=== PATIENT | male | born 1945 | race Caucasian/White ===

== ENCOUNTER → 2016-12-29 | Outpatient (CLI) | payer MEDICARE, OTHER ==
--- NOTE | 2016-12-29 10:01 | USB ---
Reason for exam: clinical finding. Physical Findings: Nurse Summary: all soft, movable bilateral breast tissue (nurse ts). US Breast BILAT Right breast ultrasound includes all four quadrants, the retroareolar region and axilla. Finding demonstrate no cystic or solid lesion seen. Left breast ultrasound includes all four quadrants, the retroareolar region and axilla. Finding demonstrate no cystic or solid lesion seen. These results were verbally communicated with the patient and result sheet given to the patient on 12/29/16. ASSESSMENT: Negative, BI-RAD 1 RECOMMENDATION: Clinical management of both breasts. Manage patient on a clinical basis.
== END | disposition home or self-care (01) ==
LOC: RADUSWWP 08:49
PROVIDERS: ATTEND Family Medicine
DX: N62 Hypertrophy of breast (principal)

== ENCOUNTER → 2019-12-05 | Outpatient (CLI) | payer MEDICARE, OTHER ==
--- NOTE | 2019-12-12 10:17 | P.ARTDOP ---
Arterial Doppler LOWER EXTREMITY ARTERIAL DOPPLER: DATE OF SERVICE: 12/05/2019 Reason for study: Right leg ulcer. Doppler waveforms: Multiphasic bilaterally throughout. Pulse volume recording: Normal waveforms. Pressure gradients: None. Ankle-brachial indices: Greater than 1 bilaterally. Toe brachial indices: 0.79 on the right, 0.67 on the left Impression: Normal study.
== END | disposition home or self-care (01) ==
LOC: RADUSWWP 13:23
PROVIDERS: ATTEND Thoracic Surgery (Cardiothoracic Vascular Surgery)
DX: I87.331 Chronic venous hypertension (idiopathic) with ulcer and inflammation of right lower extremity (principal); L97.912 Non-pressure chronic ulcer of unspecified part of right lower leg with fat layer exposed; L03.115 Cellulitis of right lower limb
CPT/HCPCS: 93922

== ENCOUNTER 2021-04-26 17:44 | Emergency (ER) | payer MEDICARE, OTHER ==
[2021-04-26] MEDS ORDERED: TOPICAL SKIN ADHESIVE 1 EACH AMP TOPICAL ONE (18:19)
--- NOTE | 2021-04-26 18:23 | ED ---
Wound/Laceration HPI - General Chief Complaint: Wound/Laceration Stated Complaint: Lt Leg Lac Source: patient, EMS, RN notes reviewed Mode of arrival: EMS Limitations: no limitations - History of Present Illness Initial Comments: 75-year-old obese white male is and states the emergency room alert and oriented 4, with complaints of bleeding from his left leg after hit with a hose clamp hour prior to arrival. Patient states that he cannot get the bleeding controlled taken to the hospital. Patient states his tetanus shot is up-to-date. He denies any other injuries. He states takes an aspirin a day. Patient is a nonsmoker and does not drink alcohol on a daily basis. No illicit drug use. -: hour(s) (1) Extremity Location: Left: Lower Leg (Ruptured varicose vein) Place: outdoors Patient Tetanus UTD: Yes Context: accidental, other (from clamp on hose) Associated Symptoms: none Treatments Prior to Arrival: bandage - Related Data Allergies Allergy/AdvReac Type Severity Reaction Status Date / Time No Known Allergies Allergy Verified 04/26/21 18:00 Review of Systems ROS Statement: Those systems with pertinent positive or pertinent negative responses have been documented in the HPI. ROS Other: All systems not noted in ROS Statement are negative. Past Medical History Past Medical History: Hypertension Past Surgical History: Orthopedic Surgery, Tonsillectomy Smoking Status: Former smoker Past Alcohol Use History: None Reported Past Drug Use History: None Reported General Exam General appearance: alert, in no apparent distress Head exam: Present: atraumatic, normocephalic, normal inspection Eye exam: Present: normal appearance, PERRL, EOMI. Absent: scleral icterus, conjunctival injection, periorbital swelling Pupils: Present: normal accommodation ENT exam: Present: normal exam, normal oropharynx, mucous membranes moist Neck exam: Present: normal inspection, full ROM. Absent: tenderness, meningismus, lymphadenopathy, thyromegaly Respiratory exam: Present: normal lung sounds bilaterally. Absent: respiratory distress, wheezes, rales, rhonchi, stridor, chest wall tenderness, accessory muscle use Cardiovascular Exam: Present: regular rate, normal rhythm, normal heart sounds. Absent: systolic murmur, diastolic murmur, rubs, gallop, clicks GI/Abdominal exam: Present: soft, distended, normal bowel sounds. Absent: tenderness, guarding, rebound, rigid Extremities exam: Present: full ROM, normal capillary refill. Absent: tenderness, pedal edema, joint swelling, calf tenderness Back exam: Present: normal inspection, full ROM. Absent: tenderness, CVA tenderness (R), CVA tenderness (L), muscle spasm, paraspinal tenderness, ve rtebral tenderness Neurological exam: Present: alert, oriented X3, CN II-XII intact Psychiatric exam: Present: normal affect, normal mood Skin exam: Present: warm, dry, intact, normal color. Absent: rash, cyanosis, diaphoretic, erythema, petechiae, pallor, mottled Expanded Type of lesion: Present: other (Left anterior tibia varicose vein rupture, bleeding controlled with pressure) Course Vital Signs 04/26/21 18:41 Temperature 98 F Pulse Rate 70 Respiratory 18 Rate Blood Pressure 101/62 O2 Sat by Pulse 95 Oximetry Medical Decision Making - Medical Decision Making Patient has evidence of chronic venous insufficiency with encouraged to varicose veins. Patient states the metal clamp on the hose hit his leg and caused bleeding and when these vessels. Bleeding was controlled with pressure dressing/hong wrap. Dr. Butts at bedside to assess. Disposition Clinical Impression: Ruptured varicose vein Disposition: HOME SELF-CARE Condition: Good Instructions (If sedation given, give patient instructions): Laceration (ED) Additional Instructions: Return if any increased bleeding or inability to stop with pressure. Follow-up with the primary care doctor in 1 week. Is patient prescribed a controlled substance at d/c from ED?: No Referrals: Tyron Smith III, MD [Primary Care Provider] - 1-2 days Time of Disposition: 20:04
[2021-04-26 18:43] VITALS: BP 101/62; PULSE 70; RESP 18; TEMP 98
[2021-04-26] MEDS ORDERED: LIDOCAINE 1%-EPI 1:100,000 20 ML VIAL SQ STA (19:14)
== END 2021-04-26 21:27 | disposition home or self-care (01) ==
LOC: EC 17:44
DX: I83.892 Varicose veins of left lower extremity with other complications (principal); I10 Essential (primary) hypertension; Z87.891 Personal history of nicotine dependence
CPT/HCPCS: 99284

== ENCOUNTER 2023-11-23 07:56 | Inpatient (IN) | payer MEDICARE, OTHER ==
--- NOTE | 2023-11-23 08:32 | ED ---
General Adult HPI - General Chief complaint: Abdominal Pain Stated complaint: Adominal Pain Time Seen by Provider: 11/23/23 08:16 Source: patient, RN notes reviewed Mode of arrival: ambulatory Limitations: no limitations - History of Present Illness Initial comments: Patient is a pleasant 78-year-old male present to the emergency department with concerns with abdominal discomfort. Onset of symptoms was just a couple days ago. Discomfort is upper abdomen. No nausea or vomiting. No constipation or diarrhea. Patient does feel full. No history of similar symptoms previously. - Related Data Allergies Allergy/AdvReac Type Severity Reaction Status Date / Time No Known Allergies Allergy Verified 11/23/23 08:07 Review of Systems ROS Statement: Those systems with pertinent positive or pertinent negative responses have been documented in the HPI. ROS Other: All systems not noted in ROS Statement are negative. Constitutional: Denies: fever Eyes: Denies: eye pain ENT: Denies: ear pain Respiratory: Denies: cough, dyspnea Cardiovascular: Denies: chest pain Endocrine: Denies: fatigue Gastrointestinal: Reports: as per HPI, abdominal pain. Denies: nausea, vomiting, diarrhea, constipation Musculoskeletal: Denies: back pain Skin: Denies: rash Past Medical History Past Medical History: Hypertension History of Any Multi-Drug Resistant Organisms: None Reported Past Surgical History: Orthopedic Surgery, Tonsillectomy Smoking Status: Former smoker Past Alcohol Use History: None Reported Past Drug Use History: None Reported General Exam Limitations: no limitations General appearance: alert, in no apparent distress Head exam: Present: normocephalic Eye exam: Present: normal appearance Neck exam: Present: normal inspection Respiratory exam: Present: normal lung sounds bilaterally Cardiovascular Exam: Present: regular rate, irregular rhythm Expanded Peripheral pulses: 2+: Posterior Tibialis (R), Posterior Tibialis (L) GI/Abdominal exam: Present: soft, tenderness (Mild epigastric tenderness to palpation), normal bowel sounds. Absent: guarding, pulsatile mass Extremities exam: Present: normal inspection Neurological exam: Present: alert Psychiatric exam: Present: normal affect, normal mood Skin exam: Present: normal color Course Vital Signs 11/23/23 11/23/23 11/23/23 08:05 09:25 10:00 Temperature 97.4 F L Pulse Rate 53 L 53 L 65 Respiratory 16 20 19 Rate Blood Pressure 149/75 115/65 119/79 O2 Sat by Pulse 97 97 96 Oximetry 11/23/23 10:52 Temperature 97.6 F Pulse Rate 70 Respiratory 17 Rate Blood Pressure 129/80 O2 Sat by Pulse 95 Oximetry EKG Findings - EKG Results: EKG: interpreted by GERTRUDED (Right axis. Right bundle branch block. Nonspecific T waves) EKG shows: atrial fibrillation Medical Decision Making - Medical Decision Making Was pt. sent in by a medical professional or institution (, DANY, FISCAL ACCOUNTANT, urgent care, hospital, or [facility]...) When possible be specific @ -No Did you speak to anyone other than the patient for history (EMS, parent, family, police, friend...)? What history was obtained from this source @ - is present and helps provide history confirmation. Did you review nursing and triage notes (agree or disagree)? Why? @ -I reviewed and agree with nursing and triage notes Were old charts reviewed (outside hosp., previous admission, EMS record, old EKG, old radiological studies, urgent care reports/EKG's, [facility] records)? Report findings @ -No old charts were reviewed Differential Diagnosis (chest pain, altered mental status, abdominal pain women, abdominal pain men, vaginal bleeding, weakness, fever, dyspnea, syncope, headache, dizziness, GI bleed, back pain, seizure, CVA, palpatations, mental health, musculoskeletal)? @ -Differential Abdominal Pain Men: Appendicitis, cholecystitis, diverticulosis, ischemic bowel, pancreatitis, hepatitis, UTI, gastroenteritis, AAA, incarcerated hernia, bowel obstruction, constipation, inflammatory bowel, hepatitis, peptic ulcer disease, splenic infarction, perforated viscus, testicular torsion, this is not meant to be an all-inclusive list EKG interpreted by me (3pts min.). @ -As above X-rays interpreted by me (1pt min.). @ -None done CT interpreted by me (1pt min.). @ -CT scan abdomen pelvis does show some inflammatory changes possible distal gastritis or duodenitis. Soft tissue thickening sigmoid colon. U/S interpreted by me (1pt. min.). @ -None done What testing was considered but not performed or refused? (CT, X-rays, U/S, l abs)? Why? @ -None What meds were considered but not given or refused? Why? @ -None Did you discuss the management of the patient with other professionals (professionals i.e. , PA, FISCAL ACCOUNTANT, lab, RT, psych nurse, health social work professor, food and beverage outlets manager, teacher, consumer safety officer, dependency case manager)? Give summary @ -Case was discussed with Dr. Jones, who will admit covering Dr. Valentine Was smoking cessation discussed for >3mins.? @ -No Was critical care preformed (if so, how long)? @ -No Were there social determinants of health that impacted care today? How? (Homelessness, low income, unemployed, alcoholism, drug addiction, transportation, low edu. Level, literacy, decrease access to med. care, senior care, rehab)? @ -No Was there de-escalation of care discussed even if they declined (Discuss DNR or withdrawal of care, Hospice)? DNR status @ -No What co-morbidities impacted this encounter? (DM, HTN, Smoking, COPD, CAD, Cancer, CVA, ARF, Chemo, Hep., AIDS, mental health diagnosis, sleep apnea, morbid obesity)? @ -None Was patient admitted / discharged? Hospital course, mention meds given and route, prescriptions, significant lab abnormalities, going to OR and other pertinent info. @ -Patient reevaluated. Patient and family updated. Patient will be admitted with gastroenterology consult. Admission orders written. Undiagnosed new problem with uncertain prognosis? @ -No Drug Therapy requiring intensive monitoring for toxicity (Heparin, Nitro, Insulin, Cardizem)? @ -No Were any procedures done? @ -No Diagnosis/symptom? @ -Pancreatitis Acute, or Chronic, or Acute on Chronic? @ -Acute Uncomplicated (without systemic symptoms) or Complicated (systemic symptoms)? @ -Complicated with duodenitis Side effects of treatment? @ -No Exacerbation, Progression, or Severe Exacerbation? @ -No Poses a threat to life or bodily function? How? (Chest pain, [place], [place], pneumonia, PE, COPD, DKA, ARF, appy, cholecystitis, CVA, Diverticulitis, Homicidal, Suicidal, threat to staff... and all critical care pts) @ -No - Lab Data Result diagrams: 11/23/23 08:39 11/23/23 08:39 Lab Results 11/23/23 11/23/23 11/23/23 Range/Units 08:39 08:39 08:39 WBC 8.5 (3.8-10.6) k/uL RBC 5.02 (4.30-5.90) m/uL Hgb 13.3 (13.0-17.5) gm/dL Hct 40.9 (39.0-53.0) % MCV 81.5 (80.0-100.0) fL MCH 26.5 (25.0-35.0) pg MCHC 32.6 (31.0-37.0) g/dL RDW 15.0 (11.5-15.5) % Plt Count 258 (150-450) k/uL MPV 8.0 Neutrophils % 84 % Lymphocytes % 9 % Monocytes % 5 % Eosinophils % 0 % Basophils % 0 % Neutrophils # 7.2 (1.3-7.7) k/uL Lymphocytes # 0.7 L (1.0-4.8) k/uL Monocytes # 0.5 (0-1.0) k/uL Eosinophils # 0.0 (0-0.7) k/uL Basophils # 0.0 (0-0.2) k/uL PT 11.2 (10.0-12.5) sec INR 1.0 (<1.2) APTT 24.4 (22.0-30.0) sec Sodium 139 (137-145) mmol/L Potassium 3.8 (3.5-5.1) mmol/L Chloride 104 (98-107) mmol/L Carbon Dioxide 23 (22-30) mmol/L Anion Gap 12 mmol/L BUN 12 (9-20) mg/dL Creatinine 0.67 (0.66-1.25) mg/dL Est GFR (CKD-EPI)AfAm >90 (>60 ml/min/1.73 sqM) Est GFR (CKD-EPI)NonAf >90 (>60 ml/min/1.73 sqM) Glucose 145 H (74-99) mg/dL Calcium 9.2 (8.4-10.2) mg/dL Total Bilirubin 1.6 H (0.2-1.3) mg/dL AST 171 H (17-59) U/L ALT 98 H (4-49) U/L Alkaline Phosphatase 150 H (38-126) U/L Total Protein 6.7 (6.3-8.2) g/dL Albumin 3.7 (3.5-5.0) g/dL Amylase 1512 H* (30-110) U/L Lipase 22549 H (23-300) U/L Disposition Clinical Impression: Pancreatitis Disposition: ADMITTED IP TO THIS HOSP Is patient prescribed a controlled substance at d/c from ED?: No Referrals: None,Stated [REFERRING] - 1-2 days Time of Disposition: 11:34
[2023-11-23] MEDS: SODIUM CHLORIDE 0.9% 1,000 ML IV STA (08:48)
[2023-11-23] MEDS: FAMOTIDINE 20 MG/2 ML VIAL IV STA (08:50)
[2023-11-23] MEDS: MORPHINE SULFATE 4 MG/ML SYRINGE IVP STA (08:53)
[2023-11-23 08:54] LABS: Basophils % (A) 0 %; Eosinophils % (A) 0 %; HCT 40.9 % (39.0-53.0); HGB 13.3 gm/dL (13.0-17.5); Lymphocytes # (A) 0.7 k/uL (1.0-4.8); Lymphocytes % (A) 9 %; MCH 26.5 pg (25.0-35.0); MCHC 32.6 g/dL (31.0-37.0); MCV 81.5 fL (80.0-100.0); Monocytes # (A) 0.5 k/uL (0-1.0); Monocytes % (A) 5 %; Neutrophils # (A) 7.2 k/uL (1.3-7.7); Neutrophils % (A) 84 %; Platelet Count 258 k/uL (150-450); RBC 5.02 m/uL (4.30-5.90); WBC 8.5 k/uL (3.8-10.6)
[2023-11-23 09:03] LABS: Partial Thromboplastin Time 24.4 sec (22.0-30.0); Prothrombin Time 11.2 sec (10.0-12.5)
[2023-11-23 09:21] LABS: ALT 98 U/L (4-49); AST 171 U/L (17-59); African American GFR (CKD) >90 (>60 ml/min/1.73 sqM); Albumin 3.7 g/dL (3.5-5.0); Alkaline Phosphatase 150 U/L (38-126); Anion Gap 12 mmol/L; Blood Urea Nitrogen 12 mg/dL (9-20); Calcium 9.2 mg/dL (8.4-10.2); Carbon Dioxide 23 mmol/L (22-30); Chloride 104 mmol/L (98-107); Glucose 145 mg/dL (74-99); Non-African American GFR(CKD) >90 (>60 ml/min/1.73 sqM); Potassium 3.8 mmol/L (3.5-5.1); Sodium 139 mmol/L (137-145); Total Bilirubin 1.6 mg/dL (0.2-1.3); Total Protein 6.7 g/dL (6.3-8.2)
[2023-11-23] MEDS: ONDANSETRON 4 MG/2 ML VIAL IVP STA (09:22)
[2023-11-23 09:41] LABS: Amylase 1512 U/L (30-110)
[2023-11-23 09:56] LABS: Lipase 12465 U/L (23-300)
--- NOTE | 2023-11-23 10:50 | CT ---
EXAMINATION TYPE: CT abdomen pelvis w con DATE OF EXAM: 11/23/2023 COMPARISON: None available. HISTORY: Upper abdominal pain. Automated exposure control for dose reduction was used. TECHNIQUE: Helical acquisition of images was performed from the lung bases through the pelvis. CONTRAST: Performed without Oral Contrast and with IV Contrast, patient injected with 100 mL of Isovue 300. LOWER CHEST : The visualized lung bases are clear. There are no pleural or pericardial effusions. ABDOMEN: Liver and Biliary system: Normal. Adrenal glands: Normal. Kidneys and ureters: 2.1 cm cyst in the inferior pole the right kidney. 1.7 cm cyst in the inferior p ole of the right kidney. 2.0 x 0.7 cm nonobstructing stone in the inferior pole of the left kidney. A dditional nonobstructing stone in the inferior pole the left kidney measuring approximately 8.2 mm in diameter. Spleen: Normal. Pancreas: Normal. Gallbladder: Normal. Lymph nodes, Peritoneum and mesentery: There is no mesenteric or retroperitoneal lymphadenopathy. Gastrointestinal tract: There are no dilated loops of bowel or free intraperitoneal air. There is some thickening of the eye work region of the stomach that extends into the duodenum with some surro unding stranding and fluid is suggestive of a distal gastritis and duodenitis. The appendix is normal . There is moderate descending colonic and sigmoid colonic diverticulosis with a significant area of thickening of the colonic wall in the sigmoid colon which would raise the possibility of malignancy a nd direct visualization is recommended. There is no surrounding inflammatory changes in this location at this time. Aorta/IVC: There is moderate vascular calcification throughout the abdominal aorta without evidence of aneurysmal dilation or dissection. IVC normal. Abdominal wall: Normal. PELVIS: Fluid: There is no free fluid in the pelvis. Lymph Nodes: There is no pelvic or inguinal lymphadenopathy.. Urinary bladder: Normal. BONES: Moderate degenerative joint space narrowing is seen within the right hip joint space with sub chondral sclerosis and cystic changes as well as marginal spurring. Mild degenerative changes otherwi se seen within the left hip joint space. There is some scattered degenerative changes otherwise seen throughout the spine. There are no acute osseous abnormalities. ADDITIONAL SIGNIFICANT FINDINGS: None. IMPRESSION: 1. Findings suggestive of a distal gastritis and duodenitis. This is likely inflammatory or infectiou s. Malignancy is felt to be less likely in this location, however not excluded. 2. Diverticulosis without evidence of diverticulitis, however there does appear to be significant sof t tissue thickening involving a region of the sigmoid colon along a short segment with malignancy a c onsideration and direct visualization would be recommended. 3. Nonobstructing left renal stones.
[2023-11-23] MEDS ORDERED: NALOXONE 0.4 MG/ML 1 ML VIAL IV PRN (11:34)
[2023-11-23] MEDS: HYDROmorphone 1 MG/ML 1 ML SYRINGE IVP PRN (12:29)
[2023-11-23] MEDS: SODIUM CHLORIDE 0.9% 1,000 ML IV SCH (12:34)
[2023-11-23] MEDS: HYDROmorphone 0.5 MG/0.5 ML SYRINGE IVP PRN (14:13)
[2023-11-23] MEDS ORDERED: bisacodyL 5 MG TABLET.DR PO PRN (15:15)
[2023-11-23] MEDS ORDERED: ACETAMINOPHEN TAB 325 MG TAB PO PRN (15:15)
--- NOTE | 2023-11-23 15:30 | P.HPIM ---
History of Present Illness H&P Date: 11/23/23 Patient is a 78-year-old male with hypertension, sinusitis, Chronic Lower extremity edema, and A fib anticoagulated with eliquis with complaints of abdominal discomfort. In the emergency department he underwent extensive evaluation. On arrival vitals were within normal limits. Laboratory analysis included CBC, coags, CMP, amylase, and lipase which were remarkable for bilirubin 1.6, AST 171, ALT 98, amylase 1512, and lipase 12,465. Patient underwent CT abdomen and pelvis which demonstrated distal gastritis or duodenitis, diverticulosis with thickening of the sigmoid colon, and left renal stones. In the ER he was diagnosed with acute pancreatitis. He was started on normal saline at 130 cc/h and Dilaudid. Arrangements were made for admission. GI was consulted. Patient seen and examined at bedside. He reports that for the last 2 days he has had worsening abdominal pain that is periumbilical without radiation. It waxes and wanes. His feels that it is related to eating, he is unsure. He denies any nausea, vomiting, diarrhea, fevers. He has had increased fatigue and d ecreased appetite the last few days. He has done card colon cancer screening, but has never had a colonoscopy. He follows with Dr. Rudolph no hx of CHF, but does have chronic LE edema. He has a fib but this has been well controlled. Per urine is chronically dark in nature. Vital signs reviewed General: nontoxic, no distress, appears at stated age Derm: Thick skin with darkening, + vericos veins, warm, dry Eyes: EOMI, no lid lag, anicteric sclera, pupils equal round reactive to light ENT: Nose and ears atraumatic Cardiovascular: S1S2 reg, no murmur, n2+ edema Lungs: clear to auscultation bilateral, no rhonchi, no rales, no wheeze, no accessory muscle use Abdominal: soft, +tender to palpation RUQ and periumbilical , no guarding Ext: no gross muscle atrophy, no contractures Neuro: CN II-XII grossly intact, No focal neuro deficits Psych: Alert, oriented, appropriate affect Assessment/Plan: Acute pancreatitis Duodenitis, diverticulosos Transaminitis - LR 1L bolus and then run at 130 cc/hr - dialudid 0.5-1 mg IVP q 3 hours prn pain depending on pain score - Zofran 4mg IVP q 6 hours prn nausea - Gallbladder US - Await GI recs - Will need colonoscopy likely as an outpatient. HTN A. fib - resume metoprolol 50 mg po daily, cardizem 120 mg PO daily, eliquis 5 mg twice dialy - hold oral lasix and aldactone - monitor fluid status Imaging: As per HPI Data Review: As per HPI The patient is admitted with an anticipated greater than 2 midnight stay for evaluation of Acute pancreatitis . Surrogate decision-maker: CODE STATUS:full DVT prophylaxis: Lovenox Anticipated discharge date: Pending Clinical Course Anticipated discharge place: Pending Clinical Course This dictation was prepared using [employer] voice recognition software. Though every attempt is made to correct errors during dictation some may still exist. Past Medical History Past Medical History: Atrial Fibrillation, Hypertension Additional Past Medical History / Comment(s): sinusitis, Chornic LE edema History of Any Multi-Drug Resistant Organisms: None Reported Past Surgical History: Orthopedic Surgery, Tonsillectomy Smoking Status: Former smoker Past Alcohol Use History: None Reported Past Drug Use History: None Reported Medications and Allergies Home Medications Medication Instructions Recorded Confirmed Type Apixaban [Eliquis] 5 mg PO BID 11/23/23 11/23/23 History Diltiazem Cd [Cardizem CD] 120 mg PO DAILY 11/23/23 11/23/23 History Ergocalciferol [Vitamin D2 (1250 1,250 mcg PO MARTINO 11/23/23 11/23/23 History Mcg = 88090 Iu)] Fluticasone Nasal [place] [Flonase 1 spr EA NOSTRIL BID 11/23/23 11/23/23 History Nasal [place]] Furosemide [Lasix] 20 mg PO DAILY 11/23/23 11/23/23 History Metoprolol Succinate (ER) [Toprol 50 mg PO DAILY 11/23/23 11/23/23 History Xl] Spironolactone [Aldactone] 25 mg PO DAILY 11/23/23 11/23/23 History Allergies Allergy/AdvReac Type Severity Reaction Status Date / Time No Known Allergies Allergy Verified 11/23/23 12:57 Physical Exam Osteopathic Statement: *. No significant issues noted on an osteopathic structural exam other than those noted in the History and Physical/Consult. Vitals: Vital Signs Temp Pulse Resp BP Pulse Ox 11/23/23 14:10 59 L 17 101/67 97 11/23/23 12:30 98.8 F 56 L 17 112/74 96 11/23/23 10:52 97.6 F 70 17 129/80 95 11/23/23 10:00 65 19 119/79 96 11/23/23 09:25 53 L 20 115/65 97 11/23/23 08:05 97.4 F L 53 L 16 149/75 97 Intake and Output 11/23/23 11/23/23 11/23/23 06:59 14:59 22:59 Other: Weight 146.964 kg Results CBC & Chem 7: 11/23/23 08:39 11/23/23 08:39 Labs: Abnormal Lab Results - Last 24 Hours (Table) 11/23/23 11/23/23 Range/Units 08:39 08:39 Lymphocytes # 0.7 L (1.0-4.8) k/uL Glucose 145 H (74-99) mg/dL Total Bilirubin 1.6 H (0.2-1.3) mg/dL AST 171 H (17-59) U/L ALT 98 H (4-49) U/L Alkaline Phosphatase 150 H (38-126) U/L Amylase 1512 H* (30-110) U/L Lipase 67963 H (23-300) U/L
[2023-11-23] MEDS: LACTATED RINGERS 1,000 ML IV SCH ×2 (15:35→15:38)
--- NOTE | 2023-11-23 15:39 | P.CONS ---
History of Present Illness - Reason for Consult Consult date: 11/23/23 Pancreatitis, duodenitis Requesting physician: Jasen Phillips - Chief Complaint Abdominal pain - History of Present Illness This is a pleasant 78-year-old male who presented to the emergency department with complaints of right upper quadrant abdominal pain that started 2 to 3 days ago and progressively got worse. Pain was associated with nausea and vomiting. Past medical history includes morbid obesity, atrial fibrillation and hypertension. He was found to have elevated LFTs as well as amylase and lipase. Gastroenterology was consulted for pancreatitis. He denies any history of pancreatitis in the past, no recent alcohol use. States he had drink in the past but that was over 20 years ago. States pain has improved since he has been here. He had a CT of the abdomen pelvis which reported findings suggestive of a distal gastritis and duodenitis. Likely inflammatory or infectious. Malignancy is felt to be less likely in this location however not excluded. Diverticulosis without evidence of diverticulitis. However there does appear to be significant soft tissue thickening involving the region of the sigmoid colon along the short segment with malignancy a consideration and direct visualization would be recommended. Nonobstructing left renal stones. Labs WBC 8.5 hemoglobin 13 platelet count 258,000 INR 1.0 sodium 139 potassium 3.8 BUN 12 creatinine 0.6 total bilirubin 1.6 AST 171 ALT 98 alkaline phosphatase 150 amylase 1512 lipase 12 465 Review of Systems REVIEW OF SYSTEMS: CARDIOPULMONARY: No chest pain or shortness of breath. Gastrointestinal: Right upper quadrant pain associated with nausea and vomiting. No hematemesis, coffee-ground emesis. No rectal bleeding, or melena. GENITOURINARY: No dysuria or hematuria. MUSCULOSKELETAL: Reports normal range of motion., Joint pain. SKIN: No rashes. No jaundice. ENDOCRINE: No chills, fevers. No excessive weight gain or loss. No polydipsia or polyuria. PSYCHIATRIC: Unremarkable. NEUROLOGY: No change in mental status. Denies dizziness, headache. ENT: Vision unremarkable. CONSTITUTIONAL: No recent weight loss. No fever, chills, night sweats. Past Medical History Past Medical History: Hypertension History of Any Multi-Drug Resistant Organisms: None Reported Past Surgical History: Orthopedic Surgery, Tonsillectomy Smoking Status: Former smoker Past Alcohol Use History: None Reported Past Drug Use History: None Reported Medications and Allergies Home Medications Medication Instructions Recorded Confirmed Type Apixaban [Eliquis] 5 mg PO BID 11/23/23 11/23/23 History Diltiazem Cd [Cardizem CD] 120 mg PO DAILY 11/23/23 11/23/23 History Ergocalciferol [Vitamin D2 (1250 1,250 mcg PO MARTINO 11/23/23 11/23/23 History Mcg = 90053 Iu)] Fluticasone Nasal [place] [Flonase 1 spr EA NOSTRIL BID 11/23/23 11/23/23 History Nasal [place]] Furosemide [Lasix] 20 mg PO DAILY 11/23/23 11/23/23 History Metoprolol Succinate (ER) [Toprol 50 mg PO DAILY 11/23/23 11/23/23 History Xl] Spironolactone [Aldactone] 25 mg PO DAILY 11/23/23 11/23/23 History Allergies Allergy/AdvReac Type Severity Reaction Status Date / Time No Known Allergies Allergy Verified 11/23/23 12:57 Physical Exam Vitals: Vital Signs Temp Pulse Resp BP Pulse Ox 11/23/23 12:30 98.8 F 56 L 17 112/74 96 11/23/23 10:52 97.6 F 70 17 129/80 95 11/23/23 10:00 65 19 119/79 96 11/23/23 09:25 53 L 20 115/65 97 11/23/23 08:05 97.4 F L 53 L 16 149/75 97 Intake and Output 11/22/23 11/23/23 11/23/23 22:59 06:59 14:59 Other: Weight 146.964 kg General appearance: The patient is alert, oriented, appears in no acute distress. HET: Head is normocephalic and atraumatic. Conjunctiva pink. Sclera anicteric. Neck: Supple without lymphadenopathy. Trachea midline. Heart: Regular. Lungs: Equal expansion, normal respiratory effort. Abdomen: Morbidly obese. Soft, right upper quadrant and epigastric tenderness, nondistended. No guarding or rigidity. Skin: No rashes. No jaundice. Extremities: Normal skin color and turgor. No pedal edema. Neurological: No focal deficits. Alert and oriented x3. Results CBC & Chem 7: 11/23/23 08:39 11/23/23 08:39 Labs: Abnormal Lab Results - Last 24 Hours (Table) 11/23/23 11/23/23 Range/Units 08:39 08:39 Lymphocytes # 0.7 L (1.0-4.8) k/uL Glucose 145 H (74-99) mg/dL Total Bilirubin 1.6 H (0.2-1.3) mg/dL AST 171 H (17-59) U/L ALT 98 H (4-49) U/L Alkaline Phosphatase 150 H (38-126) U/L Amylase 1512 H* (30-110) U/L Lipase 00775 H (23-300) U/L Comments: CT of the abdomen pelvis which reported findings suggestive of a distal gastritis and duodenitis. Likely inflammatory or infectious. Malignancy is felt to be less likely in this location however not excluded. Diverticulosis without evidence of diverticulitis. However there does appear to be significant soft tissue thickening involving the region of the sigmoid colon along the short segment with malignancy a consideration and direct visualization would be recommended. Nonobstructing left renal stones. Assessment and Plan (1) Pancreatitis Narrative/Plan: 78-year-old male admitted with acute pancreatitis was also noted elevated LFTs. Denies any history of pancreatitis or underlying liver disease. No new medications and no alcohol use. Denies any previous history of problems with his gallbladder or gallstones. Had significant elevation in his amylase and lipase as well as elevation in his LFTs. Need to consider possible gallstone pancreatitis with cholestatic pattern. [place] gallbladder ultrasound. Trend lipase and LFTs. Current Visit: Yes Status: Acute Code(s): K85.90 - ACUTE PANCREATITIS WITHOUT NECROSIS OR INFECTION, UNSP SNOMED Code(s): 55164233 (2) Elevated LFTs Current Visit: Yes Status: Acute Code(s): R79.89 - OTHER SPECIFIED ABNORMAL FINDINGS OF BLOOD CHEMISTRY SNOMED Code(s): 495506314 Plan: 1. Continue symptomatic and supportive care 2. Continue pain medication per primary medical team 3. Antiemetics as needed 4. Protonix 40 mg twice daily 5. N.p.o. with ice chips 6. Gallbladder ultrasound ordered 7. Repeat CBC, CMP, lipase daily 8. Further recommendations forthcoming based on clinical course Thank you for this consultation, we will continue to follow. Dr. Hilda Hudson I agree with the dictator's note, documented as a scribe by Paula Beckett.
--- NOTE | 2023-11-23 17:31 | US ---
EXAMINATION TYPE: US gallbladder DATE OF EXAM: 11/23/2023 COMPARISON: CT 11/23/23 CLINICAL INDICATION: Male, 78 years old with history of pancreatitis, elevated LFTS; Elevated LFTs TECHNIQUE: Multiple sonographic images of the right upper quadrant are obtained. FINDINGS: EXAM MEASUREMENTS: Liver Length: 17.7 cm Gallbladder Wall: 0.23 cm CBD: Obscured Right Kidney: 14.4 x 7.4 x 6.8 cm HEAD CHAR FILTER TANK TENDER NOTES: Exam is very limited due to gas and patient body habitus. Several images were t aken intercostally. Pancreas: Obscured Liver: Measures upper limits. Gallbladder: Enlarged measuring 11.0 cm in length. Very limited. Hyperechoic material with shadowing seen within the gallbladder: 3.4 x 3.3 x 1.4 cm. Evidence for sonographic Villarreal's sign: No CBD: Obscured Right Kidney: Enlarged. Hypoechoic area seen medially at the lower pole: 3.0 x 2.9 x 2.5 cm. IMPRESSION: 1. Biliary sludge/cholelithiasis. 2. Hepatocellular disease correlate for cirrhosis. 3. Right renal cyst.
[2023-11-23] MEDS: PANTOPRAZOLE 40 MG/10 ML VIAL IV SCH (20:10)
[2023-11-23] MEDS: APIXABAN 5 MG TAB PO SCH (20:10)
[2023-11-23] MEDS: FLUTICASONE 50MCG/SPRAY NASAL 16GM EA NOSTRIL SCH (21:48)
[2023-11-24] MEDS: METOPROLOL SUCCINATE (ER) 100 MG TAB.ER.24H PO SCH (08:17)
[2023-11-24] MEDS: DILTIAZEM CD 120 MG CAP.ER.24H PO SCH (08:17)
[2023-11-24] MEDS ORDERED: PANTOPRAZOLE 40 MG/10 ML VIAL IV SCH (09:00)
[2023-11-24 10:17] LABS: Basophils # (A) 0.02 X 10*3/uL (0.00-0.10); Basophils % (A) 0.1 %; Eosinophils # (A) 0.01 X 10*3/uL (0.04-0.35); Eosinophils % (A) 0.1 %; HCT 39.9 % (39.6-50.0); HGB 12.5 g/dL (13.0-17.0); Lymphocytes # (A) 0.73 X 10*3/uL (0.90-5.00); Lymphocytes % (A) 4.5 %; MCH 26.5 pg (27.0-32.0); MCHC 31.3 g/dL (32.0-37.0); MCV 84.5 FL (80.0-97.0); Mean Platelet Volume 11.4 FL (9.5-12.2); Monocytes # (A) 1.24 X 10*3/uL (0.20-1.00); Monocytes % (A) 7.7 %; NRBC Per 100 WBC 0 X 10*3/uL (0.00-0.01); Neutrophils # (A) 14.09 X 10*3/uL (1.80-7.70); Neutrophils % (A) 87.3 %; Platelet Count 270 X 10*3/uL (140-440); RBC 4.72 X 10*6/uL (4.40-5.60); RDW 15.9 % (11.5-14.5); WBC 16.14 X 10*3/uL (4.50-10.00)
[2023-11-24 10:38] LABS: ALT 63 U/L (10-49); AST 50 U/L (14-35); Albumin 3.6 g/dL (3.8-4.9); Albumin/Globulin Ratio 1.38 Ratio (1.60-3.17); Alkaline Phosphatase 122 U/L (41-126); BUN/Creat Ratio 13.75 Ratio (12.00-20.00); Carbon Dioxide 28.3 mmol/L (21.6-31.8); Chloride 100 mmol/L (96-109); Globulin 2.6 g/dL (1.6-3.3); Glucose 86 mg/dL (70-110); Magnesium 1.8 mg/dL (1.5-2.4); Potassium 3.9 mmol/L (3.5-5.5); Sodium 138 mmol/L (135-145); Total Bilirubin 0.9 mg/dL (0.3-1.2); Total Protein 6.2 g/dL (6.2-8.2)
[2023-11-24 10:51] LABS: Lipase 854 U/L (14-60)
[2023-11-24 10:58] LABS: Amylase 722 U/L (23-121)
--- NOTE | 2023-11-24 12:43 | P.PN ---
Subjective Progress Note Date: 11/24/23 78-year-old male with hypertension, sinusitis, chronic lower extremity edema, and A fib anticoagulated with eliquis presents with complaints of abdominal discomfort. In the emergency department he underwent extensive evaluation. On arrival vitals were within normal limits. Laboratory analysis included CBC, coags, CMP, amylase, and lipase which were remarkable for bilirubin 1.6, AST 171, ALT 98, amylase 1512, and lipase 12,465. Patient underwent CT abdomen and pelvis which demonstrated distal gastritis or duodenitis, diverticulosis with thickening of the sigmoid colon, and left renal stones. In the ER he was diagnosed with acute pancreatitis. He was started on normal saline at 130 cc/h and Dilaudid. Arrangements were made for admission. GI was consulted. 11/24 Patient was seen and examined. He reports improvement in his abdominal pain. Pain is right and left upper quadrant. Gall bladder US shows biliary sludge with cholelithiasis. CBC WBC 16.14, Hg 12.5. CMP AST 50, ALT 63, alb 3.6. Amylase 722. Lipase 854. Discussed with ALICIA Mitchell, plans for MRCP to evaluate need to ERCP and surgery consult. General: non toxic, no distress, appears at stated age Derm: warm, dry Head: atraumatic, normocephalic, symmetric Eyes: EOMI, no lid lag, anicteric sclera Mouth: no lip lesion, mucus membranes moist Cardiovascular: S1S2 reg, no murmur Lungs: Clear to auscultation bilateral, no rhonchi, no rales , no accessory muscle use Abdominal: Soft, tender to palpation RU and LUQ without rebound, no guarding Ext: no gross muscle atrophy, no edema, no contractures Neuro: no focal neuro deficits Psych: Alert, oriented, appropriate affect Based on my assessment of this patient, this patient meets a high complexity level of care. Patient has an acute diagnosis of gallstone pancreatitis that poses a threat to life or bodily function. Gallstone pancreatitis: Discussed with ALICIA Mitchell, plans for MRCP to evaluate for ERCP and surgery consult. Decreased LR to 75 cc/hr from 130 cc/hr. Dialudid 0.5- 1 mg IVP Q3H PRN pain. Zofran 4mg IVP Q6H PRN for N/V. Transaminitis: Obstructive likely due to choledocolithiasis. Leukocytosis: Unknown etiology. No signs of cholecystitis on CT AP or GB US. Monitor for now. Normocytic anemia: Stable. Advised C-scope in the outpatient setting. HTN: Antihypertensive medications as below. A. fib: Resume metoprolol 50 mg po daily, cardizem 120 mg PO daily, eliquis 5 mg twice dialy. CODE STATUS: FULL CODE DVT Prophylaxis: Eliquis GI Prophylaxis: Protonix IV Designated medical POA if patient is not able to make medical decisions for themselves: I have reviewed the following senior energy consultant notes: I have reviewed the results of the following tests: CBC, CMP, GB US, Amylase, Lipase I have ordered the following tests: CBC and CMP I have discussed the care of this patient with the following independent historian: I have independently interpreted the following test below: I have discussed the management of this patient with the following physician: ALICIA Mitchell as above. Objective - Vital Signs Vital signs: Vital Signs Temp 98 F 11/24/23 06:58 Pulse 66 11/24/23 06:58 Resp 17 11/24/23 06:58 BP 124/74 11/24/23 06:58 Pulse Ox 91 L 11/24/23 06:58 FiO2 Intake & Output 11/23/23 11/24/23 11/24/23 18:59 06:59 18:59 Intake Total 1500 Balance 1500 Weight 146.964 kg Intake: Intake, IV Titration 1500 Amount Lactated Ringers 1,000 ml 1500 @ 125 mls/hr IV .Q8H [facility] Rx#:[id number] Other: # Voids 4 - Labs CBC & Chem 7: 11/24/23 07:39 11/24/23 07:39 Labs: Abnormal Lab Results - Last 24 Hours (Table) 11/24/23 11/24/23 Range/Units 07:39 07:39 WBC 16.14 H (4.50-10.00) X 10*3/uL Hgb 12.5 L (13.0-17.0) g/dL MCH 26.5 L (27.0-32.0) pg MCHC 31.3 L (32.0-37.0) g/dL RDW 15.9 H (11.5-14.5) % Immature Gran # 0.05 H (0.00-0.04) X 10*3/uL Neutrophils # 14.09 H (1.80-7.70) X 10*3/uL Lymphocytes # 0.73 L (0.90-5.00) X 10*3/uL Monocytes # 1.24 H (0.20-1.00) X 10*3/uL Eosinophils # 0.01 L (0.04-0.35) X 10*3/uL AST 50 H (14-35) U/L ALT 63 H (10-49) U/L Albumin 3.6 L (3.8-4.9) g/dL Albumin/Globulin Ratio 1.38 L (1.60-3.17) Ratio Amylase 722 A* (23-121) U/L Lipase 854 H (14-60) U/L
--- NOTE | 2023-11-24 13:04 | P.GSCN ---
History of Present Illness Consult date: 11/24/23 History of present illness: CHIEF COMPLAINT: Abdominal pain HISTORY OF PRESENT ILLNESS: This is a 78-year-old male who presented with pain across the upper abdomen x 2 days. Patient reports never having symptoms like this before. He denies any fever chills or sweats. Denies any nausea or vomiting. Patient did have pain after eating a hamburger. Patient with evid ence of gallstone pancreatitis with elevated lipase and liver enzymes. CT scan abdomen pelvis had shown evidence of gastritis, duodenitis diverticulosis without diverticulitis. And some soft tissue thickening involving the sigmoid colon. Patient reports never having a colonoscopy. Patient does report feeling bloated. Gallbladder ultrasound did show evidence of sludge and gallstones. Patient is scheduled for MRCP and followed by GI service. Surgical service consulted for gallstone pancreatitis. Patient with history of A-fib on Eliquis. Last dose was yesterday night. Denies any prior abdominal surgeries. PAST MEDICAL HISTORY: Hypertension, A-fib PAST SURGICAL HISTORY: See below MEDICATIONS: See below ALLERGIES: See below SOCIAL HISTORY: No illicit drug use. Denies alcohol use REVIEW OF SYSTEMS: CONSTITUTIONAL: Denies fever or chills. HEENT: Denies blurred vision, vision changes, or eye pain. Denies hemoptysis CARDIOVASCULAR: Denies chest pain or pressure. RESPIRATORY: No shortness of breath. GASTROINTESTINAL: See HPI for pertinent findings HEMATOLOGIC: Denies bleeding disorders. GENITOURINARY: Denies any blood in urine or increased urinary frequency. SKIN: Denies pruitis. Denies rash. PHYSICAL EXAM: VITAL SIGNS: Reviewed GENERAL: Well-developed in no acute distress. HEENT: No sclera icterus. Extraocular movements grossly intact. Moist buccal mucosa. Head is atraumatic, normocephalic. No nasal drainage. ABDOMEN: Soft. Obese. Mildly distended. Tenderness palpation epigastric and right upper quadrant area. Mild discomfort in the left lower quadrant with palpation NEUROLOGIC: Alert and oriented. Cranial nerves II through XII grossly intact. LABORATORY DATA: WBC is up from 8.5-16.14 Hgb 12.5 platelets 270 Sodium is 138 potassium 3.9 creatinine 0.8 Total bilirubin 1.6 down to 0.9 AST 171 down to 50 ALT 98 down to 63 alk phos 150 down to 122 Lipase 12,465 down to 854 amylase 1512 down to 722 IMAGING: CT scan abdomen pelvis reports findings suggestive of a distal gastritis and duodenitis. Likely inflammatory or infectious. Malignancy is felt less likely. Diverticulosis without evidence of diverticulitis. There does appear signi ficant soft tissues thickening involving the region of the sigmoid colon along a short segment with malignancy as a consideration and direct visualization would be recommended. Nonobstructing left renal stones. Gallbladder ultrasound biliary sludge/cholelithiasis. Hepatocellular disease correlate for cirrhosis. Right renal cyst. ASSESSMENT: 1. Acute gallstone pancreatitis 2. Acute cholecystitis. Ultrasound showing sludge and cholelithiasis 3. Gastritis and duodenitis reported on CT 4. Soft tissue thickening involving the sigmoid colon and diverticulosis reported on abdominal CT 5. Leukocytosis PLAN: -Continue GI workup. Patient scheduled for an MRCP today. -Keep patient n.p.o. except for ice chips -Antibiotics added -Continue IV Protonix -Continue IV fluids -Continue supportive care -Repeat labs in a.m. -Further recommendations forthcoming per surgeon Physician Bingo Clerk note has been reviewed by physician. Signing provider agrees with the documented findings, assessment, and plan of care. I have personally seen and examined the patient, reviewed the [employer] /PAs history, exam and MDM and agree with the assessment and plan as written. Based on total visit time, I have performed more than 50% of the visit. As above: Patient with upper abdominal pain on presentation. Imaging and lab work consistent with gallstone pancreatitis. Continue bowel rest. Recheck labs tomorrow. Additional finding of thickening of the mid sigmoid colon noted. This needs to be followed up with colonoscopy as outpatient. Tentatively plan cholecystectomy later during this hospital stay or possibly as outpatient. Past Medical History Past Medical History: Hypertension Additional Past Medical History / Comment(s): sinusitis, [place] LE edema History of Any Multi-Drug Resistant Organisms: None Reported Past Surgical History: Orthopedic Surgery, Tonsillectomy Smoking Status: Former smoker Past Alcohol Use History: None Reported Past Drug Use History: None Reported Medications and Allergies Home Medications Medication Instructions Recorded Confirmed Type Apixaban [Eliquis] 5 mg PO BID 11/23/23 11/23/23 History Diltiazem Cd [Cardizem CD] 120 mg PO DAILY 11/23/23 11/23/23 History Ergocalciferol [Vitamin D2 (1250 1,250 mcg PO MARTINO 11/23/23 11/23/23 History Mcg = 29717 Iu)] Fluticasone Nasal [place] [Flonase 1 spr EA NOSTRIL BID 11/23/23 11/23/23 History Nasal [place]] Furosemide [Lasix] 20 mg PO DAILY 11/23/23 11/23/23 History Metoprolol Succinate (ER) [Toprol 50 mg PO DAILY 11/23/23 11/23/23 History Xl] Spironolactone [Aldactone] 25 mg PO DAILY 11/23/23 11/23/23 History Allergies Allergy/AdvReac Type Severity Reaction Status Date / Time No Known Allergies Allergy Verified 11/23/23 12:57 Surgical - Exam Vital Signs Temp Pulse Resp BP Pulse Ox 97.4 F L 53 L 16 149/75 97 11/23/23 08:05 11/23/23 08:05 11/23/23 08:05 11/23/23 08:05 11/23/23 08:05 Results - Labs 11/24/23 07:39 11/24/23 07:39 Abnormal Lab Results - Last 24 Hours (Table) 11/24/23 11/24/23 Range/Units 07:39 07:39 WBC 16.14 H (4.50-10.00) X 10*3/uL Hgb 12.5 L (13.0-17.0) g/dL MCH 26.5 L (27.0-32.0) pg MCHC 31.3 L (32.0-37.0) g/dL RDW 15.9 H (11.5-14.5) % Immature Gran # 0.05 H (0.00-0.04) X 10*3/uL Neutrophils # 14.09 H (1.80-7.70) X 10*3/uL Lymphocytes # 0.73 L (0.90-5.00) X 10*3/uL Monocytes # 1.24 H (0.20-1.00) X 10*3/uL Eosinophils # 0.01 L (0.04-0.35) X 10*3/uL AST 50 H (14-35) U/L ALT 63 H (10-49) U/L Albumin 3.6 L (3.8-4.9) g/dL Albumin/Globulin Ratio 1.38 L (1.60-3.17) Ratio Amylase 722 A* (23-121) U/L Lipase 854 H (14-60) U/L Diabetes panel 11/24/23 Range/Units 07:39 Sodium 138 (135-145) mmol/L Potassium 3.9 (3.5-5.5) mmol/L Chloride 100 (96-109) mmol/L Carbon Dioxide 28.3 (21.6-31.8) mmol/L BUN 11.0 (9.0-27.0) mg/dL Creatinine 0.8 (0.6-1.5) mg/dL Glucose 86 (70-110) mg/dL Calcium 9.0 (8.7-10.3) mg/dL AST 50 H (14-35) U/L ALT 63 H (10-49) U/L Alkaline Phosphatase 122 (41-126) U/L Total Protein 6.2 (6.2-8.2) g/dL Albumin 3.6 L (3.8-4.9) g/dL Calcium panel 11/24/23 Range/Units 07:39 Calcium 9.0 (8.7-10.3) mg/dL Albumin 3.6 L (3.8-4.9) g/dL Pituitary panel 11/24/23 Range/Units 07:39 Sodium 138 (135-145) mmol/L Potassium 3.9 (3.5-5.5) mmol/L Chloride 100 (96-109) mmol/L Carbon Dioxide 28.3 (21.6-31.8) mmol/L BUN 11.0 (9.0-27.0) mg/dL Creatinine 0.8 (0.6-1.5) mg/dL Glucose 86 (70-110) mg/dL Calcium 9.0 (8.7-10.3) mg/dL Adrenal panel 11/24/23 Range/Units 07:39 Sodium 138 (135-145) mmol/L Potassium 3.9 (3.5-5.5) mmol/L Chloride 100 (96-109) mmol/L Carbon Dioxide 28.3 (21.6-31.8) mmol/L BUN 11.0 (9.0-27.0) mg/dL Creatinine 0.8 (0.6-1.5) mg/dL Glucose 86 (70-110) mg/dL Calcium 9.0 (8.7-10.3) mg/dL Total Bilirubin 0.9 (0.3-1.2) mg/dL AST 50 H (14-35) U/L ALT 63 H (10-49) U/L Alkaline Phosphatase 122 (41-126) U/L Total Protein 6.2 (6.2-8.2) g/dL Albumin 3.6 L (3.8-4.9) g/dL
--- NOTE | 2023-11-24 16:18 | P.PN ---
Subjective Progress Note Date: 11/24/23 Principal diagnosis: Pancreatitis This is a pleasant 78-year-old male who presented to the emergency department with complaints of right upper quadrant abdominal pain that started 2 to 3 days ago and progressively got worse. Pain was associated with nausea and vomiting. Past medical history includes morbid obesity, atrial fibrillation and hypertension. He was found to have elevated LFTs as well as amylase and lipase. Gastroenterology was consulted for pancreatitis. He denies any history of pancreatitis in the past, no recent alcohol use. States he had drink in the [place] but that was over 20 years ago. States pain has improved since he has been here. He had a CT of the abdomen pelvis which reported findings suggestive of a distal gastritis and duodenitis. Likely inflammatory or infectious. Malignancy is felt to be less likely in this location however not excluded. Diverticulosis without evidence of diverticulitis. However there does appear to be significant soft tissue thickening involving the region of the sigmoid colon along the short segment with malignancy a consideration and direct visualization would be recommended. Nonobstructing left renal stones. Labs WBC 8.5 hemoglobin 13 platelet count 258,000 INR 1.0 sodium 139 potassium 3.8 BUN 12 creatinine 0.6 total bilirubin 1.6 AST 171 ALT 98 alkaline phosphatase 150 amylase 1512 lipase 12 465 11/24/2023 Patient seen and examined today sitting up in the bedside recliner. He states he is feeling much better. Abdominal pain has significantly improved. No nausea or vomiting. Labs are currently pending. Patient had ultrasound of the gallbladder yesterday which did report cholelithiasis and biliary sludge, hepatocellular disease correlate for cirrhosis and a right renal cyst. CBD was obscured. Objective - Vital Signs Vital signs: Vital Signs Temp 98 F 11/24/23 06:58 Pulse 66 11/24/23 06:58 Resp 17 11/24/23 06:58 BP 124/74 11/24/23 06:58 Pulse Ox 91 L 11/24/23 06:58 FiO2 Intake & Output 11/23/23 11/24/23 11/24/23 18:59 06:59 18:59 Intake Total 1500 Balance 1500 Weight 146.964 kg Intake: Intake, IV Titration 1500 Amount Lactated Ringers 1,000 ml 1500 @ 125 mls/hr IV .Q8H [facility] Rx#:[id number] Other: # Voids 4 - Exam General appearance: The patient is alert, oriented, appears in no acute distress. Morbidly obese. HET: Head is normocephalic and atraumatic. Conjunctiva pink. Sclera anicteric. Neck: Supple without lymphadenopathy. Abdomen: Soft, mild right upper quadrant tenderness, nondistended. No guarding or rigidity. Extremities: Normal skin color and turgor. No pedal edema Skin: No rashes, no jaundice Neurological: No focal deficits. Alert and oriented. - Labs CBC & Chem 7: 11/24/23 07:39 11/24/23 07:39 Assessment and Plan (1) Pancreatitis Narrative/Plan: 78-year-old male admitted with acute pancreatitis was also noted elevated LFTs. Denies any history of pancreatitis or underlying liver disease. No new medications and no alcohol use. Denies any previous history of problems with his gallbladder or gallstones. Had significant elevation in his amylase and lipase as well as elevation in his LFTs. Need to consider possible gallstone pancreatitis with cholestatic pattern. Tane gallbladder ultrasound. Trend lipase and LFTs. Gallbladder ultrasound shows cholelithiasis and biliary sludge. Repeat LFTs are trending down total bilirubin 0.9 AST 50 ALT 63 alkaline phosphatase 122. Repeat amylase 722 lipase a 54. Would recommend consult for general surgery for gallstone pancreatitis. Patient not presenting with biliary stasis, unlikely choledochal lithiasis. Will cancel MRCP. Current Visit: Yes Status: Acute Code(s): K85.90 - ACUTE PANCREATITIS WITHOUT NECROSIS OR INFECTION, UNSP SNOMED Code(s): 92415354 (2) Elevated LFTs Current Visit: Yes Status: Acute Code(s): R79.89 - OTHER SPECIFIED ABNORMAL FINDINGS OF BLOOD CHEMISTRY SNOMED Code(s): 734949256 (3) Morbidly obese Current Visit: Yes Status: Acute Code(s): E66.01 - MORBID (SEVERE) OBESITY DUE TO EXCESS CALORIES SNOMED Code(s): 628293186 Plan: 1. Continue symptomatic and supportive care 2. Patient may have clear liquid diet 3. Repeat CMP, lipase tomorrow 4. Gallbladder ultrasound ordered and reviewed 5. Consult to general surgery for gallstone pancreatitis 6. No further workup recommended by gastroenterology. No plans on endoscopic evaluation. Thank you for this consultation, we will continue to follow. Dr. Hilda Hudson I agree with the dictator's note, documented as a scribe by Paula Beckett.
[2023-11-24] MEDS: PIPERACILLIN-TAZOBACTAM 3.375 GM in SODIUM CHLORIDE 0.9% 100 ML IVPB SCH (16:23)
[2023-11-24] MEDS: ONDANSETRON 4 MG/2 ML VIAL IVP PRN (20:14)
[2023-11-25 11:08] LABS: Basophils # (A) 0.02 X 10*3/uL (0.00-0.10); Basophils % (A) 0.1 %; Eosinophils # (A) 0.02 X 10*3/uL (0.04-0.35); Eosinophils % (A) 0.1 %; HCT 39.1 % (39.6-50.0); HGB 12.3 g/dL (13.0-17.0); Lymphocytes % (A) 4.9 %; MCH 26.4 pg (27.0-32.0); MCHC 31.5 g/dL (32.0-37.0); MCV 83.9 FL (80.0-97.0); Mean Platelet Volume 11.3 FL (9.5-12.2); Monocytes # (A) 1.37 X 10*3/uL (0.20-1.00); Monocytes % (A) 7.4 %; NRBC Per 100 WBC 0 X 10*3/uL (0.00-0.01); Neutrophils # (A) 16.11 X 10*3/uL (1.80-7.70); Neutrophils % (A) 86.9 %; Platelet Count 263 X 10*3/uL (140-440); RBC 4.66 X 10*6/uL (4.40-5.60); WBC 18.53 X 10*3/uL (4.50-10.00)
[2023-11-25 11:24] LABS: ALT 41 U/L (10-49); AST 25 U/L (14-35); Albumin 3.5 g/dL (3.8-4.9); Albumin/Globulin Ratio 1.35 Ratio (1.60-3.17); Alkaline Phosphatase 106 U/L (41-126); BUN/Creat Ratio 15.89 Ratio (12.00-20.00); Blood Urea Nitrogen 14.3 mg/dL (9.0-27.0); Chloride 99 mmol/L (96-109); Globulin 2.6 g/dL (1.6-3.3); Glucose 84 mg/dL (70-110); Lipase 119 U/L (14-60); Potassium 3.7 mmol/L (3.5-5.5); Sodium 138 mmol/L (135-145); Total Bilirubin 1.2 mg/dL (0.3-1.2); Total Protein 6.1 g/dL (6.2-8.2)
--- NOTE | 2023-11-25 12:25 | P.PN ---
Subjective Progress Note Date: 11/25/23 78-year-old male with hypertension, sinusitis, chronic lower extremity edema, and A fib anticoagulated with eliquis presents with complaints of abdominal discomfort. In the emergency department he underwent extensive evaluation. On arrival vitals were within normal limits. Laboratory analysis included CBC, coags, CMP, amylase, and lipase which were remarkable for bilirubin 1.6, AST 171, ALT 98, amylase 1512, and lipase 12,465. Patient underwent CT abdomen and pelvis which demonstrated distal gastritis or duodenitis, diverticulosis with thickening of the sigmoid colon, and left renal stones. In the ER he was diagnosed with acute pancreatitis. He was started on normal saline at 130 cc/h and Dilaudid. Arrangements were made for admission. GI was consulted. 11/24 Patient was seen and examined. He reports improvement in his abdominal pain. Pain is right and left upper quadrant. Gall bladder US shows biliary sludge with cholelithiasis. CBC WBC 16.14, Hg 12.5. CMP AST 50, ALT 63, alb 3.6. Amylase 722. Lipase 854. Discussed with ALICIA Mitchell, plans for MRCP to evaluate need to ERCP and surgery consult. 11/25 Patient was seen and examined. Reports improvement in his abdominal pain. S tarted on Zosyn 3.375g IV TID yesterday for concerns of infected gall bladder. Surgery has been consulted and plans for OR on Tuesday. CBC WBC 18.53, Hg 12.3, Hct 39.1. CMP albumin 3.5. Lipase 119. General: non toxic, no distress, appears at stated age Derm: warm, dry Head: atraumatic, normocephalic, symmetric Eyes: EOMI, no lid lag, anicteric sclera Mouth: no lip lesion, mucus membranes moist Cardiovascular: S1S2 reg, no murmur Lungs: Clear to auscultation bilateral, no rhonchi, no rales , no accessory muscle use Abdominal: Soft, tender to palpation RU and LUQ without rebound, no guarding Ext: no gross muscle atrophy, no edema, no contractures Neuro: no focal neuro deficits Psych: Alert, oriented, appropriate affect Based on my assessment of this patient, this patient meets a high complexity level of care. Patient has an acute diagnosis of gallstone pancreatitis that poses a threat to life or bodily function. Gallstone pancreatitis: NS at 75 cc/hr. Dialudid 0.5-1 mg IVP Q3H PRN pain. Zofran 4mg IVP Q6H PRN for N/V. Plans for OR on Tuesday. Transaminitis: Obstructive likely due to choledocolithiasis. Cholecystitis: Does not meet sepsis criteria. Zosyn 3.375g IV TID. Plans for OR Tuesday. Normocytic anemia: Stable. Advised C-scope in the outpatient setting. HTN: Antihypertensive medications as below. A. fib: Resume metoprolol 50 mg po daily, cardizem 120 mg PO daily, eliquis 5 mg twice dialy. CODE STATUS: FULL CODE DVT Prophylaxis: Eliquis GI Prophylaxis: Protonix IV Designated medical POA if patient is not able to make medical decisions for themselves: I have reviewed the following systems security consultant notes: Surgery note. I have reviewed the results of the following tests: CBC, CMP I have ordered the following tests: CBC and CMP I have discussed the care of this patient with the following independent historian: I have independently interpreted the following test below: I have discussed the management of this patient with the following physician: Objective - Vital Signs Vital signs: Vital Signs Temp 98.2 F 11/25/23 07:40 Pulse 82 11/25/23 07:40 Resp 16 11/25/23 07:40 BP 120/82 11/25/23 07:40 Pulse Ox 93 L 11/25/23 07:40 FiO2 Intake & Output 11/24/23 11/25/23 11/25/23 18:59 06:59 18:59 Intake Total 1225 Balance 1225 Intake: Intake, IV Titration 1225 Amount Lactated Ringers 1,000 ml 1200 @ 75 mls/hr IV .[id number] REAL Rx#:[id number] Piperacillin-Tazobactam 3 25 .375 gm In Sodium Chloride 0.9% 100 ml @ 25 mls/hr IVPB Q8HR REAL Rx# :[id number] Other: Voiding Method Toilet # Voids 2 1 - Labs CBC & Chem 7: 11/25/23 07:20 11/25/23 07:20 Labs: Abnormal Lab Results - Last 24 Hours (Table) 11/25/23 11/25/23 Range/Units 07:20 07:20 WBC 18.53 H (4.50-10.00) X 10*3/uL Hgb 12.3 L (13.0-17.0) g/dL Hct 39.1 L (39.6-50.0) % MCH 26.4 L (27.0-32.0) pg MCHC 31.5 L (32.0-37.0) g/dL RDW 16.0 H (11.5-14.5) % Immature Gran # 0.11 H (0.00-0.04) X 10*3/uL Neutrophils # 16.11 H (1.80-7.70) X 10*3/uL Monocytes # 1.37 H (0.20-1.00) X 10*3/uL Eosinophils # 0.02 L (0.04-0.35) X 10*3/uL Total Protein 6.1 L (6.2-8.2) g/dL Albumin 3.5 L (3.8-4.9) g/dL Albumin/Globulin Ratio 1.35 L (1.60-3.17) Ratio Lipase 119 H (14-60) U/L
--- NOTE | 2023-11-25 12:41 | P.PN ---
Subjective Progress Note Date: 11/25/23 CHIEF COMPLAINT: abdominal pain HISTORY OF PRESENT ILLNESS: Patient admitted with gallstone pancreatitis. Patient reports that he is feeling better than yesterday but still not feeling completely well. He still has epigastric abdominal pain. Denies any nausea or vomiting. He is tolerating clear liquids. Afebrile. WBC is 16 up to 18 LFTs have normalized lipase is down to 119 PHYSICAL EXAM: VITAL SIGNS: Reviewed. GENERAL: Well-developed in no acute distress. ABDOMEN: Soft. Nondistended. Mild epigastric tenderness NEUROLOGIC: Alert and oriented. Cranial nerves II through XII grossly intact. ASSESSMENT: 1. Acute gallstone pancreatitis 2. Acute cholecystitis. Ultrasound showing sludge and cholelithiasis 3. Gastritis and duodenitis reported on CT 4. Soft tissue thickening involving the sigmoid colon and diverticulosis reported on abdominal CT 5. Leukocytosis PLAN: -Patient scheduled for laparoscopic cholecystectomy on 11/28/[address] Pool -Advance diet to full liquids -Recommend colonoscopy outpatient for evaluation of thickened sigmoid colon noted on CT -Repeat labs in a.m. -Continue antibiotics -Continue PPI Physician Wire Coater note has been reviewed by physician. Signing provider agrees with the documented findings, assessment, and plan of care. Objective - Vital Signs Vital signs: Vital Signs Temp 98.2 F 11/25/23 07:40 Pulse 82 11/25/23 07:40 Resp 16 11/25/23 07:40 BP 120/82 11/25/23 07:40 Pulse Ox 93 L 11/25/23 07:40 FiO2 Intake & Output 11/24/23 11/25/23 11/25/23 18:59 06:59 18:59 Intake Total 1225 Balance 1225 Intake: Intake, IV Titration 1225 Amount Lactated Ringers 1,000 ml 1200 @ 75 mls/hr IV .[id number] [facility] Rx#:[id number] Piperacillin-Tazobactam 3 25 .375 gm In Sodium Chloride 0.9% 100 ml @ 25 mls/hr IVPB Q8HR REAL Rx# :[id number] Other: # Voids 2 1 - Labs CBC & Chem 7: 11/25/23 07:20 11/25/23 07:20 Labs: Abnormal Lab Results - Last 24 Hours (Table) 11/24/23 Range/Units 07:39 AST 50 H (14-35) U/L ALT 63 H (10-49) U/L Albumin 3.6 L (3.8-4.9) g/dL Albumin/Globulin Ratio 1.38 L (1.60-3.17) Ratio Amylase 722 A* (23-121) U/L Lipase 854 H (14-60) U/L
--- NOTE | 2023-11-25 12:48 | P.PN ---
Subjective Progress Note Date: 11/25/23 Principal diagnosis: Pancreatitis This is a pleasant 78-year-old male who presented to the emergency department with complaints of right upper quadrant abdominal pain that started 2 to 3 days ago and progressively got worse. Pain was associated with nausea and vomiting. Past medical history includes morbid obesity, atrial fibrillation and hypertension. He was found to have elevated LFTs as well as amylase and lipase. Gastroenterology was consulted for pancreatitis. He denies any history of pancreatitis in the past, no recent alcohol use. States he had drink in the [facility] but that was over 20 years ago. States pain has improved since he has been here. He had a CT of the abdomen pelvis which reported findings suggestive of a distal gastritis and duodenitis. Likely inflammatory or infectious. Malignancy is felt to be less likely in this location however not excluded. Diverticulosis without evidence of diverticulitis. However there does appear to be significant soft tissue thickening involving the region of the sigmoid colon along the short segment with malignancy a consideration and direct visualization would be recommended. Nonobstructing left renal stones. Labs WBC 8.5 hemoglobin 13 platelet count 258,000 INR 1.0 sodium 139 potassium 3.8 BUN 12 creatinine 0.6 total bilirubin 1.6 AST 171 ALT 98 alkaline phosphatase 150 amylase 1512 lipase 12 465 11/24/2023 Patient seen and examined today sitting up in the bedside recliner. He states he is feeling much better. Abdominal pain has significantly improved. No nausea or vomiting. Labs are currently pending. Patient had ultrasound of the gallbladder yesterday which did report cholelithiasis and biliary sludge, hepatocellular disease correlate for cirrhosis and a right renal cyst. CBD was obscured. 11/25/2023 Patient seen and examined today as a follow-up. He is sitting up in the chair. States overall he is doing okay. Still has some abdominal discomfort but a bit better. He denies any nausea, vomiting or diarrhea. He is on IV Zosyn. WBC 18.5 hemoglobin 12 platelet count 263,000 total bilirubin 1.2 AST 25 ALT 41 alkaline phosphatase 106 lipase 119. General surgery's tentative plan is for cholecystectomy on Tuesday Objective - Vital Signs Vital signs: Vital Signs Temp 98.2 F 11/25/23 07:40 Pulse 82 11/25/23 07:40 Resp 16 11/25/23 07:40 BP 120/82 11/25/23 07:40 Pulse Ox 93 L 02/16/24 07:40 FiO2 Intake & Output 11/24/23 11/25/23 11/25/23 18:59 06:59 18:59 Intake Total 1225 Balance 1225 Intake: Intake, IV Titration 1225 Amount Lactated Ringers 1,000 ml 1200 @ 75 mls/hr IV .[id number] [facility] Rx#:[id number] Piperacillin-Tazobactam 3 25 .375 gm In Sodium Chloride 0.9% 100 ml @ 25 mls/hr IVPB Q8HR [facility] Rx# :[id number] Other: Voiding Method Toilet # Voids 2 1 - Exam General appearance: The patient is alert, oriented, appears in no acute distress. Morbidly obese. HET: Head is normocephalic and atraumatic. Conjunctiva pink. Sclera anicteric. Neck: Supple without lymphadenopathy. Abdomen: Soft, mild right upper quadrant tenderness, nondistended. No guarding or rigidity. Extremities: Normal skin color and turgor. No pedal edema Skin: No rashes, no jaundice Neurological: No focal deficits. Alert and oriented. - Labs CBC & Chem 7: 11/25/23 07:20 11/25/23 07:20 Labs: Abnormal Lab Results - Last 24 Hours (Table) 11/25/23 11/25/23 Range/Units 07:20 07:20 WBC 18.53 H (4.50-10.00) X 10*3/uL Hgb 12.3 L (13.0-17.0) g/dL Hct 39.1 L (39.6-50.0) % MCH 26.4 L (27.0-32.0) pg MCHC 31.5 L (32.0-37.0) g/dL RDW 16.0 H (11.5-14.5) % Immature Gran # 0.11 H (0.00-0.04) X 10*3/uL Neutrophils # 16.11 H (1.80-7.70) X 10*3/uL Monocytes # 1.37 H (0.20-1.00) X 10*3/uL Eosinophils # 0.02 L (0.04-0.35) X 10*3/uL Total Protein 6.1 L (6.2-8.2) g/dL Albumin 3.5 L (3.8-4.9) g/dL Albumin/Globulin Ratio 1.35 L (1.60-3.17) Ratio Lipase 119 H (14-60) U/L Assessment and Plan (1) Pancreatitis Narrative/Plan: 78-year-old male admitted with acute pancreatitis was also noted elevated LFTs. Denies any history of pancreatitis or underlying liver disease. No new medications and no alcohol use. Denies any previous history of problems with his gallbladder or gallstones. Had significant elevation in his amylase and lip ase as well as elevation in his LFTs. Need to consider possible gallstone pancreatitis with cholestatic pattern. Tane gallbladder ultrasound. Trend lipase and LFTs. Gallbladder ultrasound shows cholelithiasis and biliary sludge. Repeat LFTs are trending down total bilirubin 0.9 AST 50 ALT 63 alkaline phosphatase 122. Repeat amylase 722 lipase a 54. Would recommend consult for general surgery for gallstone pancreatitis. Patient not presenting with biliary stasis, unlikely choledochal lithiasis. Will cancel MRCP. Current Visit: Yes Status: Acute Code(s): K85.90 - ACUTE PANCREATITIS WITHOUT NECROSIS OR INFECTION, UNSP SNOMED Code(s): 62471061 (2) Elevated LFTs Current Visit: Yes Status: Acute Code(s): R79.89 - OTHER SPECIFIED ABNORMAL FINDINGS OF BLOOD CHEMISTRY SNOMED Code(s): 153850894 (3) Morbidly obese Current Visit: Yes Status: Acute Code(s): E66.01 - MORBID (SEVERE) OBESITY DUE TO EXCESS CALORIES SNOMED Code(s): 721059209 (4) Cholelithiasis Current Visit: Yes Status: Acute Code(s): K80.20 - CALCULUS OF GALLBLADDER W/O CHOLECYSTITIS W/O OBSTRUCTION SNOMED Code(s): 492120263 Plan: 1. Continue symptomatic and supportive care 2. Diet per general surgery recommendations 3. Tentative plan is cholecystectomy with general surgery on Tuesday 4. No further workup indicated from gastroenterology Thank you for this consultation, we will sign off at this time. Dr. Hilda Hudson I agree with the dictator's note, documented as a scribe by Paula ROMERO.
[2023-11-25] MEDS: SODIUM CHLORIDE 0.9% 1,000 ML IV SCH (13:26)
[2023-11-25] MEDS: MELATONIN 3 MG TABLET PO PRN (21:14)
[2023-11-26 10:32] LABS: Basophils # (A) 0.03 X 10*3/uL (0.00-0.10); Basophils % (A) 0.2 %; Eosinophils # (A) 0.07 X 10*3/uL (0.04-0.35); Eosinophils % (A) 0.4 %; HCT 35.2 % (39.6-50.0); HGB 11.2 g/dL (13.0-17.0); Lymphocytes # (A) 0.82 X 10*3/uL (0.90-5.00); Lymphocytes % (A) 4.9 %; MCH 26.6 pg (27.0-32.0); MCHC 31.8 g/dL (32.0-37.0); MCV 83.6 FL (80.0-97.0); Mean Platelet Volume 11.7 FL (9.5-12.2); Monocytes # (A) 1.36 X 10*3/uL (0.20-1.00); Monocytes % (A) 8.2 %; NRBC Per 100 WBC 0 X 10*3/uL (0.00-0.01); Neutrophils # (A) 14.21 X 10*3/uL (1.80-7.70); Neutrophils % (A) 85.8 %; Platelet Count 213 X 10*3/uL (140-440); RBC 4.21 X 10*6/uL (4.40-5.60); RDW 15.8 % (11.5-14.5); WBC 16.58 X 10*3/uL (4.50-10.00)
[2023-11-26 10:47] LABS: ALT 27 U/L (10-49); AST 18 U/L (14-35); Albumin 3.1 g/dL (3.8-4.9); Albumin/Globulin Ratio 1.29 Ratio (1.60-3.17); Alkaline Phosphatase 87 U/L (41-126); BUN/Creat Ratio 14.62 Ratio (12.00-20.00); Blood Urea Nitrogen 11.7 mg/dL (9.0-27.0); Calcium 8.6 mg/dL (8.7-10.3); Carbon Dioxide 25.1 mmol/L (21.6-31.8); Chloride 97 mmol/L (96-109); Globulin 2.4 g/dL (1.6-3.3); Glucose 88 mg/dL (70-110); Potassium 3.6 mmol/L (3.5-5.5); Sodium 137 mmol/L (135-145); Total Bilirubin 0.8 mg/dL (0.3-1.2); Total Protein 5.5 g/dL (6.2-8.2)
--- NOTE | 2023-11-26 10:52 | P.PN ---
Subjective Progress Note Date: 11/26/23 78-year-old male with hypertension, sinusitis, chronic lower extremity edema, and A fib anticoagulated with eliquis presents with complaints of abdominal discomfort. In the emergency department he underwent extensive evaluation. On arrival vitals were within normal limits. Laboratory analysis included CBC, coags, CMP, amylase, and lipase which were remarkable for bilirubin 1.6, AST 171, ALT 98, amylase 1512, and lipase 12,465. Patient underwent CT abdomen and pelvis which demonstrated distal gastritis or duodenitis, diverticulosis with thickening of the sigmoid colon, and left renal stones. In the ER he was diagnosed with acute pancreatitis. He was started on normal saline at 130 cc/h and Dilaudid. Arrangements were made for admission. GI was consulted. 11/24 Patient was seen and examined. He reports improvement in his abdominal pain. Pain is right and left upper quadrant. Gall bladder US shows biliary sludge with cholelithiasis. CBC WBC 16.14, Hg 12.5. CMP AST 50, ALT 63, alb 3.6. Amylase 722. Lipase 854. Discussed with ALICIA Mitchell, plans for MRCP to evaluate need to ERCP and surgery consult. 11/25 Patient was seen and examined. Reports improvement in his abdominal pain. S tarted on Zosyn 3.375g IV TID yesterday for concerns of infected gall bladder. Surgery has been consulted and plans for OR on Tuesday. CBC WBC 18.53, Hg 12.3, Hct 39.1. CMP albumin 3.5. Lipase 119. 11/26 Patient was seen and examined. Maintained on Zosyn (D3) for cholecystitis. Plans for cholecystectomy on Tuesday. CBC WBC 16.58 Hg 11.2 Hct 35.2. CMP AG 14.9, Ca 8.6, T. protein 5.5, alb 3.1. General: non toxic, no distress, appears at stated age Derm: warm, dry Head: atraumatic, normocephalic, symmetric Eyes: EOMI, no lid lag, anicteric sclera Mouth: no lip lesion, mucus membranes moist Cardiovascular: S1S2 reg, no murmur Lungs: Clear to auscultation bilateral, no rhonchi, no rales , no accessory muscle use Abdominal: Soft, tender to palpation RU and LUQ without rebound, no guarding Ext: no gross muscle atrophy, no edema, no contractures Neuro: no focal neuro deficits Psych: Alert, oriented, appropriate affect Based on my assessment of this patient, this patient meets a high complexity level of care. Patient has an acute diagnosis of gallstone pancreatitis that poses a threat to life or bodily function. Gallstone pancreatitis: NS at 75 cc/hr. Dialudid 0.5-1 mg IVP Q3H PRN pain. Zofran 4mg IVP Q6H PRN for N/V. Plans for OR on Tuesday. Cholecystitis: Does not meet sepsis criteria. Zosyn 3.375g IV TID. Plans for OR Tuesday. Transaminitis: Obstructive likely due to choledocolithiasis. Normocytic anemia: Stable. Advised C-scope in the outpatient setting. HTN: Antihypertensive medications as below. A. fib: Metoprolol 50 mg PO QD, Cardizem 120 mg PO QD, Eliquis 5 mg PO BID. CODE STATUS: FULL CODE DVT Prophylaxis: Eliquis GI Prophylaxis: Protonix IV Designated medical POA if patient is not able to make medical decisions for themselves: I have reviewed the following risk control consultant notes: Surgery note. I have reviewed the results of the following tests: CBC, CMP. I have ordered the following tests: CBC, BMP. I have discussed the care of this patient with the following independent historian: RN at bedside. I have independently interpreted the following test below: I have discussed the management of this patient with the following physician: Objective - Vital Signs Vital signs: Vital Signs Temp 98.1 F 11/26/23 07:19 Pulse 64 11/26/23 07:19 Resp 17 11/26/23 07:19 BP 155/79 11/26/23 07:19 Pulse Ox 92 L 11/26/23 07:19 FiO2 Intake & Output 11/25/23 11/26/23 11/26/23 18:59 06:59 18:59 Intake Total 50 750 Balance 50 750 Intake: Oral 50 750 Other: Voiding Method Toilet # Voids 3 4 # Bowel Movements 1 2 - Labs CBC & Chem 7: 11/26/23 06:28 11/26/23 06:26 Labs: Abnormal Lab Results - Last 24 Hours (Table) 11/25/23 11/25/23 Range/Units 07:20 07:20 WBC 18.53 H (4.50-10.00) X 10*3/uL Hgb 12.3 L (13.0-17.0) g/dL Hct 39.1 L (39.6-50.0) % MCH 26.4 L (27.0-32.0) pg MCHC 31.5 L (32.0-37.0) g/dL RDW 16.0 H (11.5-14.5) % Immature Gran # 0.11 H (0.00-0.04) X 10*3/uL Neutrophils # 16.11 H (1.80-7.70) X 10*3/uL Monocytes # 1.37 H (0.20-1.00) X 10*3/uL Eosinophils # 0.02 L (0.04-0.35) X 10*3/uL Total Protein 6.1 L (6.2-8.2) g/dL Albumin 3.5 L (3.8-4.9) g/dL Albumin/Globulin Ratio 1.35 L (1.60-3.17) Ratio Lipase 119 H (14-60) U/L
[2023-11-26 11:03] LABS: Lipase 43 U/L (14-60)
--- NOTE | 2023-11-26 14:00 | P.PN ---
Progress Note - Text Progress Note Date: 11/26/23 comfortable on IV antibiotics while awaiting gallbladder surgery on Tuesday. Afebrile Nontender on exam but he has a deep awareness of where the pain is located. Continue IV antibiotics until surgery on Tuesday, Enoxaprin
[2023-11-26] MEDS: ENOXAPARIN 40 MG/0.4 ML SYRINGE SQ SCH (14:40)
[2023-11-27] MEDS: METOPROLOL SUCCINATE (ER) 50 MG TAB.ER.24H PO SCH (08:11)
--- NOTE | 2023-11-27 09:25 | P.PN ---
Subjective Progress Note Date: 11/27/23 Patient main stable. He has minimal complaints abdominal pain. He is otherwise well. On exam vital signs appear stable. Abdomen soft. Patient is scheduled for laparoscopic cholecystectomy in the a.m. Objective - Vital Signs Vital signs: Vital Signs Temp 97.7 F 11/27/23 07:34 Pulse 73 11/27/23 07:34 Resp 16 11/27/23 07:34 BP 149/91 11/27/23 07:34 Pulse Ox 97 11/27/23 07:34 FiO2 Intake & Output 11/26/23 11/27/23 11/27/23 18:59 06:59 18:59 Intake Total 650 Balance 650 Intake: Oral 650 Other: Voiding Method Toilet # Voids 3 4 - Labs CBC & Chem 7: 11/26/23 06:28 11/26/23 06:26 Labs: Abnormal Lab Results - Last 24 Hours (Table) 11/26/23 11/26/23 Range/Units 06:26 06:28 WBC 16.58 H (4.50-10.00) X 10*3/uL RBC 4.21 L (4.40-5.60) X 10*6/uL Hgb 11.2 L (13.0-17.0) g/dL Hct 35.2 L (39.6-50.0) % MCH 26.6 L (27.0-32.0) pg MCHC 31.8 L (32.0-37.0) g/dL RDW 15.8 H (11.5-14.5) % Immature Gran # 0.09 H (0.00-0.04) X 10*3/uL Neutrophils # 14.21 H (1.80-7.70) X 10*3/uL Lymphocytes # 0.82 L (0.90-5.00) X 10*3/uL Monocytes # 1.36 H (0.20-1.00) X 10*3/uL Anion Gap 14.90 H (4.00-12.00) mmol/L Calcium 8.6 L (8.7-10.3) mg/dL Total Protein 5.5 L (6.2-8.2) g/dL Albumin 3.1 L (3.8-4.9) g/dL Albumin/Globulin Ratio 1.29 L (1.60-3.17) Ratio
--- NOTE | 2023-11-27 12:22 | P.PN ---
Subjective Progress Note Date: 11/27/23 78-year-old male with hypertension, sinusitis, chronic lower extremity edema, and A fib anticoagulated with eliquis presents with complaints of abdominal discomfort. In the emergency department he underwent extensive evaluation. On arrival vitals were within normal limits. Laboratory analysis included CBC, coags, CMP, amylase, and lipase which were remarkable for bilirubin 1.6, AST 171, ALT 98, amylase 1512, and lipase 12,465. Patient underwent CT abdomen and pelvis which demonstrated distal gastritis or duodenitis, diverticulosis with thickening of the sigmoid colon, and left renal stones. In the ER he was diagnosed with acute pancreatitis. He was started on normal saline at 130 cc/h and Dilaudid. Arrangements were made for admission. GI was consulted. 11/24 Patient was seen and examined. He reports improvement in his abdominal pain. Pain is right and left upper quadrant. Gall bladder US shows biliary sludge with cholelithiasis. CBC WBC 16.14, Hg 12.5. CMP AST 50, ALT 63, alb 3.6. Amylase 722. Lipase 854. Discussed with ALICIA Mitchell, plans for MRCP to evaluate need to ERCP and surgery consult. 11/25 Patient was seen and examined. Reports improvement in his abdominal pain. S tarted on Zosyn 3.375g IV TID yesterday for concerns of infected gall bladder. Surgery has been consulted and plans for OR on Tuesday. CBC WBC 18.53, Hg 12.3, Hct 39.1. CMP albumin 3.5. Lipase 119. 11/26 Patient was seen and examined. Maintained on Zosyn (D3) for cholecystitis. Plans for cholecystectomy on Tuesday. CBC WBC 16.58 Hg 11.2 Hct 35.2. CMP AG 14.9, Ca 8.6, T. protein 5.5, alb 3.1. 11/27 Patient was seen and examined. Sleeping comfortably. Maintained on Zosyn (D4) for cholecystitis. Surgery note reviewed, plans for cholecystectomy on Tuesday. General: non toxic, no distress, appears at stated age Derm: warm, dry Head: atraumatic, normocephalic, symmetric Eyes: EOMI, no lid lag, anicteric sclera Mouth: no lip lesion, mucus membranes moist Cardiovascular: S1S2 reg, no murmur Lungs: Clear to auscultation bilateral, no rhonchi, no rales , no accessory muscle use Abdominal: Soft, tender to palpation RU and LUQ without rebound, no guarding Ext: no gross muscle atrophy, no edema, no contractures Neuro: no focal neuro deficits Psych: Alert, oriented, appropriate affect Based on my assessment of this patient, this patient meets a high complexity level of care. Patient has an acute diagnosis of gallstone pancreatitis that poses a threat to life or bodily function. Gallstone pancreatitis: NS at 75 cc/hr. Dialudid 0.5-1 mg IVP Q3H PRN pain. Zofran 4mg IVP Q6H PRN for N/V. Plans for OR on Tuesday. Cholecystitis: Does not meet sepsis criteria. Zosyn 3.375g IV TID (D4). Plans f or OR Tuesday. Transaminitis: Obstructive likely due to choledocolithiasis. Normocytic anemia: Stable. Advised C-scope in the outpatient setting. HTN: Antihypertensive medications as below. A. fib: Metoprolol 50 mg PO QD, Cardizem 120 mg PO QD, Eliquis 5 mg PO BID. CODE STATUS: FULL CODE DVT Prophylaxis: Eliquis GI Prophylaxis: Protonix IV Designated medical POA if patient is not able to make medical decisions for themselves: I have reviewed the following benefits consultant notes: Surgery note. I have reviewed the results of the following tests: I have ordered the following tests: CBC, CMP. I have discussed the care of this patient with the following independent historian: I have independently interpreted the following test below: I have discussed the management of this patient with the following physician: Objective - Vital Signs Vital signs: Vital Signs Temp 97.7 F 11/27/23 07:34 Pulse 73 11/27/23 07:34 Resp 16 11/27/23 07:34 BP 149/91 11/27/23 07:34 Pulse Ox 97 11/27/23 07:34 FiO2 Intake & Output 11/26/23 11/27/23 11/27/23 18:59 06:59 18:59 Intake Total 650 Balance 650 Intake: Oral 650 Other: Voiding Method Toilet # Voids 3 4 - Labs CBC & Chem 7: 11/26/23 06:28 11/26/23 06:26 Labs: Abnormal Lab Results - Last 24 Hours (Table) 11/26/23 11/26/23 Range/Units 06:26 06:28 WBC 16.58 H (4.50-10.00) X 10*3/uL RBC 4.21 L (4.40-5.60) X 10*6/uL Hgb 11.2 L (13.0-17.0) g/dL Hct 35.2 L (39.6-50.0) % MCH 26.6 L (27.0-32.0) pg MCHC 31.8 L (32.0-37.0) g/dL RDW 15.8 H (11.5-14.5) % Immature Gran # 0.09 H (0.00-0.04) X 10*3/uL Neutrophils # 14.21 H (1.80-7.70) X 10*3/uL Lymphocytes # 0.82 L (0.90-5.00) X 10*3/uL Monocytes # 1.36 H (0.20-1.00) X 10*3/uL Anion Gap 14.90 H (4.00-12.00) mmol/L Calcium 8.6 L (8.7-10.3) mg/dL Total Protein 5.5 L (6.2-8.2) g/dL Albumin 3.1 L (3.8-4.9) g/dL Albumin/Globulin Ratio 1.29 L (1.60-3.17) Ratio
[2023-11-28 06:11] LABS: Basophils % (A) 0 %; Eosinophils # (A) 0.2 k/uL (0-0.7); Eosinophils % (A) 1 %; HGB 11.5 gm/dL (13.0-17.5); Lymphocytes # (A) 0.9 k/uL (1.0-4.8); Lymphocytes % (A) 7 %; MCHC 32.9 g/dL (31.0-37.0); Mean Platelet Volume 8.8; Monocytes # (A) 1.2 k/uL (0-1.0); Monocytes % (A) 9 %; Neutrophils # (A) 10.9 k/uL (1.3-7.7); Neutrophils % (A) 81 %; Platelet Count 232 k/uL (150-450); RBC 4.27 m/uL (4.30-5.90); RDW 15.2 % (11.5-15.5); WBC 13.4 k/uL (3.8-10.6)
[2023-11-28 07:34] LABS: ALT 30 U/L (4-49); AST 31 U/L (17-59); African American GFR (CKD) >90 (>60 ml/min/1.73 sqM); Albumin 2.8 g/dL (3.5-5.0); Alkaline Phosphatase 91 U/L (38-126); Anion Gap 7 mmol/L; Blood Urea Nitrogen 5 mg/dL (9-20); Calcium 8.5 mg/dL (8.4-10.2); Carbon Dioxide 26 mmol/L (22-30); Chloride 102 mmol/L (98-107); Globulin 2.8 g/dL; Glucose 92 mg/dL (74-99); Non-African American GFR(CKD) >90 (>60 ml/min/1.73 sqM); Potassium 3.3 mmol/L (3.5-5.1); Sodium 135 mmol/L (137-145); Total Bilirubin 0.9 mg/dL (0.2-1.3); Total Protein 5.6 g/dL (6.3-8.2)
[2023-11-28] MEDS: POTASSIUM CHLORIDE ER 20 MEQ TAB.ER PO STA (08:56)
[2023-11-28] MEDS: IV FLUID CONTINUATION 1,000 ML IV ONE (11:57)
--- NOTE | 2023-11-28 12:13 | P.PN ---
Subjective Progress Note Date: 11/28/23 78-year-old male with hypertension, sinusitis, chronic lower extremity edema, and A fib anticoagulated with eliquis presents with complaints of abdominal discomfort. In the emergency department he underwent extensive evaluation. On arrival vitals were within normal limits. Laboratory analysis included CBC, coags, CMP, amylase, and lipase which were remarkable for bilirubin 1.6, AST 171, ALT 98, amylase 1512, and lipase 12,465. Patient underwent CT abdomen and pelvis which demonstrated distal gastritis or duodenitis, diverticulosis with thickening of the sigmoid colon, and left renal stones. In the ER he was diagnosed with acute pancreatitis. He was started on normal saline at 130 cc/h and Dilaudid. Arrangements were made for admission. GI was consulted. 11/24 Patient was seen and examined. He reports improvement in his abdominal pain. Pain is right and left upper quadrant. Gall bladder US shows biliary sludge with cholelithiasis. CBC WBC 16.14, Hg 12.5. CMP AST 50, ALT 63, alb 3.6. Amylase 722. Lipase 854. Discussed with ALICIA Mitchell, plans for MRCP to evaluate need to ERCP and surgery consult. 11/25 Patient was seen and examined. Reports improvement in his abdominal pain. S tarted on Zosyn 3.375g IV TID yesterday for concerns of infected gall bladder. Surgery has been consulted and plans for OR on Tuesday. CBC WBC 18.53, Hg 12.3, Hct 39.1. CMP albumin 3.5. Lipase 119. 11/26 Patient was seen and examined. Maintained on Zosyn (D3) for cholecystitis. Plans for cholecystectomy on Tuesday. CBC WBC 16.58 Hg 11.2 Hct 35.2. CMP AG 14.9, Ca 8.6, T. protein 5.5, alb 3.1. 11/27 Patient was seen and examined. Sleeping comfortably. Maintained on Zosyn (D4) for cholecystitis. Surgery note reviewed, plans for cholecystectomy on Tuesday. 11/28 Patient was seen and examined. No complaints today. at bedside. Plans for cholecystectomy today. Maintained on Zosyn (D5). CBC WBC 13.4, Hg 11.5, Hct 35. CMP Na 135, K 3.4, BUN 5, Cr 0.58, total protein 5.6, alb 2.8. General: non toxic, no distress, appears at stated age Derm: warm, dry Head: atraumatic, normocephalic, symmetric Eyes: EOMI, no lid lag, anicteric sclera Mouth: no lip lesion, mucus membranes moist Cardiovascular: S1S2 reg, no murmur Lungs: Clear to auscultation bilateral, no rhonchi, no rales , no accessory m uscle use Abdominal: Soft, tender to palpation RU and LUQ without rebound, no guarding Ext: no gross muscle atrophy, no edema, no contractures Neuro: no focal neuro deficits Psych: Alert, oriented, appropriate affect Based on my assessment of this patient, this patient meets a high complexity lev el of care. Patient has an acute diagnosis of gallstone pancreatitis that poses a threat to life or bodily function. Gallstone pancreatitis: NS at 75 cc/hr. Dialudid 0.5-1 mg IVP Q3H PRN pain. Zofran 4mg IVP Q6H PRN for N/V. Plans for cholecystectomy today. Cholecystitis: Does not meet sepsis criteria. Zosyn 3.375g IV TID (D5). Plans for OR Tuesday. Transaminitis: Obstructive likely due to choledocolithiasis. Normocytic anemia: Stable. Advised C-scope in the outpatient setting. HTN: Antihypertensive medications as below. A. fib: Metoprolol 50 mg PO QD, Cardizem 120 mg PO QD, Eliquis 5 mg PO BID. CODE STATUS: FULL CODE DVT Prophylaxis: Eliquis GI Prophylaxis: Protonix IV Designated medical POA if patient is not able to make medical decisions for themselves: I have reviewed the following accounting consultant notes: Surgery note. I have reviewed the results of the following tests: CBC, CMP I have ordered the following tests: CBC, BMP. I have discussed the care of this patient with the following independent historian: Discussed with at bedside. I have independently interpreted the following test below: I have discussed the management of this patient with the following physician: Objective - Vital Signs Vital signs: Vital Signs Temp 98.5 F 11/28/23 12:04 Pulse 84 11/28/23 12:04 Resp 16 11/28/23 12:04 BP 114/85 11/28/23 12:04 Pulse Ox 98 11/28/23 12:04 FiO2 Intake & Output 11/27/23 11/28/2324 18:59 06:59 18:59 Intake Total 850 Balance 850 Intake: Oral 850 Other: Voiding Method Toilet # Voids 2 5 # Bowel Movements 2 - Labs CBC & Chem 7: 11/28/23 05:11 11/28/23 05:11 Labs: Abnormal Lab Results - Last 24 Hours (Table) 11/28/23 11/28/23 Range/Units 05:11 05:11 WBC 13.4 H (3.8-10.6) k/uL RBC 4.27 L (4.30-5.90) m/uL Hgb 11.5 L (13.0-17.5) gm/dL Hct 35.0 L (39.0-53.0) % Neutrophils # 10.9 H (1.3-7.7) k/uL Lymphocytes # 0.9 L (1.0-4.8) k/uL Monocytes # 1.2 H (0-1.0) k/uL Sodium 135 L (137-145) mmol/L Potassium 3.3 L (3.5-5.1) mmol/L BUN 5 L (9-20) mg/dL Creatinine 0.58 L (0.66-1.25) mg/dL Total Protein 5.6 L (6.3-8.2) g/dL Albumin 2.8 L (3.5-5.0) g/dL
[2023-11-28] MEDS: ONDANSETRON 4 MG/2 ML VIAL IVP ONE ×2 (12:18→14:26)
[2023-11-28] MEDS: DEXAMETHASONE SOD PHOSPHATE 4 MG/ML 1 ML VIAL IVP ONE (12:18)
[2023-11-28] MEDS ORDERED: PHENYLEPHRINE-0.9% NACL SYG 1,000 MCG/10 ML SYRINGE ONE (12:58)
[2023-11-28] MEDS ORDERED: SUCCINYLCHOLINE CHLORIDE 200 MG/10 ML VIAL IV ONE (12:58)
[2023-11-28] MEDS ORDERED: ROCURONIUM 10 MG/ML (5 ML VIAL) IV ONE (12:58)
[2023-11-28] MEDS ORDERED: LIDOCAINE 1% INJ 10MG/ML (20 ML MDV) ONE (12:58)
[2023-11-28] MEDS ORDERED: GLYCOPYRROLATE 0.2 MG/ML 2 ML VIAL ONE (12:58)
[2023-11-28] MEDS ORDERED: NEOSTIGMINE 1 MG/ML 10 ML VIAL ONE (12:58)
[2023-11-28] MEDS ORDERED: fentaNYL (PF) 50 MCG/ML 2 ML AMP ONE (12:58)
[2023-11-28] MEDS ORDERED: PROPOFOL 10 MG/ML 20 ML VIAL IV ONE (12:58)
[2023-11-28] MEDS: BUPIVACAINE (PF) 0.5% 30 ML VIAL SQ ONE (13:29)
--- NOTE | 2023-11-28 13:33 | P.PN ---
Subjective Progress Note Date: 11/28/23 CHIEF COMPLAINT: abdominal pain HISTORY OF PRESENT ILLNESS: Patient admitted with gallstone pancreatitis. Patient denies any abdominal pain. Denies any nausea or vomiting. Denies any chest pain or shortness of breath. WBC is down from 16-13. Afebrile. LFTs and lipase have normalized. Potassium 3.3 and being replaced. PHYSICAL EXAM: VITAL SIGNS: Reviewed. GENERAL: Well-developed in no acute distress. ABDOMEN: Soft. Nondistended. Nontender NEUROLOGIC: Alert and oriented. Cranial nerves II through XII grossly intact. ASSESSMENT: 1. Acute gallstone pancreatitis 2. Acute cholecystitis. Ultrasound showing sludge and cholelithiasis 3. Gastritis and duodenitis reported on CT 4. Soft tissue thickening involving the sigmoid colon and diverticulosis reported on abdominal CT 5. Leukocytosis PLAN: -Patient scheduled for laparoscopic cholecystectomy today -Keep patient n.p.o. -Continue antibiotics -Continue PPI -Hold Adryan Physician Data Entry Manager note has been reviewed by physician. Signing provider agrees with the documented findings, assessment, and plan of care. Objective - Vital Signs Vital signs: Vital Signs Temp 98.5 F 11/28/23 12:04 Pulse 84 11/28/23 12:04 Resp 16 11/28/23 12:04 BP 114/85 11/28/23 12:04 Pulse Ox 98 11/28/23 12:04 FiO2 Intake & Output 11/27/23 11/28/23 11/28/23 18:59 06:59 18:59 Intake Total 850 200 Balance 850 200 Intake: IV 200 Oral 850 Other: Voiding Method Toilet # Voids 2 5 # Bowel Movements 2 - Labs CBC & Chem 7: 11/28/23 05:11 11/28/23 05:11 Labs: Abnormal Lab Results - Last 24 Hours (Table) 11/28/23 11/28/23 Range/Units 05:11 05:11 WBC 13.4 H (3.8-10.6) k/uL RBC 4.27 L (4.30-5.90) m/uL Hgb 11.5 L (13.0-17.5) gm/dL Hct 35.0 L (39.0-53.0) % Neutrophils # 10.9 H (1.3-7.7) k/uL Lymphocytes # 0.9 L (1.0-4.8) k/uL Monocytes # 1.2 H (0-1.0) k/uL Sodium 135 L (137-145) mmol/L Potassium 3.3 L (3.5-5.1) mmol/L BUN 5 L (9-20) mg/dL Creatinine 0.58 L (0.66-1.25) mg/dL Total Protein 5.6 L (6.3-8.2) g/dL Albumin 2.8 L (3.5-5.0) g/dL
[2023-11-28] MEDS: LACTATED RINGERS 1,000 ML IV ONE (13:39)
--- NOTE | 2023-11-28 14:24 | P.OP ---
Date of Procedure: 11/28/23 Preoperative Diagnosis: Cholecystitis Postoperative Diagnosis: Cholecystitis Procedure(s) Performed: Laparoscopic cholecystectomy Anesthesia: CLAUDIA Surgeon: Campbell Pool Estimated Blood Loss (ml): 10 Pathology: other (Gallbladder) Condition: stable Disposition: PACU Description of Procedure: The patient was placed on the operating table. The patient received a general endotracheal tube anesthesia. The patients abdomen was prepped and draped in the usual sterile fashion. Through an infraumbilical stab incision, the fascia of the anterior abdominal wall was grasped with a pair of Kochers and then the Veress needle was placed in the peritoneal cavity. Position of the Veress needle was confirmed with positive drop test. The abdomen was then insufflated. After adequate insufflation, the 10 mm trocar was placed in the peritoneal cavity. Following this the laparoscope was placed in the peritoneal cavity. The patient was placed in the head-up, right side up position and then a 5 mm trocar was placed in the right lateral and right subcostal position under direct visualization. A 8 mm trocar was placed in the epigastric position. The gallbladder was grasped in the fundus and infundibulum. Traction on the gallbladder was placed in the lateral and the cephalad positions. The triangle of Calot was visualized.. The cystic duct was bluntly dissected until the union of the cystic duct and common bile duct was seen. A critical view of safety was achieved. The cystic duct was then divided and sealed with the Harmonic scissors. A PDS Endoloop was then placed throughout the cystic duct stump. The cystic artery divided and sealed with the Harmonic scissors. The gallbladder was then removed from the liver bed using Harmonic scissors. The gallbladder was then extracted through the epigastric port site. Operative field was checked for any bleeding spots and Harmonic scissors was used to coagulate the liver bed. The abdomen was irrigated. The trocars were removed. The skin was closed using interrupted 3-0 Vicryl suture. Dermabond dressing were applied. The patient tolerated the procedure well.
[2023-11-28] MEDS: DEXAMETHASONE SOD PHOSPHATE 4 MG/ML 1 ML VIAL IV ONE (15:24)
[2023-11-28] MEDS: LACTATED RINGERS 1,000 ML IV SCH (15:25)
--- NOTE | 2023-11-29 11:41 | CDI ---
Documentation Clarification Form Date: 11/29/2023 11:21:30 AM From: Genevieve Rios RN, CCDS Phone: [phone] Admit Date: 11/23/2023 11:34:00 AM Patient Name: Venkatesh Phillips Visit Number: [id number] Discharge Date: ATTENTION: The Clinical Documentation Specialists (CDI) and [facility] Coding Staff appreciate your assistance in clarifying documentation. Please respond to the clarification below the line at the bottom and electronically sign. The CDI & [facility] Coding staff will review the response and follow-up if needed. Please note: Queries are made part of the Legal Health Record. If you have any questions, please contact the author of this message via ITS. Dr. Godfrey Yeager Atrial Fibrillation is documented in the past medical history H/P and subsequent progress notes. Additional clarification regarding the type of atrial fibrillation is requested. History/Risk Factors: Hypertension, Atrial Fibrillation, Former smoker Clinical Indicators: 78-year-old male present to the emergency department with concerns with abdominal discomfort. 11/23 EKG/telemetry: Atrial Fibrillation 61 BPM 11/23 VS: 149/75 53 16 97.4 97% RA Treatment: Metoprolol Succinate 50 MG PO QD 11/26-11/29 Cardizem 120 MG PO QD 11/24-11/29 Eliquis 5 MG PO BID 11/23-11/23 5 MG PO BID Please clarify the type of atrial fibrillation, if known: [ ] Chronic [ ] Permanent [ ] Paroxysmal [ ] Persistent [ ] Other, please specify [ x ] Unable to determine (Template Last Revised: February 2021) MTDD
[2023-11-29 12:53] LABS: Basophils # (A) 0.03 X 10*3/uL (0.00-0.10); Basophils % (A) 0.2 %; Eosinophils # (A) 0.04 X 10*3/uL (0.04-0.35); Eosinophils % (A) 0.3 %; HCT 34.5 % (39.6-50.0); HGB 11.1 g/dL (13.0-17.0); Lymphocytes # (A) 1.14 X 10*3/uL (0.90-5.00); Lymphocytes % (A) 8.5 %; MCH 26.4 pg (27.0-32.0); MCHC 32.2 g/dL (32.0-37.0); MCV 81.9 FL (80.0-97.0); Mean Platelet Volume 10.7 FL (9.5-12.2); Monocytes # (A) 1.24 X 10*3/uL (0.20-1.00); Monocytes % (A) 9.3 %; NRBC Per 100 WBC 0 X 10*3/uL (0.00-0.01); Neutrophils # (A) 10.78 X 10*3/uL (1.80-7.70); Neutrophils % (A) 80.8 %; Platelet Count 296 X 10*3/uL (140-440); RBC 4.21 X 10*6/uL (4.40-5.60); WBC 13.35 X 10*3/uL (4.50-10.00)
--- NOTE | 2023-11-29 12:53 | P.DS ---
Providers Date of admission: 11/23/23 11:34 Expected date of discharge: 11/29/23 Attending physician: Merari Jaramillo DO Consults: 11/23/23 11:34 Consult Physician Routine Consulting Provider: Janelle Hudson Consult Reason/Comments: Pancreatitis, duodenitis, please review CT scan and lab Do you want consulting provider notified?: Yes 11/28/23 14:48 Consult Physician Routine Consulting Provider: Campbell Pool Consult Reason/Comments: gallstone pancreatitis Do you want consulting provider notified?: Already Contacted Primary care physician: Marcell [facility] Course: 78-year-old male with hypertension, sinusitis, chronic lower extremity edema, and A fib anticoagulated with eliquis presents with complaints of abdominal discomfort. In the emergency department he underwent extensive evaluation. On arrival vitals were within normal limits. Laboratory analysis included CBC, coags, CMP, amylase, and lipase which were remarkable for bilirubin 1.6, AST 171, ALT 98, amylase 1512, and lipase 12,465. Patient underwent CT abdomen and pelvis which demonstrated distal gastritis or duodenitis, diverticulosis with thickening of the sigmoid colon, and left renal stones. In the ER he was diagnosed with acute pancreatitis. He was started on normal saline at 130 cc/h and Dilaudid. Arrangements were made for admission. GI was consulted. 11/24 Gall bladder US shows biliary sludge with cholelithiasis. CBC WBC 16.14, Hg 12.5. Started on Zosyn for concerns for cholecystitis given new leukocytosis. Discussed with ALICAI Mitchell, plans for MRCP to evaluate need to ERCP and surgery consult. 11/25 Surgery has been consulted and plans for OR on Tuesday. 11/26 Plans for cholecystectomy on Tuesday. 11/27 Plans for cholecystectomy on Tuesday. 11/28 Underwent Laparoscopic cholecystectomy with Dr. Pool. 11/29 Patient was seen and examined. POD 1 laparoscopic cholecystectomy. He reports well controlled pain. No more nausea or vomiting. Bowel movement yesterd ay. Tolerating diet well. Discussed with Shruthi CHAIR POST MACHINE OPERATOR, awaiting todays lab work, possible discharge home today. Plans to switch Zosyn to Augmentin today. Patient can continue Augmentin 9 more days to complete a total of 2 weeks antibiotics. Follow up with Dr. Pool in the outpatient setting. Plans for discharge home today depending on results of CBC and CMP. General: non toxic, no distress, appears at stated age Derm: warm, dry Head: atraumatic, normocephalic, symmetric Eyes: EOMI, no lid lag, anicteric sclera Mouth: no lip lesion, mucus membranes moist Cardiovascular: S1S2 reg, no murmur Lungs: Clear to auscultation bilateral, no rhonchi, no rales , no accessory muscle use Abdominal: Soft, tender to palpation RU and LUQ without rebound, no guarding, laparoscopic scars clean without erythema Ext: no gross muscle atrophy, 1+ pitting lower extremity edema, no contractures Neuro: no focal neuro deficits Psych: Alert, oriented, appropriate affect Discharge Diagnosis: Gallstone pancreatitis Cholecystitis Transaminitis Normocytic anemia HTN A. fib This complex discharge took 35 minutes to complete. Patient Condition at Discharge: Stable Plan - Discharge Summary Discharge Rx Participant: Yes New Discharge Prescriptions: No Action Diltiazem Cd [Cardizem CD] 120 mg PO DAILY Apixaban [Eliquis] 5 mg PO BID Spironolactone [Aldactone] 25 mg PO DAILY Furosemide [Lasix] 20 mg PO DAILY Ergocalciferol [Vitamin D2 (1250 Mcg = 98521 Iu)] 1,250 mcg PO MARTINO Metoprolol Succinate (ER) [Toprol Xl] 50 mg PO DAILY Fluticasone Nasal [place] [Flonase Nasal [place]] 1 spr EA NOSTRIL BID Discharge Medication List Apixaban [Eliquis] 5 mg PO BID 11/23/23 [History] Diltiazem Cd [Cardizem CD] 120 mg PO DAILY 11/23/23 [History] Ergocalciferol [Vitamin D2 (1250 Mcg = 66141 Iu)] 1,250 mcg PO MARTINO 11/23/23 [History] Fluticasone Nasal [place] [Flonase Nasal [place]] 1 spr EA NOSTRIL BID 11/23/23 [History] Furosemide [Lasix] 20 mg PO DAILY 11/23/23 [History] Metoprolol Succinate (ER) [Toprol Xl] 50 mg PO DAILY 11/23/23 [History] Spironolactone [Aldactone] 25 mg PO DAILY 11/23/23 [History] Follow up Appointment(s)/Referral(s): None,Stated [REFERRING] - 1-2 days
[2023-11-29 13:17] LABS: ALT 31 U/L (10-49); AST 30 U/L (14-35); Albumin 3.2 g/dL (3.8-4.9); Albumin/Globulin Ratio 1.23 Ratio (1.60-3.17); Alkaline Phosphatase 85 U/L (41-126); Blood Urea Nitrogen 6.3 mg/dL (9.0-27.0); Calcium 8.8 mg/dL (8.7-10.3); Carbon Dioxide 27.3 mmol/L (21.6-31.8); Chloride 98 mmol/L (96-109); Globulin 2.6 g/dL (1.6-3.3); Glucose 96 mg/dL (70-110); Potassium 4.1 mmol/L (3.5-5.5); Sodium 136 mmol/L (135-145); Total Bilirubin 0.5 mg/dL (0.3-1.2); Total Protein 5.8 g/dL (6.2-8.2)
[2023-11-29 14:16] VITALS: BP 123/74; PULSE 67; RESP 19; TEMP 97.8
--- NOTE | 2023-11-29 15:23 | P.PN ---
Subjective Progress Note Date: 11/29/23 CHIEF COMPLAINT: abdominal pain HISTORY OF PRESENT ILLNESS: Patient is status post laparoscopic cholecystectomy. Pain is controlled. Tolerating diet. WBC is 13.35. LFTs are normal PHYSICAL EXAM: VITAL SIGNS: Reviewed. GENERAL: Well-developed in no acute distress. ABDOMEN: Soft. Nondistended. NEUROLOGIC: Alert and oriented. Cranial nerves II through XII grossly intact. ASSESSMENT: 1. Acute gallstone pancreatitis 2. Acute cholecystitis. Ultrasound showing sludge and cholelithiasis 3. Gastritis and duodenitis reported on CT 4. Soft tissue thickening involving the sigmoid colon and diverticulosis reported on abdominal CT 5. Leukocytosis PLAN: -Patient can be discharged from surgical standpoint -Agree with discharging with antibiotics -Okay to resume Eliquis tomorrow -Recommend colonoscopy outpatient Physician Skidder Driver note has been reviewed by physician. Signing provider agrees with the documented findings, assessment, and plan of care. Objective - Vital Signs Vital signs: Vital Signs Temp 97.8 F 11/29/23 14:00 Pulse 67 11/29/23 14:00 Resp 19 11/29/23 14:00 BP 123/74 11/29/23 14:00 Pulse Ox 96 11/29/23 14:00 FiO2 Intake & Output 11/28/23 11/29/23 11/29/23 18:59 06:59 18:59 Intake Total 1000 Output Total 5 Balance 995 Weight 146.964 kg Intake: IV 1000 Output: Estimated Blood Loss 5 Other: Voiding Method Toilet # Voids 4 5 - Labs CBC & Chem 7: 11/29/23 07:25 11/29/23 07:25 Labs: Abnormal Lab Results - Last 24 Hours (Table) 11/29/23 11/29/23 Range/Units 07:25 07:25 WBC 13.35 H (4.50-10.00) X 10*3/uL RBC 4.21 L (4.40-5.60) X 10*6/uL Hgb 11.1 L (13.0-17.0) g/dL Hct 34.5 L (39.6-50.0) % MCH 26.4 L (27.0-32.0) pg RDW 16.0 H (11.5-14.5) % Immature Gran # 0.12 H (0.00-0.04) X 10*3/uL Neutrophils # 10.78 H (1.80-7.70) X 10*3/uL Monocytes # 1.24 H (0.20-1.00) X 10*3/uL BUN 6.3 L (9.0-27.0) mg/dL BUN/Creatinine Ratio 9.00 L (12.00-20.00) Ratio Total Protein 5.8 L (6.2-8.2) g/dL Albumin 3.2 L (3.8-4.9) g/dL Albumin/Globulin Ratio 1.23 L (1.60-3.17) Ratio
[2023-11-29] MEDS ORDERED: APIXABAN 5 MG TAB PO SCH (21:00)
[2023-11-29] MEDS ORDERED: AMOXIC-POT CLAV 875-125MG 1 EACH TAB PO SCH (21:00)
== END 2023-11-29 15:50 | disposition home or self-care (01) | DRG 418 ==
LOC: EC 07:56 → 5NMEDONC 11:34 → 4SSUR 15:17
PROVIDERS: ADMIT Internal Medicine; ATTEND Internal Medicine
PROC: 0FT44ZZ Resection of Gallbladder, Percutaneous Endoscopic Approach (ICD-10-PCS; principal; 2023-11-28 12:15)
DX: K85.10 Biliary acute pancreatitis without necrosis or infection (principal); K80.00 Calculus of gallbladder with acute cholecystitis without obstruction; Z68.42 Body mass index [BMI] 45.0-49.9, adult; E66.01 Morbid (severe) obesity due to excess calories; I10 Essential (primary) hypertension; K29.70 Gastritis, unspecified, without bleeding; K29.80 Duodenitis without bleeding; J32.9 Chronic sinusitis, unspecified; D64.9 Anemia, unspecified; R74.01 Elevation of levels of liver transaminase levels; I48.91 Unspecified atrial fibrillation; N28.1 Cyst of kidney, acquired; N20.0 Calculus of kidney; K82.8 Other specified diseases of gallbladder; Z79.01 Long term (current) use of anticoagulants; Z79.899 Other long term (current) drug therapy
CPT/HCPCS: 36415; 74177; 76705; 80053; 82150; 83690; 83735; 85025; 85610; 85730; 88304; 93005; 96361; 96374; 96375; 96376; 99285

== ENCOUNTER 2024-05-21 18:41 | Emergency (ER) | payer MEDICARE, OTHER ==
[2024-05-21] MEDS ORDERED: HYDROmorphone 0.5 MG/0.5 ML SYRINGE ONE (20:21)
[2024-05-21] MEDS ORDERED: SODIUM CHLORIDE 0.9% 500 ML BAG ONE (20:30)
== END 2024-05-21 22:20 | disposition home or self-care (01) ==
LOC: EC 18:41
DX: R10.9 Unspecified abdominal pain (principal)
CPT/HCPCS: 96372; 99284

== ENCOUNTER 2024-06-08 18:04 | Inpatient (IN) | payer MEDICARE, OTHER ==
--- NOTE | 2024-06-08 18:54 | ED ---
General Adult HPI - General Chief complaint: Shortness of Breath Stated complaint: BARB Time Seen by Provider: 06/08/24 18:13 Source: patient, EMS Mode of arrival: EMS Limitations: no limitations - History of Present Illness Initial comments: Patient is a 78 y/o male past medical history of atrial fibrillation on Eliquis, hypertension presenting today for shortness of breath. Patient states shortness of breath began 3 to 4 days ago. He called his doctor today who told him to come to the emergency department, prompting him to present to the ER. Patient's also notes that patient felt hot sweaty and clammy prior to arrival in the ER. Per EMS report patient "had a low-grade fever". No Tylenol or ibuprofen prior to arrival. Denies cough or hemoptysis. Denies chest pain. Is on Lasix and spironolactone. Had a recent stress test approximately [address] Meraz, which he was told was normal. Patient also notes persistent abdominal distention but no pain since cholecystectomy in October. He has had frequent dyspepsia over this time and small-volume liquid stools. He states that ever since then he has also had difficulty sleeping and is very concerned about his trouble sleeping over the last 8 to 9 months. Has not taken any medications to help him sleep at home. Does not prescribe medications for sleep. When asked to specify further he feels he is having trouble sleeping he states that he does not know, it is not secondary to pain or shortness of breath. - Related Data Home Medications Medication Instructions Recorded Confirmed Apixaban [Eliquis] 5 mg PO BID 11/23/23 06/08/24 Ergocalciferol [Vitamin D2 (1250 1,250 mcg PO MARTINO 11/23/23 06/08/24 Mcg = 99118 Iu)] Fluticasone Nasal [place] [Flonase 1 spr EA NOSTRIL BID 11/23/23 06/08/24 Nasal [place]] Furosemide [Lasix] 20 mg PO DAILY 11/23/23 06/08/24 Spironolactone [Aldactone] 25 mg PO DAILY 11/23/23 06/08/24 dilTIAZem HCL [Tiazac] 120 mg PO DAILY 06/08/24 06/08/24 Allergies Allergy/AdvReac Type Severity Reaction Status Date / Time No Known Allergies Allergy Verified 06/08/24 18:23 Review of Systems ROS Statement: Those systems with pertinent positive or pertinent negative responses have been documented in the HPI. Constitutional: Reports: fever, chills, weakness (Generalized) ENT: Denies: throat pain, congestion Respiratory: Reports: dyspnea. Denies: cough, hemoptysis Cardiovascular: Denies: chest pain, edema Gastrointestinal: Reports: diarrhea (Chronic). Denies: abdominal pain, nausea, vomiting, constipation, melena, hematochezia Genitourinary: Reports: frequency. Denies: urgency Neurological: Denies: headache, vertigo Past Medical History Past Medical History: Atrial Fibrillation, Hypertension Additional Past Medical History / Comment(s): sinusitis, Chorn[place] LE edema History of Any Multi-Drug Resistant Organisms: None Reported Past Surgical History: Orthopedic Surgery, Tonsillectomy Past Psychological History: No Psychological Hx Reported Smoking Status: Former smoker Past Alcohol Use History: None Reported Past Drug Use History: None Reported - Past Family History Father Family Medical History: No Reported History Mother Family Medical History: Asthma, COPD General Exam - General Exam Comments Initial Comments: PE: CONSTITUTIONAL: [no apparent distress, nontoxic though ill-appearing, conversational dyspnea noted SKIN: Warm, dry, no jaundice, hives or petechiae EYES: Pupils are equally round, extraocular movements intact without nystagmus, clear conjunctiva, non-icteric sclera HENT: Normocephalic, atraumatic, moist mucus membranes, oropharynx clear without exudates NECK: , Full range of motion, normal appearance, no thyromegaly or lymphaden opathy PULMONARY: Clear to auscultation without wheezes, rhonchi, or rales, normal excursion, no accessory muscle use and no stridor CARDIOVASCULAR: Regular rate, rhythm, normal S1 and S2. No appreciated murmurs, rubs or gallops. Strong radial pulses with intact distal perfusion. 1+ bilateral pretibial pitting edema GASTROINTESTINAL: Soft, non-tender, distended, no palpable masses, no rebound or guarding. No hepatosplenomegaly, no hernias noted MUSCULOSKELETAL: Extremities have no gross deformity, redness, or swelling. No calf swelling NEUROLOGIC:_a/o x 3, GCS 15, normal mentation and speech. Moves all extremities x 4 without motor or sensory deficit PSYCHIATRIC:_normal mood and affect, thought process is clear and linear Limitations: no limitations Course Vital Signs 06/08/24 06/08/24 06/08/24 18:06 18:32 18:40 Temperature 99.1 F 101 F H Pulse Rate 77 Respiratory 18 18 Rate Blood Pressure 115/69 O2 Sat by Pulse 99 Oximetry 06/08/24 06/09/24 06/09/24 22:56 01:50 06:00 Temperature 98.2 F Pulse Rate 86 89 76 Respiratory 20 18 17 Rate Blood Pressure 115/74 115/76 119/74 O2 Sat by Pulse 96 97 Oximetry 06/09/24 07:44 Temperature Pulse Rate 99 Respiratory 19 Rate Blood Pressure 119/74 O2 Sat by Pulse 96 Oximetry - Reevaluation(s) Reevaluation #1: Called by Dr. Durán, radiologist regarding patient CT abdomen findings. Suspects likely intra-abdominal mass with possible organizing fluid collection. Recommend surgery consult. Dr. Hicks paged, placed order for IV pipercillin- zosyn. 06/08/24 21:22 EKG Findings - EKG Comments: EKG Findings:: Atrial fibrillation with PVCs. Rate 84 bpm, QRS duration 156 seconds, QT/QTc 449/490 ms, normal axis,RBBB, No STEMI Medical Decision Making - Medical Decision Making Was pt. sent in by a medical professional or institution (, [facility], [employer]T [employer]ER, urgent care, hospital, or assisted...) When possible be specific @Patient sent in by his primary care provider Did you speak to anyone other than the patient for history (EMS, parent, family, police, friend...)? What history was obtained from this source @ - assisted in providing history Did you review nursing and triage notes (agree or disagree)? Why? @ -I reviewed nursing and triage notes patient states shortness of breath going on for last 3 to 4 days Were old charts reviewed (outside hosp., previous admission, EMS record, old EKG, old radiological studies, urgent care reports/EKG's, assisted records)? Report findings @ -Yes patient discharged this past November status post laparoscopic cholecystectomy Differential Diagnosis (chest pain, altered mental status, abdominal pain women, abdominal pain men, vaginal bleeding, weakness, fever, dyspnea, syncope, headache, dizziness, GI bleed, back pain, seizure, CVA, palpatations, mental health, musculoskeletal)? @ -Differential diagnosis remains broad however top considerations include ACS, arrhythmia, COPD, pulmonary embolism, pneumonia, pulmonary effusion, anemia, CHF exacerbation this is not meant to be an all-inclusive list. EKG interpreted by me (3pts min.). @ -Atrial fibrillation with PVCs, prolonged QT interval X-rays interpreted by me (1pt min.). @ -None done CT interpreted by me (1pt min.). @ -Reviewed CT PE study, I see no evidence of pulmonary embolism, pleural effusions or consolidations, reviewed CT abdomen pelvis there does appear to be a circular area of inflammatory changes near the colon U/S interpreted by me (1pt. min.). @ -None done What testing was considered but not performed or refused? (CT, X-rays, U/S, labs)? Why? @ -I did consider obtaining blood cultures however patient was febrile but otherwise did not meet SIRS criteria, antibiotics were held until possible infectious source of fever identified What meds were considered but not given or refused? Why? @ -Considered larger fluid bolus however pt is on diuretics and already has 1+ pretibial pitting edema, lactic was not elevated and patient not hypotensive so additional fluid boluses beyond first 500cc withheld. Did you discuss the management of the patient with other professionals (professionals i.e. , PA, BELT POLISHER, lab, RT, psych nurse, social science research assistant, immunology teacher, teacher, regulatory compliance officer, pillowcase cutter)? Give summary @ Discussed with Dr. Pool, general surgery, please see ED course and note below Was smoking cessation discussed for >3mins.? @ -No Was critical care preformed (if so, how long)? @ -No Were there social determinants of health that impacted care today? How? (Homelessness, low income, unemployed, alcoholism, drug addiction, transportation, low edu. Level, literacy, decrease access to med. care, senior care, rehab)? @ -No Was there de-escalation of care discussed even if they declined (Discuss DNR or withdrawal of care, Hospice)? DNR status @ -No What co-morbidities impacted this encounter? (DM, HTN, Smoking, COPD, CAD, Cancer, CVA, ARF, Chemo, Hep., AIDS, mental health diagnosis, sleep apnea, morbid obesity)? @ -Atrial fibrillation, hypertension Was patient admitted / discharged? Hospital course, mention meds given and route, prescriptions, significant lab abnormalities, going to OR and other pertinent info. @ -Hospital course Patient is a pleasant 78-year-old gentleman presenting today for shortness of breath x 4 days. Febrile on arrival, oral temp on my assessment 101 F. BP stable, RR <20, no tachycardia. Atrial fib with PVCs on monitoring coordinator. Lungs clear to auscultation bilaterally, abdomen is distended but soft. Patient states has been like this since his cystectomy in October. Denies abdominal pain or chest pain. No sore throat or congestion. Chest x-ray ordered to evaluate for signs of pneumonia, CT abdomen pelvis to evaluate for acute intra- abdominal infectious process so I will lower suspicion for this given soft and nontender abdomen on exam and no new GI symptoms. Tylenol for fever, IV mag for prolonged QTc and PVCs. Comprehensive labs, cephed testing. Patient febrile but otherwise does not meet SIRS criteria so blood cultures and abx not yet ordered. D dimer elevated so CXR switched to CT PE study. CT findings as discussed in hospital course. Ordered zosyn. Discussed with Dr. Pool, nat's patient on clear liquid diet, hold eliquis, pain and nausea control, admit to his service and requests medicine consult. Updated patient and to imaging findings and plan of care. All questions answered. Patient more comfortable sitting upright in recliner. Would like to trial medication to help with sleep. Will trial benadryl and melatonin. Ultimately CT read as "short segment of circumferential wall thickening of the sigmoid colon compatible with colitis/diverticulitis, underlying mass not excluded given morphology recommend further workup for malignancy, edematous mesentery possible secondary to overlying organizing fluid collection, few small bowel loops may closely approximate as area, abnormal appearance anterior blad christiano with full further evaluation which is likely secondary to infection inflammatory process from #1". Discussed case with Dr. Padron who will kindly consult on this patient during admission. Patient admitted to Dr. Pool. Undiagnosed new problem with uncertain prognosis? @ -Yes Drug Therapy requiring intensive monitoring for toxicity (Heparin, Nitro, Insulin, Cardizem)? @ -No Were any procedures done? @ -No Diagnosis/symptom? @ -Shortness of breath, intraabdominal mass Acute, or Chronic, or Acute on Chronic? @ -Acute Uncomplicated (without systemic symptoms) or Complicated (systemic symptoms)? @ Complicated Side effects of treatment? @ -No Exacerbation, Progression, or Severe Exacerbation? @ -No Poses a threat to life or bodily function? How? (Chest pain, [place], MA, pneumonia, PE, COPD, DKA, ARF, appy, cholecystitis, CVA, Diverticulitis, Homicidal, Suicidal, threat to staff... and all critical care pts) @ Yes, if mass and/or fluid collection, could progress to sepsis, septic shock and ultimately - Lab Data Result diagrams: 06/08/24 19:04 06/08/24 19:04 Lab Results 06/08/24 06/08/24 06/08/24 Range/Units 19:04 19:04 19:04 WBC 10.9 H (3.8-10.6) k/uL RBC 4.19 L (4.30-5.90) m/uL Hgb 9.8 L (13.0-17.5) gm/dL Hct 29.8 L (39.0-53.0) % MCV 71.2 L (80.0-100.0) fL MCH 23.4 L (25.0-35.0) pg MCHC 32.8 (31.0-37.0) g/dL RDW 16.5 H (11.5-15.5) % Plt Count 487 H (150-450) k/uL MPV 8.2 Neutrophils % 77 % Lymphocytes % 14 % Monocytes % 7 % Eosinophils % 1 % Basophils % 0 % Neutrophils # 8.3 H (1.3-7.7) k/uL Lymphocytes # 1.5 (1.0-4.8) k/uL Monocytes # 0.7 (0-1.0) k/uL Eosinophils # 0.1 (0-0.7) k/uL Basophils # 0.0 (0-0.2) k/uL Anisocytosis Slight Microcytosis Moderate PT 12.5 (10.0-12.5) sec INR 1.2 H (<1.2) APTT 28.5 (22.0-30.0) sec D-Dimer 0.75 H (<0.60) mg/L FEU Sodium 132 L (137-145) mmol/L Potassium 4.2 (3.5-5.1) mmol/L Chloride 100 (98-107) mmol/L Carbon Dioxide 23 (22-30) mmol/L Anion Gap 9 mmol/L BUN 12 (9-20) mg/dL Creatinine 0.75 (0.66-1.25) mg/dL Est GFR (CKD-EPI)AfAm >90 (>60 ml/min/1.73 sqM) Est GFR (CKD-EPI)NonAf 88 (>60 ml/min/1.73 sqM) Glucose 84 (74-99) mg/dL Plasma Lactic Acid Kyree (0.7-2.0) mmol/L Calcium 8.3 L (8.4-10.2) mg/dL Total Bilirubin 0.6 (0.2-1.3) mg/dL AST 60 H (17-59) U/L ALT 37 (4-49) U/L Alkaline Phosphatase 86 (38-126) U/L Troponin I (0.000-0.034) ng/mL C-Reactive Protein (<1.0) mg/dL NT-Pro-B Natriuret Pep 1820 pg/mL Total Protein 6.0 L (6.3-8.2) g/dL Albumin 2.9 L (3.5-5.0) g/dL Lipase (23-300) U/L Procalcitonin (0.02-0.50) ng/mL TSH (0.465-4.680) mIU/L Urine Color Urine Appearance (Clear) Urine pH (5.0-8.0) Ur Specific [place] (1.001-1.035) Urine Protein (Negative) Urine Glucose (UA) (Negative) Urine Ketones (Negative) Urine Blood (Negative) Urine Nitrite (Negative) Urine Bilirubin (Negative) Urine Urobilinogen (<2.0) mg/dL Ur Leukocyte Esterase (Negative) Urine RBC (0-5) /hpf Urine WBC (0-5) /hpf Urine WBC Clumps (None) /hpf Ur Squamous Epith Cells (0-4) /hpf Urine Bacteria (None) /hpf Urine Mucus (None) /hpf Influenza Type A (PCR) (Not Detectd) Influenza Type B (PCR) (Not Detectd) RSV (PCR) (Not Detectd) SARS-CoV-2 (PCR) (Not Detectd) 08/30/24 08/30/24 08/30/24 Range/Units 19:04 19:04 19:04 WBC (3.8-10.6) k/uL RBC (4.30-5.90) m/uL Hgb (13.0-17.5) gm/dL Hct (39.0-53.0) % MCV (80.0-100.0) fL MCH (25.0-35.0) pg MCHC (31.0-37.0) g/dL RDW (11.5-15.5) % Plt Count (150-450) k/uL MPV Neutrophils % % Lymphocytes % % Monocytes % % Eosinophils % % Basophils % % Neutrophils # (1.3-7.7) k/uL Lymphocytes # (1.0-4.8) k/uL Monocytes # (0-1.0) k/uL Eosinophils # (0-0.7) k/uL Basophils # (0-0.2) k/uL Anisocytosis Microcytosis PT (10.0-12.5) sec INR (<1.2) APTT (22.0-30.0) sec D-Dimer (<0.60) mg/L FEU Sodium (137-145) mmol/L Potassium (3.5-5.1) mmol/L Chloride (98-107) mmol/L Carbon Dioxide (22-30) mmol/L Anion Gap mmol/L BUN (9-20) mg/dL Creatinine (0.66-1.25) mg/dL Est GFR (CKD-EPI)AfAm (>60 ml/min/1.73 sqM) Est GFR (CKD-EPI)NonAf (>60 ml/min/1.73 sqM) Glucose (74-99) mg/dL Plasma Lactic Acid Kyree 1.9 (0.7-2.0) mmol/L Calcium (8.4-10.2) mg/dL Total Bilirubin (0.2-1.3) mg/dL AST (17-59) U/L ALT (4-49) U/L Alkaline Phosphatase (38-126) U/L Troponin I <0.012 (0.000-0.034) ng/mL C-Reactive Protein (<1.0) mg/dL NT-Pro-B Natriuret Pep pg/mL Total Protein (6.3-8.2) g/dL Albumin (3.5-5.0) g/dL Lipase (23-300) U/L Procalcitonin (0.02-0.50) ng/mL TSH (0.465-4.680) mIU/L Urine Color Urine Appearance (Clear) Urine pH (5.0-8.0) Ur Specific [place] (1.001-1.035) Urine Protein (Negative) Urine Glucose (UA) (Negative) Urine Ketones (Negative) Urine Blood (Negative) Urine Nitrite (Negative) Urine Bilirubin (Negative) Urine Urobilinogen (<2.0) mg/dL Ur Leukocyte Esterase (Negative) Urine RBC (0-5) /hpf Urine WBC (0-5) /hpf Urine WBC Clumps (None) /hpf Ur Squamous Epith Cells (0-4) /hpf Urine Bacteria (None) /hpf Urine Mucus (None) /hpf Influenza Type A (PCR) Not Detected (Not Detectd) Influenza Type B (PCR) Not Detected (Not Detectd) RSV (PCR) Not Detected (Not Detectd) SARS-CoV-2 (PCR) Not Detected (Not Detectd) 06/08/24 06/08/24 06/08/24 Range/Units 19:04 19:04 19:04 WBC (3.8-10.6) k/uL RBC (4.30-5.90) m/uL Hgb (13.0-17.5) gm/dL Hct (39.0-53.0) % MCV (80.0-100.0) fL MCH (25.0-35.0) pg MCHC (31.0-37.0) g/dL RDW (11.5-15.5) % Plt Count (150-450) k/uL MPV Neutrophils % % Lymphocytes % % Monocytes % % Eosinophils % % Basophils % % Neutrophils # (1.3-7.7) k/uL Lymphocytes # (1.0-4.8) k/uL Monocytes # (0-1.0) k/uL Eosinophils # (0-0.7) k/uL Basophils # (0-0.2) k/uL Anisocytosis Microcytosis PT (10.0-12.5) sec INR (<1.2) APTT (22.0-30.0) sec D-Dimer (<0.60) mg/L FEU Sodium (137-145) mmol/L Potassium (3.5-5.1) mmol/L Chloride (98-107) mmol/L Carbon Dioxide (22-30) mmol/L Anion Gap mmol/L BUN (9-20) mg/dL Creatinine (0.66-1.25) mg/dL Est GFR (CKD-EPI)AfAm (>60 ml/min/1.73 sqM) Est GFR (CKD-EPI)NonAf (>60 ml/min/1.73 sqM) Glucose (74-99) mg/dL Plasma Lactic Acid Kyree (0.7-2.0) mmol/L Calcium (8.4-10.2) mg/dL Total Bilirubin (0.2-1.3) mg/dL AST (17-59) U/L ALT (4-49) U/L Alkaline Phosphatase (38-126) U/L Troponin I (0.000-0.034) ng/mL C-Reactive Protein 13.2 H (<1.0) mg/dL NT-Pro-B Natriuret Pep pg/mL Total Protein (6.3-8.2) g/dL Albumin (3.5-5.0) g/dL Lipase 51 (23-300) U/L Procalcitonin 0.08 (0.02-0.50) ng/mL TSH 2.360 (0.465-4.680) mIU/L Urine Color Urine Appearance (Clear) Urine pH (5.0-8.0) Ur Specific [place] (1.001-1.035) Urine Protein (Negative) Urine Glucose (UA) (Negative) Urine Ketones (Negative) Urine Blood (Negative) Urine Nitrite (Negative) Urine Bilirubin (Negative) Urine Urobilinogen (<2.0) mg/dL Ur Leukocyte Esterase (Negative) Urine RBC (0-5) /hpf Urine WBC (0-5) /hpf Urine WBC Clumps (None) /hpf Ur Squamous Epith Cells (0-4) /hpf Urine Bacteria (None) /hpf Urine Mucus (None) /hpf Influenza Type A (PCR) (Not Detectd) Influenza Type B (PCR) (Not Detectd) RSV (PCR) (Not Detectd) SARS-CoV-2 (PCR) (Not Detectd) 06/08/24 Range/Units 21:20 WBC (3.8-10.6) k/uL RBC (4.30-5.90) m/uL Hgb (13.0-17.5) gm/dL Hct (39.0-53.0) % MCV (80.0-100.0) fL MCH (25.0-35.0) pg MCHC (31.0-37.0) g/dL RDW (11.5-15.5) % Plt Count (150-450) k/uL MPV Neutrophils % % Lymphocytes % % Monocytes % % Eosinophils % % Basophils % % Neutrophils # (1.3-7.7) k/uL Lymphocytes # (1.0-4.8) k/uL Monocytes # (0-1.0) k/uL Eosinophils # (0-0.7) k/uL Basophils # (0-0.2) k/uL Anisocytosis Microcytosis PT (10.0-12.5) sec INR (<1.2) APTT (22.0-30.0) sec D-Dimer (<0.60) mg/L FEU Sodium (137-145) mmol/L Potassium (3.5-5.1) mmol/L Chloride (98-107) mmol/L Carbon Dioxide (22-30) mmol/L Anion Gap mmol/L BUN (9-20) mg/dL Creatinine (0.66-1.25) mg/dL Est GFR (CKD-EPI)AfAm (>60 ml/min/1.73 sqM) Est GFR (CKD-EPI)NonAf (>60 ml/min/1.73 sqM) Glucose (74-99) mg/dL Plasma Lactic Acid Kyree (0.7-2.0) mmol/L Calcium (8.4-10.2) mg/dL Total Bilirubin (0.2-1.3) mg/dL AST (17-59) U/L ALT (4-49) U/L Alkaline Phosphatase (38-126) U/L Troponin I (0.000-0.034) ng/mL C-Reactive Protein (<1.0) mg/dL NT-Pro-B Natriuret Pep pg/mL Total Protein (6.3-8.2) g/dL Albumin (3.5-5.0) g/dL Lipase (23-300) U/L Procalcitonin (0.02-0.50) ng/mL TSH (0.465-4.680) mIU/L Urine Color Yellow Urine Appearance Cloudy (Clear) Urine pH 6.5 (5.0-8.0) Ur Specific [place] 1.017 (1.001-1.035) Urine Protein Trace H (Negative) Urine Glucose (UA) Negative (Negative) Urine Ketones Negative (Negative) Urine Blood Small H (Negative) Urine Nitrite Negative (Negative) Urine Bilirubin Negative (Negative) Urine Urobilinogen 8.0 (<2.0) mg/dL Ur Leukocyte Esterase Large H (Negative) Urine RBC 7 H (0-5) /hpf Urine WBC >182 H (0-5) /hpf Urine WBC Clumps Many H (None) /hpf Ur Squamous Epith Cells 4 (0-4) /hpf Urine Bacteria Many H (None) /hpf Urine Mucus Rare H (None) /hpf Influenza Type A (PCR) (Not Detectd) Influenza Type B (PCR) (Not Detectd) RSV (PCR) (Not Detectd) SARS-CoV-2 (PCR) (Not Detectd) Disposition Clinical Impression: Intraabdominal mass, Shortness of breath Disposition: ADMITTED IP TO THIS [facility] Time of Disposition: 21:52
[2024-06-08 19:39] LABS: Anisocytosis Slight; Basophils % (A) 0 %; Eosinophils # (A) 0.1 k/uL (0-0.7); Eosinophils % (A) 1 %; HCT 29.8 % (39.0-53.0); HGB 9.8 gm/dL (13.0-17.5); Lymphocytes # (A) 1.5 k/uL (1.0-4.8); Lymphocytes % (A) 14 %; MCH 23.4 pg (25.0-35.0); MCHC 32.8 g/dL (31.0-37.0); MCV 71.2 fL (80.0-100.0); Mean Platelet Volume 8.2; Microcytosis Moderate; Monocytes # (A) 0.7 k/uL (0-1.0); Monocytes % (A) 7 %; Neutrophils # (A) 8.3 k/uL (1.3-7.7); Neutrophils % (A) 77 %; Platelet Count 487 k/uL (150-450); RBC 4.19 m/uL (4.30-5.90); RDW 16.5 % (11.5-15.5); WBC 10.9 k/uL (3.8-10.6)
[2024-06-08 19:52] LABS: INR 1.2 (<1.2); Partial Thromboplastin Time 28.5 sec (22.0-30.0); Prothrombin Time 12.5 sec (10.0-12.5)
[2024-06-08 19:54] LABS: ALT 37 U/L (4-49); AST 60 U/L (17-59); African American GFR (CKD) >90 (>60 ml/min/1.73 sqM); Albumin 2.9 g/dL (3.5-5.0); Alkaline Phosphatase 86 U/L (38-126); Anion Gap 9 mmol/L; Blood Urea Nitrogen 12 mg/dL (9-20); Calcium 8.3 mg/dL (8.4-10.2); Carbon Dioxide 23 mmol/L (22-30); Chloride 100 mmol/L (98-107); Glucose 84 mg/dL (74-99); Non-African American GFR(CKD) 88 (>60 ml/min/1.73 sqM); Potassium 4.2 mmol/L (3.5-5.1); Sodium 132 mmol/L (137-145); Total Bilirubin 0.6 mg/dL (0.2-1.3)
[2024-06-08] MEDS: ACETAMINOPHEN TAB 500 MG TAB PO STA (19:56)
[2024-06-08] MEDS: MAGNESIUM SULFATE-D5W PMX 1 GM in DEXTROSE/WATER 1 100ML.BAG IVPB ONE (19:56)
[2024-06-08] MEDS: SODIUM CHLORIDE 0.9% 500 ML 500 ML IV STA (19:57)
[2024-06-08 20:01] LABS: NT-Pro-B-Type Natriuretic Pept 1820 pg/mL
--- NOTE | 2024-06-08 21:11 | CT ---
EXAMINATION TYPE: CT angio chest CT DLP: 691.4 mGycm, Automated exposure control for dose reduction was used. DATE OF EXAM: 06/08/2024 9:01 PM COMPARISON: None CLINICAL INDICATION: Male, 78 years old with history of elevated dimer, fever, BARB; Patient arrived v ia EMS from home with complaints of BARB that started yesterday, per EMS, afib with PVCs shown on the receiver setter in the ambulance. elevated d-dimer. iso 370 100 mL TECHNIQUE/CONTRAST: CTA scan of the thorax is performed with IV Contrast, patient injected with 50ML mL of Isovue 370, GA P images are created and reviewed these are created on a separate workstation.. FINDINGS: Pulmonary Artery: There is no evidence for a filling defect within the pulmonary vasculature to sugge st acute pulmonary embolism. The pulmonary artery is of normal size. Lungs/Pleura: No evidence of focal consolidation, pleural effusion or pneumothorax. Airway: Large airways are patent. Heart: The heart is mildly enlarged for size. Atherosclerosis of the arterial vasculature. Aortic deisy ve consultations are present. Vasculature: No evidence of aortic aneurysm. Mediastinum: No gross evidence of adenopathy. Musculoskeletal: No acute osseous abnormalities Soft Tissues/lymph nodes: Unremarkable. Lower neck: No significant findings. Upper Abdomen: No significant findings. IMPRESSION: 1. No evidence of pulmonary embolism. 2. Cardiomegaly with mild aortic valve calcifications. An mild coronary artery atherosclerosis.
--- NOTE | 2024-06-08 21:24 | CT ---
EXAMINATION TYPE: CT abdomen pelvis w con CT DLP: 1593 mGycm, Automated exposure control for dose reduction was used. DATE OF EXAM: 06/08/2024 9:01 PM COMPARISON: CT abdomen pelvis most recent from 11/23/2023 CLINICAL INDICATION: Male, 78 years old with history of abdominal distention, fever; Patient arrived via EMS from home with complaints of BARB that started yesterday, per EMS, afib with PVCs shown on the clinical research monitor in the ambulance. elevated d-dimer. iso 370 100 mL TECHNIQUE: Axial CT abdomen pelvis w con;Sagittal and coronal reformats were created on a separate w orkstation. Contrast used:50ML mL of Isovue 370 with IV Contrast, (none if empty) Oral contrast used: without Oral Contrast (none if empty) FINDINGS: LOWER CHEST: Unremarkable ABDOMEN LIVER: Unremarkable GALLBLADDER AND BILE DUCTS: Unremarkable. PANCREAS: Unremarkable. SPLEEN: Unremarkable. ADRENAL GLANDS: Unremarkable. KIDNEYS AND URETERS: No hydronephrosis. No right renal calculi. No obstructive uropathy. There isr no nobstructing left renal calculi. Measuring up to 18 x 10 mm on the left. PELVIS BLADDER: Bladder wall thickening anteriorly with masslike appearance measuring 39 x 35 mm. REPRODUCTIVE: Unremarkable. ABDOMEN & PELVIS STOMACH AND BOWEL: Circumferential wall thickening of the sigmoid colon r with short segment circumfe rence or wall thickening and inflammation measuring 92 mm in length. Multiple diverticula are present . Edema within the mesentery possibly early for organizing fluid collection series 501 image 46. PERITONEUM/RETROPERITONEUM: No evidence of pneumoperitoneum or free fluid. VASCULATURE: No evidence of aortic aneurysm. MUSCULOSKELETAL: No acute osseous abnormalities LYMPH NODES: No gross evidence for lymphadenopathy. SOFT TISSUE/ABDOMINAL WALL: Bilateral fat-containing inguinal hernias. IMPRESSION: 1. Short segment of circumferential wall thickening of the sigmoid colon compatible with colitis/div erticulitis. Underlying mass not excluded given morphology. Further workup recommended for malignancy recommended. 2. Edematous mesentery possibly thought to be secondary to early organizing fluid collection. Few sm all bowel loops may closely approximates this area 3. Abnormal appearance to the anterior bladder wall further evaluation which is likely secondary to i nfectious inflammatory process from #1. Findings communicated to Dr. Talia Emanuel MD on 06/08/2024 9:[address] Broderick Durán.
[2024-06-08 21:32] LABS: Appearance,Urine Cloudy (Clear); Bacteria,Urine Many /hpf; Bilirubin,Urine Negative (Negative); Blood,Urine Small (Negative); Color,Urine Yellow; Glucose,Urine (UA) Negative (Negative); Ketones,Urine Negative (Negative); Leukocyte Esterase,Urine Large (Negative); Mucus,Urine Rare /hpf; Nitrite,Urine Negative (Negative); PH, Urine 6.5 (5.0-8.0); Protein,Urine Trace (Negative); RBC,Urine 7 /hpf (0-5); Specific Gravity,Urine 1.017 (1.001-1.035); Squamous Epithelial Cell,Urine 4 /hpf (0-4); WBC,Urine >182 /hpf (0-5)
[2024-06-08] MEDS: PIPERACILLIN-TAZOBACTAM 3.375 GM in SODIUM CHLORIDE 0.9% 100 ML IVPB STA (21:36)
[2024-06-08] MEDS ORDERED: MAG HYDROX/AL HYDROX/SIMETH 30 ML CUP PO PRN (21:48)
[2024-06-08] MEDS ORDERED: MORPHINE SULFATE 4 MG/ML SYRINGE IV PRN (21:48)
[2024-06-08] MEDS ORDERED: ACETAMINOPHEN TAB 325 MG TAB PO PRN (21:48)
[2024-06-08] MEDS ORDERED: CALCIUM CARBONATE 500 MG CHEWABLE PO PRN (21:48)
[2024-06-08] MEDS ORDERED: NALOXONE 0.4 MG/ML 1 ML VIAL IV PRN (21:48)
[2024-06-08 22:50] LABS: C Reactive Protein 13.2 mg/dL (<1.0)
--- NOTE | 2024-06-08 23:23 | P.HPIM ---
History of Present Illness H&P Date: 06/08/24 History of Present Illness: Patient is a 78-year-old male with a PMH of atrial fibrillation (on Eliquis), hypertension presents to the ED with shortness of breath. The patient was found to have an abdominal mass on CT abd/pelvis and was subsequently admitted to the surgery service. Our service was consulted for medical management. Patient is accompanied by his . He states shortness of breath started a couple days ago while at rest. He says he has felt weak and has not been able to sleep for the past 6 months. Patient states he has mild diffuse abdominal pain and distention that comes and goes. He said he has lost around 60 pounds over the past 2 months. He admits to fever, chills general weakness, lightheadedness. Patient denies any nausea, vomiting, diarrhea, constipation, chest pain, palpitations, urinary symptoms. [] SOB questions EKG: Atrial fibrillation (rate controlled), right bundle branch block (present in EKG from 11/2023), with a rate of 84 bpm and QTc 490. CT abdomen/pelvis: Short segment of circumferential wall thickening of the sigm oid colon compatible with colitis/diverticulitis, underlying mass not excluded given morphology. Edematous mesentery possibly thought to be secondary to early organizing fluid collection. Abnormal appearance to the anterior bladder wall. Chest CTA: No evidence of pulmonary embolism, cardiomegaly with mild aortic valve calcifications and mild coronary artery atherosclerosis. CBC:. WBC 10.9 (neutrophil 8.3), Hgb 9.8, MCV 71.2, platelet 487. Coagulation: INR 1.2, D-dimer 0.75. serum sodium 132, potassium 4.2, CO2 23, BUN 12, creatinine 0.75, glucose 84, AST 60. Troponin: < 0.012. CRP: 13.2. proBNP: 1820. Lipase:51 UA: Large leukocyte esterase, urine WBC >182, trace urine protein, small urine blood, positive urine bacteria Vitals: T 101 F, ME 77, RR 18, BP 115/74, SaO2 96% on RA Review of systems: Pertinent positives and negatives as discussed in HPI, a complete review of systems was performed and all other systems are negative. Social history: Tobacco: Former smoker quit 40 years ago, smoked pack a day for 10 years prior to quitting Alcohol: Denies alcohol use, quit drinking over 25 years ago Recreational drugs: No illicit drug use Travel: No recent drug Occupation: Retired, lives at home with Physical examination: Vital signs reviewed General: non toxic, no distress, appears at stated age, obese Derm: no unusual rashes/lesions, warm Head: atraumatic, normocephalic, symmetric Eyes: EOMI, no lid lag, anicteric sclera, pupils equal round reactive to light ENT: Nose and ears atraumatic Neck: trachea midline, supple Mouth: no lip lesion, mucus membranes moist Cardiovascular: S1S2 reg, no murmur, positive dorsalis pedis pulse bilateral, bilateral lower extremity 2+ pitting edema Lungs: CTA bilateral, no rhonchi, no rales, no accessory muscle use, patient short of breath prefers to be sitting upright in chair Abdominal: Mildly distended, diffuse tenderness to palpation, no guarding Ext: muscle strength 5 out of 5 in all 4 extremities grossly, no gross muscle atrophy, no contractures, Neuro: CN II-XI grossly intact, no gross focal neuro deficits Psych: Alert, oriented, appropriate affect Assessment/Plan: Patient is a 70-year-old male with a past medical history of atrial fibrillation (on Eliquis) and hypertension has been admitted by surgery for abdominal mass. #. Shortness of breath Chest CTA showed no signs of pulmonary embolism Troponin negative Procalcitonin pending #. Leukocytosis w/ neutrophilic predominance - Suspect reactive in setting of malignancy - Monitor CBC for now #. Microcytic anemia Current hemoglobin 9.8, baseline hemoglobin 1112 Patient denies active bleeding Order iron studies Follow-up CBC #. Atrial fibrillation, rate controlled - Continue Cardizem 120 mg p.o. daily Monitor on telemetry Eliquis on hold by surgery #. Abnormal UA - Patient denying urinary complaints. - Abnormal appearance of anterior bladder as seen on CT abd - Consider Urology consult if primary culprit isn't the adjacent GI malignancy #. Hypertension - C/w home spironolactone 25 mg p.o. daily #. Bilateral leg edema Continue Lasix 20 mg p.o. daily and spironolactone 25 mg p.o. daily #. Mild hyponatremia Sodium: 132 Patient asymptomatic Hypervolemic with 2+ pitting edema in lower extremities Patient currently on Lasix 20 mg p.o. daily and spironolactone 25 mg p.o. daily Will continue to monitor BMP #. Thrombocytosis - Suspect reactive in setting of malignancy - Monitor for now #. Insomnia Melatonin 3 mg p.o. at bedtime as needed Benadryl 25 mg IVP once as needed ordered by ED #. Nonallergic rhinitis Continue Flonase nasal spray 1 spray each nostril twice daily #. Intraabdominal mass with 60 unintentional lbs weight loss Pain management: Acetaminophen 650 mg p.o. Q6 as needed, [place] 5325 q6h as n eeded Admit to surgery service, will be evaluated for possible surgical intervention. Defer management of pain control and DVT prophylaxis to primary surgery service F: N/A E: Replete electrolytes as needed N: Clear liquid diet A: Fall precautions CODE STATUS: Full Code . Past Medical History Past Medical History: Atrial Fibrillation, Hypertension Additional Past Medical History / Comment(s): sinusitis, Chornic LE edema History of Any Multi-Drug Resistant Organisms: None Reported Past Surgical History: Orthopedic Surgery, Tonsillectomy Past Psychological History: No Psychological Hx Reported Smoking Status: Former smoker Past Alcohol Use History: None Reported Past Drug Use History: None Reported - Past Family History Father Family Medical History: No Reported History Mother Family Medical History: Asthma, COPD Medications and Allergies Home Medications Medication Instructions Recorded Confirmed Type Apixaban [Eliquis] 5 mg PO BID 11/23/23 06/08/24 History Ergocalciferol [Vitamin D2 (1250 1,250 mcg PO MARTINO 11/23/23 06/08/24 History Mcg = 47505 Iu)] Fluticasone Nasal [place] [Flonase 1 spr EA NOSTRIL BID 11/23/23 06/08/24 History Nasal [place]] Furosemide [Lasix] 20 mg PO DAILY 11/23/23 06/08/24 History Spironolactone [Aldactone] 25 mg PO DAILY 11/23/23 06/08/24 History dilTIAZem HCL [Tiazac] 120 mg PO DAILY 06/08/24 06/08/24 History Allergies Allergy/AdvReac Type Severity Reaction Status Date / Time No Known Allergies Allergy Verified 06/08/24 18:23 Physical Exam Vitals: Vital Signs Temp Pulse Resp BP Pulse Ox 06/08/24 18:40 101 F H 08/30/24 18:32 18 06/08/24 18:06 99.1 F 77 18 115/69 99 Intake and Output 06/08/24 06/08/24 06/08/24 06:59 14:59 22:59 Other: Weight 110.223 kg Results CBC & Chem 7: 06/08/24 19:04 06/08/24 19:04 Labs: Abnormal Lab Results - Last 24 Hours (Table) 06/08/24 06/08/24 06/08/24 Range/Units 19:04 19:04 19:04 WBC 10.9 H (3.8-10.6) k/uL RBC 4.19 L (4.30-5.90) m/uL Hgb 9.8 L (13.0-17.5) gm/dL Hct 29.8 L (39.0-53.0) % MCV 71.2 L (80.0-100.0) fL MCH 23.4 L (25.0-35.0) pg RDW 16.5 H (11.5-15.5) % Plt Count 487 H (150-450) k/uL Neutrophils # 8.3 H (1.3-7.7) k/uL INR 1.2 H (<1.2) D-Dimer 0.75 H (<0.60) mg/L FEU Sodium 132 L (137-145) mmol/L Calcium 8.3 L (8.4-10.2) mg/dL AST 60 H (17-59) U/L Total Protein 6.0 L (6.3-8.2) g/dL Albumin 2.9 L (3.5-5.0) g/dL Urine Protein (Negative) Urine Blood (Negative) Ur Leukocyte Esterase (Negative) Urine RBC (0-5) /hpf Urine WBC (0-5) /hpf Urine WBC Clumps (None) /hpf Urine Bacteria (None) /hpf Urine Mucus (None) /hpf 06/08/24 Range/Units 21:20 WBC (3.8-10.6) k/uL RBC (4.30-5.90) m/uL Hgb (13.0-17.5) gm/dL Hct (39.0-53.0) % MCV (80.0-100.0) fL MCH (25.0-35.0) pg RDW (11.5-15.5) % Plt Count (150-450) k/uL Neutrophils # (1.3-7.7) k/uL INR (<1.2) D-Dimer (<0.60) mg/L FEU Sodium (137-145) mmol/L Calcium (8.4-10.2) mg/dL AST (17-59) U/L Total Protein (6.3-8.2) g/dL Albumin (3.5-5.0) g/dL Urine Protein Trace H (Negative) Urine Blood Small H (Negative) Ur Leukocyte Esterase Large H (Negative) Urine RBC 7 H (0-5) /hpf Urine WBC >182 H (0-5) /hpf Urine WBC Clumps Many H (None) /hpf Urine Bacteria Many H (None) /hpf Urine Mucus Rare H (None) /hpf
--- NOTE | 2024-06-09 00:49 | P.CONS ---
History of Present Illness - Reason for Consult Consult date: 06/08/24 - History of Present Illness Patient is a 78-year-old male with a PMH of atrial fibrillation (on Eliquis), hypertension that presents to the ED with shortness of breath. The patient was found to have an abdominal mass on CT abd/pelvis and was subsequently admitted to the surgery service. Our service was consulted for medical management. Patient is accompanied by his . He states shortness of breath gradually started 2 to 3 days ago while at rest. He says that it has been constant since the episode started. He is unaware of any triggers that may have caused this. He states that positional changes do not resolve his dyspnea. Denies dyspnea is made worse by exertion or laying down. Patient states he does not feel any pain when he is breathing. He denies any cough or sputum production. He says that he has felt weak and has not been able to sleep for the past 6 months. Patient states he has had mild diffuse abdominal pain and distention that comes and goes. He said he has lost around 60 pounds over the past 6 months and his states that he has not had much of an appetite recently. The patient does note that he was attempting to lose weight by doing portion control. He admits to having fever, chills, general weakness, lightheadedness. Patient denies any nausea, vomiting, diarrhea, constipation, chest pain, palpitations, urinary symptoms. EKG: Atrial fibrillation (rate controlled), right bundle branch block (present in EKG from 11/2023), with a rate of 84 bpm and QTc 490. CT abdomen/pelvis: Short segment of circumferential wall thickening of the sigmoid colon compatible with colitis/diverticulitis, underlying mass not excluded given morphology. Edematous mesentery possibly thought to be secondary to early organizing fluid collection. Abnormal appearance to the anterior bladder wall. Chest CTA: No evidence of pulmonary embolism, cardiomegaly with mild aortic valve calcifications and mild coronary artery atherosclerosis. WBC 10.9 (neutrophil 8.3), Hgb 9.8, MCV 71.2, platelet 487. Coagulation: INR 1.2, D-dimer 0.75. serum sodium 132, potassium 4.2, CO2 23, BUN 12, creatinine 0.75, glucose 84, AST 60. Troponin: < 0.012. CRP: 13.2. proBNP: 1820. Lipase:51 UA: Large leukocyte esterase, urine WBC >182, trace urine protein, small urine blood, positive urine bacteria Vitals: T 101 F, [place] 77, RR 18, BP 115/74, SaO2 96% on RA Review of systems: Pertinent positives and negatives as discussed in HPI, a complete review of systems was performed and all other systems are negative. Social history: Tobacco: Former smoker quit 40 years ago, smoked pack a day for 10 years prior to quitting Alcohol: Denies alcohol use, quit drinking over 25 years ago Recreational drugs: No illicit drug use Travel: No recent drug Occupation: Retired, lives at home with Physical examination: Vital signs reviewed General: non toxic, no distress, appears at stated age, obese Derm: no unusual rashes/lesions, warm Head: atraumatic, normocephalic, symmetric Eyes: EOMI, no lid lag, anicteric sclera, pupils equal round reactive to light ENT: Nose and ears atraumatic Neck: trachea midline, supple Mouth: no lip lesion, mucus membranes moist Cardiovascular: S1S2 reg, no murmur, positive dorsalis pedis pulse bilateral, bilateral lower extremity 2+ pitting edema Lungs: CTA bilateral, no rhonchi, no rales, no accessory muscle use, patient short of breath prefers to be sitting upright in chair Abdominal: Mildly distended, minimal tenderness to palpation, no guarding Ext: muscle strength 5 out of 5 in all 4 extremities grossly, no gross muscle atrophy, no contractures, Neuro: CN II-XI grossly intact, no gross focal neuro deficits Psych: Alert, oriented, appropriate affect Assessment/Plan: Patient is a 70-year-old male with a past medical history of atrial fibrillation (on Eliquis) and hypertension has been admitted by surgery for abdominal mass. #. Shortness of breath Chest CTA showed no signs of pulmonary embolism Troponin negative Procalcitonin pending #. Intraabdominal mass with 60 lbs weight loss Pain management: Acetaminophen 650 mg p.o. Q6 as needed, [place] 5325 q6h as needed Admit to surgery service, will be evaluated for possible surgical intervention #. Leukocytosis w/ neutrophilic predominance - Suspect reactive in setting of malignancy - Monitor CBC for now #. Microcytic anemia Current hemoglobin 9.8, baseline hemoglobin 1112 Patient denies active bleeding Order iron studies Follow-up CBC #. Atrial fibrillation, rate controlled - Continue Cardizem 120 mg p.o. daily Monitor on telemetry Eliquis on hold by surgery #. Abnormal UA - Patient denying urinary complaints. - Abnormal appearance of anterior bladder as seen on CT abd - Consider Urology consult if primary culprit isn't the adjacent GI malignancy #. Hypertension - C/w home spironolactone 25 mg p.o. daily #. Bilateral leg edema Continue Lasix 20 mg p.o. daily and spironolactone 25 mg p.o. daily #. Mild hyponatremia Sodium: 132 Patient asymptomatic Hypervolemic with 2+ pitting edema in lower extremities Patient currently on Lasix 20 mg p.o. daily and spironolactone 25 mg p.o. daily Will continue to monitor BMP #. Thrombocytosis - Suspect reactive in setting of malignancy - Monitor for now #. Insomnia Melatonin 3 mg p.o. at bedtime as needed Benadryl 25 mg IVP once as needed ordered by ED #. Nonallergic rhinitis Continue Flonase nasal spray 1 spray each nostril twice daily Defer management of pain control and DVT prophylaxis to primary surgery service F: N/A E: Replete electrolytes as needed N: Clear liquid diet A: Fall precautions CODE STATUS: Full Code Past Medical History Past Medical History: Atrial Fibrillation, Hypertension Additional Past Medical History / Comment(s): sinusitis, Chornic LE edema History of Any Multi-Drug Resistant Organisms: None Reported Past Surgical History: Orthopedic Surgery, Tonsillectomy Past Psychological History: No Psychological Hx Reported Smoking Status: Former smoker Past Alcohol Use History: None Reported Past Drug Use History: None Reported - Past Family History Father Family Medical History: No Reported History Mother Family Medical History: Asthma, COPD Medications and Allergies Home Medications Medication Instructions Recorded Confirmed Type RX: Apixaban [Eliquis] 5 mg PO BID 11/23/23 06/08/24 History RX: Ergocalciferol [Vitamin D2 1,250 mcg PO MARTINO 11/23/23 06/08/24 History (1250 Mcg = 15647 Iu)] RX: Fluticasone Nasal [place] 1 spr EA NOSTRIL BID 11/23/23 06/08/24 History [Flonase Nasal [place]] RX: Furosemide [Lasix] 20 mg PO DAILY 11/23/23 06/08/24 History RX: Spironolactone [Aldactone] 25 mg PO DAILY 11/23/23 06/08/24 History dilTIAZem HCL [Tiazac] 120 mg PO DAILY 06/08/24 06/08/24 History Allergies Allergy/AdvReac Type Severity Reaction Status Date / Time No Known Allergies Allergy Verified 06/08/24 18:23 Physical Exam Vitals: Vital Signs Temp Pulse Resp BP Pulse Ox 06/08/24 22:56 86 20 115/74 96 06/08/24 18:40 101 F H 06/08/24 18:32 18 06/08/24 18:06 99.1 F 77 18 115/69 99 Intake and Output 06/08/24 06/08/24 06/09/24 14:59 22:59 06:59 Other: Weight 110.223 kg Results CBC & Chem 7: 06/08/24 19:04 06/08/24 19:04 Labs: Abnormal Lab Results - Last 24 Hours (Table) 06/08/24 06/08/24 06/08/24 Range/Units 19:04 19:04 19:04 WBC 10.9 H (3.8-10.6) k/uL RBC 4.19 L (4.30-5.90) m/uL Hgb 9.8 L (13.0-17.5) gm/dL Hct 29.8 L (39.0-53.0) % MCV 71.2 L (80.0-100.0) fL MCH 23.4 L (25.0-35.0) pg RDW 16.5 H (11.5-15.5) % Plt Count 487 H (150-450) k/uL Neutrophils # 8.3 H (1.3-7.7) k/uL INR 1.2 H (<1.2) D-Dimer 0.75 H (<0.60) mg/L FEU Sodium 132 L (137-145) mmol/L Calcium 8.3 L (8.4-10.2) mg/dL AST 60 H (17-59) U/L C-Reactive Protein (<1.0) mg/dL Total Protein 6.0 L (6.3-8.2) g/dL Albumin 2.9 L (3.5-5.0) g/dL Urine Protein (Negative) Urine Blood (Negative) Ur Leukocyte Esterase (Negative) Urine RBC (0-5) /hpf Urine WBC (0-5) /hpf Urine WBC Clumps (None) /hpf Urine Bacteria (None) /hpf Urine Mucus (None) /hpf 06/08/24 06/08/24 Range/Units 19:04 21:20 WBC (3.8-10.6) k/uL RBC (4.30-5.90) m/uL Hgb (13.0-17.5) gm/dL Hct (39.0-53.0) % MCV (80.0-100.0) fL MCH (25.0-35.0) pg RDW (11.5-15.5) % Plt Count (150-450) k/uL Neutrophils # (1.3-7.7) k/uL INR (<1.2) D-Dimer (<0.60) mg/L FEU Sodium (137-145) mmol/L Calcium (8.4-10.2) mg/dL AST (17-59) U/L C-Reactive Protein 13.2 H (<1.0) mg/dL Total Protein (6.3-8.2) g/dL Albumin (3.5-5.0) g/dL Urine Protein Trace H (Negative) Urine Blood Small H (Negative) Ur Leukocyte Esterase Large H (Negative) Urine RBC 7 H (0-5) /hpf Urine WBC >182 H (0-5) /hpf Urine WBC Clumps Many H (None) /hpf Urine Bacteria Many H (None) /hpf Urine Mucus Rare H (None) /hpf
[2024-06-09] MEDS: diphenhydrAMINE 50 MG/ML 1 ML VIAL IVP PRN (01:52)
--- NOTE | 2024-06-09 08:59 | P.GSHP ---
History of Present Illness H&P Date: 06/09/24 Chief Complaint: Abdominal pain This a 78-year-old male who presents emergency room with complaints of abdominal pain. Patient worked up. On CAT scan he is found to have suggestion of sigmoid colon mass. Is unsure if this is related to diverticulitis or neoplasm. Patient currently feels well. He denies any nausea vomiting or abdominal pain. He has had flatus. He is actually scheduled for colonoscopy next week. Past Medical History Past Medical History: Atrial Fibrillation, Hypertension Additional Past Medical History / Comment(s): sinusitis, Chornic LE edema History of Any Multi-Drug Resistant Organisms: None Reported Past Surgical History: Orthopedic Surgery, Tonsillectomy Past Psychological History: No Psychological Hx Reported Smoking Status: Former smoker Past Alcohol Use History: None Reported Past Drug Use History: None Reported - Past Family History Father Family Medical History: No Reported History Mother Family Medical History: Asthma, COPD Medications and Allergies Home Medications Medication Instructions Recorded Confirmed Type Apixaban [Eliquis] 5 mg PO BID 11/23/23 06/08/24 History Ergocalciferol [Vitamin D2 (1250 1,250 mcg PO MARTINO 11/23/23 06/08/24 History Mcg = 68428 Iu)] Fluticasone Nasal [place] [Flonase 1 spr EA NOSTRIL BID 11/23/23 06/08/24 History Nasal [place]] Furosemide [Lasix] 20 mg PO DAILY 11/23/23 06/08/24 History Spironolactone [Aldactone] 25 mg PO DAILY 11/23/23 06/08/24 History dilTIAZem HCL [Tiazac] 120 mg PO DAILY 06/08/24 06/08/24 History Allergies Allergy/AdvReac Type Severity Reaction Status Date / Time No Known Allergies Allergy Verified 06/08/24 18:23 Surgical - Exam Vital Signs Temp Pulse Resp BP Pulse Ox 99.1 F 77 18 115/69 99 06/08/24 18:06 06/08/24 18:06 06/08/24 18:06 06/08/24 18:06 06/08/24 18:06 - General well developed, well nourished, no distress - Eyes PERRL - ENT normal pinna - Neck no masses - Respiratory normal expansion - Cardiovascular Rhythm: regular - Abdomen Abdomen: soft, non tender Results - Labs 06/08/24 19:04 06/08/24 19:04 Abnormal Lab Results - Last 24 Hours (Table) 06/08/24 06/08/24 06/08/24 Range/Units 19:04 19:04 19:04 WBC 10.9 H (3.8-10.6) k/uL RBC 4.19 L (4.30-5.90) m/uL Hgb 9.8 L (13.0-17.5) gm/dL Hct 29.8 L (39.0-53.0) % MCV 71.2 L (80.0-100.0) fL MCH 23.4 L (25.0-35.0) pg RDW 16.5 H (11.5-15.5) % Plt Count 487 H (150-450) k/uL Neutrophils # 8.3 H (1.3-7.7) k/uL INR 1.2 H (<1.2) D-Dimer 0.75 H (<0.60) mg/L FEU Sodium 132 L (137-145) mmol/L Calcium 8.3 L (8.4-10.2) mg/dL AST 60 H (17-59) U/L C-Reactive Protein (<1.0) mg/dL Total Protein 6.0 L (6.3-8.2) g/dL Albumin 2.9 L (3.5-5.0) g/dL Urine Protein (Negative) Urine Blood (Negative) Ur Leukocyte Esterase (Negative) Urine RBC (0-5) /hpf Urine WBC (0-5) /hpf Urine WBC Clumps (None) /hpf Urine Bacteria (None) /hpf Urine Mucus (None) /hpf 06/08/24 06/08/24 Range/Units 19:04 21:20 WBC (3.8-10.6) k/uL RBC (4.30-5.90) m/uL Hgb (13.0-17.5) gm/dL Hct (39.0-53.0) % MCV (80.0-100.0) fL MCH (25.0-35.0) pg RDW (11.5-15.5) % Plt Count (150-450) k/uL Neutrophils # (1.3-7.7) k/uL INR (<1.2) D-Dimer (<0.60) mg/L FEU Sodium (137-145) mmol/L Calcium (8.4-10.2) mg/dL AST (17-59) U/L C-Reactive Protein 13.2 H (<1.0) mg/dL Total Protein (6.3-8.2) g/dL Albumin (3.5-5.0) g/dL Urine Protein Trace H (Negative) Urine Blood Small H (Negative) Ur Leukocyte Esterase Large H (Negative) Urine RBC 7 H (0-5) /hpf Urine WBC >182 H (0-5) /hpf Urine WBC Clumps Many H (None) /hpf Urine Bacteria Many H (None) /hpf Urine Mucus Rare H (None) /hpf Diabetes panel 06/08/24 Range/Units 19:04 Sodium 132 L (137-145) mmol/L Potassium 4.2 (3.5-5.1) mmol/L Chloride 100 (98-107) mmol/L Carbon Dioxide 23 (22-30) mmol/L BUN 12 (9-20) mg/dL Creatinine 0.75 (0.66-1.25) mg/dL Glucose 84 (74-99) mg/dL Calcium 8.3 L (8.4-10.2) mg/dL AST 60 H (17-59) U/L ALT 37 (4-49) U/L Alkaline Phosphatase 86 (38-126) U/L Total Protein 6.0 L (6.3-8.2) g/dL Albumin 2.9 L (3.5-5.0) g/dL Thyroid panel 06/08/24 Range/Units 19:04 TSH 2.360 (0.465-4.680) mIU/L Calcium panel 06/08/24 Range/Units 19:04 Calcium 8.3 L (8.4-10.2) mg/dL Albumin 2.9 L (3.5-5.0) g/dL Pituitary panel 06/08/24 06/08/24 Range/Units 19:04 19:04 Sodium 132 L (137-145) mmol/L Potassium 4.2 (3.5-5.1) mmol/L Chloride 100 (98-107) mmol/L Carbon Dioxide 23 (22-30) mmol/L BUN 12 (9-20) mg/dL Creatinine 0.75 (0.66-1.25) mg/dL Glucose 84 (74-99) mg/dL Calcium 8.3 L (8.4-10.2) mg/dL TSH 2.360 (0.465-4.680) mIU/L Adrenal panel 06/08/24 Range/Units 19:04 Sodium 132 L (137-145) mmol/L Potassium 4.2 (3.5-5.1) mmol/L Chloride 100 (98-107) mmol/L Carbon Dioxide 23 (22-30) mmol/L BUN 12 (9-20) mg/dL Creatinine 0.75 (0.66-1.25) mg/dL Glucose 84 (74-99) mg/dL Calcium 8.3 L (8.4-10.2) mg/dL Total Bilirubin 0.6 (0.2-1.3) mg/dL AST 60 H (17-59) U/L ALT 37 (4-49) U/L Alkaline Phosphatase 86 (38-126) U/L Total Protein 6.0 L (6.3-8.2) g/dL Albumin 2.9 L (3.5-5.0) g/dL Assessment and Plan Plan: Possible sigmoid colon neoplasm. Patient will have repeat CAT scan with oral contrast today. We will also plan for colonoscopy.
[2024-06-09] MEDS: IOPAMIDOL CONTRAST (ORAL USE) VIAL PO PRN (09:27)
[2024-06-09] MEDS: SPIRONOLACTONE 25 MG TAB PO SCH (09:28)
[2024-06-09] MEDS: FAMOTIDINE 20 MG TAB PO SCH (09:28)
[2024-06-09] MEDS: DILTIAZEM CD 120 MG CAP.ER.24H PO SCH (09:28)
[2024-06-09] MEDS: FUROSEMIDE 20 MG TAB PO SCH (09:28)
[2024-06-09] MEDS: PIPERACILLIN-TAZOBACTAM 3.375 GM in SODIUM CHLORIDE 0.9% 100 ML IVPB SCH (09:28)
[2024-06-09] MEDS: FLUTICASONE NASAL 50MCG/SPRAY 16GM BTL EA NOSTRIL SCH (09:28)
--- NOTE | 2024-06-09 13:47 | CT ---
EXAMINATION TYPE: CT abdomen pelvis wo con DATE OF EXAM: 06/09/2024 COMPARISON: 06/08/2024 INDICATION: sigmoid colon mass DLP: 1370.4 mGycm, Automated exposure control for dose reduction was used. CONTRAST: 0 mL of Isovue 300. Study performed with Oral Contrast TECHNIQUE: Axial images were obtained from above the diaphragm to the pubic rami in the axial plane a t 5 mm thick sections. Reconstructed images are reviewed on the computer in the coronal plane. FINDINGS: Limited CT sections are obtained the lung bases. The lung bases are clear. CT ABDOMEN: Liver: Normal Spleen: Normal Pancreas: Normal Adrenal glands: The adrenal glands are normal. Gallbladder: Surgically absent Kidneys: No masses are evident. No hydronephrosis is present. No cysts are present. There is a non obstructing 1.2 cm calcification at the inferior pole left kidney. A 1.0 cm nonobstructing cortical c alcification is present inferior lateral left kidney. Punctate nonobstructing renal stone may be at t he mid to inferior pole right kidney. Aorta: Vascular calcification is within the aorta. Inferior vena cava: Normal. CT PELVIS: There is diffuse thickening within sigmoid colon within its proximal midportion. Example image series 3 image 61. This appeared more masslike on the prior day's study. Just above this area is irregular inflammatory type change measuring 8.5 x 5.1 cm. This is increased in size from comparison. This could be related to the suspected mass within the sigmoid:. Inflammator y changes associated with diverticulitis be considered. Consider adenopathy within the differential.N o underlying abscess is identified. Oral contrast extends to the distal small bowel. No dilated small bowel is evident. Colon contains fe reba debris. No oral contrast is evident sigmoid colon or adjacent to the mesenteric mass area Appendix: Normal as visualized. Urinary bladder: Normal. Genitourinary structures: Prostate appears normal Osseous structures: No suspicious lytic or sclerotic lesions. IMPRESSION: 1. Sigmoid mass versus acute diverticulitis proximal to mid sigmoid colon. 2. There is a irregular area of increased density in close approximation to this suspected mass. Derrick opathy, inflammatory change, adenopathy, phlegmon formation could be considered within the differenti al. This area appears to be increasing in size from the recent comparison. 3. Nonobstructing left renal stones punctate nonobstructing renal stone may be present on the right.
--- NOTE | 2024-06-09 14:25 | P.PN ---
Subjective Progress Note Date: 06/09/24 Subjective: Patient seen and examined at bedside. No acute events overnight. All Systems reviewed and pertinent positives and negatives noted in HPI, all other symptoms are negative Objective: Vital signs reviewed. Vitals: T 101 F, ME 77, RR 18, BP 115/74, SaO2 96% on RA General: non toxic, no distress, appears at stated age, normal weight Derm: no unusual rashes/lesions, warm Head: atraumatic, normocephalic, symmetric Eyes: EOMI, no lid lag, anicteric sclera, pupils equal round reactive to light ENT: Nose and ears atraumatic Neck: No cervical lymphadenopathy, trachea midline, supple Mouth: no lip lesion, mucus membranes moist Cardiovascular: S1S2 reg, no murmur, positive dorsalis pedis pulse bilateral, no edema Lungs: CTA bilateral, no rhonchi, no rales, no accessory muscle use Abdominal: Mildly distended, nontender to palpation, no guarding Ext: muscle strength 5 out of 5 in all 4 extremities grossly, no gross muscle atrophy, no contractures, Neuro: CN II-XI grossly intact, no gross focal neuro deficits Psych: Alert, oriented, appropriate affect Data reviewed today: WBC 10.9 (neutrophil 8.3), Hgb 9.8, MCV 71.2, platelet 487. Coagulation: INR 1.2, D-dimer 0.75. serum sodium 132, potassium 4.2, CO2 23, BUN 12, creatinine 0.75, glucose 84, AST 60. Troponin: < 0.012. CRP: 13.2. proBNP: 1820. Lipase:51 UA: Large leukocyte esterase, urine WBC >182, trace urine protein, small urine blood, positive urine bacteria EKG: Atrial fibrillation (rate controlled), right bundle branch block (present in EKG from 11/2023), with a rate of 84 bpm and QTc 490. CT abdomen/pelvis (06/08/2024): Short segment of circumferential wall thickening of the sigmoid colon compatible with colitis/diverticulitis, underlying mass not excluded given morphology. Edematous mesentery possibly thought to be secondary to early organizing fluid collection. Abnormal appearance to the anterior bladder wall. CT abdomen/pelvis with oral contrast (06/09/2024): Sigmoid mass versus acute diverticulitis of proximal to mid sigmoid colon. Irregular area of increased density in close proximation to the suspected mass. Chest CTA: No evidence of pulmonary embolism, cardiomegaly with mild aortic valve calcifications and mild coronary artery atherosclerosis. Assessment and Plan: Patient is a 70-year-old male with a past medical history of atrial fibrillation (on Eliquis) and hypertension has been admitted by surgery for suspicious abdominal mass on CT abdomen/pelvis. # Shortness of breath Chest CTA showed no signs of pulmonary embolism Troponin negative Procalcitonin 0.08 negative # Intraabdominal mass with 60 lbs weight loss Pain management: Acetaminophen 650 mg p.o. Q6 as needed, [place] 5325 q6h as needed Surgery on board: Repeat CT abdomen pelvis with oral contrast today # Leukocytosis w/ neutrophilic predominance, likely diverticulitis CT abdomen/pelvis with oral contrast (06/09/2024): Sigmoid mass versus acute diverticulitis of proximal to mid sigmoid colon. Started on Zosyn 3.375 g IVPB every 8 hours Monitor CBC for now # Microcytic anemia Current hemoglobin 9.8, baseline hemoglobin 1112 Patient denies active bleeding Order iron studies: Results pending Follow-up CBC # Atrial fibrillation, rate controlled Continue Cardizem 120 mg p.o. daily Monitor on telemetry Eliquis on hold by surgery # Abnormal UA Patient denying urinary complaints. Abnormal appearance of anterior bladder as seen on CT abd Consider Urology consult if primary culprit isn't the adjacent GI malignancy # Hypertension C/w home spironolactone 25 mg p.o. daily # Bilateral leg edema Continue Lasix 20 mg p.o. daily and spironolactone 25 mg p.o. daily # Mild hyponatremia Sodium: 132 Patient asymptomatic Hypervolemic with 2+ pitting edema in lower extremities Patient currently on Lasix 20 mg p.o. daily and spironolactone 25 mg p.o. daily Will continue to monitor BMP # Thrombocytosis Suspect reactive in setting of malignancy Monitor for now # Insomnia Melatonin 3 mg p.o. at bedtime as needed Benadryl 25 mg IVP once as needed ordered by ED # Nonallergic rhinitis Continue Flonase nasal spray 1 spray each nostril twice daily F: None E: Replete as needed N: Clear liquid diet A: Ambulatory without assistance DVT ppx: On hold per surgery Code Status: Full code Anticipated discharge place: Pending clinical course Anticipated discharge date: Pending clinical course Patient was seen and examined by me and the resident. I agree with the subjective and objective as above. We discussed the assessment and plan as documented below: Patient reports intentional [address] AP with contrast ordered by Surgery. Will need C-scope to rule out malignancy. He does meet sepsis criteria, I started Zosyn 3.75g IV TID and NS at 100 cc/hr. Blood cultures ordered. Echocardiogram ordered to evaluate dyspnea. Objective - Vital Signs Vital signs: Vital Signs Temp 97.6 F 06/09/24 12:50 Pulse 77 06/09/24 12:50 Resp 16 06/09/24 12:50 BP 116/74 06/09/24 12:50 Pulse Ox 98 06/09/24 12:50 FiO2 Intake & Output 06/08/24 06/09/24 06/09/24 18:59 06:59 18:59 Weight 110.223 kg 110.223 kg Other: # Voids 1 - Labs CBC & Chem 7: 06/08/24 19:04 06/08/24 19:04 Labs: Abnormal Lab Results - Last 24 Hours (Table) 06/08/24 06/08/24 06/08/24 Range/Units 19:04 19:04 19:04 WBC 10.9 H (3.8-10.6) k/uL RBC 4.19 L (4.30-5.90) m/uL Hgb 9.8 L (13.0-17.5) gm/dL Hct 29.8 L (39.0-53.0) % MCV 71.2 L (80.0-100.0) fL MCH 23.4 L (25.0-35.0) pg RDW 16.5 H (11.5-15.5) % Plt Count 487 H (150-450) k/uL Neutrophils # 8.3 H (1.3-7.7) k/uL INR 1.2 H (<1.2) D-Dimer 0.75 H (<0.60) mg/L FEU Sodium 132 L (137-145) mmol/L Calcium 8.3 L (8.4-10.2) mg/dL AST 60 H (17-59) U/L C-Reactive Protein (<1.0) mg/dL Total Protein 6.0 L (6.3-8.2) g/dL Albumin 2.9 L (3.5-5.0) g/dL Urine Protein (Negative) Urine Blood (Negative) Ur Leukocyte Esterase (Negative) Urine RBC (0-5) /hpf Urine WBC (0-5) /hpf Urine WBC Clumps (None) /hpf Urine Bacteria (None) /hpf Urine Mucus (None) /hpf 06/08/24 06/08/24 Range/Units 19:04 21:20 WBC (3.8-10.6) k/uL RBC (4.30-5.90) m/uL Hgb (13.0-17.5) gm/dL Hct (39.0-53.0) % MCV (80.0-100.0) fL MCH (25.0-35.0) pg RDW (11.5-15.5) % Plt Count (150-450) k/uL Neutrophils # (1.3-7.7) k/uL INR (<1.2) D-Dimer (<0.60) mg/L FEU Sodium (137-145) mmol/L Calcium (8.4-10.2) mg/dL AST (17-59) U/L C-Reactive Protein 13.2 H (<1.0) mg/dL Total Protein (6.3-8.2) g/dL Albumin (3.5-5.0) g/dL Urine Protein Trace H (Negative) Urine Blood Small H (Negative) Ur Leukocyte Esterase Large H (Negative) Urine RBC 7 H (0-5) /hpf Urine WBC >182 H (0-5) /hpf Urine WBC Clumps Many H (None) /hpf Urine Bacteria Many H (None) /hpf Urine Mucus Rare H (None) /hpf
[2024-06-10] MEDS: ERGOCALCIFEROL 1,250 MCG (50,000 IU) CAPSULE PO SCH (08:43)
--- NOTE | 2024-06-10 08:46 | P.PN ---
Subjective Progress Note Date: 06/10/24 Patient lulú stable. On exam vital signs appear stable. Abdomen soft. Possible sigmoid colon mass. Patient be scheduled for colonoscopy on Tuesday. Objective - Vital Signs Vital signs: Vital Signs Temp 97.8 F 06/10/24 01:51 Pulse 73 06/10/24 01:51 Resp 18 06/10/24 01:51 BP 96/54 06/10/24 01:51 Pulse Ox 95 06/10/24 01:51 FiO2 Intake & Output 06/09/24 06/10/24 06/10/24 18:59 06:59 18:59 Intake Total 1620 Balance 1620 Weight 110.223 kg Intake: Oral 1620 Other: # Voids 1 1 - Labs CBC & Chem 7: 06/08/24 19:04 06/08/24 19:04
--- NOTE | 2024-06-10 12:04 | P.PN ---
Subjective Progress Note Date: 06/10/24 78 year old M with PMH atrial fibrillation (on Eliquis), hypertension that presents to the ED with shortness of breath. The patient was found to have an abdominal mass on CT abd/pelvis and was subsequently admitted to the surgery service. Our service was consulted for medical management. Patient states he has had mild diffuse abdominal pain and distention that comes and goes. Reports weight loss of 60 lbs over the past 6 months but has been doing dietary modification. In the ED he underwent extensive evaluation. T 101 F, UT 77, RR 18, BP 115/74, SaO2 96% on RA. CBC, Coag panel, CMP significant for WBC 10/9, RBC 4.19, Hg 9.8, Hct 29.8, MCV 71.2, Plt 487, INR 1.2, Na 132, Ca 8.3, AST 60, CRP 13.2, alb 2.9. Lactic acid 1.9. Troponin < 0.012. BNP 1820. Pro-reba 0.08. COVID/RSV/Flu negative. TSH 2.36. UA Large LE, urine WBC >182. CT AP showed circumferential wall thickening of the sigmoid colon compatible with colitis/diverticulitis, underlying mass not excluded given morphology with edematous mesentery possibly thought to be secondary to early organizing fluid collection and abnormal appearance to the anterior bladder wall. D-Dimer 0.75, Chest CTA negative for PE. EKG showed atrial fibrillation, right bundle branch block (present in EKG from 11/2023), with a rate of 84 bpm and QTc 490. 9/ Patient was seen and examined. at bedside. Had some diarrhea yesterday but none today. Maintained on Zosyn 3.375g IV TID that was started on 06/09. Surgery plans on C-scope on Tuesday. General: non toxic, no distress, appears at stated age Derm: warm, dry Head: atraumatic, normocephalic, symmetric Eyes: EOMI, no lid lag, anicteric sclera Mouth: no lip lesion, mucus membranes moist Cardiovascular: Normal S1 S2. No murmurs, rubs or gallops. No edema Lungs: Clear to auscultation bilaterally, no accessory muscle use Ext: No muscle atrophy Neuro: no focal neuro deficits Psych: Alert, oriented, appropriate affect Based on my assessment of this patient, this patient meets a high complexity level of care. Dyspnea at rest: Previous smoker. CTA chest negative for PE. Troponin negative. COVID/RSV/Flu negative. BNP 1820. Procal negative. Echo ordered. Sepsis with concerns for diverticulitis: Started on Zosyn 3.375g IV TID (D2). BCx collected. NS at 100 cc/hr. Surgery plans for C-scope to rule out malignancy given recent weight loss and h/o smoking. Microcytic anemia: Obtain Fe studies, B12, Folate. Atrial fibrillation: Cardizem 120 mg PO QD. Eliquis on hold for C-scope on Tuesday. Abnormal UA: No urinary symptoms. Elevated D-Dimer: CTA chest negative for PE. Hypertension: Cardizem as above. Aldactone 25 mg PO QD. Bilateral LE edema: Lasix 20 mg PO QD. Aldactone as above. Hyponatremia: Likely due to diuretic use. Mild and asymptomatic. Monitor. Thrombocytosis: Possible due to iron def. anemia. Insomnia: Melatonin 3 mg PO QHS PRN. Nonallergic rhinitis: Flonase nasal spray. CODE STATUS: FULL CODE DVT Prophylaxis: Lovenox SQ GI Prophylaxis: Designated medical POA if patient is not able to make medical decisions for themselves: I have reviewed the following home energy consultant notes: Surgery. I have reviewed the results of the following tests: I have ordered the following tests: Iron studies, CBC I have discussed the care of this patient with the following independent his addy: , RN I have independently interpreted the following test below: I have discussed the management of this patient with the following physician: Objective - Vital Signs Vital signs: Vital Signs Temp 97.8 F 06/10/24 01:51 Pulse 73 06/10/24 01:51 Resp 18 06/10/24 01:51 BP 96/54 06/10/24 01:51 Pulse Ox 95 06/10/24 01:51 FiO2 Intake & Output 06/09/24 06/10/24 06/10/24 18:59 06:59 18:59 Intake Total 1620 Balance 1620 Weight 110.223 kg Intake: Oral 1620 Other: # Voids 1 1 - Labs CBC & Chem 7: 06/08/24 19:04 06/08/24 19:04
[2024-06-10 13:49] LABS: Anisocytosis Slight; HCT 32.4 % (39.0-53.0); HGB 10.2 gm/dL (13.0-17.5); Hypochromasia Moderate; MCH 23.2 pg (25.0-35.0); MCHC 31.5 g/dL (31.0-37.0); MCV 73.6 fL (80.0-100.0); Mean Platelet Volume 7.2; Microcytosis Moderate; Platelet Count 479 k/uL (150-450); RDW 16.7 % (11.5-15.5); WBC 10.8 k/uL (3.8-10.6)
[2024-06-10] MEDS: MELATONIN 3 MG TABLET PO PRN (20:45)
[2024-06-10 23:45] LABS: % Iron Saturation 6.9 (15.00-50.00)
--- NOTE | 2024-06-11 08:43 | P.PN ---
Subjective Progress Note Date: 06/11/24 Patient main stable. We will prep for colonoscopy in the a.m. On exam vital signs appear stable. Abdomen is soft Objective - Vital Signs Vital signs: Vital Signs Temp 97.5 F L 06/11/24 06:56 Pulse 74 06/11/24 06:56 Resp 17 06/11/24 06:56 BP 96/65 06/11/24 06:56 Pulse Ox 96 06/11/24 06:56 FiO2 Intake & Output 06/10/24 06/11/24 06/11/24 18:59 06:59 18:59 Intake Total 540 Balance 540 Intake: Oral 540 Other: # Voids 1 - Labs CBC & Chem 7: 06/10/24 13:24 06/08/24 19:04 Labs: Abnormal Lab Results - Last 24 Hours (Table) 06/10/24 06/10/24 Range/Units 13:24 13:24 WBC 10.8 H (3.8-10.6) k/uL Hgb 10.2 L (13.0-17.5) gm/dL Hct 32.4 L (39.0-53.0) % MCV 73.6 L (80.0-100.0) fL MCH 23.2 L (25.0-35.0) pg RDW 16.7 H (11.5-15.5) % Plt Count 479 H (150-450) k/uL Iron 14 L (65-175) UG/DL TIBC 203 L (228-460) UG/DL % Saturation 6.90 L (15.00-50.00) Transferrin 145.0 L (204.0-354.0) mg/dL Ferritin 390.0 H (22.0-322.0) ng/mL Microbiology - Last 24 Hours (Table) 06/09/24 15:53 Blood Culture - Preliminary Blood
[2024-06-11] MEDS: ENOXAPARIN 40 MG/0.4 ML SYRINGE SQ SCH (08:46)
[2024-06-11] MEDS: PEG 3350 (236 GM/BTL) + LYTES 4,000 ML BOTTLE PO ONE (09:45)
--- NOTE | 2024-06-11 16:45 | P.PN ---
Subjective Progress Note Date: 06/11/24 Subjective: Patient seen and examined at bedside. No acute events overnight. All Systems reviewed and pertinent positives and negatives noted in HPI, all other symptoms are negative Objective: Vital signs reviewed. Vitals: T 97.5 F, heart rate 55, respiratory 17, blood pressure 123/68, O2 saturation 99% on room air General: non toxic, no distress, appears at stated age, normal weight Derm: no unusual rashes/lesions, warm Head: atraumatic, normocephalic, symmetric Eyes: EOMI, no lid lag, anicteric sclera, pupils equal round reactive to light ENT: Nose and ears atraumatic Neck: No cervical lymphadenopathy, trachea midline, supple Mouth: no lip lesion, mucus membranes moist Cardiovascular: S1S2 irregular, no murmur, positive dorsalis pedis pulse bilateral, +1 bilateral pitting edema Lungs: CTA bilateral, no rhonchi, no rales, no accessory muscle use Abdominal: Mildly distended, nontender to palpation, no guarding Ext: muscle strength 5 out of 5 in all 4 extremities grossly, no gross muscle atrophy, no contractures, Neuro: CN II-XI grossly intact, no gross focal neuro deficits Psych: Alert, oriented, appropriate affect Data reviewed today: No new labs, no new imaging Assessment and Plan: Patient is a 70-year-old male with a past medical history of atrial fibrillation (on Eliquis) and hypertension has been admitted by surgery for suspicious abdominal mass on CT abdomen/pelvis. Admitted to general surgery. Pending colonoscopy tomorrow. # Intraabdominal mass with 60 lbs weight loss Pain management: Acetaminophen 650 mg p.o. Q6 as needed, [place] 5325 q6h as needed Surgery on board: Colonoscopy tomorrow 06/12/2024 # Leukocytosis w/ neutrophilic predominance, likely acute complicated di verticulitis CT abdomen/pelvis with oral contrast (06/09/2024): Sigmoid mass versus acute d iverticulitis of proximal to mid sigmoid colon. On Zosyn 3.375 g IVPB every 8 hours Monitor CBC for now Blood cultures x 2 # Shortness of breath Chest CTA showed no signs of pulmonary embolism Troponin negative Procalcitonin 0.08 negative # Iron deficiency anemia Current hemoglobin 10.2, baseline hemoglobin 13.3 Patient denies active bleeding Order iron studies: Iron 14, TIBC 203, percent saturation 6.9, transferrin 145, ferritin 390 Follow-up CBC # Atrial fibrillation, rate controlled Continue Cardizem 120 mg p.o. daily Monitor on telemetry Eliquis on hold by surgery # Abnormal UA Patient denying urinary complaints. Abnormal appearance of anterior bladder as seen on CT abd Consider Urology consult if primary culprit isn't the adjacent GI malignancy # Hypertension C/w home spironolactone 25 mg p.o. daily # Bilateral leg edema Continue Lasix 20 mg p.o. daily and spironolactone 25 mg p.o. daily # Mild hyponatremia likely hypervolemic Sodium: 132 on 06/08/2024 Patient asymptomatic Hypervolemic with 1+ pitting edema in lower extremities Patient currently on Lasix 20 mg p.o. daily and spironolactone 25 mg p.o. daily Will continue to monitor BMP # Thrombocytosis Suspect reactive in setting of malignancy Monitor for now # Insomnia Melatonin 3 mg p.o. at bedtime as needed Benadryl 25 mg IVP once as needed ordered by ED # Nonallergic rhinitis Continue Flonase nasal spray 1 spray each nostril twice daily F: None E: Replete as needed N: Clear liquid diet; n.p.o. after midnight A: Ambulatory without assistance DVT ppx: On hold per surgery Code Status: Full code Anticipated discharge place: Pending clinical course Anticipated discharge date: Pending clinical course Thank you for allowing us to participate in the care of this pleasant patient. Do not hesitate to contact us with questions. Someone can be reached from the [facility] hospitalist group all hours of the day at [phone] or via perfect serve. I have seen and evaluated the patient today. Discussed with the resident and agree with the residents finding and plan as documented in the resident's note. Changes highlighted in blue font. Objective - Vital Signs Vital signs: Vital Signs Temp 97.5 F L 06/11/24 12:50 Pulse 55 L 06/11/24 12:50 Resp 17 06/11/24 12:50 BP 123/68 06/11/24 12:50 Pulse Ox 99 06/11/24 12:50 FiO2 Intake & Output 06/10/24 06/11/24 06/11/24 18:59 06:59 18:59 Intake Total 540 Balance 540 Intake: Oral 540 Other: # Voids 1 - Labs CBC & Chem 7: 06/10/24 13:24 06/08/24 19:04 Labs: Abnormal Lab Results - Last 24 Hours (Table) 06/10/24 Range/Units 13:24 Iron 14 L (65-175) UG/DL TIBC 203 L (228-460) UG/DL % Saturation 6.90 L (15.00-50.00) Transferrin 145.0 L (204.0-354.0) mg/dL Ferritin 390.0 H (22.0-322.0) ng/mL Microbiology - Last 24 Hours (Table) 06/09/24 15:53 Blood Culture - Preliminary Blood
[2024-06-12] MEDS ORDERED: LIDOCAINE 1% INJ 10MG/ML (20 ML MDV) ONE (10:14)
[2024-06-12] MEDS ORDERED: PROPOFOL 10 MG/ML 20 ML VIAL IV ONE (10:14)
[2024-06-12] MEDS: IV FLUID CONTINUATION 1,000 ML IV ONE (10:34)
--- NOTE | 2024-06-12 10:35 | P.OP ---
Date of Procedure: 06/12/24 Preoperative Diagnosis: Colon mass Postoperative Diagnosis: Near obstructing colon mass at 35 cm andriy Procedure(s) Performed: colonoscopy Anesthesia: MAC Surgeon: Campbell Pool Pathology: other (Colon mass at 35 cm) Condition: stable Disposition: PACU Description of Procedure: The patient is placed on the endoscopy table in lateral position. He received IV sedation. Digital rectal exam performed. This revealed no abnormalities. The flexible colonoscope was then placed patient anus and passed with the colon. At the 35 cm andriy there was a near obstructing colon mass. This was biopsied. The area was also tattooed just distally. The scope could not be Passed beyond the mass. This point scope was withdrawn. The visualized distal sigmoid colon and rectum appeared normal. Scope withdrawn for the patient.
--- NOTE | 2024-06-12 10:44 | P.PN ---
Progress Note - Text Progress Note Date: 06/12/24 Patient's colonoscopy reveals a near obstructing sigmoid colon mass. Patient will be taken to surgery tomorrow for sigmoid resection.
--- NOTE | 2024-06-12 14:51 | P.PN ---
Subjective Progress Note Date: 06/12/24 Subjective: Patient seen and examined at bedside. No acute events overnight. Having some rectal bleeding following colonoscopy. All Systems reviewed and pertinent positives and negatives noted in HPI, all other symptoms are negative Objective: Vital signs reviewed. Vitals: Temperature 98.1 F, pulse rate 87, respiratory 16, blood pressure 104/70, oxygen saturation 91% on room air General: non toxic, no distress, appears at stated age, normal weight Derm: no unusual rashes/lesions, warm Head: atraumatic, normocephalic, symmetric Eyes: EOMI, no lid lag, anicteric sclera, pupils equal round reactive to light ENT: Nose and ears atraumatic Neck: No cervical lymphadenopathy, trachea midline, supple Mouth: no lip lesion, mucus membranes moist Cardiovascular: S1S2 irregular, no murmur, positive dorsalis pedis pulse bilateral, +1 bilateral pitting edema Lungs: CTA bilateral, no rhonchi, no rales, no accessory muscle use Abdominal: Mildly distended, nontender to palpation, no guarding Ext: muscle strength 5 out of 5 in all 4 extremities grossly, no gross muscle atrophy, no contractures, Neuro: CN II-XI grossly intact, no gross focal neuro deficits Psych: Alert, oriented, appropriate affect Data reviewed today: No new labs No new imaging Assessment and Plan: Patient is a 70-year-old male with a past medical history of atrial fibrillation (on Eliquis) and hypertension has been admitted by surgery for suspicious abdominal mass on CT abdomen/pelvis. Admitted to general surgery. Colonoscopy on 06/12/2024 revealing a near obstructing sigmoid colon mass. Patient will be general surgery tomorrow for sigmoid resection. # Intraabdominal mass with 60 lbs weight loss, likely malignancy Pain management: Acetaminophen 650 mg p.o. Q6 as needed, [place] 5325 q6h as needed Surgery on board: Colonoscopy on 06/12/2024 revealing a near obstructing sigmoid colon mass. Patient will be general surgery tomorrow for sigmoid resection. Order CEA -Oncology consulted Bright red blood per rectum -Likely secondary to colonoscopy and biopsy -Continue to monitor for further bleeding and hemodynamic instability # Leukocytosis w/ neutrophilic predominance, likely acute complicated diverticul itis CT abdomen/pelvis with oral contrast (06/09/2024): Sigmoid mass versus acute diverticulitis of proximal to mid sigmoid colon. On Zosyn 3.375 g IVPB every 8 hours Order CBC Blood cultures x 2 Blood culture preliminary report 06/09/2024 shows no growth # Shortness of breath Chest CTA showed no signs of pulmonary embolism Troponin negative Procalcitonin 0.08 negative # Iron deficiency anemia Current hemoglobin 10.2, baseline hemoglobin 13.3 Patient denies active bleeding Order iron studies: Iron 14, TIBC 203, percent saturation 6.9, transferrin 145, ferritin 390 Follow-up CBC # Atrial fibrillation, rate controlled Continue Cardizem 120 mg p.o. daily Monitor on telemetry Eliquis on hold by surgery # Abnormal UA Patient denying urinary complaints. Abnormal appearance of anterior bladder as seen on CT abd Consider Urology consult if primary culprit isn't the adjacent GI malignancy # Hypertension C/w home spironolactone 25 mg p.o. daily # Bilateral leg edema Continue Lasix 20 mg p.o. daily and spironolactone 25 mg p.o. daily # Mild hyponatremia likely hypervolemic Sodium: 132 on 06/08/2024 Patient asymptomatic Hypervolemic with 1+ pitting edema in lower extremities Patient currently on Lasix 20 mg p.o. daily and spironolactone 25 mg p.o. daily Order BMP # Thrombocytosis Suspect reactive in setting of malignancy Monitor for now # Insomnia Melatonin 3 mg p.o. at bedtime as needed Benadryl 25 mg IVP once as needed ordered by ED # Nonallergic rhinitis Continue Flonase nasal spray 1 spray each nostril twice daily F: None E: Replete as needed N: Clear liquid diet; n.p.o. after midnight A: Ambulatory without assistance DVT ppx: On hold per surgery Code Status: Full code Anticipated discharge place: Pending clinical course Anticipated discharge date: Pending clinical course I have seen and evaluated the patient today. Discussed with the resident and agree with the residents finding and plan as documented in the resident's note. Changes highlighted in blue font. Objective - Vital Signs Vital signs: Vital Signs Temp 98 F 06/12/24 12:20 Pulse 87 06/12/24 12:20 Resp 16 06/12/24 12:20 BP 104/70 06/12/24 12:20 Pulse Ox 91 L 06/12/24 12:20 FiO2 Intake & Output 06/11/24 06/12/24 06/12/24 18:59 06:59 18:59 Intake Total 720 240 200 Balance 720 240 200 Intake: IV 200 Oral 720 240 Other: # Voids 4 1 # Bowel Movements 5 - Labs CBC & Chem 7: 06/10/24 13:24 06/08/24 19:04 Labs: Microbiology - Last 24 Hours (Table) 06/09/24 15:53 Blood Culture - Preliminary Blood
[2024-06-12 15:26] LABS: Anisocytosis Slight; Basophils % (A) 0 %; Eosinophils # (A) 0.1 k/uL (0-0.7); Eosinophils % (A) 1 %; HGB 10.2 gm/dL (13.0-17.5); Hypochromasia Marked; Lymphocytes # (A) 0.7 k/uL (1.0-4.8); Lymphocytes % (A) 8 %; MCH 23.3 pg (25.0-35.0); MCHC 31.8 g/dL (31.0-37.0); MCV 73.4 fL (80.0-100.0); Mean Platelet Volume 6.9; Microcytosis Moderate; Monocytes # (A) 0.3 k/uL (0-1.0); Monocytes % (A) 4 %; Neutrophils # (A) 7.7 k/uL (1.3-7.7); Neutrophils % (A) 87 %; Platelet Count 467 k/uL (150-450); RBC 4.35 m/uL (4.30-5.90); RDW 16.6 % (11.5-15.5); WBC 8.8 k/uL (3.8-10.6)
[2024-06-12 16:01] LABS: African American GFR (CKD) >90 (>60 ml/min/1.73 sqM); Anion Gap 4 mmol/L; Blood Urea Nitrogen 5 mg/dL (9-20); Calcium 8.6 mg/dL (8.4-10.2); Carbon Dioxide 30 mmol/L (22-30); Chloride 99 mmol/L (98-107); Glucose 101 mg/dL (74-99); Non-African American GFR(CKD) 89 (>60 ml/min/1.73 sqM); Potassium 3.8 mmol/L (3.5-5.1); Sodium 133 mmol/L (137-145)
[2024-06-13 09:08] LABS: INR 1.1 (<1.2); Partial Thromboplastin Time 27.1 sec (22.0-30.0); Prothrombin Time 12.1 sec (10.0-12.5)
--- NOTE | 2024-06-13 12:04 | P.PN ---
Subjective Progress Note Date: 06/13/24 CHIEF COMPLAINT: sigmoid colon mass HISTORY OF PRESENT ILLNESS: patient status post colonoscopy report and near obstructing colon mass. patient is scheduled for surgery today. No new complaints.to have a low-grade temp 100.1 last night.WBC 8.8 Hgb 10.2 platelets 467 04/09/1933 potassium 3.8 PHYSICAL EXAM: VITAL SIGNS: Reviewed. GENERAL: Well-developed in no acute distress. ABDOMEN: Soft. Nondistended. NEUROLOGIC: Alert and oriented. Cranial nerves II through XII grossly intact. ASSESSMENT: 1. sigmoid colon mass PLAN: -patient scheduled for sigmoid colectomy today with Dr. hooker Physician Front Office Representative note has been reviewed by physician. Signing provider agrees with the documented findings, assessment, and plan of care. Objective - Vital Signs Vital signs: Vital Signs Temp 98.2 F 06/13/24 07:17 Pulse 81 06/13/24 07:17 Resp 16 06/13/24 07:17 BP 103/66 06/13/24 07:17 Pulse Ox 98 06/13/24 07:17 FiO2 Intake & Output 06/12/24 06/13/24 06/13/24 18:59 06:59 18:59 Intake Total 325 400 Balance 325 400 Intake: IV 200 Intake, IV Titration 125 Amount Piperacillin-Tazobactam 3 125 .375 gm In Sodium Chloride 0.9% 100 ml @ 25 mls/hr IVPB Q8HR [facility] Rx# :[id number] Oral 400 Other: Voiding Method Toilet # Voids 1 - Labs CBC & Chem 7: 06/12/24 15:06 06/12/24 15:06 Labs: Abnormal Lab Results - Last 24 Hours (Table) 06/12/24 06/12/24 Range/Units 15:06 15:06 Hgb 10.2 L (13.0-17.5) gm/dL Hct 32.0 L (39.0-53.0) % MCV 73.4 L (80.0-100.0) fL MCH 23.3 L (25.0-35.0) pg RDW 16.6 H (11.5-15.5) % Plt Count 467 H (150-450) k/uL Lymphocytes # 0.7 L (1.0-4.8) k/uL Sodium 133 L (137-145) mmol/L BUN 5 L (9-20) mg/dL Glucose 101 H (74-99) mg/dL Microbiology - Last 24 Hours (Table) 06/09/24 15:53 Blood Culture - Preliminary Blood
[2024-06-13 12:41] VITALS: BMI 33.9
[2024-06-13] MEDS: IV FLUID CONTINUATION 1,000 ML IV ONE ×2 (13:12→13:43)
[2024-06-13] MEDS: MIDAZOLAM 2 MG/2 ML VIAL IVP ONE ×2 (13:28→13:34)
[2024-06-13] MEDS: fentaNYL (PF) 50 MCG/1 ML VIAL IVP ONE (13:38)
[2024-06-13] MEDS: DEXAMETHASONE SOD PHOSPHATE 4 MG/ML 1 ML VIAL IVP STA (13:40)
[2024-06-13] MEDS: ONDANSETRON 4 MG/2 ML VIAL IVP STA (13:40)
[2024-06-13] MEDS: LACTATED RINGERS 1,000 ML IV SCH (13:43)
--- NOTE | 2024-06-13 14:01 | P.ANPRN ---
Procedure Note - Anesthesia - Epidural/Spinal Epidural Continuous Time Out Performed: Yes Date of Procedure: 06/13/24 Procedure Start Time: 13:28 Procedure Stop Time: 13:38 Location of Patient: PreOp Indication: Acute Post-Operative Pain, Analgesia, Requested by Surgeon Sedation Type: Sedate with meaningful contact maintained Preparation: Sterile Prep Position: Sitting Catheter Depth at Skin (cm): 13 Catheter: Indwelling Needle Guage: 18 Narrative: Test dose with 4 mL of 1.5% lidocaine with epinephrine. Negative signs and symptoms. Catheter entry-level L1-L2. Negative CSF , Negative blood, negative paresthesia. Patient tolerated the procedure well. No complications. Blood Aspirated: No Pain Paresthesia on Injection Noted: No Events: Uneventful and Well Tolerated
[2024-06-13] MEDS ORDERED: NALOXONE 0.4 MG/ML 1 ML VIAL IV PRN (14:02)
[2024-06-13] MEDS ORDERED: SUCCINYLCHOLINE CHLORIDE 200 MG/10 ML VIAL IV ONE (14:04)
[2024-06-13] MEDS ORDERED: PROPOFOL 10 MG/ML 20 ML VIAL IV ONE (14:04)
[2024-06-13] MEDS ORDERED: HYDROmorphone (PF) 1 MG/ML ONE (14:04)
[2024-06-13] MEDS ORDERED: LIDOCAINE 1% INJ 10MG/ML (20 ML MDV) ONE (14:04)
[2024-06-13] MEDS ORDERED: NEOSTIGMINE 1 MG/ML 10 ML VIAL ONE (14:04)
[2024-06-13] MEDS ORDERED: ALBUMIN HUMAN 5% (12.5gm) 250 ML BOTTLE IVPB ONE (14:04)
[2024-06-13] MEDS ORDERED: GLYCOPYRROLATE 0.2 MG/ML 2 ML VIAL ONE (14:04)
[2024-06-13] MEDS ORDERED: fentaNYL (PF) 50 MCG/ML 2 ML AMP ONE (14:04)
[2024-06-13] MEDS ORDERED: ROCURONIUM 10 MG/ML (5 ML VIAL) IV ONE (14:04)
[2024-06-13] MEDS ORDERED: ONDANSETRON 4 MG/2 ML VIAL IVP PRN (15:20)
--- NOTE | 2024-06-13 15:20 | P.OP ---
Date of Procedure: 06/13/24 Preoperative Diagnosis: Colon mass Postoperative Diagnosis: Obstructing colon mass with extension to retroperitoneum Procedure(s) Performed: Diverting colostomy Retroperitoneal biopsy Anesthesia: CLAUDIA Surgeon: Campbell Pool Estimated Blood Loss (ml): 25 Pathology: other (Retroperitoneal biopsy) Condition: stable Disposition: PACU Description of Procedure: The patient was placed on the operative table in the supine position. He received general anesthesia. His abdomen was prepped and draped you sterile fashion. The mass could be palpated through the abdominal wall. A midline skin incision was made. And then the abdominal wall was divided using electrocautery. The [employer] tractor placed the wound. The patient had an large mass of the sigmoid colon. The mass was adherent to the retroperitoneum. Due to the size and inflammation around the mass the mass could not be excised. A biopsy of the retroperitoneum was performed. This is performed using sharp dissection. The specimen was sent to pathology. The liver was palpated. Appeared to be smooth. Without nodules. At this point decided perform a diverting colostomy. The colon was transected approximate 10 cm proximal to the mass. The white line of [place] was divided. And then the colon was lengthened. A suitable spot in the anterior abdominal wall was brought out for the colostomy. There is no bleeding seen. The fascia was closed looped #1 PDS each. The colostomy matured with 3-0 Vicryl. Skin was closed zev. The patient tolerated procedure well. T
[2024-06-13] MEDS: LACTATED RINGERS 1,000 ML IV ONE (15:30)
--- NOTE | 2024-06-13 15:34 | P.PN ---
Subjective Progress Note Date: 06/13/24 Subjective: Patient seen and examined at bedside. No acute events overnight. All Systems reviewed and pertinent positives and negatives noted in HPI, all other symptoms are negative Objective: Vital signs reviewed. General: non toxic, no distress, appears at stated age, normal weight Derm: no unusual rashes/lesions, warm Head: atraumatic, normocephalic, symmetric Eyes: EOMI, no lid lag, anicteric sclera, pupils equal round reactive to light ENT: Nose and ears atraumatic Neck: No cervical lymphadenopathy, trachea midline, supple Mouth: no lip lesion, mucus membranes moist Cardiovascular: S1S2 irregular, no murmur, positive dorsalis pedis pulse bilateral, +1 bilateral pitting edema Lungs: CTA bilateral, no rhonchi, no rales, no accessory muscle use Abdominal: Mildly distended, nontender to palpation, no guarding Ext: muscle strength 5 out of 5 in all 4 extremities grossly, no gross muscle atrophy, no contractures, Neuro: CN II-XI grossly intact, no gross focal neuro deficits Psych: Alert, oriented, appropriate affect Data reviewed today: Hemoglobin 9.9, platelet 459, CEA negative No new imaging Assessment and Plan: Patient is a 70-year-old male with a past medical history of atrial fibrillation (on Eliquis) and hypertension has been admitted by surgery for suspicious abdominal mass on CT abdomen/pelvis. Admitted to general surgery. Colonoscopy on 06/12/2024 revealing a near obstructing sigmoid colon mass. sigmoid resection planned on 06/13/2024. #Intraabdominal mass with 60 lbs weight loss, likely malignancy Pain management: Acetaminophen 650 mg p.o. Q6 as needed, [place] 5325 q6h as needed Surgery on board: Colonoscopy on 06/12/2024 revealing a near obstructing sigmoid colon mass. Sigmoid resection on 06/13/2024. Oncology consulted #Bright red blood per rectum -Likely secondary to colonoscopy and biopsy -Continue to monitor for further bleeding and hemodynamic instability # acute complicated diverticulitis Leukocytosis, resolved CT abdomen/pelvis with oral contrast (06/09/2024): Sigmoid mass versus acute diverticulitis of proximal to mid sigmoid colon. On Zosyn 3.375 g IVPB every 8 hours Blood cultures x 2 Blood culture preliminary report 06/09/2024 shows no growth # Shortness of breath Chest CTA showed no signs of pulmonary embolism Troponin negative Procalcitonin 0.08 negative # Iron deficiency anemia Current hemoglobin 10.2, baseline hemoglobin 13.3 Patient denies active bleeding Order iron studies: Iron 14, TIBC 203, percent saturation 6.9, transferrin 145, ferritin 390 Follow-up CBC # Atrial fibrillation, rate controlled Continue Cardizem 120 mg p.o. daily Monitor on telemetry Eliquis on hold by surgery # Abnormal UA Patient denying urinary complaints. Abnormal appearance of anterior bladder as seen on CT abd Consider Urology consult if primary culprit isn't the adjacent GI malignancy # Hypertension C/w home spironolactone 25 mg p.o. daily # Bilateral leg edema, resolved Discontinue Lasix 20 mg p.o. daily given patient will be n.p.o. # Mild hyponatremia, resolving # Thrombocytosis Suspect reactive in setting of malignancy Monitor for now # Insomnia Melatonin 3 mg p.o. at bedtime as needed # Nonallergic rhinitis Continue Flonase nasal spray 1 spray each nostril twice daily F: None E: Replete as needed N: N.p.o. A: Ambulatory without assistance DVT ppx: On hold per surgery Code Status: Full code Anticipated discharge place: Pending clinical course Anticipated discharge date: Pending clinical course I have seen and evaluated the patient today. Discussed with the resident and agree with the residents finding and plan as documented in the resident's note. Changes highlighted in blue font. Objective - Vital Signs Vital signs: Vital Signs Temp 99.7 F H 06/13/24 04:15 Pulse 66 06/13/24 01:17 Resp 20 06/13/24 01:17 BP 121/80 06/13/24 01:17 Pulse Ox 95 06/13/24 01:17 FiO2 Intake & Output 06/12/24 06/13/24 06/13/24 18:59 06:59 18:59 Intake Total 325 400 Balance 325 400 Intake: IV 200 Intake, IV Titration 125 Amount Piperacillin-Tazobactam 3 125 .375 gm In Sodium Chloride 0.9% 100 ml @ 25 mls/hr IVPB Q8HR [facility] Rx# :[id number] Oral 400 Other: Voiding Method Toilet # Voids 1 - Labs CBC & Chem 7: 06/13/24 08:18 06/12/24 15:06 Labs: Abnormal Lab Results - Last 24 Hours (Table) 06/12/24 06/12/24 Range/Units 15:06 15:06 Hgb 10.2 L (13.0-17.5) gm/dL Hct 32.0 L (39.0-53.0) % MCV 73.4 L (80.0-100.0) fL MCH 23.3 L (25.0-35.0) pg RDW 16.6 H (11.5-15.5) % Plt Count 467 H (150-450) k/uL Lymphocytes # 0.7 L (1.0-4.8) k/uL Sodium 133 L (137-145) mmol/L BUN 5 L (9-20) mg/dL Glucose 101 H (74-99) mg/dL Microbiology - Last 24 Hours (Table) 06/09/24 15:53 Blood Culture - Preliminary Blood
--- NOTE | 2024-06-13 15:36 | CDI ---
Documentation Clarification Form Date: 06/13/2024 03:11:51 PM From: Genevieve Rios RN, CCDS Phone: [phone] Admit Date: 06/08/2024 09:51:00 PM Patient Name: Venkatesh Phillips Visit Number: [id number] Discharge Date: ATTENTION: The Clinical Documentation Specialists (CDI) and [facility] Coding Staff appreciate your assistance in clarifying documentation. Please respond to the clarification below the line at the bottom and electronically sign. The CDI & [facility] Coding staff will review the response and follow-up if needed. Please note: Queries are made part of the Legal Health Record. If you have any questions, please contact the author of this message via ITS. Doctor/Provider: Lazaro Melendez Atrial Fibrillation is documented in the past medical history and subsequent progress notes. Additional clarification regarding the type of atrial fibrillation is requested. History/Risk Factors: Atrial Fibrillation, Hypertension, Former smoker Clinical Indicators: 78 y/o male past medical history of atrial fibrillation on Eliquis. He presents with shortness of breath and persistent abdominal distention. 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
[2024-06-13 15:44] LABS: Anisocytosis Slight; Basophils % (A) 0 %; Eosinophils % (A) 1 %; HCT 31.8 % (39.0-53.0); HGB 9.9 gm/dL (13.0-17.5); Hypochromasia Marked; Lymphocytes # (A) 0.6 k/uL (1.0-4.8); Lymphocytes % (A) 12 %; MCH 23.2 pg (25.0-35.0); MCHC 31.1 g/dL (31.0-37.0); MCV 74.6 fL (80.0-100.0); Mean Platelet Volume 7.5; Microcytosis Slight; Monocytes # (A) 0.4 k/uL (0-1.0); Monocytes % (A) 7 %; Neutrophils # (A) 3.9 k/uL (1.3-7.7); Neutrophils % (A) 79 %; Platelet Count 459 k/uL (150-450); RBC 4.26 m/uL (4.30-5.90); RDW 16.8 % (11.5-15.5); WBC 4.9 k/uL (3.8-10.6)
[2024-06-13 16:10] LABS: African American GFR (CKD) >90 (>60 ml/min/1.73 sqM); Anion Gap 7 mmol/L; Blood Urea Nitrogen 4 mg/dL (9-20); Calcium 8.4 mg/dL (8.4-10.2); Carbon Dioxide 26 mmol/L (22-30); Chloride 99 mmol/L (98-107); Glucose 83 mg/dL (74-99); Non-African American GFR(CKD) 88 (>60 ml/min/1.73 sqM); Potassium 3.8 mmol/L (3.5-5.1); Sodium 132 mmol/L (137-145)
[2024-06-13] MEDS: HEPARIN SODIUM,PORCINE 5,000 UNIT/ML 1 ML VIAL SQ SCH (18:00)
--- NOTE | 2024-06-13 18:15 | P.CONS ---
History of Present Illness - Reason for Consult Consult date: 06/13/24 colon mass Requesting physician: Lazaro Melendez - Chief Complaint SOB, fatigue - History of Present Illness Patient is a 78-year-old male who presented to emergency room with shortness of breath and fatigue. Consult was placed for colonic mass of the sigmoid colon. On admission CTA chest was negative for pulmonary embolism. CT abdomen pelvis showed short segment of circumferential wall thickening of the sigmoid colon compatible with colitis/diverticulitis. Underlying mass not excluded. Edematous mesentery. Few small bowel loops may closely approximate the area. Abnormal appearance to the anterior bladder wall. Repeat CT abdomen pelvis showed sigmoid mass versus acute diverticulitis proximal to mid sigmoid colon. Irregular area of increased density in close approximation to suspected mass. The area appears to be increasing in size from the recent comparison. Blood cultures negative thus far. Underwent colonoscopy on 06/12/24, showing near obstructing mass in the sigmoid colon, biopsy obtained, results pending. Tmax 101.0. Temperature noted of 100.1 yesterday. Patient continues on Zosyn. Labs reviewed, today WBC 8.8, hemoglobin 10.2, platelets 467,000. MCV 73.4, MCH 23.3. Nutritional studies showed iron saturation of 6.9%, ferritin 390, vitamin B12 365, folate 9.5. Creatinine 0.73, GFR > 90. CEA < 2.0. At today's visit patient is report significant improvement in symptoms and states he is feeling much better since admission. Denies abd pain, n/v. Patient does report approximate 63 pound weight loss since September but states he was dieting and trying to lose weight s/p cholecystecomy in 10/2023. Patient is scheduled for sigmoid colon resection today. Review of Systems 10 point ROS is negative except as stated in the HPI Past Medical History Past Medical History: Atrial Fibrillation, Hypertension Additional Past Medical History / Comment(s): sinusitis, [place] LE edema History of Any Multi-Drug Resistant Organisms: None Reported Past Surgical History: Orthopedic Surgery, Tonsillectomy Past Psychological History: No Psychological Hx Reported Smoking Status: Former smoker Past Alcohol Use History: None Reported Past Drug Use History: None Reported - Past Family History Father Family Medical History: No Reported History Mother Family Medical History: Asthma, COPD Medications and Allergies Home Medications Medication Instructions Recorded Confirmed Type Apixaban [Eliquis] 5 mg PO BID 11/23/23 06/08/24 History Ergocalciferol [Vitamin D2 (1250 1,250 mcg PO MARTINO 11/23/23 06/08/24 History Mcg = 48543 Iu)] Fluticasone Nasal [place] [Flonase 1 spr EA NOSTRIL BID 11/23/23 06/08/24 History Nasal [place]] Furosemide [Lasix] 20 mg PO DAILY 11/23/23 06/08/24 History Spironolactone [Aldactone] 25 mg PO DAILY 11/23/23 06/08/24 History dilTIAZem HCL [Tiazac] 120 mg PO DAILY 06/08/24 06/08/24 History Allergies Allergy/AdvReac Type Severity Reaction Status Date / Time No Known Allergies Allergy Verified 06/08/24 18:23 Physical Exam Vitals: Vital Signs Temp Pulse Resp BP Pulse Ox 06/13/24 13:53 80 14 91/61 96 06/13/24 13:15 98.8 F 70 14 101/64 99 06/13/24 12:18 97.9 F 89 16 97/65 98 06/13/24 07:17 98.2 F 81 16 103/66 98 06/13/24 04:15 99.7 F H 06/13/24 01:17 100.1 F H 66 20 121/80 95 06/12/24 20:00 18 06/12/24 19:19 97.7 F 66 18 106/70 93 L Intake and Output 06/13/24 06/13/24 06/13/24 06:59 14:59 22:59 Intake Total 300 Balance 300 Intake: IV 300 Other: Voiding Method Toilet # Voids 1 Weight 110.223 kg - Constitutional General appearance: average body habitus, no acute distress - EENT Eyes: anicteric sclerae, EOMI ENT: hearing grossly normal - Neck Neck: no lymphadenopathy - Respiratory Respiratory: bilateral: CTA - Cardiovascular Rhythm: regular Heart sounds: normal: S1, S2 - Gastrointestinal General gastrointestinal: soft, no tenderness - Integumentary Integumentary: no cyanotic, no jaundiced - Musculoskeletal Musculoskeletal: strength equal bilaterally - Psychiatric Psychiatric: A&O x's 3 Results CBC & Chem 7: 06/13/24 08:18 06/13/24 08:18 Labs: Abnormal Lab Results - Last 24 Hours (Table) 06/12/24 06/12/24 Range/Units 15:06 15:06 Hgb 10.2 L (13.0-17.5) gm/dL Hct 32.0 L (39.0-53.0) % MCV 73.4 L (80.0-100.0) fL MCH 23.3 L (25.0-35.0) pg RDW 16.6 H (11.5-15.5) % Plt Count 467 H (150-450) k/uL Lymphocytes # 0.7 L (1.0-4.8) k/uL Sodium 133 L (137-145) mmol/L BUN 5 L (9-20) mg/dL Glucose 101 H (74-99) mg/dL Microbiology - Last 24 Hours (Table) 06/09/24 15:53 Blood Culture - Preliminary Blood CT scan - abdomen: report reviewed CT scan - pelvis: report reviewed Assessment and Plan (1) Intraabdominal mass Current Visit: Yes Status: Acute Priority: High Code(s): R19.00 - INTRA- ABD AND PELVIC SWELLING, MASS AND LUMP, UNSP SITE SNOMED Code(s): 997387297 (2) Shortness of breath Current Visit: Yes Status: Acute Priority: Medium Code(s): R06.02 - SHORTNESS OF BREATH SNOMED Code(s): 440532161 (3) Anemia Current Visit: Yes Status: Acute Priority: Medium Code(s): D64.9 - ANEMIA, UNSPECIFIED SNOMED Code(s): 699911461 Plan: Colonic mass: Presented with SOB and fatigue. Also reports abd pain and weight loss. States since 09/2023 he has approx 63 pound weight loss but states he was dieting and trying to lose weight s/p cholecystecomy in 10/2023. -On admission CT abdomen pelvis showed short segment of circumferential wall thickening of the sigmoid colon compatible with colitis/diverticulitis. Underlying mass not excluded. Edematous mesentery. Few small bowel loops may closely approximate the area. Abnormal appearance to the anterior bladder wall. Repeat CT abdomen pelvis showed sigmoid mass versus acute diverticulitis proximal to mid sigmoid colon. Irregular area of increased density in close approximation to suspected mass. The area appears to be increasing in size from the recent comparison. -Underwent colonoscopy on 06/12/24, showing near obstructing mass in the sigmoid colon, biopsy obtained, results pending -CEA < 2.0 -Scheduled for sigmoid colon resection today -Will f/u on pathology Discussed results and concerns for possible malignancy and plan of care with patient and spouse All questions and concerns were addressed Iron deficiency anemia: -Labs reviewed, WBC 8.8, hemoglobin 10.2, platelets 467,000. MCV 73.4, MCH 23.3 -Nutritional studies showed iron saturation of 6.9%, ferritin 390, vitamin B12 365, folate 9.5. -MMA ordered -Recommend holding parenteral iron at this time due to concern for abdominal in fectious process -Continue to monitor CBC. Transfuse for hgb < 7 or if symptomatic attests: I have seen and examined patient, performed H&P, developed impression and plan of care. Discussed with dictator. Agree with documentation, dictated as a scribe
[2024-06-13] MEDS: D5-0.45% NACL WITH KCL 20MEQ/L 1,000 ML IV SCH (21:55)
[2024-06-14] MEDS: ONDANSETRON 4 MG/2 ML VIAL IVP PRN (08:10)
[2024-06-14] MEDS: ALVIMOPAN 12 MG CAPSULE PO SCH (08:19)
[2024-06-14 11:39] LABS: Anisocytosis Slight; Basophils % (A) 0 %; Eosinophils % (A) 0 %; HCT 32.9 % (39.0-53.0); Hypochromasia Marked; Lymphocytes # (A) 0.8 k/uL (1.0-4.8); Lymphocytes % (A) 7 %; MCH 22.8 pg (25.0-35.0); MCHC 30.5 g/dL (31.0-37.0); MCV 74.7 fL (80.0-100.0); Mean Platelet Volume 6.7; Microcytosis Slight; Monocytes # (A) 0.7 k/uL (0-1.0); Monocytes % (A) 5 %; Neutrophils # (A) 10.9 k/uL (1.3-7.7); Neutrophils % (A) 87 %; Platelet Count 409 k/uL (150-450); RDW 16.8 % (11.5-15.5); WBC 12.5 k/uL (3.8-10.6)
[2024-06-14 11:52] LABS: African American GFR (CKD) >90 (>60 ml/min/1.73 sqM); Anion Gap 7 mmol/L; Blood Urea Nitrogen 6 mg/dL (9-20); Calcium 8.5 mg/dL (8.4-10.2); Carbon Dioxide 30 mmol/L (22-30); Chloride 92 mmol/L (98-107); Glucose 123 mg/dL (74-99); Non-African American GFR(CKD) >90 (>60 ml/min/1.73 sqM); Potassium 4.1 mmol/L (3.5-5.1); Sodium 129 mmol/L (137-145)
--- NOTE | 2024-06-14 13:26 | P.PN ---
Subjective Progress Note Date: 06/14/24 CHIEF COMPLAINT: colon mass HISTORY OF PRESENT ILLNESS: Patient is postop day 1 status post diverting col ostomy and retroperitoneal biopsy. Patient has epidural for pain. His pain is controlled. Patient complains of nausea after taking in the apple juice. His Prevena dressing is not holding suctioning. Afebrile. WBC is up at 12.5. Patient did receive Decadron. Hgb 10 platelets 409 sodium 129 potassium 4.1 creatinine 0.65 magnesium 2.0 PHYSICAL EXAM: VITAL SIGNS: Reviewed. GENERAL: Well-developed in no acute distress. ABDOMEN: Distended. Prevena wound VAC dressing with loss of suctioning. dressing clean and dry. ostomy stoma beefy red. No stool present. NEUROLOGIC: Alert and oriented. Cranial nerves II through XII grossly intact. ASSESSMENT: 1. Near obstructing colon mass PLAN: -Follow up on pathology results -Continue clear liquid diet. Encourage patient to go very slow with liquids -Encourage patient to increase activity level -Ordering a new Prevena wound VAC dressing due to the initial prevena malfunctioning -Repeat labs in a.m. -Continue antibiotics -Encourage patient to use incentive spirometer -Continue epidural and Morales catheter -DVT prophylaxis subcu heparin and GI prophylaxis Physician S[employer] Supervisor note has been reviewed by physician. Signing provider agrees with the documented findings, assessment, and plan of care. Objective - Vital Signs Vital signs: Vital Signs Temp 97.7 F 06/14/24 12:41 Pulse 73 06/14/24 12:41 Resp 16 06/14/24 12:41 BP 115/67 06/14/24 12:41 Pulse Ox 97 06/14/24 12:41 FiO2 Intake & Output 06/13/24 06/14/24 06/14/24 18:59 06:59 18:59 Intake Total 1300 240 Output Total 450 1000 Balance 850 -1000 240 Weight 110.223 kg Intake: IV 1300 Oral 240 Output: Urine 400 1000 Estimated Blood Loss 50 Other: Voiding Method Toilet Indwelling Catheter Indwelling Catheter - Labs CBC & Chem 7: 06/14/24 11:18 06/14/24 11:18 Labs: Abnormal Lab Results - Last 24 Hours (Table) 06/13/24 06/13/24 06/14/24 Range/Units 08:18 08:18 11:18 WBC 12.5 H (3.8-10.6) k/uL RBC 4.26 L (4.30-5.90) m/uL Hgb 9.9 L 10.0 L (13.0-17.5) gm/dL Hct 31.8 L 32.9 L (39.0-53.0) % MCV 74.6 L 74.7 L (80.0-100.0) fL MCH 23.2 L 22.8 L (25.0-35.0) pg MCHC 30.5 L (31.0-37.0) g/dL RDW 16.8 H 16.8 H (11.5-15.5) % Plt Count 459 H (150-450) k/uL Neutrophils # 10.9 H (1.3-7.7) k/uL Lymphocytes # 0.6 L 0.8 L (1.0-4.8) k/uL Sodium 132 L (137-145) mmol/L Chloride (98-107) mmol/L BUN 4 L (9-20) mg/dL Creatinine (0.66-1.25) mg/dL Glucose (74-99) mg/dL 06/14/24 Range/Units 11:18 WBC (3.8-10.6) k/uL RBC (4.30-5.90) m/uL Hgb (13.0-17.5) gm/dL Hct (39.0-53.0) % MCV (80.0-100.0) fL MCH (25.0-35.0) pg MCHC (31.0-37.0) g/dL RDW (11.5-15.5) % Plt Count (150-450) k/uL Neutrophils # (1.3-7.7) k/uL Lymphocytes # (1.0-4.8) k/uL Sodium 129 L (137-145) mmol/L Chloride 92 L (98-107) mmol/L BUN 6 L (9-20) mg/dL Creatinine 0.65 L (0.66-1.25) mg/dL Glucose 123 H (74-99) mg/dL
[2024-06-14] MEDS: FAMOTIDINE 20 MG/2 ML VIAL IV SCH (15:01)
--- NOTE | 2024-06-14 15:46 | P.PN ---
Subjective Progress Note Date: 06/14/24 Subjective: Patient seen and examined at bedside. No acute events overnight. Denies chest pain, shortness of breath. All Systems reviewed and pertinent positives and negatives noted as above, all other symptoms are negative Objective: Vital signs reviewed. General: non toxic, no distress, appears at stated age, normal weight Derm: no unusual rashes/lesions, warm Head: atraumatic, normocephalic, symmetric Eyes: EOMI, no lid lag, anicteric sclera, pupils equal round reactive to light ENT: Nose and ears atraumatic Neck: No cervical lymphadenopathy, trachea midline, supple Mouth: no lip lesion, mucus membranes moist Cardiovascular: S1S2 irregular, no murmur, positive dorsalis pedis pulse bi lateral, +1 bilateral pitting edema Lungs: CTA bilateral, no rhonchi, no rales, no accessory muscle use Abdominal: Mildly distended, nontender to palpation, no guarding, colostomy bag in place with mild serosanguineous drainage. Ext: muscle strength 5 out of 5 in all 4 extremities grossly, no gross muscle atrophy, no contractures, Neuro: CN II-XI grossly intact, no gross focal neuro deficits Psych: Alert, oriented, appropriate affect Data reviewed today: WBC 12.5, hemoglobin 10.0, hematocrit 32.9, MCV 74.5, platelet count 4 9, sodium 129, potassium 4.1, chloride 92, bicarb 30, BUN 6, creatinine 0.65, glucose 123 No new imaging Assessment and Plan: Patient is a 70-year-old male with a past medical history of atrial fibrillation (on Eliquis) and hypertension has been admitted by surgery for suspicious abdominal mass on CT abdomen/pelvis. Admitted to general surgery. Colonoscopy on 06/12/2024 revealing a near obstructing sigmoid colon mass. Patient is day 1 postop diverting colostomy and retroperitoneal biopsy. 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 Q6 as needed, [place] [id number] q6h as needed Surgery on board: Colonoscopy on 06/12/2024 revealing a near obstructing sigmoid colon mass; diverting colostomy and retroperitoneal biopsy on 06/13/2024; pathology report pending, discussed management with surgery Oncology on board Continue with heparin 5000 units SQ every 8 hour for DVT prophylaxis Continue with IV normal saline at 125 cc/h Monitor BMP in a.m. Continue clear liquid diet Continue with incentive spirometry # acute complicated diverticulitis #Leukocytosis, resolved CT abdomen/pelvis with oral contrast (06/09/2024): Sigmoid mass versus acute diverticulitis of proximal to mid sigmoid colon. On Zosyn 3.375 g IVPB every 8 hours Blood cultures x 2 Blood culture preliminary report 06/09/2024 shows no growth Monitor CBC in a.m. # Mild hypovolemic hyponatremia, secondary to abdominal surgery Continue monitor BMP #Bright red blood per rectum (resolved) # Shortness of breath, resolved # Bilateral leg edema, resolved Discontinue Lasix 20 mg p.o. daily # Iron deficiency anemia Current hemoglobin 10.2, baseline hemoglobin 13.3 Patient denies active bleeding Order iron studies: Iron 14, TIBC 203, percent saturation 6.9, transferrin 145, ferritin 390 Follow-up CBC # Atrial fibrillation, rate controlled Continue Cardizem 120 mg p.o. daily Monitor on telemetry Eliquis on hold by surgery # Abnormal UA Patient denying urinary complaints. Abnormal appearance of anterior bladder as seen on CT abd Consider Urology consult if primary culprit isn't the adjacent GI malignancy # Hypertension C/w home spironolactone 25 mg p.o. daily # Thrombocytosis, resolved # Insomnia Melatonin 3 mg p.o. at bedtime as needed # Nonallergic rhinitis Continue Flonase nasal spray 1 spray each nostril twice daily F: IV normal saline at 125 cc/h E: Replete as needed N: Clear liquid diet A: Ambulatory without assistance DVT ppx: heparin 5000 units SQ every 8 hour Code Status: Full code Anticipated discharge place: Pending clinical course Anticipated discharge date: Pending clinical course I have seen and evaluated the patient today. Discussed with the resident and agree with the residents finding and plan as documented in the resident's note. Changes highlighted in blue font. Objective - Vital Signs Vital signs: Vital Signs Temp 97.9 F 06/13/24 17:18 Pulse 83 06/13/24 20:15 Resp 16 06/13/24 20:00 BP 114/77 06/13/24 20:15 Pulse Ox 97 06/13/24 20:15 FiO2 Intake & Output 06/13/24 06/14/24 06/14/24 18:59 06:59 18:59 Intake Total 1300 Output Total 450 1000 Balance 850 -1000 Weight 110.223 kg Intake: IV 1300 Output: Urine 400 1000 Estimated Blood Loss 50 Other: Voiding Method Toilet Indwelling Catheter - Labs CBC & Chem 7: 06/14/24 11:18 06/14/24 11:18 Labs: Abnormal Lab Results - Last 24 Hours (Table) 06/13/24 06/13/24 Range/Units 08:18 08:18 RBC 4.26 L (4.30-5.90) m/uL Hgb 9.9 L (13.0-17.5) gm/dL Hct 31.8 L (39.0-53.0) % MCV 74.6 L (80.0-100.0) fL MCH 23.2 L (25.0-35.0) pg RDW 16.8 H (11.5-15.5) % Plt Count 459 H (150-450) k/uL Lymphocytes # 0.6 L (1.0-4.8) k/uL Sodium 132 L (137-145) mmol/L BUN 4 L (9-20) mg/dL
[2024-06-14] MEDS: SODIUM CHLORIDE 0.9% 1,000 ML IV SCH (16:39)
[2024-06-14] MEDS: ROPIVACAINE 250 MG, HYDROMORPHONE (PF) 5 MG in SODIUM CHLORIDE 0.9% 200 ML EPIDURAL PRN (23:48)
--- NOTE | 2024-06-15 05:22 | P.PN ---
Progress Note - Text Progress Note Date: 06/15/24 78 yo male s/p Diverting colostomy 9/ POD#2, epidural catheter day #3 Currently doing well, VSS, NAD Epidural catheter running at 8ml/hr. Solution consists of Ropivacaine and dilaudid VAS 0/10 Patient has not been up to ambulate Morales catheter in place, is not needed with epidural. Plan: 1. Continue epidural catheter at rate of 8ml 2. D/C catheter 06/16; contact anesthesia for anticoagulant timing.
[2024-06-15 08:55] LABS: HCT 32.3 % (39.6-50.0); HGB 9.9 g/dL (13.0-17.0); MCH 22.6 pg (27.0-32.0); MCHC 30.7 g/dL (32.0-37.0); MCV 73.6 FL (80.0-97.0); Mean Platelet Volume 9.6 FL (9.5-12.2); NRBC Per 100 WBC 0 X 10*3/uL (0.00-0.01); Platelet Count 350 X 10*3/uL (140-440); RBC 4.39 X 10*6/uL (4.40-5.60); RDW 18.5 % (11.5-14.5); WBC 11.73 X 10*3/uL (4.50-10.00)
[2024-06-15 09:35] LABS: BUN/Creat Ratio 9.71 Ratio (12.00-20.00); Blood Urea Nitrogen 6.8 mg/dL (9.0-27.0); Carbon Dioxide 27.8 mmol/L (21.6-31.8); Chloride 96 mmol/L (96-109); Glucose 93 mg/dL (70-110); Potassium 4.1 mmol/L (3.5-5.5); Sodium 133 mmol/L (135-145)
[2024-06-15 09:51] LABS: Basophils # (A) 0.01 X 10*3/uL (0.00-0.10); Basophils % (A) 0.1 %; Elliptocytes 2+; Eosinophils # (A) 0.12 X 10*3/uL (0.04-0.35); Hypochromasia (M) 2+; Lymphocytes # (A) 1.13 X 10*3/uL (0.90-5.00); Lymphocytes % (A) 9.6 %; Microcytosis (M) 2+; Monocytes # (A) 0.99 X 10*3/uL (0.20-1.00); Monocytes % (A) 8.4 %; Neutrophils # (A) 9.41 X 10*3/uL (1.80-7.70); Neutrophils % (A) 80.3 %
--- NOTE | 2024-06-15 11:48 | P.PN ---
Subjective Progress Note Date: 06/15/24 Principal diagnosis: colon mass No acute events. S/p diverting colostomy. Reports feeling well. States he is passing some flatus through ostomy. Pt afebrile. Hgb stable at 9.9 Objective - Vital Signs Vital signs: Vital Signs Temp 98.2 F 06/15/24 08:10 Pulse 81 06/15/24 08:10 Resp 16 06/15/24 08:10 BP 107/66 06/15/24 08:10 Pulse Ox 97 06/15/24 08:10 FiO2 Intake & Output 06/14/24 06/15/24 06/15/24 18:59 06:59 18:59 Intake Total 1040 590 Output Total 600 400 Balance 440 190 Intake: Oral 1040 590 Output: Urine 600 400 Uretheral (Morales) 600 Other: Voiding Method Indwelling Catheter Indwelling Catheter Indwelling Catheter - Constitutional General appearance: Present: average body habitus, no acute distress - EENT Eyes: Present: anicteric sclerae, EOMI ENT: Present: hearing grossly normal - Respiratory Details: breathing is even and unlabored - Cardiovascular Details: skin warm and dry - Gastrointestinal Gastrointestinal Comment(s): ostomy in situ - Integumentary Integumentary: Absent: cyanotic, jaundiced - Neurologic Neurologic: Present: CNII-XII intact - Musculoskeletal Musculoskeletal: Present: strength equal bilaterally - Psychiatric Psychiatric: Present: A&O x's 3 - Labs CBC & Chem 7: 06/15/24 03:34 06/15/24 03:34 Labs: Abnormal Lab Results - Last 24 Hours (Table) 06/14/24 06/15/24 06/15/24 Range/Units 11:18 03:34 03:34 WBC 11.73 H (4.50-10.00) X 10*3/uL RBC 4.39 L (4.40-5.60) X 10*6/uL Hgb 9.9 L (13.0-17.0) g/dL Hct 32.3 L (39.6-50.0) % MCV 73.6 L (80.0-97.0) FL MCH 22.6 L (27.0-32.0) pg MCHC 30.7 L (32.0-37.0) g/dL RDW 18.5 H (11.5-14.5) % Immature Gran # 0.07 H (0.00-0.04) X 10*3/uL Neutrophils # 9.41 H (1.80-7.70) X 10*3/uL Hypochromasia (manual) 2+ A Microcytosis (manual) 2+ A Elliptocytes 2+ A Sodium 129 L 133 L (137-145) mmol/L Chloride 92 L (98-107) mmol/L BUN 6 L 6.8 L (9-20) mg/dL Creatinine 0.65 L (0.66-1.25) mg/dL BUN/Creatinine Ratio 9.71 L (12.00-20.00) Ratio Glucose 123 H (74-99) mg/dL Calcium 8.0 L (8.7-10.3) mg/dL Microbiology - Last 24 Hours (Table) 06/09/24 15:53 Blood Culture - Final Blood Assessment and Plan (1) Intraabdominal mass Current Visit: Yes Status: Acute Priority: High Code(s): R19.00 - INTRA- ABD AND PELVIC SWELLING, MASS AND LUMP, UNSP SITE SNOMED Code(s): 215202522 (2) Shortness of breath Current Visit: Yes Status: Acute Priority: Medium Code(s): R06.02 - SHORTNESS OF BREATH SNOMED Code(s): 332677386 (3) Anemia Current Visit: Yes Status: Acute Priority: Medium Code(s): D64.9 - ANEMIA, UNSPECIFIED SNOMED Code(s): 634347621 Plan: Colonic mass: Presented with SOB and fatigue. Also reports abd pain and weight loss. States since 09/2023 he has approx 63 pound weight loss but states he was dieting and trying to lose weight s/p cholecystecomy in 10/2023. -On admission CT abdomen pelvis showed short segment of circumferential wall thickening of the sigmoid colon compatible with colitis/diverticulitis. Unde rlying mass not excluded. Edematous mesentery. Few small bowel loops may closely approximate the area. Abnormal appearance to the anterior bladder wall. Repeat CT abdomen pelvis showed sigmoid mass versus acute diverticulitis proximal to mid sigmoid colon. Irregular area of increased density in close approximation to suspected mass. The area appears to be increasing in size from the recent comparison. -Underwent colonoscopy on 06/12/24, showing near obstructing mass in the sigmoid colon, biopsy obtained, results pending -CEA < 2.0 -S/p diverting colostomy. Pathology pending -Will f/u on pathology and provide further recommendations pending results Iron deficiency anemia: -Labs reviewed, WBC 8.8, hemoglobin 10.2, platelets 467,000. MCV 73.4, MCH 23.3 -Nutritional studies showed iron saturation of 6.9%, ferritin 390, vitamin B12 365, MMA normal range, folate 9.5. -Recommend holding parenteral iron at this time due to concern for abdominal infectious process -Hgb stable at 9.9 -Continue to monitor CBC. Transfuse for hgb < 7 or if symptomatic
--- NOTE | 2024-06-15 12:23 | P.PN ---
Subjective Progress Note Date: 06/15/24 CHIEF COMPLAINT: colon mass HISTORY OF PRESENT ILLNESS: Patient is postop day #2 status post diverting co lostomy and retroperitoneal biopsy. Patient has epidural for pain. His pain is controlled. Patient sitting up at bedside chair. No new complaints. Patient did receive his new Prevena wound VAC and it is holding suction. Afebrile. Urine output adequate. WBC is down from 12.5-11.73 Hgb 9.9 platelets 350 sodium 133 potassium 4.1 creatinine 0.7 CEA level is less than 2 Patient seen and examined with Dr. Pool PHYSICAL EXAM: VITAL SIGNS: Reviewed. GENERAL: Well-developed in no acute distress. ABDOMEN: Distended. Prevena wound VAC intact. Ostomy stoma beefy red. No stool present. NEUROLOGIC: Alert and oriented. Cranial nerves II through XII grossly intact. ASSESSMENT: 1. Near obstructing colon mass status post diverting colostomy and retroperitoneal biopsy PLAN: -Follow up on pathology results -Continue clear liquid diet. Encourage patient to go very slow with liquids -Encourage patient to increase activity level -Repeat labs in a.m. -Continue antibiotics -Encourage patient to use incentive spirometer -Discontinue epidural and Morales catheter tomorrow. IV Dilaudid added for pain starting tomorrow -DVT prophylaxis subcu heparin and GI prophylaxis Physician Wire Roller note has been reviewed by physician. Signing provider agrees with the documented findings, assessment, and plan of care. Objective - Vital Signs Vital signs: Vital Signs Temp 98.2 F 06/15/24 08:10 Pulse 81 06/15/24 08:10 Resp 16 06/15/24 08:10 BP 107/66 06/15/24 08:10 Pulse Ox 97 06/15/24 08:10 FiO2 Intake & Output 06/14/24 06/15/24 06/15/24 18:59 06:59 18:59 Intake Total 1040 590 Output Total 600 400 Balance 440 190 Intake: Oral 1040 590 Output: Urine 600 400 Uretheral (Morales) 600 Other: Voiding Method Indwelling Catheter Indwelling Catheter Indwelling Catheter - Labs CBC & Chem 7: 06/15/24 03:34 06/15/24 03:34 Labs: Abnormal Lab Results - Last 24 Hours (Table) 06/15/24 06/15/24 Range/Units 03:34 03:34 WBC 11.73 H (4.50-10.00) X 10*3/uL RBC 4.39 L (4.40-5.60) X 10*6/uL Hgb 9.9 L (13.0-17.0) g/dL Hct 32.3 L (39.6-50.0) % MCV 73.6 L (80.0-97.0) FL MCH 22.6 L (27.0-32.0) pg MCHC 30.7 L (32.0-37.0) g/dL RDW 18.5 H (11.5-14.5) % Immature Gran # 0.07 H (0.00-0.04) X 10*3/uL Neutrophils # 9.41 H (1.80-7.70) X 10*3/uL Hypochromasia (manual) 2+ A Microcytosis (manual) 2+ A Elliptocytes 2+ A Sodium 133 L (135-145) mmol/L BUN 6.8 L (9.0-27.0) mg/dL BUN/Creatinine Ratio 9.71 L (12.00-20.00) Ratio Calcium 8.0 L (8.7-10.3) mg/dL Microbiology - Last 24 Hours (Table) 06/09/24 15:53 Blood Culture - Final Blood
--- NOTE | 2024-06-15 15:14 | CDI ---
Documentation Clarification Form Date: 06/15/2024 02:41:53 PM From: Genevieve Rios RN, CCDS Phone: [phone] Admit Date: 06/08/2024 09:51:00 PM Patient Name: Venkatesh Phillips Visit Number: [id number] Discharge Date: ATTENTION: The Clinical Documentation Specialists (CDI) and [facility] Coding Staff appreciate your assistance in clarifying documentation. Please respond to the clarification below the line at the bottom and electronically sign. The CDI & [facility] Coding staff will review the response and follow-up if needed. Please note: Queries are made part of the Legal Health Record. If you have any questions, please contact the author of this message via ITS. Doctor/Provider: Campbell Pool Conflicting documentation has been found in the medical record. As attending physician, please provide clarification. 06/09-06/15 Attending: Possible sigmoid colon neoplasm. Near obstruction colon mass status post diverting colostomy and retroperitoneal biopsy 06/09-06/15 IM: Leukocytosis w/ neutrophilic predominance, likely diverticulitis 06/08 CT ABD: Short segment of circumferential wall thickening of the Sigmoid colon compatible with colitis/diverticulitis, underling mass not excluded. 06/09/2024): Sigmoid mass versus acute diverticulitis of proximal to mid sigmoid colon. Irregular area of increased density in close proximation to the suspected mass. History/Risk Factors: Chronic Atrial Fibrillation, Hypertension, Former smoker, chronic lower extremity edema Clinical Indicators: 78 y/o male with complaints of shortness of breath, hot sweaty. He had persistent abdominal distention. 06/08 115/69 77 18 99% ra Temp@ (18:40) 101 06/08 Labs: WBC 10.9 HGB 9.8 HCT 29.8 Neutrophils 8.3 INR 1.2 NA+ 132, BNP 1820 UA: leukocyte Esterase Large WBC >182 Treatment: Zosyn 3.375 g IVPB every 8 hours NS at 100 cc/hr. Blood culture per orders Please clarify which diagnosis is most appropriate: [ ] Possible sigmoid colon neoplasm due to near obstruction colon mass [ ] Sigmoid mass (pending pathology) and acute diverticulitis of proximal to mid sigmoid colon. [ ] Other (please specify) [ ] Unable to determine (Template Last Revised: December 2020) per sharla Gunn to draganize w/no response MTDD
--- NOTE | 2024-06-15 15:42 | CDI ---
Documentation Clarification Form Date: 06/15/2024 03:30:52 PM From: Genevieve Rios RN, CCDS Phone: [phone] Admit Date: 06/08/2024 09:51:00 PM Patient Name: Venkatesh Phillips Visit Number: [id number] Discharge Date: ATTENTION: The Clinical Documentation Specialists (CDI) and [facility] Coding Staff appreciate your assistance in clarifying documentation. Please respond to the clarification below the line at the bottom and electronically sign. The CDI & [facility] Coding staff will review the response and follow-up if needed. Please note: Queries are made part of the Legal Health Record. If you have any questions, please contact the author of this message via ITS. Doctor/Provider: Lazaro Melendez Bright red blood per rectum likely secondary to colonoscopy and biopsy is documented in the Medicine progress note on 06/12/24, and patient had Colonoscopy on 06/12/24. Additional clarification is requested regarding the relationship, if any, that exists between the diagnosis and the procedure. Patients Admitting Diagnosis: Colon mass Post-Operative Diagnosis: Near obstructing colon mass at 35 cm andriy Procedure performed: colonoscopy History/Risk Factors: Atrial Fibrillation (on Eliquis 11/23/23-06/08/24), Hypertension, Chronic LE edema Clinical Indicators: 78 y/o male with complaints of shortness of breath, hot sweaty. He had persistent abdominal distention. Patient worked up on CAT scan he is found to have suggestion of sigmoid colon mass, unsure if this is related to diverticulitis or neoplasm. 06/08 115/69 77 18 99% RA Temp@ (18:40) 101 06/08 Labs: WBC 10.9 HGB 9.8 HCT 29.8 Neutrophils 8.3 INR 1.2 NA+ 132, BNP 1820 06/08 CT ABD: Short segment of circumferential wall thickening of the Sigmoid colon compatible with colitis/diverticulitis, underling mass not excluded. 06/09/2024): Sigmoid mass versus acute diverticulitis of proximal to mid sigmoid colon. Irregular area of increased density in close proximation to the suspected mass. 06/13 Oncology consult: Iron deficiency anemia: -Labs reviewed, WBC 8.8, hemoglobin 10.2, platelets 467,000.MCV 73.4, MCH 23.3 -Nutritional studies showed iron saturation of 6.9%, ferritin 390, vitamin B12 365, folate 9.5. Treatment: Monitor CBC per orders What relationship, if any, exists between the diagnosis of bright red blood per rectum and the procedure? [ ] Bright red blood per rectum is a complication of surgical procedure [ x ] Bright red blood per rectum is an expected outcome of the surgical procedure [ ] Bright red blood per rectum is related to patients co-morbid condition(s) of [insert co-morbid dxs] & not a complication of the procedure [ ] Other please specify ____ [ ] Unable to determine (Template Last Revised: December 2020) MTDD
--- NOTE | 2024-06-15 15:47 | P.PN ---
Subjective Progress Note Date: 06/15/24 Subjective: Patient seen and examined at bedside. No acute events overnight. Denies chest pain, shortness of breath, nausea or vomiting. Patient passing flatus through ostomy. Able to tolerate oral liquids. All Systems reviewed and pertinent positives and negatives noted as above, all other symptoms are negative Objective: Vital signs reviewed. General: non toxic, no distress, appears at stated age, normal weight Derm: no unusual rashes/lesions, warm Head: atraumatic, normocephalic, symmetric Eyes: EOMI, no lid lag, anicteric sclera, pupils equal round reactive to light ENT: Nose and ears atraumatic Neck: No cervical lymphadenopathy, trachea midline, supple Mouth: no lip lesion, mucus membranes moist Cardiovascular: S1S2 irregular, no murmur, positive dorsalis pedis pulse bilateral, +1 bilateral pitting edema Lungs: CTA bilateral, no rhonchi, no rales, no accessory muscle use Abdominal: Mildly distended, nontender to palpation, no guarding, colostomy bag in place with mild serosanguineous drainage. Ext: muscle strength 5 out of 5 in all 4 extremities grossly, no gross muscle atrophy, no contractures, Neuro: CN II-XI grossly intact, no gross focal neuro deficits Psych: Alert, oriented, appropriate affect Data reviewed today: WBC 11.73, hemoglobin 9.9, hematocrit 30.3, MCV 73.6, platelet count 350 sodium 133, potassium 4.1, chloride 96, bicarb 27.8, BUN 6.8, creatinine 0.7, calcium 8 No new imaging Assessment and Plan: Patient is a 70-year-old male with a past medical history of atrial fibrillation (on Eliquis) and hypertension has been admitted by surgery for suspicious abdominal mass on CT abdomen/pelvis. Admitted to general surgery. Colonoscopy on 06/12/2024 revealing a near obstructing sigmoid colon mass. Patient is day 2 postop diverting colostomy and retroperitoneal biopsy. 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 Q6 as needed, [place] 5325 q6h as needed, epidural drip as needed, Dilaudid 1 mg IVP every 3 hour as needed Surgery on board: Colonoscopy on 06/12/2024 revealing a near obstructing sigmoid colon mass; diverting colostomy and retroperitoneal biopsy on 06/13/2024; pathology report pending, discussed management with surgery Oncology on board Continue with heparin 5000 units SQ every 8 hour for DVT prophylaxis Continue with IV normal saline at 125 cc/h Monitor BMP in a.m. Continue clear liquid diet Continue with incentive spirometry # acute complicated diverticulitis #Leukocytosis, resolved CT abdomen/pelvis with oral contrast (06/09/2024): Sigmoid mass versus acute diverticulitis of proximal to mid sigmoid colon. On Zosyn 3.375 g IVPB every 8 hours Blood cultures no growth to date Monitor CBC in a.m. # Mild hypovolemic hyponatremia, secondary to abdominal surgery Continue monitor BMP #Bright red blood per rectum (resolved) # Shortness of breath, resolved # Bilateral leg edema, resolved Discontinue Lasix 20 mg p.o. daily # Iron deficiency anemia Current hemoglobin 10.2, baseline hemoglobin 13.3 Patient denies active bleeding Order iron studies: Iron 14, TIBC 203, percent saturation 6.9, transferrin 145, ferritin 390 Follow-up CBC # Atrial fibrillation, rate controlled Continue Cardizem 120 mg p.o. daily Monitor on telemetry Eliquis on hold by surgery # Abnormal UA Patient denying urinary complaints. Abnormal appearance of anterior bladder as seen on CT abd Consider Urology consult if primary culprit isn't the adjacent GI malignancy # Hypertension C/w home spironolactone 25 mg p.o. daily # Thrombocytosis, resolved # Insomnia Melatonin 3 mg p.o. at bedtime as needed # Nonallergic rhinitis Continue Flonase nasal spray 1 spray each nostril twice daily F: IV normal saline at 125 cc/h E: Replete as needed N: Clear liquid diet A: Ambulatory without assistance DVT ppx: heparin 5000 units SQ every 8 hour Code Status: Full code Anticipated discharge place: Pending clinical course Anticipated discharge date: Pending clinical course I have seen and evaluated the patient today. Discussed with the resident and agree with the residents finding and plan as documented in the resident's note. Changes highlighted in blue font. Objective - Vital Signs Vital signs: Vital Signs Temp 97.9 F 06/15/24 13:40 Pulse 68 06/15/24 13:40 Resp 20 06/15/24 13:40 BP 129/67 06/15/24 13:40 Pulse Ox 98 06/15/24 13:40 FiO2 Intake & Output 06/14/24 06/15/24 06/15/24 18:59 06:59 18:59 Intake Total 1040 590 Output Total 600 400 Balance 440 190 Weight 110.223 kg Intake: Oral 1040 590 Output: Urine 600 400 Uretheral (Morales) 600 Other: Voiding Method Indwelling Catheter Indwelling Catheter Indwelling Catheter - Labs CBC & Chem 7: 06/15/24 03:34 06/15/24 03:34 Labs: Abnormal Lab Results - Last 24 Hours (Table) 06/15/24 06/15/24 Range/Units 03:34 03:34 WBC 11.73 H (4.50-10.00) X 10*3/uL RBC 4.39 L (4.40-5.60) X 10*6/uL Hgb 9.9 L (13.0-17.0) g/dL Hct 32.3 L (39.6-50.0) % MCV 73.6 L (80.0-97.0) FL MCH 22.6 L (27.0-32.0) pg MCHC 30.7 L (32.0-37.0) g/dL RDW 18.5 H (11.5-14.5) % Immature Gran # 0.07 H (0.00-0.04) X 10*3/uL Neutrophils # 9.41 H (1.80-7.70) X 10*3/uL Hypochromasia (manual) 2+ A Microcytosis (manual) 2+ A Elliptocytes 2+ A Sodium 133 L (135-145) mmol/L BUN 6.8 L (9.0-27.0) mg/dL BUN/Creatinine Ratio 9.71 L (12.00-20.00) Ratio Calcium 8.0 L (8.7-10.3) mg/dL Microbiology - Last 24 Hours (Table) 06/09/24 15:53 Blood Culture - Final Blood
[2024-06-16 09:35] LABS: Basophils # (A) 0.02 X 10*3/uL (0.00-0.10); Basophils % (A) 0.2 %; Eosinophils % (A) 1.7 %; HCT 30.8 % (39.6-50.0); HGB 9.4 g/dL (13.0-17.0); Lymphocytes # (A) 1.29 X 10*3/uL (0.90-5.00); Lymphocytes % (A) 11.2 %; MCH 22.5 pg (27.0-32.0); MCHC 30.5 g/dL (32.0-37.0); MCV 73.7 FL (80.0-97.0); Mean Platelet Volume 10.2 FL (9.5-12.2); Monocytes # (A) 0.97 X 10*3/uL (0.20-1.00); Monocytes % (A) 8.5 %; NRBC Per 100 WBC 0 X 10*3/uL (0.00-0.01); Neutrophils % (A) 77.6 %; Platelet Count 335 X 10*3/uL (140-440); RBC 4.18 X 10*6/uL (4.40-5.60); RDW 18.3 % (11.5-14.5); WBC 11.47 X 10*3/uL (4.50-10.00)
[2024-06-16 10:13] LABS: BUN/Creat Ratio 9.17 Ratio (12.00-20.00); Blood Urea Nitrogen 5.5 mg/dL (9.0-27.0); Calcium 7.9 mg/dL (8.7-10.3); Carbon Dioxide 25.1 mmol/L (21.6-31.8); Chloride 96 mmol/L (96-109); Glucose 87 mg/dL (70-110); Potassium 3.9 mmol/L (3.5-5.5); Sodium 130 mmol/L (135-145)
--- NOTE | 2024-06-16 14:22 | P.PN ---
Subjective Progress Note Date: 06/16/24 Patient seen and examined at bedside. No acute events overnight. Denies chest pain, shortness of breath, nausea or vomiting. Minimal ostomy output. Able to tolerate oral liquids. All Systems reviewed and pertinent positives and negatives noted as above, all other symptoms are negative Objective: Vital signs reviewed. General: non toxic, no distress, appears at stated age, overweight Derm: no unusual rashes/lesions, warm Head: atraumatic, normocephalic, symmetric Eyes: EOMI, no lid lag, anicteric sclera, pupils equal round reactive to light ENT: Nose and ears atraumatic Neck: No cervical lymphadenopathy, trachea midline, supple Mouth: no lip lesion, mucus membranes moist Cardiovascular: S1S2 irregular, no murmur, positive dorsalis pedis pulse bilateral, +1 bilateral pitting edema Lungs: CTA bilateral, no rhonchi, no rales, no accessory muscle use Abdominal: Mildly distended, nontender to palpation, no guarding, colostomy bag in place with minimal dark red colored drainage. Ext: muscle strength 5 out of 5 in all 4 extremities grossly, no gross muscle atrophy, no contractures, Neuro: CN II-XI grossly intact, no gross focal neuro deficits Psych: Alert, oriented, appropriate affect Data reviewed today: WBC 11.47, hemoglobin 9.4, MCV 73.7, platelet count 335, sodium 130, potassium 3.9, creatinine 0.6 No new imaging Assessment and Plan: Patient is a 70-year-old male with a past medical history of atrial fibrillation (on Eliquis) and hypertension has been admitted by surgery for suspicious abdominal mass on CT abdomen/pelvis. Admitted to general surgery. Colonoscopy on 06/12/2024 revealing a near obstructing sigmoid colon mass. Patient is day 2 postop diverting colostomy and retroperitoneal biopsy. 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 Q6 as needed, [place] 5325 q6h as needed, epidural drip as needed, Dilaudid 1 mg IVP every 3 hour as needed Surgery on board: Colonoscopy on 06/12/2024 revealing a near obstructing sigmoid colon mass; diverting colostomy and retroperitoneal biopsy on 06/13/2024; pathology report pending, discussed management with surgery Epidural and Morales catheter to be discontinued today per surgery Oncology on board Continue with heparin 5000 units SQ every 8 hour for DVT prophylaxis Continue with IV normal saline at 125 cc/h Monitor BMP in a.m. Continue clear liquid diet Continue with incentive spirometry # acute complicated diverticulitis #Leukocytosis, resolved CT abdomen/pelvis with oral contrast (06/09/2024): Sigmoid mass versus acute diverticulitis of proximal to mid sigmoid colon. On Zosyn 3.375 g IVPB every 8 hours Blood cultures no growth to date Monitor CBC in a.m. # Mild hypovolemic hyponatremia, secondary to abdominal surgery Continue monitor BMP #Bright red blood per rectum (resolved) # Shortness of breath, resolved # Bilateral leg edema, resolved Discontinue Lasix 20 mg p.o. daily # Iron deficiency anemia Current hemoglobin 10.2, baseline hemoglobin 13.3 Patient denies active bleeding Order iron studies: Iron 14, TIBC 203, percent saturation 6.9, transferrin 145, ferritin 390 Follow-up CBC # Atrial fibrillation, rate controlled Continue Cardizem 120 mg p.o. daily Monitor on telemetry Eliquis on hold by surgery # Abnormal UA Patient denying urinary complaints. Abnormal appearance of anterior bladder as seen on CT abd Consider Urology consult if primary culprit isn't the adjacent GI malignancy # Hypertension C/w home spironolactone 25 mg p.o. daily # Thrombocytosis, resolved # Insomnia Melatonin 3 mg p.o. at bedtime as needed # Nonallergic rhinitis Continue Flonase nasal spray 1 spray each nostril twice daily F: IV normal saline at 125 cc/h E: Replete as needed N: Clear liquid diet A: Ambulatory without assistance DVT ppx: heparin 5000 units SQ every 8 hour Code Status: Full code Anticipated discharge place: Pending clinical course Anticipated discharge date: Pending clinical course I have seen and evaluated the patient today. Discussed with the resident and agree with the residents finding and plan as documented in the resident's note. Changes highlighted in blue font. Objective - Vital Signs Vital signs: Vital Signs Temp 98.2 F 06/16/24 13:26 Pulse 59 L 06/16/24 13:26 Resp 16 06/16/24 13:26 BP 114/66 06/16/24 13:26 Pulse Ox 95 06/16/24 13:26 FiO2 Intake & Output 06/15/24 06/16/24 06/16/24 18:59 06:59 18:59 Intake Total 1975 1290 Output Total 400 1200 1200 Balance 1575 90 -1200 Weight 110.223 kg Intake: Intake, IV Titration 1050 Amount Piperacillin-Tazobactam 3 100 .375 gm In Sodium Chloride 0.9% 100 ml @ 25 mls/hr IVPB Q8HR [facility] Rx# :[id number] Ropivacaine 250 mg 75 Hydromorphone (Pf) 5 mg In Sodium Chloride 0.9% 200 ml @ Per Protocol EPIDURAL .Q0M PRN Rx#: [id number] Sodium Chloride 0.9% 1, 875 000 ml @ 125 mls/hr IV . Q8H [facility] Rx#:[id number] Oral 1975 240 Output: Urine 350 1200 1200 Uretheral (Morales) 1200 Stool 50 Other: Voiding Method Indwelling Catheter Indwelling Catheter Indwelling Catheter - Labs CBC & Chem 7: 06/16/24 03:57 06/16/24 03:57 Labs: Abnormal Lab Results - Last 24 Hours (Table) 06/16/24 06/16/24 Range/Units 03:57 03:57 WBC 11.47 H (4.50-10.00) X 10*3/uL RBC 4.18 L (4.40-5.60) X 10*6/uL Hgb 9.4 L (13.0-17.0) g/dL Hct 30.8 L (39.6-50.0) % MCV 73.7 L (80.0-97.0) FL MCH 22.5 L (27.0-32.0) pg MCHC 30.5 L (32.0-37.0) g/dL RDW 18.3 H (11.5-14.5) % Immature Gran # 0.09 H (0.00-0.04) X 10*3/uL Neutrophils # 8.90 H (1.80-7.70) X 10*3/uL Sodium 130 L (135-145) mmol/L BUN 5.5 L (9.0-27.0) mg/dL BUN/Creatinine Ratio 9.17 L (12.00-20.00) Ratio Calcium 7.9 L (8.7-10.3) mg/dL
--- NOTE | 2024-06-16 15:01 | P.GSCN ---
History of Present Illness Consult date: 06/16/24 Reason for Consult: Phimosis History of present illness: This is a 78-year-old male with history of phimosis he is status post diverting colostomy by Dr. Pool for an obstructive sigmoid mass. Attempt Morales catheter placement during surgery was unsuccessful secondary to patient's phimosis, thus a dorsal slit was performed by for catheter placement. Urology is consulted to evaluate the dorsal slit. Patient currently has a Morales catheter in place, at baseline he denies any voiding symptoms, no previous urological surgeries. Morales catheter is in place draining clear yellow urine Review of Systems - Constitutional Denies fever, Denies weight loss - Cardiovascular Denies chest pain, Denies shortness of breath - Respiratory Denies cough, Denies 7 - Genitourinary Denies dysuria, Denies hematuria Past Medical History Past Medical History: Atrial Fibrillation, Hypertension Additional Past Medical History / Comment(s): sinusitis, [place] LE edema History of Any Multi-Drug Resistant Organisms: None Reported Past Surgical History: Orthopedic Surgery, Tonsillectomy Past Psychological History: No Psychological Hx Reported Smoking Status: Former smoker Past Alcohol Use History: None Reported Past Drug Use History: None Reported - Past Family History Father Family Medical History: No Reported History Mother Family Medical History: Asthma, COPD Medications and Allergies Home Medications Medication Instructions Recorded Confirmed Type Apixaban [Eliquis] 5 mg PO BID 11/23/23 06/08/24 History Ergocalciferol [Vitamin D2 (1250 1,250 mcg PO MARTINO 11/23/23 06/08/24 History Mcg = 19602 Iu)] Fluticasone Nasal [place] [Flonase 1 spr EA NOSTRIL BID 11/23/23 06/08/24 History Nasal [place]] Furosemide [Lasix] 20 mg PO DAILY 11/23/23 06/08/24 History Spironolactone [Aldactone] 25 mg PO DAILY 11/23/23 06/08/24 History dilTIAZem HCL [Tiazac] 120 mg PO DAILY 06/08/24 06/08/24 History Allergies Allergy/AdvReac Type Severity Reaction Status Date / Time No Known Allergies Allergy Verified 06/08/24 18:23 Surgical - Exam Vital Signs Temp Pulse Resp BP Pulse Ox 99.1 F 77 18 115/69 99 06/08/24 18:06 06/08/24 18:06 06/08/24 18:06 06/08/24 18:06 06/08/24 18:06 - General no distress, no pain - Eyes normal ocular movement, no pale - ENT normal nares, normal mucosa - Respiratory normal expansion, normal respiratory effort - Abdomen Abdomen: soft, non tender - Genitourinary Glans of the penis can be visualized dorsally dorsal slit with sutures in place, no evidence of bleeding. Results - Labs 06/16/24 03:57 06/16/24 03:57 Abnormal Lab Results - Last 24 Hours (Table) 06/16/24 06/16/24 Range/Units 03:57 03:57 WBC 11.47 H (4.50-10.00) X 10*3/uL RBC 4.18 L (4.40-5.60) X 10*6/uL Hgb 9.4 L (13.0-17.0) g/dL Hct 30.8 L (39.6-50.0) % MCV 73.7 L (80.0-97.0) FL MCH 22.5 L (27.0-32.0) pg MCHC 30.5 L (32.0-37.0) g/dL RDW 18.3 H (11.5-14.5) % Immature Gran # 0.09 H (0.00-0.04) X 10*3/uL Neutrophils # 8.90 H (1.80-7.70) X 10*3/uL Sodium 130 L (135-145) mmol/L BUN 5.5 L (9.0-27.0) mg/dL BUN/Creatinine Ratio 9.17 L (12.00-20.00) Ratio Calcium 7.9 L (8.7-10.3) mg/dL Diabetes panel 06/16/24 Range/Units 03:57 Sodium 130 L (135-145) mmol/L Potassium 3.9 (3.5-5.5) mmol/L Chloride 96 (96-109) mmol/L Carbon Dioxide 25.1 (21.6-31.8) mmol/L BUN 5.5 L (9.0-27.0) mg/dL Creatinine 0.6 (0.6-1.5) mg/dL Glucose 87 (70-110) mg/dL Calcium 7.9 L (8.7-10.3) mg/dL Calcium panel 06/16/24 Range/Units 03:57 Calcium 7.9 L (8.7-10.3) mg/dL Pituitary panel 06/16/24 Range/Units 03:57 Sodium 130 L (135-145) mmol/L Potassium 3.9 (3.5-5.5) mmol/L Chloride 96 (96-109) mmol/L Carbon Dioxide 25.1 (21.6-31.8) mmol/L BUN 5.5 L (9.0-27.0) mg/dL Creatinine 0.6 (0.6-1.5) mg/dL Glucose 87 (70-110) mg/dL Calcium 7.9 L (8.7-10.3) mg/dL Adrenal panel 06/16/24 Range/Units 03:57 Sodium 130 L (135-145) mmol/L Potassium 3.9 (3.5-5.5) mmol/L Chloride 96 (96-109) mmol/L Carbon Dioxide 25.1 (21.6-31.8) mmol/L BUN 5.5 L (9.0-27.0) mg/dL Creatinine 0.6 (0.6-1.5) mg/dL Glucose 87 (70-110) mg/dL Calcium 7.9 L (8.7-10.3) mg/dL Assessment and Plan Assessment: 78-year-old male status post dorsal slit by general surgery for catheter placement secondary to phimosis. His wound is clean, edema is expected post dorsal slit. From urology standpoint catheter can be removed when deemed appropriate by the primary team, patient can follow-up as an outpatient, we can discuss performing completion circumcision as an outpatient if patient is interested
--- NOTE | 2024-06-16 16:25 | P.PN ---
Subjective Progress Note Date: 06/16/24 CHIEF COMPLAINT: Bowel obstruction HISTORY OF PRESENT ILLNESS: The patient is a 78-year-old male status post diverting ostomy for bowel obstruction. Morales has been discontinued. He is pending flatus. He is tolerating clear liquid. He denies moderate abdominal pain. Pain is well-controlled. ROS: No reports of nausea and vomiting. No bowel movements. No fevers or chills. No new chest pain. No productive sputum PHYSICAL EXAM: VITAL SIGNS: Reviewed CONSTITUTIONAL: Well developed and in no acute distress. EYES: Conjuctivae without sclera icterus. Extraocular movements grossly intact. HEAD, EARS, NOSE, THROAT: Moist buccal mucosa. Head is atraumatic, normocephalic. Hears conversational speech. No nasal drainage. RESPIRATORY: Non-labored respirations and equal bilateral excursions. CARDIOVASCULAR: Palpable 2+ radial pulses. ABDOMEN: No peritonitis. Ostomy present. MUSCULOSKELETAL: No gross deformity of the lower extremities noted. No clubbing. No cyanosis. SKIN: Good skin turgor. Well perfused. NEUROLOGIC: Cranial nerves II through XII grossly intact. No focal or late ralizing signs. PSYCH: Appropriate affect. Alert and oriented to person, place and time. CLINICAL LABS: Reviewed. Hemoglobin down 9.9 and 9.4. WBC elevated 11.4, leukocytosis and anemia. ASSESSMENT: 1. Obstructing colon mass. 2. Anemia 3. Leukocytosis PLAN: 1. At this time, he is pending spontaneous voiding. May need Morales catheter placed should he have urinary tension. 2. Monitor hemoglobin. Will repeat CBC and CMP. 3. Continue clear liquids pending ostomy function Objective - Vital Signs Vital signs: Vital Signs Temp 98.2 F 06/16/24 13:26 Pulse 59 L 06/16/24 13:26 Resp 16 06/16/24 13:26 BP 114/66 06/16/24 13:26 Pulse Ox 95 06/16/24 13:26 FiO2 Intake & Output 06/15/24 06/16/24 06/16/24 18:59 06:59 18:59 Intake Total 1975 1290 540 Output Total 400 1200 1200 Balance 1575 90 -660 Weight 110.223 kg Intake: Intake, IV Titration 1050 Amount Piperacillin-Tazobactam 3 100 .375 gm In Sodium Chloride 0.9% 100 ml @ 25 mls/hr IVPB Q8HR [facility] Rx# :[id number] Ropivacaine 250 mg 75 Hydromorphone (Pf) 5 mg In Sodium Chloride 0.9% 200 ml @ Per Protocol EPIDURAL .Q0M PRN Rx#: [id number] Sodium Chloride 0.9% 1, 875 000 ml @ 125 mls/hr IV . Q8H [facility] Rx#:[id number] Oral 1975 240 540 Output: Urine 350 1200 1200 Uretheral (Morales) 1200 Stool 50 Other: Voiding Method Indwelling Catheter Indwelling Catheter Indwelling Catheter - Labs CBC & Chem 7: 06/16/24 03:57 06/16/24 03:57 Labs: Abnormal Lab Results - Last 24 Hours (Table) 06/16/24 06/16/24 Range/Units 03:57 03:57 WBC 11.47 H (4.50-10.00) X 10*3/uL RBC 4.18 L (4.40-5.60) X 10*6/uL Hgb 9.4 L (13.0-17.0) g/dL Hct 30.8 L (39.6-50.0) % MCV 73.7 L (80.0-97.0) FL MCH 22.5 L (27.0-32.0) pg MCHC 30.5 L (32.0-37.0) g/dL RDW 18.3 H (11.5-14.5) % Immature Gran # 0.09 H (0.00-0.04) X 10*3/uL Neutrophils # 8.90 H (1.80-7.70) X 10*3/uL Sodium 130 L (135-145) mmol/L BUN 5.5 L (9.0-27.0) mg/dL BUN/Creatinine Ratio 9.17 L (12.00-20.00) Ratio Calcium 7.9 L (8.7-10.3) mg/dL
--- NOTE | 2024-06-16 20:19 | P.PN ---
Progress Note - Text 06/14/24 621am 78-year-old male status post exploratory lap. Patient has an epidural catheter for postop pain control with a solution running at 8 cc an hour with a VAS of 0. No sensory or motor deficit noted. Plan to continue epidural infusion
--- NOTE | 2024-06-16 20:20 | P.PN ---
Progress Note - Text 06/16 24 711am 78-year-old male status post exploratory lap. Patient has an epidural catheter with a solution running at 4 cc an hour with a VAS of 0. No sensorimotor deficit noted. Plan to discontinue epidural, nurse was asked to remove the epidural.
[2024-06-17 09:36] LABS: Basophils # (A) 0.02 X 10*3/uL (0.00-0.10); Basophils % (A) 0.2 %; Eosinophils # (A) 0.08 X 10*3/uL (0.04-0.35); Eosinophils % (A) 0.7 %; HCT 29.9 % (39.6-50.0); HGB 9.3 g/dL (13.0-17.0); Lymphocytes # (A) 0.99 X 10*3/uL (0.90-5.00); Lymphocytes % (A) 8.6 %; MCHC 31.1 g/dL (32.0-37.0); Monocytes # (A) 1.02 X 10*3/uL (0.20-1.00); Monocytes % (A) 8.8 %; NRBC Per 100 WBC 0 X 10*3/uL (0.00-0.01); Neutrophils # (A) 9.35 X 10*3/uL (1.80-7.70); Neutrophils % (A) 80.8 %; Platelet Count 335 X 10*3/uL (140-440); RBC 4.04 X 10*6/uL (4.40-5.60); RDW 18.3 % (11.5-14.5); WBC 11.56 X 10*3/uL (4.50-10.00)
[2024-06-17 10:06] LABS: ALT 16 U/L (10-49); AST 35 U/L (14-35); Albumin 2.6 g/dL (3.8-4.9); Albumin/Globulin Ratio 1.08 Ratio (1.60-3.17); Alkaline Phosphatase 59 U/L (41-126); BUN/Creat Ratio 6.17 Ratio (12.00-20.00); Blood Urea Nitrogen 3.7 mg/dL (9.0-27.0); Calcium 7.9 mg/dL (8.7-10.3); Carbon Dioxide 27.3 mmol/L (21.6-31.8); Chloride 98 mmol/L (96-109); Globulin 2.4 g/dL (1.6-3.3); Glucose 99 mg/dL (70-110); Potassium 3.8 mmol/L (3.5-5.5); Sodium 134 mmol/L (135-145); Total Bilirubin 0.5 mg/dL (0.3-1.2)
--- NOTE | 2024-06-17 12:08 | P.PN ---
Subjective Progress Note Date: 06/17/24 Patient seen and examined at bedside. No acute events overnight. Denies chest pain, shortness of breath, nausea or vomiting. Minimal ostomy output. Able to tolerate oral liquids. All Systems reviewed and pertinent positives and negatives noted as above, all other symptoms are negative Objective: Vital signs reviewed. General: non toxic, no distress, appears at stated age, overweight Derm: no unusual rashes/lesions, warm Head: atraumatic, normocephalic, symmetric Eyes: EOMI, no lid lag, anicteric sclera, pupils equal round reactive to light ENT: Nose and ears atraumatic Neck: No cervical lymphadenopathy, trachea midline, supple Mouth: no lip lesion, mucus membranes moist Cardiovascular: S1S2 irregular, no murmur, positive dorsalis pedis pulse bilateral, no edema Lungs: CTA bilateral, no rhonchi, no rales, no accessory muscle use Abdominal: Mildly distended, nontender to palpation, no guarding, ostomy site looks dusky Ext: muscle strength 5 out of 5 in all 4 extremities grossly, no gross muscle atrophy, no contractures, Neuro: CN II-XI grossly intact, no gross focal neuro deficits Psych: Alert, oriented, appropriate affect Data reviewed today: WBC 11.56, hemoglobin 9.3, sodium 134, potassium 3.8, creatinine 0.6 No new imaging Assessment and Plan: Patient is a 70-year-old male with a past medical history of atrial fibrillation (on Eliquis) and hypertension has been admitted by surgery for suspicious abdominal mass on CT abdomen/pelvis. Admitted to general surgery. Colonoscopy on 06/12/2024 revealing a near obstructing sigmoid colon mass. Patient is day 2 postop diverting colostomy and retroperitoneal biopsy. 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 Q6 as needed, [place] 5325 q6h as needed, epidural drip as needed, Dilaudid 1 mg IVP every 3 hour as needed Surgery on board: Colonoscopy on 06/12/2024 revealing a near obstructing sigmoid colon mass; diverting colostomy and retroperitoneal biopsy on 06/13/2024; pathology report pending, discussed management with surgery Epidural and Morales catheter to be discontinued today per surgery Oncology on board Continue with heparin 5000 units SQ every 8 hour for DVT prophylaxis Continue with IV normal saline at 125 cc/h Monitor BMP in a.m. Continue clear liquid diet Continue with incentive spirometry # acute complicated diverticulitis #Leukocytosis CT abdomen/pelvis with oral contrast (06/09/2024): Sigmoid mass versus acute diverticulitis of proximal to mid sigmoid colon. On Zosyn 3.375 g IVPB every 8 hours Blood cultures no growth to date Monitor CBC in a.m. # Mild hypovolemic hyponatremia, secondary to abdominal surgery, resolving Continue monitor BMP -Continue normal saline 125 cc an hour #Bright red blood per rectum (resolved) # Shortness of breath, resolved # Bilateral leg edema, resolved Discontinue Lasix 20 mg p.o. daily # Iron deficiency anemia, stable Patient denies active bleeding Order iron studies: Iron 14, TIBC 203, percent saturation 6.9, transferrin 145, ferritin 390 Follow-up CBC # Atrial fibrillation, rate controlled Continue Cardizem 120 mg p.o. daily Monitor on telemetry Eliquis on hold by surgery # Abnormal UA Patient denying urinary complaints. Abnormal appearance of anterior bladder as seen on CT abd Consider Urology consult if primary culprit isn't the adjacent GI malignancy # Hypertension C/w home spironolactone 25 mg p.o. daily # Thrombocytosis, resolved # Insomnia Melatonin 3 mg p.o. at bedtime as needed # Nonallergic rhinitis Continue Flonase nasal spray 1 spray each nostril twice daily F: IV normal saline at 125 cc/h E: Replete as needed N: Clear liquid diet A: Ambulatory without assistance DVT ppx: heparin 5000 units SQ every 8 hour Code Status: Full code Anticipated discharge place: Pending clinical course Anticipated discharge date: Pending clinical course Objective - Vital Signs Vital signs: Vital Signs Temp 99.1 F 06/17/24 07:53 Pulse 69 06/17/24 09:30 Resp 17 06/17/24 07:53 BP 95/57 06/17/24 09:30 Pulse Ox 93 L 06/17/24 07:53 FiO2 Intake & Output 06/16/24 06/17/24 06/17/24 18:59 06:59 18:59 Intake Total 540 Output Total 1650 100 Balance -1110 -100 Intake: Oral 540 Output: Urine 1650 Uretheral (Morales) 450 Stool 100 Other: Voiding Method Indwelling Catheter Indwelling Catheter Toilet # Voids 1 - Labs CBC & Chem 7: 06/17/24 03:49 06/17/24 03:49 Labs: Abnormal Lab Results - Last 24 Hours (Table) 06/17/24 06/17/24 Range/Units 03:49 03:49 WBC 11.56 H (4.50-10.00) X 10*3/uL RBC 4.04 L (4.40-5.60) X 10*6/uL Hgb 9.3 L (13.0-17.0) g/dL Hct 29.9 L (39.6-50.0) % MCV 74.0 L (80.0-97.0) FL MCH 23.0 L (27.0-32.0) pg MCHC 31.1 L (32.0-37.0) g/dL RDW 18.3 H (11.5-14.5) % Immature Gran # 0.10 H (0.00-0.04) X 10*3/uL Neutrophils # 9.35 H (1.80-7.70) X 10*3/uL Monocytes # 1.02 H (0.20-1.00) X 10*3/uL Sodium 134 L (135-145) mmol/L BUN 3.7 L (9.0-27.0) mg/dL BUN/Creatinine Ratio 6.17 L (12.00-20.00) Ratio Calcium 7.9 L (8.7-10.3) mg/dL Total Protein 5.0 L (6.2-8.2) g/dL Albumin 2.6 L (3.8-4.9) g/dL Albumin/Globulin Ratio 1.08 L (1.60-3.17) Ratio
--- NOTE | 2024-06-17 16:58 | P.PN ---
Subjective Progress Note Date: 06/17/24 CHIEF COMPLAINT: Bowel obstruction HISTORY OF PRESENT ILLNESS: The patient is a 79-year-old male status post diverting ostomy for bowel obstruction. He is tolerating clear liquid diet. He is voiding spontaneously. ROS: No reports of nausea and vomiting. No bowel movements. No fevers or chills. No new chest pain. No productive sputum PHYSICAL EXAM: VITAL SIGNS: Reviewed CONSTITUTIONAL: Well developed and in no acute distress. EYES: Conjuctivae without sclera icterus. Extraocular movements grossly intact. HEAD, EARS, NOSE, THROAT: Moist buccal mucosa. Head is atraumatic, normocephalic. Hears conversational speech. No nasal drainage. RESPIRATORY: Non-labored respirations and equal bilateral excursions. CARDIOVASCULAR: Palpable 2+ radial pulses. ABDOMEN: No peritonitis. Ostomy present. MUSCULOSKELETAL: No gross deformity of the lower extremities noted. No clubbing. No cyanosis. SKIN: Good skin turgor. Well perfused. NEUROLOGIC: Cranial nerves II through XII grossly intact. No focal or lateralizing signs. PSYCH: Appropriate affect. Alert and oriented to person, place and time. CLINICAL LABS: Reviewed. WBC remained elevated 11.4-11.5, leukocytosis ASSESSMENT: 1. Obstructing colon mass. 2. Anemia 3. Leukocytosis 4. Obesity due to excess calories, BMI 33.9 PLAN: 1. Will advance diet to full liquids in the interim. 2. Antibiotic management for leukocytosis Objective - Vital Signs Vital signs: Vital Signs Temp 97.8 F 06/17/24 12:51 Pulse 62 06/17/24 12:51 Resp 18 06/17/24 12:51 BP 104/65 06/17/24 12:51 Pulse Ox 96 06/17/24 12:51 FiO2 Intake & Output 06/16/24 06/17/24 06/17/24 18:59 06:59 18:59 Intake Total 540 Output Total 1650 100 Balance -1110 -100 Intake: Oral 540 Output: Urine 1650 Uretheral (Morales) 450 Stool 100 Other: Voiding Method Indwelling Catheter Indwelling Catheter Toilet # Voids 1 - Labs CBC & Chem 7: 06/17/24 03:49 06/17/24 03:49 Labs: Abnormal Lab Results - Last 24 Hours (Table) 09/08/24 09/08/24 Range/Units 03:49 03:49 WBC 11.56 H (4.50-10.00) X 10*3/uL RBC 4.04 L (4.40-5.60) X 10*6/uL Hgb 9.3 L (13.0-17.0) g/dL Hct 29.9 L (39.6-50.0) % MCV 74.0 L (80.0-97.0) FL MCH 23.0 L (27.0-32.0) pg MCHC 31.1 L (32.0-37.0) g/dL RDW 18.3 H (11.5-14.5) % Immature Gran # 0.10 H (0.00-0.04) X 10*3/uL Neutrophils # 9.35 H (1.80-7.70) X 10*3/uL Monocytes # 1.02 H (0.20-1.00) X 10*3/uL Sodium 134 L (135-145) mmol/L BUN 3.7 L (9.0-27.0) mg/dL BUN/Creatinine Ratio 6.17 L (12.00-20.00) Ratio Calcium 7.9 L (8.7-10.3) mg/dL Total Protein 5.0 L (6.2-8.2) g/dL Albumin 2.6 L (3.8-4.9) g/dL Albumin/Globulin Ratio 1.08 L (1.60-3.17) Ratio
[2024-06-17] MEDS: HYDROmorphone 1 MG/ML 1 ML SYRINGE IVP PRN (22:25)
[2024-06-18] MEDS: HYDROcodone/APAP 5-325MG 1 EACH TAB PO PRN (00:03)
[2024-06-18 08:55] LABS: Basophils # (A) 0.03 X 10*3/uL (0.00-0.10); Basophils % (A) 0.3 %; Eosinophils # (A) 0.18 X 10*3/uL (0.04-0.35); Eosinophils % (A) 1.9 %; HCT 29.6 % (39.6-50.0); HGB 9.2 g/dL (13.0-17.0); Lymphocytes # (A) 1.17 X 10*3/uL (0.90-5.00); MCH 22.4 pg (27.0-32.0); MCHC 31.1 g/dL (32.0-37.0); Mean Platelet Volume 9.8 FL (9.5-12.2); Monocytes # (A) 0.94 X 10*3/uL (0.20-1.00); Monocytes % (A) 9.7 %; NRBC Per 100 WBC 0 X 10*3/uL (0.00-0.01); Neutrophils # (A) 7.34 X 10*3/uL (1.80-7.70); Neutrophils % (A) 75.6 %; Platelet Count 353 X 10*3/uL (140-440); RBC 4.11 X 10*6/uL (4.40-5.60); RDW 18.6 % (11.5-14.5); WBC 9.71 X 10*3/uL (4.50-10.00)
[2024-06-18 09:08] LABS: ALT 14 U/L (10-49); AST 9 U/L (14-35); Albumin 2.5 g/dL (3.8-4.9); Albumin/Globulin Ratio 1.04 Ratio (1.60-3.17); Alkaline Phosphatase 58 U/L (41-126); Blood Urea Nitrogen 3.7 mg/dL (9.0-27.0); Calcium 7.8 mg/dL (8.7-10.3); Carbon Dioxide 25.9 mmol/L (21.6-31.8); Chloride 101 mmol/L (96-109); Globulin 2.4 g/dL (1.6-3.3); Glucose 90 mg/dL (70-110); Magnesium 1.7 mg/dL (1.5-2.4); Potassium 3.4 mmol/L (3.5-5.5); Sodium 137 mmol/L (135-145); Total Bilirubin 0.5 mg/dL (0.3-1.2); Total Protein 4.9 g/dL (6.2-8.2)
[2024-06-18] MEDS: POTASSIUM CHLORIDE ER 20 MEQ TAB.ER PO STA (09:43)
[2024-06-18] MEDS: SODIUM FERRIC GLUCONAT-SUCROSE 125 MG in SODIUM CHLORIDE 0.9% 100 ML IVPB SCH (10:19)
--- NOTE | 2024-06-18 11:23 | P.PN ---
Subjective Progress Note Date: 06/18/24 Patient seen and examined at bedside. No acute events overnight. Denies chest pain, shortness of breath, nausea or vomiting. Minimal ostomy output. Advancing diet. Able to tolerate semi-josephine food. All Systems reviewed and pertinent positives and negatives noted as above, all other symptoms are negative Objective: Vital signs reviewed. General: non toxic, no distress, appears at stated age, overweight Derm: no unusual rashes/lesions, warm Head: atraumatic, normocephalic, symmetric Eyes: EOMI, no lid lag, anicteric sclera, pupils equal round reactive to light ENT: Nose and ears atraumatic Neck: No cervical lymphadenopathy, trachea midline, supple Mouth: no lip lesion, mucus membranes moist Cardiovascular: S1S2 irregular, no murmur, positive dorsalis pedis pulse bilateral, no edema Lungs: CTA bilateral, no rhonchi, no rales, no accessory muscle use Abdominal: Mildly distended, nontender to palpation, no guarding, ostomy site looks dusky Ext: muscle strength 5 out of 5 in all 4 extremities grossly, no gross muscle atrophy, no contractures, Neuro: CN II-XI grossly intact, no gross focal neuro deficits Psych: Alert, oriented, appropriate affect Data reviewed today: WBC 9.7 No new, hemoglobin 9.2, hematocrit 29.6, MCV 72, sodium 137, potassium 3.4, BUN 3.7, creatinine 0.5 No new imaging Assessment and Plan: Patient is a 70-year-old male with a past medical history of atrial fibrillation (on Eliquis) and hypertension has been admitted by surgery for suspicious abdominal mass on CT abdomen/pelvis. Admitted to general surgery. Colonoscopy on 06/12/2024 revealing a near obstructing sigmoid colon mass. Patient is day 5 postop diverting colostomy and retroperitoneal biopsy. Pathology report is available. 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 every 6 hours as needed, [place] 5325 q6h as needed, epidural drip as needed, Dilaudid 1 mg IVP every 3 hour as needed Surgery on board: Colonoscopy on 06/12/2024 revealing a near obstructing sigmoid colon mass; diverting colostomy and retroperitoneal biopsy on 06/13/2024; Retroperitoneal mass biopsy: Negative for neoplasm pathology Colon mass biopsy: High-grade dysplasia Oncology on board Continue with heparin 5000 units SQ every 8 hour for DVT prophylaxis Continue with IV normal saline at 125 cc/h Monitor BMP in a.m. Continue with advancing diet Continue with incentive spirometry #acute complicated diverticulitis #Leukocytosis CT abdomen/pelvis with oral contrast (06/09/2024): Sigmoid mass versus acute diverticulitis of proximal to mid sigmoid colon. On Zosyn 3.375 g IVPB every 8 hours Blood cultures no growth to date Monitor CBC in a.m. # Mild hypovolemic hyponatremia, secondary to abdominal surgery, resolved Continue monitor BMP -Continue normal saline 125 cc an hour #Bright red blood per rectum (resolved) # Shortness of breath, resolved # Bilateral leg edema, resolved Discontinue Lasix 20 mg p.o. daily # Iron deficiency anemia, stable Patient denies active bleeding Order iron studies: Iron 14, TIBC 203, percent saturation 6.9, transferrin 145, ferritin 390 Follow-up CBC Oncology started IV iron # Atrial fibrillation, rate controlled Continue Cardizem 120 mg p.o. daily Monitor on telemetry Eliquis on hold by surgery #Abnormal UA Patient denying urinary complaints. Abnormal appearance of anterior bladder as seen on CT abd Consider Urology consult if primary culprit isn't the adjacent GI malignancy # Hypertension C/w home spironolactone 25 mg p.o. daily # Thrombocytosis, resolved # Insomnia Melatonin 3 mg p.o. at bedtime as needed # Nonallergic rhinitis Continue Flonase nasal spray 1 spray each nostril twice daily F: IV normal saline at 125 cc/h E: Replete as needed N: Advancing diet A: Ambulatory without assistance DVT ppx: heparin 5000 units SQ every 8 hour Code Status: Full code Anticipated discharge place: Pending clinical course Anticipated discharge date: Pending clinical course I have seen and evaluated the patient today. Discussed with the resident and agree with the residents finding and plan as documented in the resident's note. Patient with no complaints. Tolerating FLD well. PT and OT on board for possible SNF. Discussed with Oncology team regarding pathology on sigmoid mass. Objective - Vital Signs Vital signs: Vital Signs Temp 97.3 F L 06/18/24 07:14 Pulse 64 06/18/24 07:14 Resp 16 06/18/24 07:14 BP 116/73 09/09/24 07:14 Pulse Ox 95 06/18/24 07:14 FiO2 Intake & Output 06/17/24 06/18/24 06/18/24 18:59 06:59 18:59 Intake Total 720 Output Total 600 50 Balance 120 -50 Intake: Oral 720 Output: Urine 600 Stool 50 Other: Voiding Method Toilet Toilet # Voids 2 3 - Labs CBC & Chem 7: 06/18/24 05:50 06/18/24 05:50 Labs: Abnormal Lab Results - Last 24 Hours (Table) 06/18/24 06/18/24 Range/Units 05:50 05:50 RBC 4.11 L (4.40-5.60) X 10*6/uL Hgb 9.2 L (13.0-17.0) g/dL Hct 29.6 L (39.6-50.0) % MCV 72.0 L (80.0-97.0) FL MCH 22.4 L (27.0-32.0) pg MCHC 31.1 L (32.0-37.0) g/dL RDW 18.6 H (11.5-14.5) % Immature Gran # 0.05 H (0.00-0.04) X 10*3/uL Potassium 3.4 L (3.5-5.5) mmol/L BUN 3.7 L (9.0-27.0) mg/dL Creatinine 0.5 L (0.6-1.5) mg/dL BUN/Creatinine Ratio 7.40 L (12.00-20.00) Ratio Calcium 7.8 L (8.7-10.3) mg/dL AST 9 L (14-35) U/L Total Protein 4.9 L (6.2-8.2) g/dL Albumin 2.5 L (3.8-4.9) g/dL Albumin/Globulin Ratio 1.04 L (1.60-3.17) Ratio
--- NOTE | 2024-06-18 11:55 | P.PN ---
Subjective Progress Note Date: 06/18/24 Principal diagnosis: colon mass No acute events. S/p diverting colostomy. Reports feeling well. States he is passing flatus through ostomy, stool outpt present. Pt afebrile. Hgb stable at 9.8 Objective - Vital Signs Vital signs: Vital Signs Temp 97.3 F L 06/18/24 07:14 Pulse 64 06/18/24 07:14 Resp 16 06/18/24 07:14 BP 116/73 06/18/24 07:14 Pulse Ox 95 06/18/24 07:14 FiO2 Intake & Output 06/17/24 06/18/24 06/18/24 18:59 06:59 18:59 Intake Total 720 Output Total 600 50 Balance 120 -50 Intake: Oral 720 Output: Urine 600 Stool 50 Other: Voiding Method Toilet Toilet # Voids 2 3 - Constitutional General appearance: Present: average body habitus, no acute distress - EENT Eyes: Present: anicteric sclerae, EOMI ENT: Present: hearing grossly normal - Respiratory Details: breathing is even and unlabored - Cardiovascular Details: skin warm and dry - Gastrointestinal Gastrointestinal Comment(s): ostomy in situ - Integumentary Integumentary: Absent: cyanotic, jaundiced - Neurologic Neurologic: Present: CNII-XII intact - Psychiatric Psychiatric: Present: A&O x's 3 - Labs CBC & Chem 7: 06/18/24 05:50 06/18/24 05:50 Labs: Abnormal Lab Results - Last 24 Hours (Table) 06/18/24 06/18/24 Range/Units 05:50 05:50 RBC 4.11 L (4.40-5.60) X 10*6/uL Hgb 9.2 L (13.0-17.0) g/dL Hct 29.6 L (39.6-50.0) % MCV 72.0 L (80.0-97.0) FL MCH 22.4 L (27.0-32.0) pg MCHC 31.1 L (32.0-37.0) g/dL RDW 18.6 H (11.5-14.5) % Immature Gran # 0.05 H (0.00-0.04) X 10*3/uL Potassium 3.4 L (3.5-5.5) mmol/L BUN 3.7 L (9.0-27.0) mg/dL Creatinine 0.5 L (0.6-1.5) mg/dL BUN/Creatinine Ratio 7.40 L (12.00-20.00) Ratio Calcium 7.8 L (8.7-10.3) mg/dL AST 9 L (14-35) U/L Total Protein 4.9 L (6.2-8.2) g/dL Albumin 2.5 L (3.8-4.9) g/dL Albumin/Globulin Ratio 1.04 L (1.60-3.17) Ratio Assessment and Plan (1) Intraabdominal mass Current Visit: Yes Status: Acute Priority: High Code(s): R19.00 - INTRA- ABD AND PELVIC SWELLING, MASS AND LUMP, UNSP SITE SNOMED Code(s): 636548842 (2) Shortness of breath Current Visit: Yes Status: Acute Priority: Medium Code(s): R06.02 - SHORTNESS OF BREATH SNOMED Code(s): 787016842 (3) Anemia Current Visit: Yes Status: Acute Priority: Medium Code(s): D64.9 - ANEMIA, UNSPECIFIED SNOMED Code(s): 120702080 Plan: Colonic mass: Presented with SOB and fatigue. Also reports abd pain and weight loss. States since 09/2023 he has approx 63 pound weight loss but states he was dieting and trying to lose weight s/p cholecystecomy in 10/2023. -On admission CT abdomen pelvis showed short segment of circumferential wall thickening of the sigmoid colon compatible with colitis/diverticulitis. Und erlying mass not excluded. Edematous mesentery. Few small bowel loops may closely approximate the area. Abnormal appearance to the anterior bladder wall. Repeat CT abdomen pelvis showed sigmoid mass versus acute diverticulitis proximal to mid sigmoid colon. Irregular area of increased density in close approximation to suspected mass. The area appears to be increasing in size from the recent comparison. -Underwent colonoscopy on 06/12/24, showing near obstructing mass in the sigmoid colon -CEA < 2.0 -S/p diverting colostomy. Biopsy from colonscopy showing limited specimen with small fragments of colonic mucousa having high grade dysplasia. Retroperitoneal mass biopsy negative for neoplasm -Will speak with pathology to see if additional specimens from sigmoid colectomy are pending review Discussed case with admitting team today Iron deficiency anemia: -Labs reviewed, WBC 8.8, hemoglobin 10.2, platelets 467,000. MCV 73.4, MCH 23.3 -Nutritional studies showed iron saturation of 6.9%, ferritin 390, vitamin B12 365, MMA normal range, folate 9.5. -Pt remains afebrile, blood culture negative. Has continued on IV abx. Will start parenteral iron x 4 doses -Hgb stable at 9.2 -Continue to monitor CBC. Transfuse for hgb < 7 or if symptomatic attests: I have seen and examined patient, performed H&P, developed impression and plan of care. Discussed with dictator. Agree with documentation, dictated as a scribe
--- NOTE | 2024-06-18 12:37 | P.PN ---
Subjective Progress Note Date: 06/18/24 CHIEF COMPLAINT: colon mass HISTORY OF PRESENT ILLNESS: Patient is postop day #5 status post diverting co lostomy and retroperitoneal biopsy. Patient's pain is controlled. He did have a little nausea after eating all of the full liquids. Ostomy is functioning. Biopsies are back: Biopsy and colonoscopy had reported a high-grade dysplasia. Retroperitoneal biopsy had reported no neoplasm inflamed fibroadipose tissue. Patient is weak and difficulty ambulating. Afebrile. WBC 11.56 down to 9.71 hemoglobin 9.2 potassium 3.4 and being replaced PHYSICAL EXAM: VITAL SIGNS: Reviewed. GENERAL: Well-developed in no acute distress. ABDOMEN: soft. Prevena wound VAC intact. Ostomy with stool present NEUROLOGIC: Alert and oriented. Cranial nerves II through XII grossly intact. ASSESSMENT: 1. Near obstructing colon mass status post diverting colostomy and retroperitoneal biopsy PLAN: -Continue full liquid diet -Consult PT OT -Encourage patient to increase activity level -Followed by oncology service -DVT prophylaxis subcu heparin and GI prophylaxis Physician Search Marketing Coordinator note has been reviewed by physician. Signing provider agrees with the documented findings, assessment, and plan of care. Objective - Vital Signs Vital signs: Vital Signs Temp 97.3 F L 06/18/24 07:14 Pulse 64 06/18/24 07:14 Resp 16 06/18/24 07:14 BP 116/73 06/18/24 07:14 Pulse Ox 95 06/18/24 07:14 FiO2 Intake & Output 06/17/24 06/18/24 06/18/24 18:59 06:59 18:59 Intake Total 720 Output Total 600 50 Balance 120 -50 Intake: Oral 720 Output: Urine 600 Stool 50 Other: Voiding Method Toilet Toilet Toilet # Voids 2 3 - Labs CBC & Chem 7: 06/18/24 05:50 06/18/24 05:50 Labs: Abnormal Lab Results - Last 24 Hours (Table) 06/18/24 06/18/24 Range/Units 05:50 05:50 RBC 4.11 L (4.40-5.60) X 10*6/uL Hgb 9.2 L (13.0-17.0) g/dL Hct 29.6 L (39.6-50.0) % MCV 72.0 L (80.0-97.0) FL MCH 22.4 L (27.0-32.0) pg MCHC 31.1 L (32.0-37.0) g/dL RDW 18.6 H (11.5-14.5) % Immature Gran # 0.05 H (0.00-0.04) X 10*3/uL Potassium 3.4 L (3.5-5.5) mmol/L BUN 3.7 L (9.0-27.0) mg/dL Creatinine 0.5 L (0.6-1.5) mg/dL BUN/Creatinine Ratio 7.40 L (12.00-20.00) Ratio Calcium 7.8 L (8.7-10.3) mg/dL AST 9 L (14-35) U/L Total Protein 4.9 L (6.2-8.2) g/dL Albumin 2.5 L (3.8-4.9) g/dL Albumin/Globulin Ratio 1.04 L (1.60-3.17) Ratio
[2024-06-19 04:38] LABS: Anisocytosis Slight; Basophils % (A) 0 %; Eosinophils # (A) 0.2 k/uL (0-0.7); Eosinophils % (A) 3 %; HCT 30.5 % (39.0-53.0); HGB 9.8 gm/dL (13.0-17.5); Hypochromasia Slight; Lymphocytes # (A) 1.1 k/uL (1.0-4.8); Lymphocytes % (A) 13 %; MCH 23.5 pg (25.0-35.0); MCHC 32.3 g/dL (31.0-37.0); MCV 72.9 fL (80.0-100.0); Mean Platelet Volume 7.9; Microcytosis Moderate; Monocytes # (A) 0.6 k/uL (0-1.0); Monocytes % (A) 7 %; Neutrophils # (A) 6.4 k/uL (1.3-7.7); Neutrophils % (A) 76 %; Platelet Count 384 k/uL (150-450); RBC 4.18 m/uL (4.30-5.90); RDW 18.1 % (11.5-15.5); WBC 8.4 k/uL (3.8-10.6)
[2024-06-19 04:49] LABS: African American GFR (CKD) >90 (>60 ml/min/1.73 sqM); Blood Urea Nitrogen 4 mg/dL (9-20); Calcium 8.4 mg/dL (8.4-10.2); Carbon Dioxide 26 mmol/L (22-30); Chloride 97 mmol/L (98-107); Glucose 82 mg/dL (74-99); Non-African American GFR(CKD) >90 (>60 ml/min/1.73 sqM)
[2024-06-19 05:06] LABS: Anion Gap 12 mmol/L; Potassium 3.8 mmol/L (3.5-5.1); Sodium 135 mmol/L (137-145)
--- NOTE | 2024-06-19 11:34 | P.PN ---
Subjective Progress Note Date: 06/19/24 CHIEF COMPLAINT: colon mass HISTORY OF PRESENT ILLNESS: Patient is postop day #6 status post diverting co lostomy and retroperitoneal biopsy. Patient's pain is controlled. He tolerated the full liquids. He is sitting up at bedside chair. He had leaking from his ostomy that went underneath the Ayde dressing and into the incision. Afebrile. WBC 8.4 Hgb 9.8 Patient seen and examined with Dr. Pool PHYSICAL EXAM: VITAL SIGNS: Reviewed. GENERAL: Well-developed in no acute distress. ABDOMEN: soft. Patient has Optifoam silver dressing. Clean dry and intact. Ostomy with some soft tissue. Ostomy functioning. NEUROLOGIC: Alert and oriented. Cranial nerves II through XII grossly intact. ASSESSMENT: 1. Near obstructing colon mass status post diverting colostomy and retroperitoneal biopsy 2. High-grade dysplasia on colonoscopy biopsy PLAN: -Advance diet to regular -Ostomy appliance changed by ostomy nurse -Encourage patient to increase activity level -Plan for repeat colonoscopy outpatient -Followed by oncology service -DVT prophylaxis subcu heparin and GI prophylaxis Physician Cutter Helper note has been reviewed by physician. Signing provider agrees with the documented findings, assessment, and plan of care. Objective - Vital Signs Vital signs: Vital Signs Temp 97.6 F 06/19/24 07:22 Pulse 92 06/19/24 07:22 Resp 16 06/19/24 07:22 BP 113/73 06/19/24 07:22 Pulse Ox 93 L 06/19/24 07:22 FiO2 Intake & Output 06/18/24 06/19/24 06/19/24 18:59 06:59 18:59 Intake Total 1000 Balance 1000 Weight 110.223 kg Intake: Intake, IV Titration 1000 Amount Piperacillin-Tazobactam 3 100 .375 gm In Sodium Chloride 0.9% 100 ml @ 25 mls/hr IVPB Q8HR REAL Rx# :[id number] Sodium Chloride 0.9% 1, 900 000 ml @ 125 mls/hr IV . Q8H REAL Rx#:[id number] Other: Voiding Method Toilet Toilet - Labs CBC & Chem 7: 06/19/24 03:21 06/19/24 03:21 Labs: Abnormal Lab Results - Last 24 Hours (Table) 06/19/24 06/19/24 Range/Units 03:21 03:21 RBC 4.18 L (4.30-5.90) m/uL Hgb 9.8 L (13.0-17.5) gm/dL Hct 30.5 L (39.0-53.0) % MCV 72.9 L (80.0-100.0) fL MCH 23.5 L (25.0-35.0) pg RDW 18.1 H (11.5-15.5) % Sodium 135 L (137-145) mmol/L Chloride 97 L (98-107) mmol/L BUN 4 L (9-20) mg/dL Creatinine 0.56 L (0.66-1.25) mg/dL
--- NOTE | 2024-06-19 13:02 | P.PN ---
Subjective Progress Note Date: 06/19/24 Principal diagnosis: colon mass No acute events. S/p diverting colostomy. Reports feeling well. States he is passing flatus through ostomy, stool outpt present. Pt afebrile. Hgb stable at 9.8. Working with PT today Objective - Vital Signs Vital signs: Vital Signs Temp 97.6 F 06/19/24 07:22 Pulse 92 06/19/24 07:22 Resp 16 06/19/24 07:22 BP 113/73 06/19/24 07:22 Pulse Ox 93 L 06/19/24 07:22 FiO2 Intake & Output 06/18/24 06/19/24 06/19/24 18:59 06:59 18:59 Intake Total 1000 Output Total 50 Balance 1000 -50 Weight 110.223 kg 110.223 kg Intake: Intake, IV Titration 1000 Amount Piperacillin-Tazobactam 3 100 .375 gm In Sodium Chloride 0.9% 100 ml @ 25 mls/hr IVPB Q8HR REAL Rx# :[id number] Sodium Chloride 0.9% 1, 900 000 ml @ 125 mls/hr IV . Q8H [facility] Rx#:[id number] Output: Stool 50 Other: Voiding Method Toilet Toilet Toilet - Labs CBC & Chem 7: 06/19/24 03:21 06/19/24 03:21 Labs: Abnormal Lab Results - Last 24 Hours (Table) 06/19/24 06/19/24 Range/Units 03:21 03:21 RBC 4.18 L (4.30-5.90) m/uL Hgb 9.8 L (13.0-17.5) gm/dL Hct 30.5 L (39.0-53.0) % MCV 72.9 L (80.0-100.0) fL MCH 23.5 L (25.0-35.0) pg RDW 18.1 H (11.5-15.5) % Sodium 135 L (137-145) mmol/L Chloride 97 L (98-107) mmol/L BUN 4 L (9-20) mg/dL Creatinine 0.56 L (0.66-1.25) mg/dL Assessment and Plan (1) Intraabdominal mass Current Visit: Yes Status: Acute Priority: High Code(s): R19.00 - INTRA- ABD AND PELVIC SWELLING, MASS AND LUMP, UNSP SITE SNOMED Code(s): 935762662 (2) Shortness of breath Current Visit: Yes Status: Acute Priority: Medium Code(s): R06.02 - SHORTNESS OF BREATH SNOMED Code(s): 709996617 (3) Anemia Current Visit: Yes Status: Acute Priority: Medium Code(s): D64.9 - ANEMIA, UNSPECIFIED SNOMED Code(s): 130682550 Plan: Colonic mass: Presented with SOB and fatigue. Also reports abd pain and weight loss. States since 09/2023 he has approx 63 pound weight loss but states he was dieting and trying to lose weight s/p cholecystecomy in 10/2023. -On admission CT abdomen pelvis showed short segment of circumferential wall thickening of the sigmoid colon compatible with colitis/diverticulitis. Underlying mass not excluded. Edematous mesentery. Few small bowel loops may closely approximate the area. Abnormal appearance to the anterior bladder wall. Repeat CT abdomen pelvis showed sigmoid mass versus acute diverticulitis proximal to mid sigmoid colon. Irregular area of increased density in close approximation to suspected mass. The area appears to be increasing in size from the recent comparison. -Underwent colonoscopy on 06/12/24, showing near obstructing mass in the sigmoid colon -CEA < 2.0 -S/p diverting colostomy. Biopsy from colonscopy showing limited specimen with small fragments of colonic mucousa having high grade dysplasia. Retroperitoneal mass biopsy negative for neoplasm -Spoke with pathology no other specimens pending. Case was discussed with with Dr. Adrienne Newman and Dr. Pool, surgery plans to repeat colonoscopy outpt, will request additional biopsies to be collected -Will f/u with pathology once obtained, and schedule clinic f/u Iron deficiency anemia: -Labs reviewed, WBC 8.8, hemoglobin 10.2, platelets 467,000. MCV 73.4, MCH 23.3 -Nutritional studies showed iron saturation of 6.9%, ferritin 390, vitamin B12 365, MMA normal range, folate 9.5. -Pt remains afebrile, blood culture negative. Has continued on IV abx. Parenteral iron ordered x 4 doses -Hgb stable at 9.8 -Continue to monitor CBC. Transfuse for hgb < 7 or if symptomatic
--- NOTE | 2024-06-19 13:18 | P.PN ---
Subjective Progress Note Date: 06/19/24 Patient seen and examined at bedside. No acute events overnight. Denies chest pain, shortness of breath, nausea or vomiting. Minimal ostomy output. Advancing diet to regular diet. Able to tolerate semi-josephine food. All Systems reviewed and pertinent positives and negatives noted as above, all other symptoms are negative Objective: Vital signs reviewed. General: non toxic, no distress, appears at stated age, overweight Derm: no unusual rashes/lesions, warm Head: atraumatic, normocephalic, symmetric Eyes: EOMI, no lid lag, anicteric sclera, pupils equal round reactive to light ENT: Nose and ears atraumatic Neck: No cervical lymphadenopathy, trachea midline, supple Mouth: no lip lesion, mucus membranes moist Cardiovascular: S1S2 irregular, no murmur, positive dorsalis pedis pulse bilateral, no edema Lungs: CTA bilateral, no rhonchi, no rales, no accessory muscle use Abdominal: Mildly distended, nontender to palpation, no guarding, ostomy site looks dusky Ext: muscle strength 5 out of 5 in all 4 extremities grossly, no gross muscle atrophy, no contractures, Neuro: CN II-XI grossly intact, no gross focal neuro deficits Psych: Alert, oriented, appropriate affect Data reviewed today: WBC 8.4, hemoglobin 9.8, sodium 135, creatinine 3.8, BUN 4, creatinine 0.56, calcium 8.4 No new imaging Assessment and Plan: Patient is a 70-year-old male with a past medical history of atrial fibrillation (on Eliquis) and hypertension has been admitted by surgery for suspicious abdominal mass on CT abdomen/pelvis. Admitted to general surgery. Colonoscopy on 06/12/2024 revealing a near obstructing sigmoid colon mass. Patient is day 5 postop diverting colostomy and retroperitoneal biopsy. Pathology report is available. Patient to follow-up surgery for outpatient colonoscopy. 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 every 6 hours as needed, [place] 5325 q6h as needed, epidural drip as needed, Dilaudid 1 mg IVP every 3 hour as needed Surgery on board: Colonoscopy on 06/12/2024 revealing a near obstructing sigmoid colon mass; diverting colostomy and retroperitoneal biopsy on 06/13/2024; Retroperitoneal mass biopsy: Negative for neoplasm pathology Colon mass biopsy: High-grade dysplasia Patient to follow-up surgery for outpatient colonoscopy Oncology on board Continue with heparin 5000 units SQ every 8 hour for DVT prophylaxis Continue with IV normal saline at 125 cc/h Monitor BMP in a.m. Continue with advancing diet Continue with incentive spirometry #acute complicated diverticulitis #Leukocytosis CT abdomen/pelvis with oral contrast (06/09/2024): Sigmoid mass versus acute diverticulitis of proximal to mid sigmoid colon. On Zosyn 3.375 g IVPB every 8 hours Blood cultures no growth to date Monitor CBC in a.m. # Mild hypovolemic hyponatremia, secondary to abdominal surgery Continue monitor BMP -Continue normal saline 125 cc an hour #Bright red blood per rectum (resolved) # Shortness of breath, resolved # Bilateral leg edema, resolved Discontinue Lasix 20 mg p.o. daily # Iron deficiency anemia, stable Patient denies active bleeding Order iron studies: Iron 14, TIBC 203, percent saturation 6.9, transferrin 145, ferritin 390 Follow-up CBC Oncology started IV iron # Atrial fibrillation, rate controlled Continue Cardizem 120 mg p.o. daily Monitor on telemetry Eliquis on hold by surgery #Abnormal UA Patient denying urinary complaints. Abnormal appearance of anterior bladder as seen on CT abd Consider Urology consult if primary culprit isn't the adjacent GI malignancy # Hypertension C/w home spironolactone 25 mg p.o. daily # Thrombocytosis, resolved # Insomnia Melatonin 3 mg p.o. at bedtime as needed # Nonallergic rhinitis Continue Flonase nasal spray 1 spray each nostril twice daily F: IV normal saline at 125 cc/h E: Replete as needed N: Advancing diet to regular diet A: Ambulatory without assistance DVT ppx: heparin 5000 units SQ every 8 hour Code Status: Full code Anticipated discharge place: Pending clinical course Anticipated discharge date: Pending clinical course I have seen and evaluated the patient today. Discussed with the resident and agree with the residents finding and plan as documented in the resident's note. Objective - Vital Signs Vital signs: Vital Signs Temp 97.6 F 06/19/24 07:22 Pulse 92 06/19/24 07:22 Resp 16 06/19/24 07:22 BP 113/73 06/19/24 07:22 Pulse Ox 93 L 06/19/24 07:22 FiO2 Intake & Output 06/18/24 06/19/24 06/19/24 18:59 06:59 18:59 Intake Total 1000 Output Total 50 Balance 1000 -50 Weight 110.223 kg 110.223 kg Intake: Intake, IV Titration 1000 Amount Piperacillin-Tazobactam 3 100 .375 gm In Sodium Chloride 0.9% 100 ml @ 25 mls/hr IVPB Q8HR [facility] Rx# :[id number] Sodium Chloride 0.9% 1, 900 000 ml @ 125 mls/hr IV . Q8H [facility] Rx#:[id number] Output: Stool 50 Other: Voiding Method Toilet Toilet Toilet - Labs CBC & Chem 7: 06/19/24 03:21 06/19/24 03:21 Labs: Abnormal Lab Results - Last 24 Hours (Table) 06/19/24 06/19/24 Range/Units 03:21 03:21 RBC 4.18 L (4.30-5.90) m/uL Hgb 9.8 L (13.0-17.5) gm/dL Hct 30.5 L (39.0-53.0) % MCV 72.9 L (80.0-100.0) fL MCH 23.5 L (25.0-35.0) pg RDW 18.1 H (11.5-15.5) % Sodium 135 L (137-145) mmol/L Chloride 97 L (98-107) mmol/L BUN 4 L (9-20) mg/dL Creatinine 0.56 L (0.66-1.25) mg/dL
[2024-06-20 06:18] LABS: Anisocytosis Slight; Basophils % (A) 0 %; Eosinophils # (A) 0.2 k/uL (0-0.7); Eosinophils % (A) 3 %; HCT 29.4 % (39.0-53.0); Hypochromasia Marked; Lymphocytes % (A) 15 %; MCH 22.8 pg (25.0-35.0); MCHC 30.5 g/dL (31.0-37.0); MCV 74.6 fL (80.0-100.0); Mean Platelet Volume 7.4; Microcytosis Moderate; Monocytes # (A) 0.5 k/uL (0-1.0); Monocytes % (A) 7 %; Neutrophils # (A) 5.1 k/uL (1.3-7.7); Neutrophils % (A) 73 %; Platelet Count 367 k/uL (150-450); RBC 3.94 m/uL (4.30-5.90); RDW 18.3 % (11.5-15.5); WBC 6.9 k/uL (3.8-10.6)
[2024-06-20 06:36] LABS: African American GFR (CKD) >90 (>60 ml/min/1.73 sqM); Anion Gap 7 mmol/L; Blood Urea Nitrogen 3 mg/dL (9-20); Calcium 8.1 mg/dL (8.4-10.2); Carbon Dioxide 26 mmol/L (22-30); Chloride 104 mmol/L (98-107); Glucose 77 mg/dL (74-99); Non-African American GFR(CKD) >90 (>60 ml/min/1.73 sqM); Potassium 3.5 mmol/L (3.5-5.1); Sodium 137 mmol/L (137-145)
--- NOTE | 2024-06-20 13:45 | P.PN ---
Subjective Progress Note Date: 06/20/24 CHIEF COMPLAINT: colon mass HISTORY OF PRESENT ILLNESS: Patient is postop day #7 status post diverting co lostomy and retroperitoneal biopsy. Patient is feeling better. Ostomy is functioning. He has ambulated in the hallway. He is tolerating diet. Prevena wound VAC removed yesterday and patient now has up Optifoam dressing. Afebrile. WBC 6.9 Hgb 9 Patient seen and examined with Dr. Pool PHYSICAL EXAM: VITAL SIGNS: Reviewed. GENERAL: Well-developed in no acute distress. ABDOMEN: soft. Patient has Optifoam silver dressing. Clean dry and intact. Ostomy with some soft tissue. Ostomy functioning. NEUROLOGIC: Alert and oriented. Cranial nerves II through XII grossly intact. ASSESSMENT: 1. Near obstructing colon mass status post diverting colostomy and retroperitoneal biopsy 2. 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 Iron deficiency anemia and receiving IV iron PLAN: -Anticipate discharge tomorrow -employee relation manager to arrange for home care -Plan for repeat colonoscopy outpatient -DVT prophylaxis subcu heparin and GI prophylaxis Physician Flexible Machining System Machinist note has been reviewed by physician. Signing provider agrees with the documented findings, assessment, and plan of care. Objective - Vital Signs Vital signs: Vital Signs Temp 98.3 F 06/20/24 07:48 Pulse 58 L 06/20/24 07:48 Resp 17 06/20/24 07:48 BP 114/72 06/20/24 07:48 Pulse Ox 98 06/20/24 07:48 FiO2 Intake & Output 06/19/24 06/20/24 06/20/24 18:59 06:59 18:59 Intake Total 1080 Output Total 50 150 Balance 1030 -150 Weight 110.223 kg Intake: Oral 1080 Output: Stool 50 150 Other: Voiding Method Toilet Toilet - Labs CBC & Chem 7: 06/20/24 04:52 06/20/24 04:52 Labs: Abnormal Lab Results - Last 24 Hours (Table) 06/20/24 06/20/24 Range/Units 04:52 04:52 RBC 3.94 L (4.30-5.90) m/uL Hgb 9.0 L (13.0-17.5) gm/dL Hct 29.4 L (39.0-53.0) % MCV 74.6 L (80.0-100.0) fL MCH 22.8 L (25.0-35.0) pg MCHC 30.5 L (31.0-37.0) g/dL RDW 18.3 H (11.5-15.5) % BUN 3 L (9-20) mg/dL Creatinine 0.65 L (0.66-1.25) mg/dL Calcium 8.1 L (8.4-10.2) mg/dL
--- NOTE | 2024-06-20 15:24 | P.PN ---
Subjective Progress Note Date: 06/20/24 Patient seen and examined at bedside. No acute events overnight. Patient is feeling better. Denies chest pain, shortness of breath, nausea or vomiting. Ostomy functioning. On a low fiber diet. All Systems reviewed and pertinent positives and negatives noted as above, all other symptoms are negative Objective: Vital signs reviewed. General: non toxic, no distress, appears at stated age, overweight Derm: no unusual rashes/lesions, warm Head: atraumatic, normocephalic, symmetric Eyes: EOMI, no lid lag, anicteric sclera, pupils equal round reactive to light ENT: Nose and ears atraumatic Neck: No cervical lymphadenopathy, trachea midline, supple Mouth: no lip lesion, mucus membranes moist Cardiovascular: S1S2 irregular, no murmur, positive dorsalis pedis pulse bilateral, no edema Lungs: CTA bilateral, no rhonchi, no rales, no accessory muscle use Abdominal: Mildly distended, nontender to palpation, no guarding, ostomy site looks soft and functioning. Ext: muscle strength 5 out of 5 in all 4 extremities grossly, no gross muscle atrophy, no contractures, Neuro: CN II-XI grossly intact, no gross focal neuro deficits Psych: Alert, oriented, appropriate affect Data reviewed today: WBC 6.9, hemoglobin 9.0, MCV 74.6, sodium 137, potassium 3.5, creatinine 0.65, calcium 8.1 No new imaging Assessment and Plan: Patient is a 70-year-old male with a past medical history of atrial fibrillation (on Eliquis) and hypertension has been admitted by surgery for suspicious abdominal mass on CT abdomen/pelvis. Admitted to general surgery. Colonoscopy on 06/12/2024 revealing a near obstructing sigmoid colon mass. Patient is day 5 postop diverting colostomy and retroperitoneal biopsy. Pathology report is available. Patient to follow-up surgery for outpatient colonoscopy. Patient to follow-up outpatient urology. Anticipated discharge tomorrow. # Near obstructing sigmoid colon mass status post diverting colostomy Pain management: Acetaminophen 650 mg p.o. every 6 hours as needed, [place] 5325 q6h as needed, epidural drip as needed, Dilaudid 1 mg IVP every 3 hour as needed Surgery on board: Colonoscopy on 06/12/2024 revealing a near obstructing sigmoid c olon mass; diverting colostomy and retroperitoneal biopsy on 06/13/2024; Retroperitoneal mass biopsy: Negative for neoplasm pathology Colon mass biopsy: High-grade dysplasia Patient to follow-up surgery for outpatient colonoscopy Oncology on board Continue with heparin 5000 units SQ every 8 hour for DVT prophylaxis Continue with IV normal saline at 125 cc/h Monitor BMP in a.m. Continue with low fiber diet Continue with incentive spirometry #acute complicated diverticulitis #Leukocytosis, resolved CT abdomen/pelvis with oral contrast (06/09/2024): Sigmoid mass versus acute diverticulitis of proximal to mid sigmoid colon. On Zosyn 3.375 g IVPB every 8 hours Blood cultures no growth to date Monitor CBC in a.m. # Mild hypovolemic hyponatremia, secondary to abdominal surgery, resolved Continue monitor BMP -Continue normal saline 125 cc an hour #Bright red blood per rectum (resolved) # Shortness of breath, resolved # Bilateral leg edema, resolved Discontinue Lasix 20 mg p.o. daily #Status post dorsal slit for catheter placement secondary to phimosis Urine catheter discontinued Patient to follow-up outpatient urology # Iron deficiency anemia, stable Patient denies active bleeding Order iron studies: Iron 14, TIBC 203, percent saturation 6.9, transferrin 145, ferritin 390 Follow-up CBC Oncology started IV iron # Atrial fibrillation, rate controlled Continue Cardizem 120 mg p.o. daily Monitor on telemetry Eliquis on hold by surgery #Abnormal UA Patient denying urinary complaints. Abnormal appearance of anterior bladder as seen on CT abd Consider Urology consult if primary culprit isn't the adjacent GI malignancy # Hypertension C/w home spironolactone 25 mg p.o. daily # Thrombocytosis, resolved # Insomnia Melatonin 3 mg p.o. at bedtime as needed # Nonallergic rhinitis Continue Flonase nasal spray 1 spray each nostril twice daily F: IV normal saline at 125 cc/h E: Replete as needed N: Low fiber diet A: Ambulatory without assistance DVT ppx: heparin 5000 units SQ every 8 hour Code Status: Full code Anticipated discharge place: Pending clinical course Anticipated discharge date: Pending clinical course I have seen and evaluated the patient today. Discussed with the resident and agree with the residents finding and plan as documented in the resident's note. Discussed with Shruthi VARGAS and Dr. Pool, anticipated discharge tomorrow. Objective - Vital Signs Vital signs: Vital Signs Temp 98.4 F 06/20/24 13:07 Pulse 69 06/20/24 13:07 Resp 18 06/20/24 13:07 BP 113/73 06/20/24 13:07 Pulse Ox 97 06/20/24 13:07 FiO2 Intake & Output 06/19/24 06/20/24 06/20/24 18:59 06:59 18:59 Intake Total 1080 Output Total 50 150 Balance 1030 -150 Weight 110.223 kg Intake: Oral 1080 Output: Stool 50 150 Other: Voiding Method Toilet Toilet - Labs CBC & Chem 7: 06/20/24 04:52 06/20/24 04:52 Labs: Abnormal Lab Results - Last 24 Hours (Table) 06/20/24 06/20/24 Range/Units 04:52 04:52 RBC 3.94 L (4.30-5.90) m/uL Hgb 9.0 L (13.0-17.5) gm/dL Hct 29.4 L (39.0-53.0) % MCV 74.6 L (80.0-100.0) fL MCH 22.8 L (25.0-35.0) pg MCHC 30.5 L (31.0-37.0) g/dL RDW 18.3 H (11.5-15.5) % BUN 3 L (9-20) mg/dL Creatinine 0.65 L (0.66-1.25) mg/dL Calcium 8.1 L (8.4-10.2) mg/dL
[2024-06-21 08:37] VITALS: RESP 18
--- NOTE | 2024-06-21 09:27 | CDI ---
Documentation Clarification Form Date: 06/21/2024 08:47:02 AM From: Genevieve Rios RN, CCDS Phone: [phone] Admit Date: 06/08/2024 09:51:00 PM Patient Name: Venkatesh Phillips Visit Number: [id number] Discharge Date: ATTENTION: The Clinical Documentation Specialists (CDI) and [facility] Coding Staff appreciate your assistance in clarifying documentation. Please respond to the clarification below the line at the bottom and electronically sign. The CDI & [facility] Coding staff will review the response and follow-up if needed. Please note: Queries are made part of the Legal Health Record. If you have any questions, please contact the author of this message via ITS. Doctor/Provider: Godfrey Yeager Sepsis is documented in the Medical consult on 06/09/24 which may lack sufficient clinical evidence/support in the medical record. Additional clarification is requested. History/Risk Factors: Atrial Fibrillation, Hypertension, Chronic LE edema, Former smoker Clinical Indicators: 78 y/o male presenting for shortness of breath. Patient also notes persistent abdominal distention but no pain since cholecystectomy in October. 06/08 VS 115/74, 77 18 101, 96% on RA 06/08 Labs: WBC 10.9 HGB 9.8, HCT 29.8, Na+ 132 UA: Leukocyte Esterase Large, WBC .182 06/09 VS (08:11)115/67 84 16 97.5 98% RA 06/10 VS: 103/70 65 17 97.4 98% RA 06/10 Labs WBC 10.8, HGB 10.2, CT abdomen/pelvis (06/08/24) Short segment of circumferential wall thickening of the sigmoid colon compatible with colitis/diverticulitis, underlying mass not excluded given morphology. CT abdomen/pelvis with oral contrast (06/09/2024): Sigmoid mass versus acute diverticulitis of proximal to mid sigmoid colon. On Zosyn 3.375 g IVPB every 8 hours Patient reports intentional [address] AP with contrast ordered by Surgery. Will need C-scope to rule out malignancy. He does meet sepsis criteria, Treatment: Zosyn 3.375 MG IVPB Q 8 HRS NS @100 CC/HR Blood culture No Growth after 5 days Abnormal UA: No urinary symptoms After work up and study, please clarify which diagnosis is most appropriate? [ ] Sepsis ruled out [ x ] Sepsis is a valid diagnosis as evidence by the following: (Please add rationale): ____T 101 06/08, + source of infection, HR 99 (06/09) [ ] Non-Infectious SIRS due to (please specify) [ ] Non-infectious SIRS due to with organ dysfunction as evidenced by [list organ dysfunction] [ ] Other, please specify [ ] Unable to determine (Template Last Reviewed: October 2023) MTDD
[2024-06-21] MEDS: FUROSEMIDE 10 MG/ML 4 ML VIAL IV STA (12:36)
[2024-06-21 13:36] VITALS: BP 132/86; PULSE 78; TEMP 97.6
--- NOTE | 2024-06-21 15:06 | P.DS ---
Providers Date of admission: 06/08/24 21:51 Expected date of discharge: 06/21/24 Attending physician: Campbell Pool Consults: 06/08/24 21:48 Consult Physician Routine Consulting Provider: Court Padron Consult Reason/Comments: Medical management Do you want consulting provider notified?: Already Contacted 06/12/24 11:27 Consult Physician Routine Consulting Provider: Paco Guerrero Consult Reason/Comments: colon mass Do you want consulting provider notified?: Yes 06/16/24 09:31 Consult Physician Routine Consulting Provider: Higinio Echavarria Consult Reason/Comments: foreskin incisions made in surgery Do you want consulting provider notified?: Already Contacted [facility] Course: Discharge diagnosis 1. Near obstructing colon mass status post diverting colostomy and retroperitoneal biopsy 2. 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 Iron deficiency anemia received IV iron Hospital course This is a 78-year-old male who presented with abdominal pain. CT scan was suggestive of sigmoid colon mass. Patient had colonoscopy completed that reported a near obstructing colon mass. Biopsies were obtained. He then underwent surgery and is now status post diverting colostomy and retroperitoneal biopsy. The biopsy from the colonoscopy had reported a high-grade dysplasia. Patient's ostomy is functioning. He is tolerating diet. He is afebrile. He has been up and ambulating. His pain is controlled. He does have some serosanguineous drainage from the incision site and will be discharged with antibiotics. Dr. Pool is recommending a repeat colonoscopy outpatient. Patient is stable for discharge. Please refer to chart for any further details. Physician Electro Tech note has been reviewed by physician. Signing provider agrees with the documented findings, assessment, and plan of care. Patient Condition at Discharge: Stable Plan - Discharge Summary Discharge Rx Participant: No New Discharge Prescriptions: New Sulfamethox-Tmp 800-160Mg [Bactrim DS 800-160 mg] 1 tab PO Q12HR 10 Days #20 tab Cephalexin [Keflex] 500 mg PO Q8HR 10 Days #30 cap HYDROcodone/APAP 5-325MG [[place] 5-325] 1 tab PO Q6HR PRN 3 Days #12 tab PRN Reason: Pain Continue Apixaban [Eliquis] 5 mg PO BID Spironolactone [Aldactone] 25 mg PO DAILY Furosemide [Lasix] 20 mg PO DAILY Ergocalciferol [Vitamin D2 (1250 Mcg = 00349 Iu)] 1,250 mcg PO MARTINO dilTIAZem HCL [Tiazac] 120 mg PO DAILY Fluticasone Nasal [place] [Flonase Nasal [place]] 1 spr EA NOSTRIL BID Discharge Medication List Apixaban [Eliquis] 5 mg PO BID 11/23/23 [History] Ergocalciferol [Vitamin D2 (1250 Mcg = 74657 Iu)] 1,250 mcg PO MARTINO 11/23/23 [History] Fluticasone Nasal [place] [Flonase Nasal [place]] 1 spr EA NOSTRIL BID 11/23/23 [History] Furosemide [Lasix] 20 mg PO DAILY 11/23/23 [History] Spironolactone [Aldactone] 25 mg PO DAILY 11/23/23 [History] dilTIAZem HCL [Tiazac] 120 mg PO DAILY 06/08/24 [History] Cephalexin [Keflex] 500 mg PO Q8HR 10 Days #30 cap 06/21/24 [Rx] HYDROcodone/APAP 5-325MG [[place] 5-325] 1 tab PO Q6HR PRN 3 Days #12 tab 06/21/24 [Rx] Sulfamethox-Tmp 800-160Mg [Bactrim DS 800-160 mg] 1 tab PO Q12HR 10 Days #20 tab 06/21/24 [Rx] Follow up Appointment(s)/Referral(s): [facility] [NON-STAFF] - 1 Week Higinio Echavarria MD [STAFF PHYSICIAN] - 07/18/24 9:20 am Marcell Hassan DO [Primary Care Provider] - 07/02/24 3:40 pm [facility] [NON-STAFF] - 1 Week Campbell Pool MD [STAFF PHYSICIAN] - 07/03/24 3:00 pm Patient Instructions/Handouts: Pancreatitis (DC), Anemia (DC) Activity/Diet/Wound Care/Special Instructions: Ostomy: [place] 1 piece cut to fit appliace #[id number] applied over Liseth seal 2" ring #[id number]. [place] No Sting Prep Pads to peristomal skin before application. Empty appliance when no more than half full; change every 3 to 5 days and if leaking. Last changed: 06/21/[address] taking [place] No lifting over 10 pounds Shower daily. No soaking or tub baths for 2 weeks Very light activity until you are reevaluated at your follow up appointment with your surgeon Keep incision clean and dry. Wash incision daily and cover with gauze and ABD dressing. Change dressing as needed follow up with PCP and check Potassium level. Potassium level may increase with the aldactone and bactrim Diet Low Fiber until seen by Activity Limited until seen by DROrly Discharge Disposition: HOME WITH HOME HEALTH SERVICES
--- NOTE | 2024-06-21 15:21 | P.PN ---
Subjective Progress Note Date: 06/21/24 Patient seen and examined at bedside. No acute events overnight. Patient is feeling better. Denies chest pain, shortness of breath, nausea or vomiting. Ostomy functioning. On a low fiber diet. Patient to follow-up surgery for outpatient colonoscopy. Patient to follow-up outpatient urology. Patient stable for discharge from medicine standpoint. All Systems reviewed and pertinent positives and negatives noted as above, all other symptoms are negative Objective: Vital signs reviewed. General: non toxic, no distress, appears at stated age, overweight Derm: no unusual rashes/lesions, warm Head: atraumatic, normocephalic, symmetric Eyes: EOMI, no lid lag, anicteric sclera, pupils equal round reactive to light ENT: Nose and ears atraumatic Neck: No cervical lymphadenopathy, trachea midline, supple Mouth: no lip lesion, mucus membranes moist Cardiovascular: S1S2 irregular, no murmur, positive dorsalis pedis pulse bilateral, no edema Lungs: CTA bilateral, no rhonchi, no rales, no accessory muscle use Abdominal: Mildly distended, nontender to palpation, no guarding, ostomy site looks soft and functioning. Ext: muscle strength 5 out of 5 in all 4 extremities grossly, no gross muscle a trophy, no contractures, Neuro: CN II-XI grossly intact, no gross focal neuro deficits Psych: Alert, oriented, appropriate affect Data reviewed today: WBC 6.9, hemoglobin 9.0, MCV 74.6, sodium 137, potassium 3.5, creatinine 0.65, calcium 8.1 No new imaging Assessment and Plan: Patient is a 70-year-old male with a past medical history of atrial fibrillation (on Eliquis) and hypertension has been admitted by surgery for suspicious abdominal mass on CT abdomen/pelvis. Admitted to general surgery. Colonoscopy on 06/12/2024 revealing a near obstructing sigmoid colon mass. Patient is day 5 postop diverting colostomy and retroperitoneal biopsy. Pathology report is available. Patient to follow-up surgery for outpatient colonoscopy. Patient to follow-up outpatient urology. Patient stable for discharge from medicine standpoint. # Near obstructing sigmoid colon mass status post diverting colostomy Pain management: Acetaminophen 650 mg p.o. every 6 hours as needed, [place] 5325 q6h as needed, epidural drip as needed, Dilaudid 1 mg IVP every 3 hour as needed Surgery on board: Colonoscopy on 06/12/2024 revealing a near obstructing sigmoid colon mass; diverting colostomy and retroperitoneal biopsy on 06/13/2024; Retroperitoneal mass biopsy: Negative for neoplasm pathology Colon mass biopsy: High-grade dysplasia Patient to follow-up surgery for outpatient colonoscopy Oncology on board Continue with heparin 5000 units SQ every 8 hour for DVT prophylaxis Continue with IV normal saline at 125 cc/h Monitor BMP in a.m. Continue with low fiber diet Continue with incentive spirometry #acute complicated diverticulitis #Leukocytosis, resolved CT abdomen/pelvis with oral contrast (06/09/2024): Sigmoid mass versus acute diverticulitis of proximal to mid sigmoid colon. On Zosyn 3.375 g IVPB every 8 hours Blood cultures no growth to date Monitor CBC in a.m. # Mild hypovolemic hyponatremia, secondary to abdominal surgery, resolved Continue monitor BMP -Continue normal saline 125 cc an hour #Bright red blood per rectum (resolved) # Shortness of breath, resolved # Bilateral leg edema, resolved Discontinue Lasix 20 mg p.o. daily #Status post dorsal slit for catheter placement secondary to phimosis Urine catheter discontinued Patient to follow-up outpatient urology # Iron deficiency anemia, stable Patient denies active bleeding Order iron studies: Iron 14, TIBC 203, percent saturation 6.9, transferrin 145, ferritin 390 Follow-up CBC Oncology started IV iron # Atrial fibrillation, rate controlled Continue Cardizem 120 mg p.o. daily Monitor on telemetry Eliquis on hold by surgery #Abnormal UA Patient denying urinary complaints. Abnormal appearance of anterior bladder as seen on CT abd Consider Urology consult if primary culprit isn't the adjacent GI malignancy # Hypertension C/w home spironolactone 25 mg p.o. daily # Thrombocytosis, resolved # Insomnia Melatonin 3 mg p.o. at bedtime as needed # Nonallergic rhinitis Continue Flonase nasal spray 1 spray each nostril twice daily F: IV normal saline at 125 cc/h E: Replete as needed N: Low fiber diet A: Ambulatory without assistance DVT ppx: heparin 5000 units SQ every 8 hour Code Status: Full code Anticipated discharge place: Pending clinical course Anticipated discharge date: Pending clinical course I have seen and evaluated the patient today. Discussed with the resident and agree with the residents finding and plan as documented in the resident's note. Lasix 40 mg IV x 1 given for LE edema. Continue Lasix and Aldactone at home. Plans for discharge home today. Objective - Vital Signs Vital signs: Vital Signs Temp 97.6 F 06/21/24 12:49 Pulse 78 06/21/24 12:49 Resp 18 06/21/24 12:49 BP 132/86 06/21/24 12:49 Pulse Ox 97 06/21/24 12:49 FiO2 Intake & Output 06/20/24 06/21/24 06/21/24 18:59 06:59 18:59 Output Total 150 150 Balance -150 -150 Output: Stool 150 150 Other: Voiding Method Toilet # Voids 2 - Labs CBC & Chem 7: 06/20/24 04:52 06/20/24 04:52
[2024-06-21] MEDS ORDERED: FAMOTIDINE 20 MG TAB PO SCH (21:00)
== END 2024-06-21 18:15 | disposition home health service (06) | DRG 854 ==
LOC: EC 18:04 → 5NMEDONC 21:51
PROVIDERS: ADMIT Surgery; ATTEND Surgery
PROC: 0DBN8ZX Excision of Sigmoid Colon, Via Natural or Artificial Opening Endoscopic, Diagnostic (ICD-10-PCS; 2024-06-12 08:05)
PROC: 3E0R3BZ Introduction of Anesthetic Agent into Spinal Canal, Percutaneous Approach (ICD-10-PCS; 2024-06-13)
PROC: 3E0R33Z Introduction of Anti-inflammatory into Spinal Canal, Percutaneous Approach (ICD-10-PCS; 2024-06-13)
PROC: 00HU33Z Insertion of Infusion Device into Spinal Canal, Percutaneous Approach (ICD-10-PCS; 2024-06-13)
PROC: 0D1N0Z4 Bypass Sigmoid Colon to Cutaneous, Open Approach (ICD-10-PCS; 2024-06-13)
PROC: 0WBH0ZX Excision of Retroperitoneum, Open Approach, Diagnostic (ICD-10-PCS; principal; 2024-06-13 15:20)
DX: A41.9 Sepsis, unspecified organism (principal); E87.1 Hypo-osmolality and hyponatremia; I48.20 Chronic atrial fibrillation, unspecified; K62.5 Hemorrhage of anus and rectum; K57.32 Diverticulitis of large intestine without perforation or abscess without bleeding; D50.9 Iron deficiency anemia, unspecified; E66.09 Other obesity due to excess calories; I10 Essential (primary) hypertension; E86.1 Hypovolemia; D12.5 Benign neoplasm of sigmoid colon; G89.18 Other acute postprocedural pain; D72.828 Other elevated white blood cell count; D75.838 Other thrombocytosis; G47.00 Insomnia, unspecified; J31.0 Chronic rhinitis; T50.2X5A Adverse effect of carbonic-anhydrase inhibitors, benzothiadiazides and other diuretics, initial encounter; N47.1 Phimosis; E87.70 Fluid overload, unspecified; R26.2 Difficulty in walking, not elsewhere classified; R82.90 Unspecified abnormal findings in urine; Z79.01 Long term (current) use of anticoagulants; Z68.33 Body mass index [BMI] 33.0-33.9, adult; Z87.891 Personal history of nicotine dependence; Z79.899 Other long term (current) drug therapy
CPT/HCPCS: 36415; 44404; 45380; 71275; 74176; 74177; 80048; 80053; 81001; 82378; 82607; 82728; 82746; 83540; 83550; 83605; 83690; 83735; 83880; 83921; 84145; 84443; 84484; 85025; 85027; 85379; 85610; 85730; 86140; 87040; 87636; 88305; 93005; 94760; 96365; 96366; 96367; 96375; 99285

== ENCOUNTER 2024-07-05 15:19 | Inpatient (IN) | payer MEDICARE, OTHER ==
[2024-07-05] MEDS: SODIUM CHLORIDE 0.9% 1,000 ML IV STA (16:31)
--- NOTE | 2024-07-05 16:37 | ED ---
Recheck HPI - General Chief Complaint: Recheck/Abnormal Lab/Rx Stated Complaint: Infection Time Seen by Provider: 07/05/24 15:26 Source: patient, EMS, RN notes reviewed, old records reviewed Mode of arrival: EMS Limitations: no limitations - History of Present Illness Initial Comments: This is a 79-year-old male to the ER for evaluation patient is coming in for fever with concern for postoperative infection. Patient recently had colostomy secondary to tumor and presents with some drainage from the surgical site concern for some yellow or discolored drainage from sutures in his anterior abdomen next to his ostomy. No significant redness but does admit to fevers MD Complaint: wound re-check, abnormal lab, other (Fever) -: hour(s) Returns Today for: staple/Stitch removal, wound recheck, needs IV antibiotics, persistent/worsening pain related to initial visit Symptoms Since Prior Visit: worsening swelling, worsening redness, fever Associated Symptoms: fever, malaise Treatments Prior to Arrival: other (0) - Related Data Home Medications Medication Instructions Recorded Confirmed Ergocalciferol [Vitamin D2 (1250 1,250 mcg PO MARTINO 11/23/23 07/05/24 Mcg = 28622 Iu)] Fluticasone Nasal [place] [Flonase 1 spr EA NOSTRIL BID 11/23/23 07/05/24 Nasal [place]] Spironolactone [Aldactone] 25 mg PO DAILY 11/23/23 07/05/24 Ferrous Sulfate [Iron (65 MG 325 mg PO DAILY 07/05/24 07/05/24 Elemental)] Multivitamins, Thera [Multivitamin 1 tab PO DAILY 07/05/24 07/05/24 (formulary)] Allergies Allergy/AdvReac Type Severity Reaction Status Date / Time No Known Allergies Allergy Verified 07/05/24 17:30 Review of Systems ROS Statement: Those systems with pertinent positive or pertinent negative responses have been documented in the HPI. ROS Other: All systems not noted in ROS Statement are negative. Past Medical History Past Medical History: Atrial Fibrillation, Hypertension Additional Past Medical History / Comment(s): sinusitis, [place] LE edema History of Any Multi-Drug Resistant Organisms: None Reported Past Surgical History: Orthopedic Surgery, Tonsillectomy Additional Past Surgical History / Comment(s): bowel resection, ostomy Past Psychological History: No Psychological Hx Reported Smoking Status: Former smoker Past Alcohol Use History: None Reported Past Drug Use History: None Reported - Past Family History Father Family Medical History: No Reported History Mother Family Medical History: Asthma, COPD General Exam Limitations: no limitations General appearance: alert, in no apparent distress Head exam: Present: atraumatic, normocephalic, normal inspection Eye exam: Present: normal appearance, PERRL, EOMI. Absent: scleral icterus, conjunctival injection, periorbital swelling ENT exam: Present: normal exam, mucous membranes moist Neck exam: Present: normal inspection. Absent: tenderness, meningismus, lymphadenopathy Respiratory exam: Present: normal lung sounds bilaterally. Absent: respiratory distress, wheezes, rales, rhonchi, stridor Cardiovascular Exam: Present: regular rate, normal rhythm, normal heart sounds. Absent: systolic murmur, diastolic murmur, rubs, gallop, clicks GI/Abdominal exam: Present: soft, normal bowel sounds. Absent: distended, tenderness, guarding, rebound, rigid Extremities exam: Present: normal inspection, full ROM, normal capillary refill. Absent: tenderness, pedal edema, joint swelling, calf tenderness Back exam: Present: normal inspection Neurological exam: Present: alert, oriented X3, CN II-XII intact Psychiatric exam: Present: normal affect, normal mood Skin exam: Present: warm, dry, intact, normal color. Absent: rash Course Vital Signs 07/05/24 07/05/24 07/05/24 15:25 18:41 21:00 Temperature 99.2 F 99.2 F Pulse Rate 78 72 58 L Respiratory 18 18 18 Rate Blood Pressure 104/63 93/54 100/60 O2 Sat by Pulse 98 95 98 Oximetry - Reevaluation(s) Reevaluation #1: 07/05/24 16:36 Medical records reviewed Reevaluation #2: 07/05/24 16:36 Symptoms are unchanged Reevaluation #3: 07/05/24 17:58 Patient informed of results and questions answered Reevaluation #4: Was pt. sent in by a medical professional or institution (, PA, SOCIAL MEDIA CONTENT MANAGER, urgent care, hospital, or senior living...) When possible be specific @ -no Did you speak to anyone other than the patient for history (EMS, parent, family, police, friend...)? What history was obtained from this source @ -no Did you review nursing and triage notes (agree or disagree)? Why? @ -agree Are old charts reviewed (outside hosp., previous admission, EMS record, old EKG, old radiological studies, urgent care reports/EKG's, senior living records)? Report findings @ -yes Differential Diagnosis (chest pain, altered mental status, abdominal pain women, abdominal pain men, vaginal bleeding, weakness, fever, dyspnea, syncope, headache, dizziness, GI bleed, back pain, seizure, CVA, palpatations, mental health, musculoskeletal)? @ -prior EKG interpreted by me (3pts min.). @ -yes X-rays interpreted by me (1pt min.). @ -yes negative for acute disease CT interpreted by me (1pt min.). @ -no U/S interpreted by me (1pt. min.). @ -no What testing was considered but not performed or refused? (CT, X-rays, U/S, labs)? Why? @ -none What meds were considered but not given or refused? Why? @ -none Did you discuss the management of the patient with other professionals (professionals i.e. , PA, SOCIAL MEDIA CONTENT MANAGER, lab, RT, psych nurse, director social welfare, divorce lawyer, teacher, mail officer, sample case porter)? Give summary @ -no Was smoking cessation discussed for >3mins.? @ -no Was critical care preformed (if so, how long)? @ -yes31 Were there social determinants of health that impacted care today? How? (Homelessness, low income, unemployed, alcoholism, drug addiction, transportation, low edu. Level, literacy, decrease access to med. care, alf, rehab)? @ -none Was there de-escalation of care discussed even if they declined (Discuss DNR or withdrawal of care, Hospice)? DNR status @ -no What co-morbidities impacted this encounter? (DM, HTN, Smoking, COPD, CAD, Cancer, CVA, ARF, Chemo, Hep., AIDS, mental health diagnosis, sleep apnea, morbid obesity)? @ -none Was patient admitted / discharged? Hospital course, mention meds given and route, prescriptions, significant lab abnormalities, going to OR and other pertinent info. @ - 79 Male will be admitted for postoperative infection and fever, mild draining from anterior abdominal incision, patient will be admitted for infection control and surgical consultation Admitted Undiagnosed new problem with uncertain prognosis? @ -no Drug Therapy requiring intensive monitoring for toxicity (Heparin, Nitro, Insulin, Cardizem)? @ -no Were any procedures done? @ -no Diagnosis/symptom? @ -Weakness, fever, postoperative infection Acute, or Chronic, or Acute on Chronic? @ -Acute Uncomplicated (without systemic symptoms) or Complicated (systemic symptoms)? @ -Complicated Side effects of treatment? @ -no Exacerbation, Progression, or Severe Exacerbation? @ -exacerbation Poses a threat to life or bodily function? How? (Chest pain, USA, NM, pneumonia, PE, COPD, DKA, ARF, appy, cholecystitis, CVA, Diverticulitis, Homicidal, Suicidal, threat to staff... and all critical care pts) @ -yes postoperative infection Reevaluation #5: Differential Fever: Pneumonia, viral URI, endocarditis, myocarditis, pericarditis, otitis, sinusitis, peritonsillar Abscess, retropharyngeal Abscess, epiglottitis, peritonitis, appendicitis, [place] cystitis, diverticulitis, hepatitis, colitis, UTI, PID, TOA, pyelonephritis, prostatitis, epididymitis, meningitis, encephalitis, pulmonary embolism, CVA, thyroid storm, pancreatitis, adrenal crisis, cavernous sinus thrombosis, this is not meant to be an all-inclusive list. - Consultations Consultation #1: [facility] agrees to admit this patient Medical Decision Making - Medical Decision Making 79 Male will be admitted for postoperative infection and fever, mild draining from anterior abdominal incision, patient will be admitted for infection control and surgical consultation - Lab Data Result diagrams: 07/08/24 10:18 07/08/24 07:22 Lab Results 07/05/24 07/05/24 07/05/24 Range/Units 16:15 16:15 16:15 WBC 6.2 (3.8-10.6) k/uL RBC 4.10 L (4.30-5.90) m/uL Hgb 10.0 L (13.0-17.5) gm/dL Hct 31.8 L (39.0-53.0) % MCV 77.4 L (80.0-100.0) fL MCH 24.3 L (25.0-35.0) pg MCHC 31.3 (31.0-37.0) g/dL RDW 21.5 H (11.5-15.5) % Plt Count 262 (150-450) k/uL MPV 6.9 Immature Gran % (Auto) % Absolute Nucleated RBC % Neutrophils % 81 % Lymphocytes % 9 % Monocytes % 8 % Eosinophils % 0 % Basophils % 0 % Immature Gran # (0.00-0.04) X 10*3/uL Neutrophils # 5.0 (1.3-7.7) k/uL Lymphocytes # 0.6 L (1.0-4.8) k/uL Monocytes # 0.5 (0-1.0) k/uL Eosinophils # 0.0 (0-0.7) k/uL Basophils # 0.0 (0-0.2) k/uL NRBC/100 WBC Diff (0.00-0.01) X 10*3/uL Hypochromasia Slight Anisocytosis Moderate Microcytosis Moderate PT 11.9 (10.0-12.5) sec INR 1.1 (<1.2) APTT 23.5 (22.0-30.0) sec Sodium 132 L (137-145) mmol/L Potassium 4.4 (3.5-5.1) mmol/L Chloride 101 (98-107) mmol/L Carbon Dioxide 25 (22-30) mmol/L Anion Gap 6 mmol/L BUN 10 (9-20) mg/dL Creatinine 0.76 (0.66-1.25) mg/dL Est GFR (CKD-EPI) (>=60) Est GFR (CKD-EPI)AfAm >90 (>60 ml/min/1.73 sqM) Est GFR (CKD-EPI)NonAf 87 (>60 ml/min/1.73 sqM) BUN/Creatinine Ratio (12.00-20.00) Ratio Glucose 85 (74-99) mg/dL Plasma Lactic Acid Kyree (0.7-2.0) mmol/L Calcium 8.4 (8.4-10.2) mg/dL Phosphorus 3.1 (2.5-4.5) mg/dL Magnesium 1.7 (1.6-2.3) mg/dL Total Bilirubin 0.5 (0.2-1.3) mg/dL AST 24 (17-59) U/L ALT 15 (4-49) U/L Alkaline Phosphatase 82 (38-126) U/L Troponin I (0.000-0.034) ng/mL NT-Pro-B Natriuret Pep 2460 pg/mL Total Protein 5.9 L (6.3-8.2) g/dL Albumin 2.9 L (3.5-5.0) g/dL Globulin (1.6-3.3) g/dL Albumin/Globulin Ratio (1.60-3.17) Ratio Carcinoembryonic Ag (0.0-4.9) ng/mL Urine Color Urine Appearance (Clear) Urine pH (5.0-8.0) Ur Specific [place] (1.001-1.035) Urine Protein (Negative) Urine Glucose (UA) (Negative) Urine Ketones (Negative) Urine Blood (Negative) Urine Nitrite (Negative) Urine Bilirubin (Negative) Urine Urobilinogen (<2.0) mg/dL Ur Leukocyte Esterase (Negative) Urine RBC (0-5) /hpf Urine WBC (0-5) /hpf Ur Squamous Epith Cells (0-4) /hpf Hyaline Casts (0-2) /lpf Urine Mucus (None) /hpf 07/05/24 07/05/24 07/05/24 Range/Units 16:15 16:15 21:28 WBC (3.8-10.6) k/uL RBC (4.30-5.90) m/uL Hgb (13.0-17.5) gm/dL Hct (39.0-53.0) % MCV (80.0-100.0) fL MCH (25.0-35.0) pg MCHC (31.0-37.0) g/dL RDW (11.5-15.5) % Plt Count (150-450) k/uL MPV Immature Gran % (Auto) % Absolute Nucleated RBC % Neutrophils % % Lymphocytes % % Monocytes % % Eosinophils % % Basophils % % Immature Gran # (0.00-0.04) X 10*3/uL Neutrophils # (1.3-7.7) k/uL Lymphocytes # (1.0-4.8) k/uL Monocytes # (0-1.0) k/uL Eosinophils # (0-0.7) k/uL Basophils # (0-0.2) k/uL NRBC/100 WBC Diff (0.00-0.01) X 10*3/uL Hypochromasia Anisocytosis Microcytosis PT (10.0-12.5) sec INR (<1.2) APTT (22.0-30.0) sec Sodium (137-145) mmol/L Potassium (3.5-5.1) mmol/L Chloride (98-107) mmol/L Carbon Dioxide (22-30) mmol/L Anion Gap mmol/L BUN (9-20) mg/dL Creatinine (0.66-1.25) mg/dL Est GFR (CKD-EPI) (>=60) Est GFR (CKD-EPI)AfAm (>60 ml/min/1.73 sqM) Est GFR (CKD-EPI)NonAf (>60 ml/min/1.73 sqM) BUN/Creatinine Ratio (12.00-20.00) Ratio Glucose (74-99) mg/dL Plasma Lactic Acid Kyree 1.4 (0.7-2.0) mmol/L Calcium (8.4-10.2) mg/dL Phosphorus (2.5-4.5) mg/dL Magnesium (1.6-2.3) mg/dL Total Bilirubin (0.2-1.3) mg/dL AST (17-59) U/L ALT (4-49) U/L Alkaline Phosphatase (38-126) U/L Troponin I <0.012 (0.000-0.034) ng/mL NT-Pro-B Natriuret Pep pg/mL Total Protein (6.3-8.2) g/dL Albumin (3.5-5.0) g/dL Globulin (1.6-3.3) g/dL Albumin/Globulin Ratio (1.60-3.17) Ratio Carcinoembryonic Ag (0.0-4.9) ng/mL Urine Color Yellow Urine Appearance Clear (Clear) Urine pH 6.0 (5.0-8.0) Ur Specific [place] 1.016 (1.001-1.035) Urine Protein Trace H (Negative) Urine Glucose (UA) Negative (Negative) Urine Ketones Negative (Negative) Urine Blood Negative (Negative) Urine Nitrite Negative (Negative) Urine Bilirubin Negative (Negative) Urine Urobilinogen <2.0 (<2.0) mg/dL Ur Leukocyte Esterase Small H (Negative) Urine RBC 5 (0-5) /hpf Urine WBC 5 (0-5) /hpf Ur Squamous Epith Cells <1 (0-4) /hpf Hyaline Casts 2 (0-2) /lpf Urine Mucus Rare H (None) /hpf 07/06/24 07/06/24 07/06/24 Range/Units 03:54 03:54 03:54 WBC 5.43 (3.8-10.6) k/uL RBC 4.03 L (4.30-5.90) m/uL Hgb 9.7 L (13.0-17.5) gm/dL Hct 32.0 L (39.0-53.0) % MCV 79.4 L (80.0-100.0) fL MCH 24.1 L (25.0-35.0) pg MCHC 30.3 L (31.0-37.0) g/dL RDW 24.6 H (11.5-15.5) % Plt Count 250 (150-450) k/uL MPV 10.2 Immature Gran % (Auto) 0.40 % Absolute Nucleated RBC 0 % Neutrophils % 67.0 % Lymphocytes % 17.1 % Monocytes % 12.9 % Eosinophils % 2.2 % Basophils % 0.4 % Immature Gran # 0.02 (0.00-0.04) X 10*3/uL Neutrophils # 3.64 (1.3-7.7) k/uL Lymphocytes # 0.93 (1.0-4.8) k/uL Monocytes # 0.70 (0-1.0) k/uL Eosinophils # 0.12 (0-0.7) k/uL Basophils # 0.02 (0-0.2) k/uL NRBC/100 WBC Diff 0 (0.00-0.01) X 10*3/uL Hypochromasia Anisocytosis Microcytosis PT (10.0-12.5) sec INR (<1.2) APTT (22.0-30.0) sec Sodium 137 (137-145) mmol/L Potassium 4.2 (3.5-5.1) mmol/L Chloride 104 (98-107) mmol/L Carbon Dioxide 24.9 (22-30) mmol/L Anion Gap 8.10 mmol/L BUN 9.2 (9-20) mg/dL Creatinine 0.8 (0.66-1.25) mg/dL Est GFR (CKD-EPI) 90 (>=60) Est GFR (CKD-EPI)AfAm (>60 ml/min/1.73 sqM) Est GFR (CKD-EPI)NonAf (>60 ml/min/1.73 sqM) BUN/Creatinine Ratio 11.50 L (12.00-20.00) Ratio Glucose 81 (74-99) mg/dL Plasma Lactic Acid Kyree (0.7-2.0) mmol/L Calcium 8.2 L (8.4-10.2) mg/dL Phosphorus 3.7 (2.5-4.5) mg/dL Magnesium 2.0 (1.6-2.3) mg/dL Total Bilirubin 0.3 (0.2-1.3) mg/dL AST 21 (17-59) U/L ALT 13 (4-49) U/L Alkaline Phosphatase 84 (38-126) U/L Troponin I (0.000-0.034) ng/mL NT-Pro-B Natriuret Pep pg/mL Total Protein 5.6 L (6.3-8.2) g/dL Albumin 3.0 L (3.5-5.0) g/dL Globulin 2.6 (1.6-3.3) g/dL Albumin/Globulin Ratio 1.15 L (1.60-3.17) Ratio Carcinoembryonic Ag 5.8 H (0.0-4.9) ng/mL Urine Color Urine Appearance (Clear) Urine pH (5.0-8.0) Ur Specific [place] (1.001-1.035) Urine Protein (Negative) Urine Glucose (UA) (Negative) Urine Ketones (Negative) Urine Blood (Negative) Urine Nitrite (Negative) Urine Bilirubin (Negative) Urine Urobilinogen (<2.0) mg/dL Ur Leukocyte Esterase (Negative) Urine RBC (0-5) /hpf Urine WBC (0-5) /hpf Ur Squamous Epith Cells (0-4) /hpf Hyaline Casts (0-2) /lpf Urine Mucus (None) /hpf 07/06/24 07/07/24 Range/Units 11:56 06:20 WBC (3.8-10.6) k/uL RBC (4.30-5.90) m/uL Hgb (13.0-17.5) gm/dL Hct (39.0-53.0) % MCV (80.0-100.0) fL MCH (25.0-35.0) pg MCHC (31.0-37.0) g/dL RDW (11.5-15.5) % Plt Count (150-450) k/uL MPV Immature Gran % (Auto) % Absolute Nucleated RBC % Neutrophils % % Lymphocytes % % Monocytes % % Eosinophils % % Basophils % % Immature Gran # (0.00-0.04) X 10*3/uL Neutrophils # (1.3-7.7) k/uL Lymphocytes # (1.0-4.8) k/uL Monocytes # (0-1.0) k/uL Eosinophils # (0-0.7) k/uL Basophils # (0-0.2) k/uL NRBC/100 WBC Diff (0.00-0.01) X 10*3/uL Hypochromasia Anisocytosis Microcytosis PT (10.0-12.5) sec INR (<1.2) APTT (22.0-30.0) sec Sodium (137-145) mmol/L Potassium (3.5-5.1) mmol/L Chloride (98-107) mmol/L Carbon Dioxide (22-30) mmol/L Anion Gap mmol/L BUN (9-20) mg/dL Creatinine 0.64 L (0.66-1.25) mg/dL Est GFR (CKD-EPI) (>=60) Est GFR (CKD-EPI)AfAm >90 (>60 ml/min/1.73 sqM) Est GFR (CKD-EPI)NonAf >90 (>60 ml/min/1.73 sqM) BUN/Creatinine Ratio (12.00-20.00) Ratio Glucose (74-99) mg/dL Plasma Lactic Acid Kyree (0.7-2.0) mmol/L Calcium (8.4-10.2) mg/dL Phosphorus (2.5-4.5) mg/dL Magnesium (1.6-2.3) mg/dL Total Bilirubin (0.2-1.3) mg/dL AST (17-59) U/L ALT (4-49) U/L Alkaline Phosphatase (38-126) U/L Troponin I (0.000-0.034) ng/mL NT-Pro-B Natriuret Pep pg/mL Total Protein (6.3-8.2) g/dL Albumin (3.5-5.0) g/dL Globulin (1.6-3.3) g/dL Albumin/Globulin Ratio (1.60-3.17) Ratio Carcinoembryonic Ag (0.0-4.9) ng/mL Urine Color Light Brown Urine Appearance Turbid (Clear) Urine pH 7.0 (5.0-8.0) Ur Specific [place] 1.017 (1.001-1.035) Urine Protein 2+ H (Negative) Urine Glucose (UA) Negative (Negative) Urine Ketones Negative (Negative) Urine Blood Large H (Negative) Urine Nitrite Negative (Negative) Urine Bilirubin Negative (Negative) Urine Urobilinogen <2.0 (<2.0) mg/dL Ur Leukocyte Esterase Large H (Negative) Urine RBC >182 H (0-5) /hpf Urine WBC >182 H (0-5) /hpf Ur Squamous Epith Cells (0-4) /hpf Hyaline Casts (0-2) /lpf Urine Mucus (None) /hpf - EKG Data -: EKG Interpreted by Me (EKG is A-fib 81 QRS 161 QTc 462) - Radiology Data Radiology results: report reviewed (X-rays negative for acute disease), image reviewed Disposition Clinical Impression: Morbidly obese, Fever, Postoperative infection Disposition: ADMITTED IP TO THIS HOSP Condition: Fair Is patient prescribed a controlled substance at d/c from ED?: No Time of Disposition: 17:50
--- NOTE | 2024-07-05 16:37 | XR ---
EXAMINATION TYPE: XR chest 2V DATE OF EXAM: 07/05/2024 COMPARISON: 04/04/2012 INDICATION: Weakness infection TECHNIQUE: Frontal and lateral views of the chest are obtained. FINDINGS: The heart size is overlying prominent. The pulmonary vasculature is normal. The lungs are clear. IMPRESSION: 1. No acute pulmonary process. 2. Mild cardiomegaly [facility], , 07/05/2024 4:35 PM
[2024-07-05 16:39] LABS: Anisocytosis Moderate; Basophils % (A) 0 %; Eosinophils % (A) 0 %; HCT 31.8 % (39.0-53.0); Hypochromasia Slight; Lymphocytes # (A) 0.6 k/uL (1.0-4.8); Lymphocytes % (A) 9 %; MCH 24.3 pg (25.0-35.0); MCHC 31.3 g/dL (31.0-37.0); MCV 77.4 fL (80.0-100.0); Mean Platelet Volume 6.9; Microcytosis Moderate; Monocytes # (A) 0.5 k/uL (0-1.0); Monocytes % (A) 8 %; Neutrophils % (A) 81 %; Platelet Count 262 k/uL (150-450); RDW 21.5 % (11.5-15.5); WBC 6.2 k/uL (3.8-10.6)
[2024-07-05 16:51] LABS: INR 1.1 (<1.2); Partial Thromboplastin Time 23.5 sec (22.0-30.0); Prothrombin Time 11.9 sec (10.0-12.5)
[2024-07-05 16:53] LABS: ALT 15 U/L (4-49); AST 24 U/L (17-59); African American GFR (CKD) >90 (>60 ml/min/1.73 sqM); Albumin 2.9 g/dL (3.5-5.0); Alkaline Phosphatase 82 U/L (38-126); Anion Gap 6 mmol/L; Blood Urea Nitrogen 10 mg/dL (9-20); Calcium 8.4 mg/dL (8.4-10.2); Carbon Dioxide 25 mmol/L (22-30); Chloride 101 mmol/L (98-107); Glucose 85 mg/dL (74-99); Magnesium 1.7 mg/dL (1.6-2.3); Non-African American GFR(CKD) 87 (>60 ml/min/1.73 sqM); Phosphorus 3.1 mg/dL (2.5-4.5); Potassium 4.4 mmol/L (3.5-5.1); Sodium 132 mmol/L (137-145); Total Bilirubin 0.5 mg/dL (0.2-1.3); Total Protein 5.9 g/dL (6.3-8.2)
[2024-07-05 16:59] LABS: NT-Pro-B-Type Natriuretic Pept 2460 pg/mL
[2024-07-05] MEDS: IBUPROFEN 800 MG TAB PO STA (17:20)
[2024-07-05] MEDS: ACETAMINOPHEN TAB 500 MG TAB PO STA (17:20)
[2024-07-05] MEDS ORDERED: VANCOMYCIN IV PER PHARMACY 1 EACH MISC MISCELLANE PRN (17:55)
[2024-07-05] MEDS ORDERED: NALOXONE 0.4 MG/ML 1 ML VIAL IV PRN (17:56)
[2024-07-05] MEDS ORDERED: ONDANSETRON 4 MG/2 ML VIAL IVP PRN (17:56)
[2024-07-05] MEDS ORDERED: MORPHINE SULFATE 4 MG/ML SYRINGE IV PRN (17:56)
[2024-07-05] MEDS: AMPICILLIN-SULBACTAM 3 GM in SODIUM CHLORIDE 0.9% 100 ML IVPB STA (18:39)
[2024-07-05] MEDS: SODIUM CHLORIDE 0.9% 1,000 ML IV SCH (18:40)
[2024-07-05] MEDS: VANCOMYCIN 1,750 MG in SODIUM CHLORIDE 0.9% 500 ML 500 ML IVPB ONE (19:44)
[2024-07-05 22:10] LABS: Appearance,Urine Clear (Clear); Bilirubin,Urine Negative (Negative); Blood,Urine Negative (Negative); Color,Urine Yellow; Glucose,Urine (UA) Negative (Negative); Hyaline Casts,Urine 2 /lpf (0-2); Ketones,Urine Negative (Negative); Leukocyte Esterase,Urine Small (Negative); Mucus,Urine Rare /hpf; Nitrite,Urine Negative (Negative); Protein,Urine Trace (Negative); RBC,Urine 5 /hpf (0-5); Specific Gravity,Urine 1.016 (1.001-1.035); Squamous Epithelial Cell,Urine <1 /hpf (0-4); Urobilinogen,Urine <2.0 mg/dL (<2.0); WBC,Urine 5 /hpf (0-5)
[2024-07-06] MEDS: AMPICILLIN-SULBACTAM 3 GM in SODIUM CHLORIDE 0.9% 100 ML IVPB SCH (00:23)
[2024-07-06] MEDS: APIXABAN 5 MG TAB PO SCH (08:19)
[2024-07-06] MEDS: FERROUS SULFATE 325 MG TAB PO SCH (08:19)
[2024-07-06] MEDS ORDERED: FUROSEMIDE 20 MG TAB PO SCH (09:00)
[2024-07-06] MEDS ORDERED: DILTIAZEM HCL 120 MG PO SCH (09:00)
--- NOTE | 2024-07-06 09:24 | P.HPIM ---
History of Present Illness H&P Date: 07/06/24 79 year old M with PMH atrial fibrillation (on Eliquis), hypertension that presents to the ED with concerns for fever and infected surgical site. 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 Patient reports zev removed recently and he has experienced some discharge from the surgical site site. He also reports chills. He was hospitalized from 06/08-06/21. In the ED he underwent evaluation. BP 104/63, HR 78, T 99.2F, RR 18, 98% on RA. CBC, Coag panel, CMP signifcant for RBC 4.1, Hg 10, Hct 31.8, MCV 77.4, Na 132, alb 2.9. Lactic acid 1.4. Troponin < 0.012. BNP 2460. Mag 1.7. UA small LE. EKG showed AFib with PVCs similar to previous EKGs. CXR showed no acute process. Patient was started on Vancomycin and Unasyn by the ER provider, given a 1L NS bolus and admitted for further workup and evaluation. General: non toxic, no distress, appears at stated age Derm: warm, dry Head: atraumatic, normocephalic, symmetric Eyes: EOMI, no lid lag, anicteric sclera Mouth: no lip lesion, mucus membranes moist Cardiovascular: S1S2 reg, no murmur Lungs: Clear to auscultation bilaterally, no rhonchi, no rales , no accessory muscle use Abd: Non distended. Non tender to palpation, Surgical scar intact no significant erythema with serousanguinous drainage about the umbillicus, colostomy intact. Ext: no gross muscle atrophy, no edema, no contractures Neuro: no focal neuro deficits Psych: Alert, oriented, appropriate affect Based on my assessment of this patient, this patient meets a high complexity level of care. Low grade fever: Surgery consulted to evaluate sugical site. Does not meet sepsis criteria. Started on Vancomycin dosed per pharmacy and Unasyn 3g IV TID by ER provider. BCx collected. Microcytic anemia: Previous Fe studies shows Fe 37, B12 191, Folate 4.8. Restart ferrous sulfate 325 mg PO QD. Cyanocobalamin 1000 mcg IM x 1. Hypotension: Borderline hypotensive. Hold Cardizem, Lasix, Aldactone. Atrial fibrillation: Rate controlled. Eliquis 5 mg PO BID for AC. Hold Cardizem as above. Abnormal UA: No urinary symptoms. CODE STATUS: FULL CODE DVT Prophylaxis: Eliquis GI Prophylaxis: Designated medical POA if patient is not able to make medical decisions for themselves: Dispo: Home when surgery cleared. I have reviewed the following computer systems consultant notes: ER note. I have reviewed the results of the following tests: As above. I have ordered the following tests: As above. I have discussed the care of this patient with the following independent historian: I have independently interpreted the following test below: EKG. I have discussed the management of this patient with the following physician: Past Medical History Past Medical History: Atrial Fibrillation, Hypertension Additional Past Medical History / Comment(s): sinusitis, Chornic LE edema History of Any Multi-Drug Resistant Organisms: None Reported Past Surgical History: Orthopedic Surgery, Tonsillectomy Additional Past Surgical History / Comment(s): bowel resection, ostomy Past Anesthesia/Blood Transfusion Reactions: No Reported Reaction Past Psychological History: No Psychological Hx Reported Smoking Status: Former smoker Past Alcohol Use History: None Reported Past Drug Use History: None Reported - Past Family History Father Family Medical History: No Reported History Mother Family Medical History: Asthma, COPD Medications and Allergies Home Medications Medication Instructions Recorded Confirmed Type Apixaban [Eliquis] 5 mg PO BID 11/23/23 07/05/24 History Ergocalciferol [Vitamin D2 (1250 1,250 mcg PO MARTINO 11/23/23 07/05/24 History Mcg = 13678 Iu)] Fluticasone Nasal Rogers [Flonase 1 spr EA NOSTRIL BID 11/23/23 07/05/24 History Nasal Rogers] Furosemide [Lasix] 20 mg PO DAILY 11/23/23 07/05/24 History Spironolactone [Aldactone] 25 mg PO DAILY 11/23/23 07/05/24 History dilTIAZem HCL [Tiazac] 120 mg PO DAILY 06/08/24 07/05/24 History Sulfamethox-Tmp 800-160Mg [Bactrim 1 tab PO Q12HR 10 Days #20 tab 06/21/24 07/05/24 Rx DS 800-160 mg] Ferrous Sulfate [Feosol] 325 mg PO DAILY 07/05/24 07/05/24 History Multivitamins, Thera [Multivitamin 1 tab PO DAILY 07/05/24 07/05/24 History (formulary)] Allergies Allergy/AdvReac Type Severity Reaction Status Date / Time No Known Allergies Allergy Verified 07/05/24 17:30 Physical Exam Vitals: Vital Signs Temp Pulse Pulse Resp BP BP Pulse Ox 07/06/24 01:44 98 F 78 16 98/64 100 07/05/24 21:40 97.9 F 57 L 18 98/60 97 07/05/24 21:00 58 L 18 100/60 98 07/05/24 18:41 99.2 F 72 18 93/54 95 07/05/24 15:25 99.2 F 78 18 104/63 98 Intake and Output 07/05/24 07/06/24 07/06/24 22:59 06:59 14:59 Other: Voiding Method Toilet Bedside Commode # Voids 3 Weight 121.563 kg Results CBC & Chem 7: 07/05/24 16:15 07/05/24 16:15 Labs: Abnormal Lab Results - Last 24 Hours (Table) 07/05/24 07/05/24 07/05/24 Range/Units 16:15 16:15 21:28 RBC 4.10 L (4.30-5.90) m/uL Hgb 10.0 L (13.0-17.5) gm/dL Hct 31.8 L (39.0-53.0) % MCV 77.4 L (80.0-100.0) fL MCH 24.3 L (25.0-35.0) pg RDW 21.5 H (11.5-15.5) % Lymphocytes # 0.6 L (1.0-4.8) k/uL Sodium 132 L (137-145) mmol/L Total Protein 5.9 L (6.3-8.2) g/dL Albumin 2.9 L (3.5-5.0) g/dL Urine Protein Trace H (Negative) Ur Leukocyte Esterase Small H (Negative) Urine Mucus Rare H (None) /hpf Thrombosis Risk Factor Assmnt - Choose All That Apply Each Factor Represents 1 point: History of prior major surgery (<1month), Obesity (BMI >25) Other Risk Factors: Yes Each Risk Factor Represents 3 Points: Age 75 years or older Thrombosis Risk Factor Assessment Total Risk Factor Score: 5 Thrombosis Risk Factor Assessment Level: High Risk
[2024-07-06] MEDS: VANCOMYCIN 1,750 MG in SODIUM CHLORIDE 0.9% 500 ML 500 ML IVPB SCH (09:37)
[2024-07-06] MEDS: CYANOCOBALAMIN 1,000 MCG/ML 1 ML VIAL IM ONE (10:14)
[2024-07-06 11:00] LABS: Basophils # (A) 0.02 X 10*3/uL (0.00-0.10); Basophils % (A) 0.4 %; Eosinophils # (A) 0.12 X 10*3/uL (0.04-0.35); Eosinophils % (A) 2.2 %; HGB 9.7 g/dL (13.0-17.0); Lymphocytes # (A) 0.93 X 10*3/uL (0.90-5.00); Lymphocytes % (A) 17.1 %; MCH 24.1 pg (27.0-32.0); MCHC 30.3 g/dL (32.0-37.0); MCV 79.4 FL (80.0-97.0); Mean Platelet Volume 10.2 FL (9.5-12.2); Monocytes % (A) 12.9 %; NRBC Per 100 WBC 0 X 10*3/uL (0.00-0.01); Neutrophils # (A) 3.64 X 10*3/uL (1.80-7.70); Platelet Count 250 X 10*3/uL (140-440); RBC 4.03 X 10*6/uL (4.40-5.60); RDW 24.6 % (11.5-14.5); WBC 5.43 X 10*3/uL (4.50-10.00)
[2024-07-06 11:47] LABS: ALT 13 U/L (10-49); AST 21 U/L (14-35); Albumin/Globulin Ratio 1.15 Ratio (1.60-3.17); Alkaline Phosphatase 84 U/L (41-126); Blood Urea Nitrogen 9.2 mg/dL (9.0-27.0); Calcium 8.2 mg/dL (8.7-10.3); Carbon Dioxide 24.9 mmol/L (21.6-31.8); Chloride 104 mmol/L (96-109); Globulin 2.6 g/dL (1.6-3.3); Glucose 81 mg/dL (70-110); Phosphorus 3.7 mg/dL (2.4-5.1); Potassium 4.2 mmol/L (3.5-5.5); Sodium 137 mmol/L (135-145); Total Bilirubin 0.3 mg/dL (0.3-1.2); Total Protein 5.6 g/dL (6.2-8.2)
--- NOTE | 2024-07-06 14:05 | P.GSCN ---
History of Present Illness Consult date: 07/06/24 History of present illness: CHIEF COMPLAINT: Drainage from incision site HISTORY OF PRESENT ILLNESS: This is a 79-year-old male who presented the hospital because the home care nurse was concerned of the drainage from the surgical site. Patient did have a fever at home of 101. He also complains of being weak. He has been afebrile here white count normal 6.2. He reports overall feeling okay. Denies any abdominal pain. Ostomy is functioning. He denies any nausea or vomiting. He is tolerating diet. Patient is status post diverting colostomy for near obstructing colon mass on 06/13/2024. 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 Patient seen and examined with Dr. Pool PAST MEDICAL HISTORY: Atrial Fibrillation, Hypertension PAST SURGICAL HISTORY: Diverting colostomy for obstructing colon mass MEDICATIONS: See below ALLERGIES: See below SOCIAL HISTORY: No illicit drug use. REVIEW OF SYSTEMS: CONSTITUTIONAL: Denies fever or chills. HEENT: Denies blurred vision, vision changes, or eye pain. Denies hemoptysis CARDIOVASCULAR: Denies chest pain or pressure. RESPIRATORY: No shortness of breath. GASTROINTESTINAL: See HPI for pertinent findings HEMATOLOGIC: Denies bleeding disorders. GENITOURINARY: Denies any blood in urine or increased urinary frequency. SKIN: Denies pruitis. Denies rash. PHYSICAL EXAM: VITAL SIGNS: Reviewed GENERAL: Well-developed in no acute distress. HEENT: No sclera icterus. Extraocular movements grossly intact. Moist buccal mucosa. Head is atraumatic, normocephalic. No nasal drainage. ABDOMEN: Soft. Obese. Nondistended. Nontender. Midline incision is healing. There is a clearish drainage from the proximal portion of the incision. No evidence of erythema. Noted retention sutures have eroded through the stomach lining and are intact. NEUROLOGIC: Alert and oriented. Cranial nerves II through XII grossly intact. LABORATORY DATA: WBC 5.43 Hgb 9.7 platelets 250 Sodium 137 potassium 4.2 creatinine 0.8 Lactic acid 1.4 Total bili 0.3 AST 21 ALT 13 alk phos 84 IMAGING: Chest x-ray no acute pulmonary process ASSESSMENT: 1. Drainage from incision site 2. Status post diverting colostomy for near obstructing colon mass on 06/13/2024 PLAN: -Patient seen and examined with Dr. Pool. He did not feel that there was an infection at the incision site. -Advance diet to regular -Check CEA level -No surgical intervention planned -Okay to resume Eliquis -Patient can shower and wash incision Physician Psychometrist note has been reviewed by physician. Signing provider agrees with the documented findings, assessment, and plan of care. Past Medical History Past Medical History: Atrial Fibrillation, Hypertension Additional Past Medical History / Comment(s): sinusitis, Chornic LE edema History of Any Multi-Drug Resistant Organisms: None Reported Past Surgical History: Orthopedic Surgery, Tonsillectomy Additional Past Surgical History / Comment(s): bowel resection, ostomy Past Anesthesia/Blood Transfusion Reactions: No Reported Reaction Past Psychological History: No Psychological Hx Reported Smoking Status: Former smoker Past Alcohol Use History: None Reported Past Drug Use History: None Reported - Past Family History Father Family Medical History: No Reported History Mother Family Medical History: Asthma, COPD Medications and Allergies Home Medications Medication Instructions Recorded Confirmed Type Apixaban [Eliquis] 5 mg PO BID 11/23/23 07/05/24 History Ergocalciferol [Vitamin D2 (1250 1,250 mcg PO MARTINO 11/23/23 07/05/24 History Mcg = 77455 Iu)] Fluticasone Nasal Raymond [Flonase 1 spr EA NOSTRIL BID 11/23/23 07/05/24 History Nasal Raymond] Furosemide [Lasix] 20 mg PO DAILY 11/23/23 07/05/24 History Spironolactone [Aldactone] 25 mg PO DAILY 11/23/23 07/05/24 History dilTIAZem HCL [Tiazac] 120 mg PO DAILY 06/08/24 07/05/24 History Sulfamethox-Tmp 800-160Mg [Bactrim 1 tab PO Q12HR 10 Days #20 tab 06/21/24 07/05/24 Rx DS 800-160 mg] Ferrous Sulfate [Feosol] 325 mg PO DAILY 07/05/24 07/05/24 History Multivitamins, Thera [Multivitamin 1 tab PO DAILY 07/05/24 07/05/24 History (formulary)] Allergies Allergy/AdvReac Type Severity Reaction Status Date / Time No Known Allergies Allergy Verified 07/05/24 17:30 Surgical - Exam Vital Signs Temp Pulse Resp BP Pulse Ox 99.2 F 78 18 104/63 98 07/05/24 15:25 07/05/24 15:25 07/05/24 15:25 07/05/24 15:25 07/05/24 15:25 Results - Labs 07/06/24 03:54 07/06/24 03:54 Abnormal Lab Results - Last 24 Hours (Table) 07/05/24 07/05/24 07/05/24 Range/Units 16:15 16:15 21:28 RBC 4.10 L (4.30-5.90) m/uL Hgb 10.0 L (13.0-17.5) gm/dL Hct 31.8 L (39.0-53.0) % MCV 77.4 L (80.0-100.0) fL MCH 24.3 L (25.0-35.0) pg RDW 21.5 H (11.5-15.5) % Lymphocytes # 0.6 L (1.0-4.8) k/uL Sodium 132 L (137-145) mmol/L Total Protein 5.9 L (6.3-8.2) g/dL Albumin 2.9 L (3.5-5.0) g/dL Urine Protein Trace H (Negative) Ur Leukocyte Esterase Small H (Negative) Urine Mucus Rare H (None) /hpf Diabetes panel 07/05/24 Range/Units 16:15 Sodium 132 L (137-145) mmol/L Potassium 4.4 (3.5-5.1) mmol/L Chloride 101 (98-107) mmol/L Carbon Dioxide 25 (22-30) mmol/L BUN 10 (9-20) mg/dL Creatinine 0.76 (0.66-1.25) mg/dL Glucose 85 (74-99) mg/dL Calcium 8.4 (8.4-10.2) mg/dL AST 24 (17-59) U/L ALT 15 (4-49) U/L Alkaline Phosphatase 82 (38-126) U/L Total Protein 5.9 L (6.3-8.2) g/dL Albumin 2.9 L (3.5-5.0) g/dL Calcium panel 07/05/24 Range/Units 16:15 Calcium 8.4 (8.4-10.2) mg/dL Phosphorus 3.1 (2.5-4.5) mg/dL Albumin 2.9 L (3.5-5.0) g/dL Pituitary panel 07/05/24 Range/Units 16:15 Sodium 132 L (137-145) mmol/L Potassium 4.4 (3.5-5.1) mmol/L Chloride 101 (98-107) mmol/L Carbon Dioxide 25 (22-30) mmol/L BUN 10 (9-20) mg/dL Creatinine 0.76 (0.66-1.25) mg/dL Glucose 85 (74-99) mg/dL Calcium 8.4 (8.4-10.2) mg/dL Adrenal panel 07/05/24 Range/Units 16:15 Sodium 132 L (137-145) mmol/L Potassium 4.4 (3.5-5.1) mmol/L Chloride 101 (98-107) mmol/L Carbon Dioxide 25 (22-30) mmol/L BUN 10 (9-20) mg/dL Creatinine 0.76 (0.66-1.25) mg/dL Glucose 85 (74-99) mg/dL Calcium 8.4 (8.4-10.2) mg/dL Total Bilirubin 0.5 (0.2-1.3) mg/dL AST 24 (17-59) U/L ALT 15 (4-49) U/L Alkaline Phosphatase 82 (38-126) U/L Total Protein 5.9 L (6.3-8.2) g/dL Albumin 2.9 L (3.5-5.0) g/dL
[2024-07-06 14:47] LABS: Appearance,Urine Turbid (Clear); Bilirubin,Urine Negative (Negative); Blood,Urine Large (Negative); Color,Urine Light Brown; Glucose,Urine (UA) Negative (Negative); Ketones,Urine Negative (Negative); Leukocyte Esterase,Urine Large (Negative); Nitrite,Urine Negative (Negative); Protein,Urine 2+ (Negative); RBC,Urine >182 /hpf (0-5); Specific Gravity,Urine 1.017 (1.001-1.035); Urobilinogen,Urine <2.0 mg/dL (<2.0); WBC,Urine >182 /hpf (0-5)
[2024-07-07 07:32] LABS: African American GFR (CKD) >90 (>60 ml/min/1.73 sqM); Non-African American GFR(CKD) >90 (>60 ml/min/1.73 sqM)
--- NOTE | 2024-07-07 09:37 | P.PN ---
Subjective Progress Note Date: 07/07/24 Patient states he feels tired. He had a bloody bowel movement from his rectum overnight. His colostomy is functioning normally. On exam vital signs appear stable. Abdomen is soft. Incisions clean dry i ntact. There is a small mount of drainage where the suture knot has eroded through the skin. There is no sign of obvious infection. Patient's CEA is elevated at 5.8. Patient may undergo endoscopic exam of his rectal stump on Tuesday. Objective - Vital Signs Vital signs: Vital Signs Temp 98 F 07/07/24 07:30 Pulse 63 07/07/24 07:30 Resp 17 07/07/24 07:30 BP 96/55 07/07/24 07:30 Pulse Ox 98 07/07/24 07:30 FiO2 Intake & Output 07/06/24 07/07/24 07/07/24 18:59 06:59 18:59 Intake Total 1080 950 Balance 1080 950 Intake: Intake, IV Titration 950 Amount Ampicillin-Sulbactam 3 gm 200 In Sodium Chloride 0.9% 100 ml @ 200 mls/hr IVPB Q8HR REAL Rx#:[id number] Sodium Chloride 0.9% 1, 250 000 ml @ 75 mls/hr IV . [id number] REAL Rx#:[id number] Vancomycin 1,750 mg In 500 Sodium Chloride 0.9% 500 ml 500 ml @ 167 mls/hr IVPB Q16H REAL Rx#: [id number] Oral 1080 Other: Voiding Method Toilet Toilet Bedside Commode Bedside Commode Urinal # Voids 1 1 # Bowel Movements 1 - Labs CBC & Chem 7: 07/06/24 03:54 07/07/24 06:20 Labs: Abnormal Lab Results - Last 24 Hours (Table) 07/06/24 07/06/24 07/06/24 Range/Units 03:54 03:54 03:54 RBC 4.03 L (4.40-5.60) X 10*6/uL Hgb 9.7 L (13.0-17.0) g/dL Hct 32.0 L (39.6-50.0) % MCV 79.4 L (80.0-97.0) FL MCH 24.1 L (27.0-32.0) pg MCHC 30.3 L (32.0-37.0) g/dL RDW 24.6 H (11.5-14.5) % Creatinine (0.66-1.25) mg/dL BUN/Creatinine Ratio 11.50 L (12.00-20.00) Ratio Calcium 8.2 L (8.7-10.3) mg/dL Total Protein 5.6 L (6.2-8.2) g/dL Albumin 3.0 L (3.8-4.9) g/dL Albumin/Globulin Ratio 1.15 L (1.60-3.17) Ratio Carcinoembryonic Ag 5.8 H (0.0-4.9) ng/mL Urine Protein (Negative) Urine Blood (Negative) Ur Leukocyte Esterase (Negative) Urine RBC (0-5) /hpf Urine WBC (0-5) /hpf 07/06/24 07/07/24 Range/Units 11:56 06:20 RBC (4.40-5.60) X 10*6/uL Hgb (13.0-17.0) g/dL Hct (39.6-50.0) % MCV (80.0-97.0) FL MCH (27.0-32.0) pg MCHC (32.0-37.0) g/dL RDW (11.5-14.5) % Creatinine 0.64 L (0.66-1.25) mg/dL BUN/Creatinine Ratio (12.00-20.00) Ratio Calcium (8.7-10.3) mg/dL Total Protein (6.2-8.2) g/dL Albumin (3.8-4.9) g/dL Albumin/Globulin Ratio (1.60-3.17) Ratio Carcinoembryonic Ag (0.0-4.9) ng/mL Urine Protein 2+ H (Negative) Urine Blood Large H (Negative) Ur Leukocyte Esterase Large H (Negative) Urine RBC >182 H (0-5) /hpf Urine WBC >182 H (0-5) /hpf Microbiology - Last 24 Hours (Table) 07/05/24 16:15 Blood Culture - Preliminary Blood
--- NOTE | 2024-07-07 11:11 | P.PN ---
Subjective Progress Note Date: 07/07/24 79 year old M with PMH atrial fibrillation (on Eliquis), hypertension that presents to the ED with concerns for fever and infected surgical site. 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 Patient reports zev removed recently and he has experienced some discharge from the surgical site site. He also reports chills. He was hospitalized from 06/08-06/21. In the ED he underwent evaluation. BP 104/63, HR 78, T 99.2F, RR 18, 98% on RA. CBC, Coag panel, CMP signifcant for RBC 4.1, Hg 10, Hct 31.8, MCV 77.4, Na 132, alb 2.9. Lactic acid 1.4. Troponin < 0.012. BNP 2460. Mag 1.7. UA small LE. EKG showed AFib with PVCs similar to previous EKGs. CXR showed no acut e process. Patient was started on Vancomycin and Unasyn by the ER provider, given a 1L NS bolus and admitted for further workup and evaluation. 07/07 Patient was seen and examined. Reports a bloody bowel movement last night. Eliquis has been placed on hold. CEA 5.8. Renal function Cr 0.64. Surgery r ecommends endoscopic evaluation of the rectal stump on Tuesday. BCx + staph epidermidis. Currently maintained on Vancomycin and Unasyn. General: non toxic, no distress, appears at stated age Derm: warm, dry Head: atraumatic, normocephalic, symmetric Eyes: EOMI, no lid lag, anicteric sclera Mouth: no lip lesion, mucus membranes moist Cardiovascular: S1S2 reg, no murmur Lungs: Clear to auscultation bilaterally, no rhonchi, no rales , no accessory muscle use Abd: Non distended. Non tender to palpation, Surgical scar intact no significant erythema with serousanguinous drainage about the umbillicus, colostomy intact. Ext: no gross muscle atrophy, no edema, no contractures Neuro: no focal neuro deficits Psych: Alert, oriented, appropriate affect Based on my assessment of this patient, this patient meets a high complexity level of care. Gram positive bacteremia: Possibly contaminant. I will stop Unasyn and continue Vancomycin dosed per pharmacy. Monitor renal function while on Vancomycin. Repeat BCx ordered. Hematochezia: Surgery plans for endoscopic evaluation on Tuesday. Monitor Hg and transfuse if Hg < 7. Hold Eliquis for now. Microcytic anemia: Previous Fe studies shows Fe 37, B12 191, Folate 4.8. Restart ferrous sulfate 325 mg PO QD. Cyanocobalamin 1000 mcg PO QD. Hypotension: Borderline hypotensive. Hold Cardizem, Lasix, Aldactone. Atrial fibrillation: Rate controlled. Hold Eliquis as above. Hold Cardizem as above. Abnormal UA: No urinary symptoms. CODE STATUS: FULL CODE DVT Prophylaxis: SCD GI Prophylaxis: Designated medical POA if patient is not able to make medical decisions for themselves: Dispo: Home when surgery cleared. I have reviewed the following group segment consultant notes: Surgery. I have reviewed the results of the following tests: CEA, renal function, BCx. I have ordered the following tests: CBC, BMP, Vanc trough. I have discussed the care of this patient with the following independent historian: , RN. I have independently interpreted the following test below: I have discussed the management of this patient with the following physician: Objective - Vital Signs Vital signs: Vital Signs Temp 98 F 07/07/24 07:30 Pulse 63 07/07/24 07:30 Resp 17 07/07/24 07:30 BP 96/55 07/07/24 07:30 Pulse Ox 98 07/07/24 07:30 FiO2 Intake & Output 07/06/24 07/07/24 07/07/24 18:59 06:59 18:59 Intake Total 1080 950 120 Balance 1080 950 120 Intake: Intake, IV Titration 950 Amount Ampicillin-Sulbactam 3 gm 200 In Sodium Chloride 0.9% 100 ml @ 200 mls/hr IVPB Q8HR REAL Rx#:[id number] Sodium Chloride 0.9% 1, 250 000 ml @ 75 mls/hr IV . [id number] REAL Rx#:[id number] Vancomycin 1,750 mg In 500 Sodium Chloride 0.9% 500 ml 500 ml @ 167 mls/hr IVPB Q16H REAL Rx#: [id number] Oral 1080 120 Other: Voiding Method Toilet Toilet Bedside Commode Bedside Commode Urinal # Voids 1 1 # Bowel Movements 1 - Labs CBC & Chem 7: 07/06/24 03:54 07/07/24 06:20 Labs: Abnormal Lab Results - Last 24 Hours (Table) 07/06/24 07/06/24 07/06/24 Range/Units 03:54 03:54 11:56 Creatinine (0.66-1.25) mg/dL BUN/Creatinine Ratio 11.50 L (12.00-20.00) Ratio Calcium 8.2 L (8.7-10.3) mg/dL Total Protein 5.6 L (6.2-8.2) g/dL Albumin 3.0 L (3.8-4.9) g/dL Albumin/Globulin Ratio 1.15 L (1.60-3.17) Ratio Carcinoembryonic Ag 5.8 H (0.0-4.9) ng/mL Urine Protein 2+ H (Negative) Urine Blood Large H (Negative) Ur Leukocyte Esterase Large H (Negative) Urine RBC >182 H (0-5) /hpf Urine WBC >182 H (0-5) /hpf 07/07/24 Range/Units 06:20 Creatinine 0.64 L (0.66-1.25) mg/dL BUN/Creatinine Ratio (12.00-20.00) Ratio Calcium (8.7-10.3) mg/dL Total Protein (6.2-8.2) g/dL Albumin (3.8-4.9) g/dL Albumin/Globulin Ratio (1.60-3.17) Ratio Carcinoembryonic Ag (0.0-4.9) ng/mL Urine Protein (Negative) Urine Blood (Negative) Ur Leukocyte Esterase (Negative) Urine RBC (0-5) /hpf Urine WBC (0-5) /hpf Microbiology - Last 24 Hours (Table) 07/05/24 16:15 Blood Culture Gram Stain - Preliminary Blood Blood Culture - Preliminary Molecular ID
[2024-07-07] MEDS: CYANOCOBALAMIN 500 MCG TAB PO SCH (12:43)
[2024-07-08 09:09] LABS: African American GFR (CKD) >90 (>60 ml/min/1.73 sqM); Non-African American GFR(CKD) >90 (>60 ml/min/1.73 sqM)
--- NOTE | 2024-07-08 09:31 | P.PN ---
Subjective Progress Note Date: 07/08/24 Patient feels better today. He denies any abdominal pain. He has had decreased rectal bleeding. On exam vital signs were stable. Abdomen soft. Patient was started on vancomycin due to a positive blood culture. This may be contamination. His CEA is elevated at 5.8. 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 He will undergo sigmoidoscopy tomorrow. Objective - Vital Signs Vital signs: Vital Signs Temp 98.0 F 07/08/24 07:14 Pulse 93 07/08/24 07:14 Resp 18 07/08/24 07:14 BP 113/75 07/08/24 07:14 Pulse Ox 95 07/08/24 07:14 FiO2 Intake & Output 07/07/24 07/08/24 07/08/24 18:59 06:59 18:59 Intake Total 2300 Balance 2300 Intake: Intake, IV Titration 1400 Amount Sodium Chloride 0.9% 1, 900 000 ml @ 75 mls/hr IV . [id number] REAL Rx#:[id number] Vancomycin 1,750 mg In 500 Sodium Chloride 0.9% 500 ml 500 ml @ 167 mls/hr IVPB Q16H REAL Rx#: [id number] Oral 900 Other: Voiding Method Toilet Toilet Bedside Commode Bedside Commode Urinal # Voids 2 1 - Labs CBC & Chem 7: 07/06/24 03:54 07/08/24 07:22 Labs: Abnormal Lab Results - Last 24 Hours (Table) 07/08/24 Range/Units 07:22 Creatinine 0.60 L (0.66-1.25) mg/dL Microbiology - Last 24 Hours (Table) 07/05/24 16:15 Blood Culture Gram Stain - Preliminary Blood Blood Culture - Preliminary Molecular ID
[2024-07-08] MEDS: VANCOMYCIN TROUGH DUE 1 EACH MISC MISCELLANE ONE (10:01)
[2024-07-08 10:39] LABS: Anisocytosis Moderate; HCT 30.8 % (39.0-53.0); HGB 9.4 gm/dL (13.0-17.5); Hypochromasia Marked; MCH 23.9 pg (25.0-35.0); MCHC 30.3 g/dL (31.0-37.0); MCV 78.8 fL (80.0-100.0); Mean Platelet Volume 7.4; Microcytosis Moderate; Platelet Count 240 k/uL (150-450); RBC 3.92 m/uL (4.30-5.90); RDW 21.3 % (11.5-15.5); WBC 3.8 k/uL (3.8-10.6)
--- NOTE | 2024-07-08 11:32 | P.PN ---
Subjective Progress Note Date: 07/08/24 79 year old M with PMH atrial fibrillation (on Eliquis), hypertension that presents to the ED with concerns for fever and infected surgical site. 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 Patient reports zev removed recently and he has experienced some discharge from the surgical site site. He also reports chills. He was hospitalized from 06/08-06/21. In the ED he underwent evaluation. BP 104/63, HR 78, T 99.2F, RR 18, 98% on RA. CBC, Coag panel, CMP signifcant for RBC 4.1, Hg 10, Hct 31.8, MCV 77.4, Na 132, alb 2.9. Lactic acid 1.4. Troponin < 0.012. BNP 2460. Mag 1.7. UA small LE. EKG showed AFib with PVCs similar to previous EKGs. CXR showed no acut e process. Patient was started on Vancomycin and Unasyn by the ER provider, given a 1L NS bolus and admitted for further workup and evaluation. Evaluated by Surgery, surgical site does not appear infected. Patient noted to have hematochezia, Eliquis discontinued, plans for endoscopic evaluation on Tuesday. BCx + staph epidemidis, maintained on Vancomycin and Unasyn discontinued. 07/08 Patient was seen and examined. Continue blood in stool. CBC RBC 3.92, Hg 9.4, Hct 30.8, MCV 78.8. Initial BCx + staph epidermidis, repeat BCx collected yesterday. Surgery recommends endoscopic evaluation of the rectal stump on Tuesday. Currently maintained on Vancomycin. General: non toxic, no distress, appears at stated age Derm: warm, dry Head: atraumatic, normocephalic, symmetric Eyes: EOMI, no lid lag, anicteric sclera Mouth: no lip lesion, mucus membranes moist Cardiovascular: S1S2 reg, no murmur Lungs: Clear to auscultation bilaterally, no rhonchi, no rales , no accessory muscle use Abd: Non distended. Non tender to palpation, Surgical scar intact no significant erythema with serousanguinous drainage about the umbillicus, colostomy intact. Ext: no gross muscle atrophy, no edema, no contractures Neuro: no focal neuro deficits Psych: Alert, oriented, appropriate affect Based on my assessment of this patient, this patient meets a high complexity level of care. Gram positive bacteremia: Possibly contaminant. Continue Vancomycin dosed per pharmacy. Monitor renal function while on Vancomycin. Repeat BCx ordered. Hematochezia: Surgery plans for endoscopic evaluation on Tuesday. Monitor Hg and transfuse if Hg < 7. Hold Eliquis for now. Microcytic anemia: Previous Fe studies shows Fe 37, B12 191, Folate 4.8. Restart ferrous sulfate 325 mg PO QD. Cyanocobalamin 1000 mcg PO QD. Hypotension: Borderline hypotensive. Hold Cardizem, Lasix, Aldactone. Atrial fibrillation: Rate controlled. Hold Eliquis as above. Hold Cardizem as above. Abnormal UA: No urinary symptoms. Likely sigmoid colon CA CODE STATUS: FULL CODE DVT Prophylaxis: SCD GI Prophylaxis: Designated medical POA if patient is not able to make medical decisions for themselves: Dispo: Home when surgery cleared. I have reviewed the following change consultant notes: Surgery. I have reviewed the results of the following tests: CBC, BCx. I have ordered the following tests: CBC, renal function, iron studies, repeat BCx. I have discussed the care of this patient with the following independent historian: RN. . I have independently interpreted the following test below: I have discussed the management of this patient with the following physician: Objective - Vital Signs Vital signs: Vital Signs Temp 98.0 F 07/08/24 07:14 Pulse 93 07/08/24 07:14 Resp 18 07/08/24 07:14 BP 113/75 07/08/24 07:14 Pulse Ox 95 07/08/24 07:14 FiO2 Intake & Output 07/07/24 07/08/24 07/08/24 18:59 06:59 18:59 Intake Total 2300 Balance 2300 Intake: Intake, IV Titration 1400 Amount Sodium Chloride 0.9% 1, 900 000 ml @ 75 mls/hr IV . [id number] [facility] Rx#:[id number] Vancomycin 1,750 mg In 500 Sodium Chloride 0.9% 500 ml 500 ml @ 167 mls/hr IVPB Q16H [facility] Rx#: [id number] Oral 900 Other: Voiding Method Toilet Toilet Bedside Commode Bedside Commode Urinal # Voids 2 1 - Labs CBC & Chem 7: 07/08/24 10:18 07/08/24 07:22 Labs: Microbiology - Last 24 Hours (Table) 07/05/24 16:15 Blood Culture Gram Stain - Preliminary Blood Blood Culture - Preliminary Molecular ID
[2024-07-09] MEDS: VANCOMYCIN 2,000 MG in SODIUM CHLORIDE 0.9% 500 ML 500 ML IVPB SCH (00:31)
--- NOTE | 2024-07-09 10:34 | P.PN ---
Subjective Progress Note Date: 07/09/24 79 year old M with PMH atrial fibrillation (on Eliquis), hypertension that presents to the ED with concerns for fever and infected surgical site. 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 Patient reports zev removed recently and he has experienced some discharge from the surgical site site. He also reports chills. He was hospitalized from 06/08-06/21. In the ED he underwent evaluation. BP 104/63, HR 78, T 99.2F, RR 18, 98% on RA. CBC, Coag panel, CMP signifcant for RBC 4.1, Hg 10, Hct 31.8, MCV 77.4, Na 132, alb 2.9. Lactic acid 1.4. Troponin < 0.012. BNP 2460. Mag 1.7. UA small LE. EKG showed AFib with PVCs similar to previous EKGs. CXR showed no acut e process. Patient was started on Vancomycin and Unasyn by the ER provider, given a 1L NS bolus and admitted for further workup and evaluation. Evaluated by Surgery, surgical site does not appear infected. Patient noted to have hematochezia, Eliquis discontinued, plans for endoscopic evaluation on 07/09. BCx + staph epidemidis, maintained on Vancomycin and Unasyn discontinued. 07/09 Patient was seen and examined. Continued blood in stool. Repeat BCx negative so far. Plans for endoscopic evaluation of the rectal stump today. Currently maintained on Vancomycin. General: non toxic, no distress, appears at stated age Derm: warm, dry Head: atraumatic, normocephalic, symmetric Eyes: EOMI, no lid lag, anicteric sclera Mouth: no lip lesion, mucus membranes moist Cardiovascular: good distal perfusion in all 4 extremities Lungs: breathing comfortably, no accessory muscle use Ext: no gross muscle atrophy, no edema, no contractures Neuro: no focal neuro deficits Psych: Alert, oriented, appropriate affect Based on my assessment of this patient, this patient meets a high complexity level of care. Gram positive bacteremia: Likely contaminant. Continue Vancomycin dosed per pharmacy. Monitor renal function while on Vancomycin. Repeat BCx negative so far. Hematochezia: Surgery plans for endoscopic evaluation today. Monitor Hg and transfuse if Hg < 7. Hold Eliquis for now. Microcytic anemia: Previous Fe studies shows Fe 37, B12 191, Folate 4.8. Ferrous sulfate 325 mg PO QD. Cyanocobalamin 1000 mcg PO QD. Hypotension: Borderline hypotensive. Hold Cardizem, Lasix, Aldactone. Atrial fibrillation: Rate controlled. Hold Eliquis as above. Hold Cardizem as above. Abnormal UA: No urinary symptoms. Likely sigmoid colon CA CODE STATUS: FULL CODE DVT Prophylaxis: SCD GI Prophylaxis: Designated medical POA if patient is not able to make medical decisions for themselves: Dispo: Home when surgery cleared. May need adjustment of BP medications on discharge. I have reviewed the following brand sales consultant notes: Surgery note. I have reviewed the results of the following tests: BCx. I have ordered the following tests: I have discussed the care of this patient with the following independent historian: , RN. I have independently interpreted the following test below: I have discussed the management of this patient with the following physician: Objective - Vital Signs Vital signs: Vital Signs Temp 97.5 F L 07/09/24 07:15 Pulse 72 07/09/24 07:15 Resp 18 07/09/24 07:15 BP 127/76 07/09/24 07:15 Pulse Ox 100 07/09/24 07:15 FiO2 Intake & Output 07/08/24 07/09/24 07/09/24 18:59 06:59 18:59 Intake Total 500 Balance 500 Intake: Intake, IV Titration 500 Amount Vancomycin 1,750 mg In 500 Sodium Chloride 0.9% 500 ml 500 ml @ 167 mls/hr IVPB Q16H [facility] Rx#: [id number] Other: Voiding Method Toilet # Voids 2 - Labs CBC & Chem 7: 07/08/24 10:18 07/08/24 07:22 Labs: Abnormal Lab Results - Last 24 Hours (Table) 07/08/24 07/08/24 Range/Units 07:22 10:18 RBC 3.92 L (4.30-5.90) m/uL Hgb 9.4 L (13.0-17.5) gm/dL Hct 30.8 L (39.0-53.0) % MCV 78.8 L (80.0-100.0) fL MCH 23.9 L (25.0-35.0) pg MCHC 30.3 L (31.0-37.0) g/dL RDW 21.3 H (11.5-15.5) % Creatinine 0.60 L (0.66-1.25) mg/dL Microbiology - Last 24 Hours (Table) 07/07/24 11:13 Blood Culture - Preliminary Blood 07/05/24 16:15 Blood Culture Gram Stain - Preliminary Blood Blood Culture - Preliminary Staphylococcus epidermidis Molecular ID
--- NOTE | 2024-07-09 15:47 | P.PN ---
Subjective Progress Note Date: 07/09/24 CHIEF COMPLAINT: Drainage from incision site HISTORY OF PRESENT ILLNESS: Patient with rectal bleeding. Patient reports that the bleeding has decreased. He is scheduled for sigmoidoscopy today with Dr. Ellen griffin. Vital stable. Hemoglobin stable at 9.4. CEA elevated at 5.8 PHYSICAL EXAM: VITAL SIGNS: Reviewed. GENERAL: Well-developed in no acute distress. ABDOMEN: Soft. Nondistended. Nontender. NEUROLOGIC: Alert and oriented. Cranial nerves II through XII grossly intact. ASSESSMENT: 1. Rectal bleeding likely from colonic tumor 2. Drainage from incision site. No obvious signs of infection PLAN: -Patient scheduled for sigmoidoscopy today with Dr. Pool Physician Analysis Specialist note has been reviewed by physician. Signing provider agrees with the documented findings, assessment, and plan of care. Objective - Vital Signs Vital signs: Vital Signs Temp 97.7 F 07/09/24 12:08 Pulse 77 07/09/24 12:08 Resp 18 07/09/24 12:08 BP 113/62 07/09/24 12:08 Pulse Ox 99 07/09/24 12:08 FiO2 Intake & Output 07/08/24 07/09/24 07/09/24 18:59 06:59 18:59 Intake Total 500 Balance 500 Intake: Intake, IV Titration 500 Amount Vancomycin 1,750 mg In 500 Sodium Chloride 0.9% 500 ml 500 ml @ 167 mls/hr IVPB Q16H [facility] Rx#: [id number] Other: Voiding Method Toilet # Voids 2 - Labs CBC & Chem 7: 07/08/24 10:18 07/08/24 07:22 Labs: Microbiology - Last 24 Hours (Table) 07/05/24 16:15 Blood Culture Gram Stain - Final Blood Blood Culture - Final Staphylococcus epidermidis Molecular ID 07/07/24 11:13 Blood Culture - Preliminary Blood
[2024-07-09] MEDS: IV FLUID CONTINUATION 600 ML IV ONE (17:53)
[2024-07-09] MEDS ORDERED: PROPOFOL 10 MG/ML 20 ML VIAL IV ONE (17:56)
--- NOTE | 2024-07-09 18:04 | P.OP ---
Date of Procedure: 07/09/24 Preoperative Diagnosis: Sigmoid colon mass Postoperative Diagnosis: Sigmoid colon mass, diverticulosis Procedure(s) Performed: Sigmoidoscopy Anesthesia: MAC Surgeon: Campbell Pool Pathology: other (Sigmoid colon mass) Condition: stable Disposition: PACU Description of Procedure: The patient is placed on the endoscopy table in the lateral position. He received IV sedation. The colonoscope was then placed patient anus and passed throughout the colon. Patient had a large sigmoid colon mass. The mass was friable and appeared to be partially ischemic. The mass was biopsied. With a cold forcep. Several biopsies are made. The diverticulosis was also seen in the sigmoid colon. Scope withdrawn. Patient Toller procedure well. He sent to recovery in stable condition.
[2024-07-10] MEDS: ACETAMINOPHEN TAB 325 MG TAB PO PRN (09:03)
--- NOTE | 2024-07-10 11:12 | P.PN ---
Subjective Progress Note Date: 07/10/24 Hospital course 79 year old M with PMH atrial fibrillation (on Eliquis), hypertension that presents to the ED with concerns for fever and infected surgical site. 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 Patient reports zev removed recently and he has experienced some discharge from the surgical site site. He also reports chills. He was hospitalized from 06/08-06/21. In the ED he underwent evaluation. BP 104/63, HR 78, T 99.2F, RR 18, 98% on RA. CBC, Coag panel, CMP signifcant for RBC 4.1, Hg 10, Hct 31.8, MCV 77.4, Na 132, alb 2.9. Lactic acid 1.4. Troponin < 0.012. BNP 2460. Mag 1.7. UA small LE. EKG showed AFib with PVCs similar to previous EKGs. CXR showed no acute process. Patient was started on Vancomycin and Unasyn by the ER provider, given a 1L NS bolus and admitted for further workup and evaluation. Evaluated by Surgery, surgical site does not appear infected. Patient noted to have hematochezia, Eliquis discontinued, plans for endoscopic evaluation on 07/09. BCx + staph epidemidis, maintained on Vancomycin and Unasyn discontinued. Patient seen this morning. was at bedside. Patient denying any rectal bl eeding. Patient's ostomy was full of stool. Patient is denying any acute complaints. I did discuss the results of the colonoscopy with patient and . Both are hoping for a miracle and that the biopsy will be negative for malignancy. Physical exam General examination - Alert and Oriented 3 in NAD Heart - + S1S2 no murmurs Lungs - Clear to auscultation Abdomen soft NT ND +ve BS, + ostomy full of stool Extremities - No edema FUSE CUP EXPANDER - Moving all 4 extremities spontaneously Psych - Calm and cooperative Assessment and plan Staph epi bacteremia I do not see any fevers while patient was in the hospital Patient did report fevers prior to coming in Patient currently on IV vancomycin Repeat blood cultures negative to date Will consult infectious disease Hematochezia secondary to colon mass Will hold off on Eliquis Per patient the rectal bleeding has resolved Borderline hypotension Continue to hold Cardizem Lasix Aldactone Atrial fibrillation Rate is controlled Continue to hold Cardizem and Eliquis Normal UA Patient denying any urinary symptoms so no need to treat Disposition: Awaiting for surgery to clear patient for discharge. Awaiting for infectious disease to evaluate the patient. DVT prophylaxis: No anticoagulation in the setting of GI bleed Objective - Vital Signs Vital signs: Vital Signs Temp 98.2 F 07/10/24 07:17 Pulse 84 07/10/24 07:17 Resp 16 07/10/24 07:17 BP 91/52 07/10/24 07:17 Pulse Ox 96 07/10/24 07:17 FiO2 Intake & Output 07/09/24 07/10/24 07/10/24 18:59 06:59 18:59 Intake Total 600 500 Balance 600 500 Intake: IV 100 Intake, IV Titration 500 500 Amount Vancomycin 2,000 mg In 500 500 Sodium Chloride 0.9% 500 ml 500 ml @ 167 mls/hr IVPB Q16H [facility] Rx#: [id number] Other: Voiding Method Toilet # Voids 1 - Labs CBC & Chem 7: 07/08/24 10:18 07/08/24 07:22 Labs: Microbiology - Last 24 Hours (Table) 07/07/24 11:13 Blood Culture - Preliminary Blood 07/05/24 16:15 Blood Culture Gram Stain - Final Blood Blood Culture - Final Staphylococcus epidermidis Molecular ID
[2024-07-10] MEDS ORDERED: SODIUM FERRIC GLUCONAT-SUCROSE 125 MG in SODIUM CHLORIDE 0.9% 100 ML IVPB SCH (11:15)
--- NOTE | 2024-07-10 11:51 | P.PN ---
Subjective Progress Note Date: 07/10/24 CHIEF COMPLAINT: Sigmoid colon mass HISTORY OF PRESENT ILLNESS: Patient status post sigmoidoscopy which did revealed sigmoid colon mass and diverticulosis. Biopsies obtained of the sigmoid mass. Patient reports no further rectal bleeding. CEA level elevated at 5.8. HGb 9.4 PHYSICAL EXAM: VITAL SIGNS: Reviewed. GENERAL: Well-developed in no acute distress. ABDOMEN: Soft. Nondistended. Nontender. Ostomy functioning NEUROLOGIC: Alert and oriented. Cranial nerves II through XII grossly intact. ASSESSMENT: 1. Rectal bleeding likely from colonic tumor 2. Elevated CEA 3. Drainage from incision site where the suture knot has eroded through the skin. No obvious signs of infection PLAN: -Patient can be discharged from surgical standpoint -Consult placed for oncology service due to patient's colon mass and elevated CEA level. CEA level had been normal 2 weeks ago. Physician Netsuite Developer note has been reviewed by physician. Signing provider agrees with the documented findings, assessment, and plan of care. Objective - Vital Signs Vital signs: Vital Signs Temp 98.2 F 07/10/24 07:17 Pulse 84 07/10/24 07:17 Resp 18 07/10/24 08:00 BP 91/52 07/10/24 07:17 Pulse Ox 96 07/10/24 07:17 FiO2 Intake & Output 07/09/24 07/10/24 07/10/24 18:59 06:59 18:59 Intake Total 600 500 Balance 600 500 Intake: IV 100 Intake, IV Titration 500 500 Amount Vancomycin 2,000 mg In 500 500 Sodium Chloride 0.9% 500 ml 500 ml @ 167 mls/hr IVPB Q16H [facility] Rx#: [id number] Other: Voiding Method Toilet Toilet # Voids 1 - Labs CBC & Chem 7: 07/08/24 10:18 07/08/24 07:22 Labs: Microbiology - Last 24 Hours (Table) 07/07/24 11:13 Blood Culture - Preliminary Blood 07/05/24 16:15 Blood Culture Gram Stain - Final Blood Blood Culture - Final Staphylococcus epidermidis Molecular ID
[2024-07-10] MEDS: SODIUM FERRIC GLUCONAT-SUCROSE 125 MG in SODIUM CHLORIDE 0.9% 100 ML IVPB SCH (13:00)
--- NOTE | 2024-07-10 15:10 | P.CONS ---
History of Present Illness - Reason for Consult Consult date: 07/10/24 Elevated CEA, colon mass Requesting physician: Campbell Pool - Chief Complaint abd pain, chills - History of Present Illness From consult dated 06/13, pt has not been seen in ofc yet, no malignant pathology as of now. Mr. Phillips is a 78-year-old male who presented to ER 06/08 with c/o shortness of breath and fatigue. Onc consulted for colon mass. CTA chest was negative for PE, CT AP reported short segment of circumferential wall thickening of the sigmoid colon compatible with colitis/diverticulitis, underlying mass was not excluded, edematous mesentery. Few small bowel loops may closely approximate the area. Abnormal appearance to the anterior bladder wall. Repeat CT AP reported sigmoid mass versus acute diverticulitis proximal to mid sigmoid colon. Irregular area of increased density in close approximation to suspected mass. The area appeared to be increasing in size from the recent comparison. Colonoscopy on 06/12/24, showing near obstructing mass at 35cm, biopsy obtained. Pt was treated with abx, given iron for deficiency, CEA was <2. He was going to have resection of the mass but, this was changed to diverting ostomy. 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 Pt had diverting colostomy with retroperitoneal biopys on 06/13, neg for neoplasm, benign fibroadipose tissue. Plan was to repeat colonoscopy and biopsy outpt once recovered from surgery. He was discharged 06/21. Pt reports to ER last with c/o chills, rigors, and dizziness, discharge from surgical site. CBC, CMP-mild microcytic anemia, Hgb 10, UA leukocytes and blood. CEA was <2 on 06/12, on 07/06 it was 5.8. Colonoscopy today, reporting large sigmoid colon mass, multiple biopsies performed. Pt has no acute c/o today. Midline incision looking better, less red, ostomy output is stable con sistency, green in color, pt has been taking oral iron. No other acute c/o. Review of Systems 14 point review of systems is negative except as stated in HPI Past Medical History Past Medical History: Atrial Fibrillation, Hypertension Additional Past Medical History / Comment(s): sinusitis, [place] LE edema History of Any Multi-Drug Resistant Organisms: None Reported Past Surgical History: Orthopedic Surgery, Tonsillectomy Additional Past Surgical History / Comment(s): bowel resection, ostomy Past Anesthesia/Blood Transfusion Reactions: No Reported Reaction Past Psychological History: No Psychological Hx Reported Smoking Status: Former smoker Past Alcohol Use History: None Reported Past Drug Use History: None Reported - Past Family History Father Family Medical History: No Reported History Mother Family Medical History: Asthma, COPD Medications and Allergies Home Medications Medication Instructions Recorded Confirmed Type Apixaban [Eliquis] 5 mg PO BID 11/23/23 07/05/24 History Ergocalciferol [Vitamin D2 (1250 1,250 mcg PO MARTINO 11/23/23 07/05/24 History Mcg = 84120 Iu)] Fluticasone Nasal [place] [Flonase 1 spr EA NOSTRIL BID 11/23/23 07/05/24 History Nasal [place]] Furosemide [Lasix] 20 mg PO DAILY 11/23/23 07/05/24 History Spironolactone [Aldactone] 25 mg PO DAILY 11/23/23 07/05/24 History dilTIAZem HCL [Tiazac] 120 mg PO DAILY 06/08/24 07/05/24 History Sulfamethox-Tmp 800-160Mg [Bactrim 1 tab PO Q12HR 10 Days #20 tab 06/21/24 07/05/24 Rx DS 800-160 mg] Ferrous Sulfate [Feosol] 325 mg PO DAILY 07/05/24 07/05/24 History Multivitamins, Thera [Multivitamin 1 tab PO DAILY 07/05/24 07/05/24 History (formulary)] Allergies Allergy/AdvReac Type Severity Reaction Status Date / Time No Known Allergies Allergy Verified 07/05/24 17:30 Physical Exam Vitals: Vital Signs Temp Pulse Resp BP Pulse Ox 07/10/24 07:17 98.2 F 84 16 91/52 96 07/10/24 00:55 98.3 F 104 H 18 120/74 98 07/09/24 20:00 18 07/09/24 19:05 97.7 F 100 18 127/84 97 07/09/24 12:08 97.7 F 77 18 113/62 99 Intake and Output 07/09/24 07/10/24 07/10/24 22:59 06:59 14:59 Intake Total 1100 Balance 1100 Intake: IV 100 Intake, IV Titration 1000 Amount Vancomycin 2,000 mg In 1000 Sodium Chloride 0.9% 500 ml 500 ml @ 167 mls/hr IVPB Q16H [facility] Rx#: [id number] Other: Voiding Method Toilet # Voids 1 - Constitutional General appearance: cooperative, no acute distress, obese - EENT Eyes: anicteric sclerae, EOMI ENT: hearing grossly normal, normal oropharynx - Neck Neck: no lymphadenopathy - Respiratory Respiratory: bilateral: CTA - Cardiovascular Rhythm: irregularly irregular Abnormal Heart Sounds: no systolic murmur, no diastolic murmur, no rub, no S3 Gallop, no S4 Gallop, no click, no other leg Peripheral Edema: bilateral: 1+ - Gastrointestinal LLQ ostomy Midline incision is well approximated, no drainage seen today, slightly red, nothing to suggest ongoing infection General gastrointestinal: distended, soft - Integumentary Integumentary: normal - Neurologic Neurologic: CNII-XII intact - Musculoskeletal Musculoskeletal: generalized weakness, strength equal bilaterally - Psychiatric Psychiatric: A&O x's 3, appropriate affect, intact judgment & insight Results CBC & Chem 7: 07/08/24 10:18 07/08/24 07:22 Labs: Microbiology - Last 24 Hours (Table) 07/07/24 11:13 Blood Culture - Preliminary Blood 07/05/24 16:15 Blood Culture Gram Stain - Final Blood Blood Culture - Final Staphylococcus epidermidis Molecular ID Assessment and Plan (1) Fever Current Visit: Yes Status: Acute Code(s): R50.9 - FEVER, UNSPECIFIED SNOMED Code(s): 219361138 (2) Postoperative infection Current Visit: Yes Status: Acute Code(s): T81.40XA - INFECTION FOLLOWING A PROCEDURE, UNSPECIFIED, INIT SNOMED Code(s): 26648069 (3) Colonic mass Current Visit: Yes Status: Acute Priority: High Code(s): K63.89 - OTHER SPECIFIED DISEASES OF INTESTINE SNOMED Code(s): 730421110 Plan: Fever, postoperative infection -Surgery has been following -Patient is on antibiotics for the same, fever pattern has abated -Cultures pending Colon mass -pt is s/p non-diagnostic biopsy, neg retroperitoneal biopsy. Additional biopsies today on colonoscopy. Pending current biopsy results, to verify if malignant -CEA slight elevation of 5.8 from less than 2 prior can be the result of abdominal inflammation and infection. Nondiagnostic finding -Imaging to determine if there is metastatic disease? Possible referral for surgical removal of the mass as well as regional lymph node sampling if approp riate. MIGUEL ÁNGEL -suspect 2/2 friable mass in colon -IV iron ordered-pt has been on abx since admit so not felt to be acutely infectious. -Hgb stable currently in the 9-10 range -Monitor CBC, transfuse for Hgb < 7 or if symptomatic Doctor attests: I performed a history and physical examination of this patient, developed impression and plan of care. Discussed with dictator. I agree with dictators note, documented as a scribe.
--- NOTE | 2024-07-11 07:35 | P.CONS ---
History of Present Illness - Reason for Consult Consult date: 07/10/24 Positive blood culture Requesting physician: Sonia Howard - Chief Complaint Drainage from the abdominal incision on admission - History of Present Illness Patient is a 79-year-old male with a past medical history significant for hypertension atrial fibrillation patient apparently was recently admitted to this facility from 06/08 to 06/21/2024 with the patient underwent diverting colostomy for near obstructing colon mass on 06/13/2024 patient apparently has been sent to the ER by the home care nurse on 07/06/2024 concerning for possible infection of the abdominal incision at the midpoint and this patient who recently did have his zev removed and the patient was having some drainage from the middle part of the incision however the patient denies having any worsening pain at that site and per discussion with the there was no significant redness and the patient was not running any fever patient on presentation to the hospital about 5 days ago did have a low-grade fever of 99.2 F, patient was nontachycardic hypotensive or hypoxic and no need for supplemental oxygen patient did have normal white count of 5.43 creatinine has been 0.8 liver enzymes are normal urine has been positive patient did have a blood culture drawn on 926 which did came back positive on 07/07/2024 patient has been treated with vancomycin infectious disease was consulted today for further management of antibiotic therapy concerning for positive blood culture Review of Systems Positive point and negatives has been mentioned in the HPI, complete review of systems was performed and all other systems are negative Past Medical History Past Medical History: Atrial Fibrillation, Hypertension Additional Past Medical History / Comment(s): sinusitis, Chorn[place] LE edema History of Any Multi-Drug Resistant Organisms: None Reported Past Surgical History: Orthopedic Surgery, Tonsillectomy Additional Past Surgical History / Comment(s): bowel resection, ostomy Past Anesthesia/Blood Transfusion Reactions: No Reported Reaction Past Psychological History: No Psychological Hx Reported Smoking Status: Former smoker Past Alcohol Use History: None Reported Past Drug Use History: None Reported - Past Family History Father Family Medical History: No Reported History Mother Family Medical History: Asthma, COPD Medications and Allergies Home Medications Medication Instructions Recorded Confirmed Type Apixaban [Eliquis] 5 mg PO BID 11/23/23 07/05/24 History Ergocalciferol [Vitamin D2 (1250 1,250 mcg PO MARTINO 11/23/23 07/05/24 History Mcg = 60021 Iu)] Fluticasone Nasal [place] [Flonase 1 spr EA NOSTRIL BID 11/23/23 07/05/24 History Nasal [place]] Furosemide [Lasix] 20 mg PO DAILY 11/23/23 07/05/24 History Spironolactone [Aldactone] 25 mg PO DAILY 11/23/23 07/05/24 History dilTIAZem HCL [Tiazac] 120 mg PO DAILY 06/08/24 07/05/24 History Sulfamethox-Tmp 800-160Mg [Bactrim 1 tab PO Q12HR 10 Days #20 tab 06/21/24 07/05/24 Rx DS 800-160 mg] Ferrous Sulfate [Feosol] 325 mg PO DAILY 07/05/24 07/05/24 History Multivitamins, Thera [Multivitamin 1 tab PO DAILY 07/05/24 07/05/24 History (formulary)] Allergies Allergy/AdvReac Type Severity Reaction Status Date / Time No Known Allergies Allergy Verified 07/05/24 17:30 Physical Exam Vitals: Vital Signs Temp Pulse Resp BP Pulse Ox 07/10/24 07:17 98.2 F 84 16 91/52 96 07/10/24 00:55 98.3 F 104 H 18 120/74 98 07/09/24 20:00 18 07/09/24 19:05 97.7 F 100 18 127/84 97 07/09/24 12:08 97.7 F 77 18 113/62 99 Intake and Output 07/09/24 07/10/24 07/10/24 22:59 06:59 14:59 Intake Total 1100 Balance 1100 Intake: IV 100 Intake, IV Titration 1000 Amount Vancomycin 2,000 mg In 1000 Sodium Chloride 0.9% 500 ml 500 ml @ 167 mls/hr IVPB Q16H [facility] Rx#: [id number] Other: Voiding Method Toilet # Voids 1 GENERAL DESCRIPTION: Elderly male lying in bed, no distress. No tachypnea or accessory muscle of respiration use. HEENT: Shows Pallor , no scleral icterus. Oral mucous membrane is dry. No pharyngeal erythema or thrush NECK: Trachea central, no thyromegaly. LUNGS: Unlabored breathing. Clear to auscultation anteriorly. No wheeze or crackle. HEART: S1, S2, regular rate and rhythm. No loud murmur ABDOMEN: Soft, no tenderness midline incision is currently intact zev has been removed mid part with no significant drainage or redness EXTREMITIES: No edema of feet. SKIN: No rash, no masses palpable. NEUROLOGICAL: The patient is awake, alert, oriented x3, mood and affect normal. Results CBC & Chem 7: 07/08/24 10:18 07/08/24 07:22 Labs: Microbiology - Last 24 Hours (Table) 07/07/24 11:13 Blood Culture - Preliminary Blood 07/05/24 16:15 Blood Culture Gram Stain - Final Blood Blood Culture - Final Staphylococcus epidermidis Molecular ID Assessment and Plan (1) Positive blood culture Current Visit: Yes Status: Acute Code(s): R78.81 - BACTEREMIA SNOMED Code(s): 372926646 Plan: 1patient with a positive blood culture with staph epi in this patient admitted to hospital consulted for possible abdominal incision infection as there was concern by the home care nurse patient has been evaluated by surgery mentioning no evidence of any surgical site infection I am seeing the patient after the patient has been on antibiotic for 5 days and on my evaluation today I am not seeing any evidence of swelling redness or drainage patient did not have any fever for elevated white count more likely positive blood culture results chronic elevation greater than true pathogen he did have repeat blood culture on 07/07/2024 those has been negative so far 2-if the repeat blood culture remains to be negative by tomorrow antibiotics can be safely discontinued We will follow on clinical condition and cultures to further adjust medication if needed Thank you for this consultation we will follow the patient along with you Dictation was produced using [employer] dictation software. please excuse any grammatical, word or spelling errors. Time with Patient: Greater than 30
[2024-07-11 08:04] VITALS: TEMP 98.2
--- NOTE | 2024-07-11 11:52 | P.PN ---
Subjective Progress Note Date: 07/11/24 Principal diagnosis: Reason for follow-up is a positive blood culture Patient is a 79-year-old male with a past medical history significant for hypertension atrial fibrillation patient apparently was recently admitted to this facility from 06/08 to 06/21/2024 with the patient underwent diverting colostomy for near obstructing colon mass on 06/13/2024 patient apparently has been sent to the ER by the home care nurse on 07/06/2024 concerning for possible infection of the abdominal incision, patient did have a positive blood culture with staph epi prompted this consultation. On today's evaluation that is 07/11/2024, the patient continues to be afebrile, the patient is on room air and breathing comfortably, the Pt denies having any chest pain or cough, the patient denies having any abdominal pain no vomiting or any diarrhea and denies pain to the incision or any drainage from it. No new lab has been obtained today blood culture repeat has been negative so far Objective - Vital Signs Vital signs: Vital Signs Temp 98.2 F 07/11/24 08:00 Pulse 60 07/11/24 08:00 Resp 18 07/11/24 08:00 BP 100/63 07/11/24 08:00 Pulse Ox 96 07/11/24 08:00 FiO2 Intake & Output 07/10/24 07/11/24 07/11/24 18:59 06:59 18:59 Intake Total 658 590 Balance 658 590 Intake: Oral 658 590 Other: Voiding Method Toilet Toilet # Voids 1 3 - Exam GENERAL DESCRIPTION: An elderly male up in bed in no distress RESPIRATORY SYSTEM: Unlabored breathing , decreased breath sounds at bases HEART: S1 S2 regular rate and rhythm , ABDOMEN: Soft , no tenderness EXTREMITIES: No edema feet - Labs CBC & Chem 7: 07/08/24 10:18 07/08/24 07:22 Labs: Microbiology - Last 24 Hours (Table) 07/07/24 11:13 Blood Culture - Preliminary Blood Assessment and Plan (1) Positive blood culture Current Visit: Yes Status: Acute Code(s): R78.81 - BACTEREMIA SNOMED Code(s): 482638506 Plan: 1patient with a positive blood culture with staph epi in this patient admitted to hospital consulted for possible abdominal incision infection as there was concern by the home care nurse patient has been evaluated by surgery mentioning no evidence of any surgical site infection I am seeing the patient after the patient has been on antibiotic for 5 days and on my evaluation today I am not seeing any evidence of swelling redness or drainage patient did not have any fever for elevated white count more likely positive blood culture results chronic elevation greater than true pathogen he did have repeat blood culture on 07/07/2024 those has been negative so far 2-repeat blood culture has been negative we will go ahead and discontinue vancomycin and monitor the patient closely off antibiotic therapy at the bedside questions were answered Dictation was produced using [employer] dictation software. please excuse any grammatical, word or spelling errors. Time with Patient: Less than 30
[2024-07-11 13:28] VITALS: BP 119/76; PULSE 76; RESP 17
--- NOTE | 2024-07-11 13:50 | P.PN ---
Subjective Progress Note Date: 07/11/24 CHIEF COMPLAINT: Sigmoid colon mass HISTORY OF PRESENT ILLNESS: Patient status post sigmoidoscopy which did revealed sigmoid colon mass and diverticulosis. Biopsies obtained of the sigmoid mass. Patient does report a small amount of rectal bleeding. Hemoglobin stable at 9.4. Patient is receiving IV iron. PHYSICAL EXAM: VITAL SIGNS: Reviewed. GENERAL: Well-developed in no acute distress. ABDOMEN: Soft. Nondistended. Nontender. Ostomy functioning NEUROLOGIC: Alert and oriented. Cranial nerves II through XII grossly intact. ASSESSMENT: 1. Rectal bleeding likely from colonic tumor 2. Elevated CEA 3. Drainage from incision site where the suture knot has eroded through the skin. No obvious signs of infection PLAN: -Patient can be discharged from surgical standpoint -Recommend patient follows up with oncology service outpatient -Pathology results pending Physician Research Editor note has been reviewed by physician. Signing provider agrees with the documented findings, assessment, and plan of care. Objective - Vital Signs Vital signs: Vital Signs Temp 98.2 F 07/11/24 13:27 Pulse 76 07/11/24 13:27 Resp 17 07/11/24 13:27 BP 119/76 07/11/24 13:27 Pulse Ox 97 07/11/24 13:27 FiO2 Intake & Output 07/10/24 07/11/24 07/11/24 18:59 06:59 18:59 Intake Total 658 590 Balance 658 590 Intake: Oral 658 590 Other: Voiding Method Toilet Toilet # Voids 1 3 - Labs CBC & Chem 7: 07/08/24 10:18 07/08/24 07:22 Labs: Microbiology - Last 24 Hours (Table) 07/07/24 11:13 Blood Culture - Preliminary Blood
--- NOTE | 2024-07-11 14:04 | P.DS ---
Providers Date of admission: 07/07/24 11:03 Attending physician: Darling Mora MD Consults: 07/05/24 17:56 Consult Physician Routine Consulting Provider: Campbell Pool Consult Reason/Comments: known Do you want consulting provider notified?: Yes 07/10/24 09:02 Consult Physician Routine Consulting Provider: Dakota Salcido Consult Reason/Comments: bacteremia Do you want consulting provider notified?: Yes 07/10/24 10:31 Consult Physician Routine Consulting Provider: Adrienne Newman Consult Reason/Comments: elevated CEA, colon mass Do you want consulting provider notified?: Yes Primary care physician: Marcell [facility] Course: Discharge Diagnosis: Staph epi bacteremia likely contaminant Hematochezia likely due to colon mass Borderline hypotension Atrial fibrillation Abnormal UA: Patient asymptomatic Hospital Course: 79 year old M with PMH atrial fibrillation (on Eliquis), hypertension that presents to the ED with concerns for fever and infected surgical site. 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 Patient reports zev removed recently and he has experienced some discharge from the surgical site site. He also reports chills. He was hospitalized from 06/08-06/21. In the ED he underwent evaluation. BP 104/63, HR 78, T 99.2F, RR 18, 98% on RA. CBC, Coag panel, CMP signifcant for RBC 4.1, Hg 10, Hct 31.8, MCV 77.4, Na 132, alb 2.9. Lactic acid 1.4. Troponin < 0.012. BNP 2460. Mag 1.7. UA small LE. EKG showed AFib with PVCs similar to previous EKGs. CXR showed no acute process. Patient was started on Vancomycin and Unasyn by the ER provider, given a 1L NS bolus and admitted for further workup and evaluation. Evaluated by Surgery, surgical site does not appear infected. Patient noted to have hematochezia, Eliquis discontinued. Patient had a colonoscopy that showed a mass in the sigmoid area. Multiple biopsies were taken. CEA was mildly elevated. Patient cleared for discharge by general surgery. Patient seen by hematology and patient was instructed to follow-up with general surgery and hematology for the biopsy results. BCx + staph epidemidis. Repeat blood cultures were negative. Infectious disease was following and per infectious disease this is likely a contaminant. Patient did receive 5 days of vancomycin. Patient's fevers had resolved. Patient deemed stable for discharge. Patient's Eliquis was discontinued. Patient's Cardizem Lasix were discontinued due to hypotension. I will resume patient's spironolactone on discharge. Patient seen and examined at bedside.[] Vital signs reviewed and stable. General: [non toxic], [no distress], [appears at stated age] Derm: [warm], [dry] Head: [atraumatic], [normocephalic], [symmetric] Eyes: [EOMI], [no lid lag], [anicteric sclera] Mouth: [no lip lesion], [mucus membranes moist] Cardiovascular: [S1S2 reg], [no murmur], [positive posterior tibial pulse bilateral], Lungs: [CTA bilateral], [no rhonchi, no rales] , [no accessory muscle use] Abdominal: [soft], [ nontender to palpation], [no guarding], [no appreciable organomegaly] Ext: [no gross muscle atrophy], [no edema], [no contractures] Neuro: [ CN II-XI grossly intact], [no focal neuro deficits] Psych: [Alert], [oriented], [appropriate affect] A total of [33] minutes of time were spent preparing this complex discharge summary . Patient Condition at Discharge: Fair Plan - Discharge Summary Discharge Rx Participant: No New Discharge Prescriptions: Continue Spironolactone [Aldactone] 25 mg PO DAILY Ergocalciferol [Vitamin D2 (1250 Mcg = 12763 Iu)] 1,250 mcg PO MARTINO Ferrous Sulfate [Iron (65 MG Elemental)] 325 mg PO DAILY Fluticasone Nasal [place] [Flonase Nasal [place]] 1 spr EA NOSTRIL BID Multivitamins, Thera [Multivitamin (formulary)] 1 tab PO DAILY Discontinued Apixaban [Eliquis] 5 mg PO BID Furosemide [Lasix] 20 mg PO DAILY dilTIAZem HCL [Tiazac] 120 mg PO DAILY Sulfamethox-Tmp 800-160Mg [Bactrim DS 800-160 mg] 1 tab PO Q12HR 10 Days #20 tab Discharge Medication List Ergocalciferol [Vitamin D2 (1250 Mcg = 83224 Iu)] 1,250 mcg PO MARTINO 02/14/24 [History] Fluticasone Nasal [place] [Flonase Nasal [place]] 1 spr EA NOSTRIL BID 11/23/23 [History] Spironolactone [Aldactone] 25 mg PO DAILY 11/23/23 [History] Ferrous Sulfate [Iron (65 MG Elemental)] 325 mg PO DAILY 07/05/24 [History] Multivitamins, Thera [Multivitamin (formulary)] 1 tab PO DAILY 07/05/24 [History] Follow up Appointment(s)/Referral(s): Adrienne Newman MD [STAFF PHYSICIAN] - 08/07/24 3:15 pm Marcell Hassan DO [Primary Care Provider] - 1-2 days [facility] [NON-STAFF] - 1 Week Campbell Pool MD [Family Provider] - 1 Week Discharge Disposition: HOME SELF-CARE
--- NOTE | 2024-07-11 15:49 | P.PN ---
Subjective Progress Note Date: 07/11/24 Principal diagnosis: Postop infection. In follow-up today patient denies any new complaints, denies fevers, nausea, vomiting, he is tolerating oral intake, he is independently ambulatory. No drainage from the abdomen. Output from ostomy is stable Objective - Vital Signs Vital signs: Vital Signs Temp 98.2 F 07/11/24 13:27 Pulse 76 07/11/24 13:27 Resp 17 07/11/24 13:27 BP 119/76 07/11/24 13:27 Pulse Ox 97 07/11/24 13:27 FiO2 Intake & Output 07/10/24 07/11/24 07/11/24 18:59 06:59 18:59 Intake Total 658 590 Balance 658 590 Intake: Oral 658 590 Other: Voiding Method Toilet Toilet Bedside Commode # Voids 1 3 - Constitutional General appearance: Present: average body habitus, cooperative, no acute distress - EENT Eyes: Present: anicteric sclerae, EOMI, poor dentition ENT: Present: hearing grossly normal - Respiratory Details: Respirations even and unlabored at rest - Cardiovascular Details: Skin warm to the touch, well-perfused - Peripheral edema leg Peripheral Edema: bilateral: None - Gastrointestinal General gastrointestinal: Present: soft - Neurologic Neurologic: Present: CNII-XII intact - Musculoskeletal Musculoskeletal: Present: strength equal bilaterally - Labs CBC & Chem 7: 07/08/24 10:18 07/08/24 07:22 Labs: Microbiology - Last 24 Hours (Table) 07/07/24 11:13 Blood Culture - Preliminary Blood Assessment and Plan (1) Fever Current Visit: Yes Status: Acute Code(s): R50.9 - FEVER, UNSPECIFIED SNOMED Code(s): 849586592 (2) Postoperative infection Current Visit: Yes Status: Acute Code(s): T81.40XA - INFECTION FOLLOWING A PROCEDURE, UNSPECIFIED, INIT SNOMED Code(s): 10814521 (3) Colonic mass Current Visit: Yes Status: Acute Priority: High Code(s): K63.89 - OTHER SPECIFIED DISEASES OF INTESTINE SNOMED Code(s): 749491034 Plan: Fever, postoperative infection -Surgery has been following -Patient is on antibiotics for the same, fever pattern has abated -Cultures pending Colon mass -pt is s/p non-diagnostic biopsy, neg retroperitoneal biopsy. Additional biopsies yestersday. Pending current biopsy results -CEA slight elevation of 5.8 from less than 2 prior can be the result of abdominal inflammation and infection. Nondiagnostic finding -Imaging that has been done is neg for metastatic disease. Plan to discuss case with colorectal Surgeon to see if removal of the mass as well as regional lymph node sampling is appropriate. MIGUEL ÁNGEL -suspect 2/2 friable mass in colon -IV iron ordered-pt has been on abx since admit so, not felt to be acutely infectious. Tolerating well so far -Hgb drifting down slowly, 9.4 today. Will cont to monitor -Monitor CBC, transfuse for Hgb < 7 or if symptomatic
[2024-07-12] MEDS ORDERED: VANCOMYCIN TROUGH DUE 1 EACH MISC MISCELLANE ONE (07:00)
== END 2024-07-11 17:53 | disposition home or self-care (01) | DRG 375 ==
LOC: EC 15:19 → 5NMEDONC 17:57 → OBSVTOIN 07-07 11:03
PROVIDERS: ADMIT Internal Medicine; ATTEND Internal Medicine
PROC: 0DBN8ZX Excision of Sigmoid Colon, Via Natural or Artificial Opening Endoscopic, Diagnostic (ICD-10-PCS; principal; 2024-07-09 08:55)
DX: C18.7 Malignant neoplasm of sigmoid colon (principal); K92.1 Melena; D50.9 Iron deficiency anemia, unspecified; E66.01 Morbid (severe) obesity due to excess calories; I10 Essential (primary) hypertension; I48.91 Unspecified atrial fibrillation; I49.3 Ventricular premature depolarization; K57.30 Diverticulosis of large intestine without perforation or abscess without bleeding; I95.9 Hypotension, unspecified; Z93.3 Colostomy status; Z79.01 Long term (current) use of anticoagulants; Z79.899 Other long term (current) drug therapy; Z87.891 Personal history of nicotine dependence
CPT/HCPCS: 36415; 45331; 71046; 80053; 80202; 81001; 82378; 82565; 83605; 83735; 83880; 84100; 84484; 85025; 85027; 85610; 85730; 87040; 87077; 87186; 88305; 88341; 88342; 93005; 96365; 96366; 96368; 99291

== ENCOUNTER → 2024-07-17 | Outpatient (CLI) | payer MEDICARE, OTHER ==
--- NOTE | 2024-07-17 16:43 | US ---
EXAMINATION TYPE: US venous doppler duplex UE RT DATE OF EXAM: 07/17/2024 COMPARISON: NONE CLINICAL INDICATION: Male, 79 years old with history of M79.89 OTHER SPECIFIED SOFT TISSUE DISORDERS; forearm pain after IV TECHNIQUE: Grayscale, color Doppler and spectral Doppler imaging of the upper extremity. SIDE PERFORMED: Right FINDINGS: Right Arm: No evidence for DVT. Echoes seen in a superficial vein in forearm in area of concern. No compression is evident. Vascular wall appears thickened. Consider thrombophlebitis in addition to superficial venous thrombosis. Grayscale, color doppler, spectral doppler imaging performed of the deep veins of the upper extremiti es. IMPRESSION: 1. No suspicious changes for deep venous thrombosis. 2. Superficial venous thrombosis. Some thrombophlebitis may be present as well with thickened wall ra te [facility], Workstation: [facility], 07/17/2024 4:40 PM
== END | disposition home or self-care (01) ==
LOC: RADUSWWP 15:49
PROVIDERS: ATTEND Internal Medicine

== ENCOUNTER → 2024-08-22 | Outpatient (CLI) | payer MEDICARE, OTHER ==
--- NOTE | 2024-08-22 10:34 | XR ---
EXAMINATION TYPE: XR chest 2V DATE OF EXAM: 08/22/2024 10:11 AM COMPARISON: Chest radiographs from 07/05/2024. CLINICAL INDICATION: Male, 79 years old with history of R06.89 OTHER ABNORMALITIES OF BREATHING; MERGED WITH [facility] TECHNIQUE: XR chest 2V Frontal and lateral views of the chest. FINDINGS: Lungs/Pleura: Blunting of left costophrenic angle. There is no evidence of right pleural effusion, fo reba consolidation, or pneumothorax. Pulmonary vascularity: Unremarkable. Heart/mediastinum: Cardiomediastinal silhouette is unremarkable. Musculoskeletal: No acute osseous pathology. IMPRESSION: Small to moderate left pleural effusion. [facility], , 08/22/2024 10:32 AM
== END | disposition home or self-care (01) ==
LOC: RADXRMAIN 09:50
PROVIDERS: ATTEND Internal Medicine
DX: J90 Pleural effusion, not elsewhere classified (principal); R06.89 Other abnormalities of breathing
CPT/HCPCS: 71046

== ENCOUNTER 2024-09-03 05:41 | Day surgery (SDC) | payer MEDICARE, OTHER ==
[2024-08-30 14:02] VITALS: BMI 34.2
[~2024-09-03 05:41] MED LIST: Pre Op ABX Message 1 EACH MISC MISCELLANE ONE
[2024-09-03] MEDS ORDERED: LIDOCAINE 1% (10MG/ML) FOR IV START INTRADERMA PRN (05:49)
[2024-09-03] MEDS ORDERED: LACTATED RINGERS 1,000 ML IV SCH (05:49)
[2024-09-03] MEDS ORDERED: droPERidol 5 MG/2 ML VIAL IVP ONE (05:49)
[2024-09-03 06:56] VITALS: RESP 18; TEMP 97.3
[2024-09-03] MEDS: IV FLUID CONTINUATION 1,000 ML IV ONE (06:57)
[2024-09-03] MEDS: ACETAMINOPHEN TAB 500 MG TAB PO PRN (06:58)
[2024-09-03] MEDS: ONDANSETRON 4 MG/2 ML VIAL IVP STA (06:59)
[2024-09-03] MEDS: DEXAMETHASONE SOD PHOSPHATE 4 MG/ML 1 ML VIAL IV ONE (07:00)
[2024-09-03] MEDS ORDERED: fentaNYL (PF) 50 MCG/ML 2 ML AMP IV PRN (07:00)
[2024-09-03] MEDS: HEPARIN SODIUM,PORCINE 5,000 UNIT/ML 1 ML VIAL SQ PRN (07:00)
[2024-09-03] MEDS: IOPAMIDOL-370 100ML BTL MISCELLANE ONE ×3 (07:25→08:05)
[2024-09-03] MEDS: LIDOCAINE 2%-EPI 1:100,000 20 ML VIAL SQ ONE ×3 (07:25→08:05)
[2024-09-03] MEDS ORDERED: LIDOCAINE 1% INJ 10MG/ML (20 ML MDV) ONE (07:29)
[2024-09-03] MEDS ORDERED: PROPOFOL 10 MG/ML 20 ML VIAL IV ONE (07:29)
[2024-09-03] MEDS ORDERED: ceFAZolin 1 GM/50 ML BAG (PMX) ONE (07:29)
[2024-09-03] MEDS ORDERED: fentaNYL (PF) 50 MCG/ML 2 ML AMP ONE (07:29)
[2024-09-03] MEDS: SODIUM CHLORIDE 0.9% 100 ML with ceFAZolin 2,000 MG IV ONE (07:34)
--- NOTE | 2024-09-03 08:26 | P.OP ---
Date of Procedure: 09/03/24 Preoperative Diagnosis: Colon cancer Postoperative Diagnosis: Colon cancer Procedure(s) Performed: Right subclavian Port-A-Cath Anesthesia: CLAUDIA Surgeon: Campbell Pool Estimated Blood Loss (ml): 5 Pathology: none sent Condition: stable Disposition: PACU Description of Procedure: The patient was placed on the operating table in the supine position. The patient received IV sedation. The patient's chest was prepped and draped in the usual sterile fashion. A roll had been placed between the shoulder blades in a longitudinal fashion. After prepping and draping the skin was anesthetized 1% local Xylocaine. And then using the Seldinger technique the subclavian vein was cannulated. A wire was placed into the vein and fluoroscopy position the wire at the atrial caval junction. Next the dilator sheath was placed over top the wire and the wire was withdrawn. The catheter was positioned at the atriocaval position. The catheter was placed through the sheath after the dilator was withdrawn. The sheath was then withdrawn. Position of the catheter was confirmed with fluoroscopy. The Port-A-Cath was connected to the catheter. The Port-A-Cath was flushed with saline and then heparinized saline. The skin was closed interrupted 3-0 Monocryl suture. Dermabond was applied. Patient tolerated procedure well and was sent to recovery room stable condition.
[2024-09-03 08:51] VITALS: PULSE 82
--- NOTE | 2024-09-03 08:56 | FL ---
EXAMINATION TYPE: FL guided central line placemt HISTORY: Fluoroscopy time Impression: 1. Fluoroscopy support provided to the referring physician. [facility], , 09/03/2024 8:54 AM
[2024-09-03 08:59] VITALS: BP 98/64
--- NOTE | 2024-09-03 09:10 | XR ---
EXAMINATION TYPE: XR chest 1V DATE OF EXAM: 09/03/2024 COMPARISON: NONE CLINICAL INDICATION: Male, 79 years old with history of PORT PLACEMENT; , TECHNIQUE: XR chest 1V views of the chest. FINDINGS: Mediport catheter is seen. There is a coarsened interstitium with cardiomegaly, left lower lobe infil trate and small effusion. No pneumothorax. Diffuse osteopenia and arthropathy of the shoulders. Hyper trophic degenerative change of the spine. IMPRESSION: 1. Improving left lower lobe infiltrate and small effusion. [facility], , 09/03/2024 9:08 AM
== END 2024-09-03 09:33 | disposition home or self-care (01) ==
LOC: OR 05:41
PROVIDERS: ATTEND Surgery
DX: C18.9 Malignant neoplasm of colon, unspecified (principal); I10 Essential (primary) hypertension; I48.91 Unspecified atrial fibrillation; M19.90 Unspecified osteoarthritis, unspecified site; H91.90 Unspecified hearing loss, unspecified ear; Z89.529 Acquired absence of unspecified knee; Z79.899 Other long term (current) drug therapy; Z88.5 Allergy status to narcotic agent
CPT/HCPCS: 36561; 77001; 71045; C1788; J1644; J1100; J2405; J0690 ×2; J2003; J3010; J1642; J2704; Q9967

== ENCOUNTER → 2024-09-14 | Outpatient (CLI) | payer MEDICARE, OTHER ==
[2024-09-14 13:11] LABS: African American GFR (CKD) >90 (>60 ml/min/1.73 sqM); Blood Urea Nitrogen 8 mg/dL (9-20); Non-African American GFR(CKD) >90 (>60 ml/min/1.73 sqM)
--- NOTE | 2024-09-14 15:11 | CT ---
EXAMINATION TYPE: CT ChestAbdPelvis w con CT DLP: 2415.0 mGycm, Automated exposure control for dose reduction was used. DATE OF EXAM: 09/14/2024 2:48 PM COMPARISON: CT abdomen and pelvis 06/09/2024, 06/08/2024, 11/23/2023, CT chest dated 324 CLINICAL INDICATION:Male, 79 years old with history of C18.7 MALIGNANT NEOPLASM OF SIGMOID COLON; PHH , hx of colon ca Technique: Multiple axial images of the chest, abdomen, and pelvis were obtained following the intrav enous administration of 100 mL Isovue-300. Oral contrast was administered. Two-dimensional coronal an d sagittal reconstructions were obtained. Findings: CHEST: LUNGS/ PLEURA: No pleural effusion. Minimal atelectasis along the medial aspect of the right lower lo be. Small left pleural effusion. No suspicious pulmonary nodule or mass. AIRWAY: Patent and unremarkable.. HEART: Cardiomegaly is demonstrated.No pericardial effusion. Small migrainosus calcifications. Small coronary artery calcifications. MEDIASTINUM: No evidence of adenopathy. VASCULATURE: No aortic aneurysm. Right anterior chest wall subclavian approach Mediport catheter dis topher tip terminating at the high SVC. Mild atherosclerotic calcification of the aorta and its branches . MUSCULOSKELETAL: No acute osseous abnormalities. No aggressive osseous lesion. DISH of the thoracic s pine. SOFT TISSUES/LYMPH NODES: Unremarkable. LOWER NECK: Hypodense right thyroid lobe 1.4 cm nodule. ABDOMEN: ABDOMEN LIVER: Unremarkable GALLBLADDER AND BILE DUCTS: Gallbladder is contracted or surgically absent. No biliary ductal dilatat ion. PANCREAS: Unremarkable. SPLEEN: Unremarkable. ADRENAL GLANDS: Unremarkable. KIDNEYS AND URETERS: No evidence of hydronephrosis. No right renal calculi. Nonobstructive tiny left renal calculi with largest measuring up to 2.0 cm. Bilateral renal cysts with largest in the right ki dney measuring 2.2 cm. Cortical thinning of both kidneys. The kidneys enhance symmetrically. PELVIS BLADDER: There is sigmoid mass invasion into the urinary bladder dome. REPRODUCTIVE: Coarse calcifications of the prostate gland are identified. ABDOMEN & PELVIS STOMACH AND BOWEL: Stomach and duodenum are unremarkable. Postsurgical changes with left lower quadra nt colostomy. Increasing size of soft tissue sigmoid mass with surrounding spiculations measuring maye roximately 14.2 x 7.1 cm (series 4, image 103). Some of the stranding changes abuts the small bowel. Enteric contrast reaches the transverse colon. No evidence of bowel obstruction. PERITONEUM: No evidence of pneumoperitoneum. Trace amount of surrounding fluid from the sigmoid colon show small moderate ascites within the rectovesicular space. VASCULATURE: Mild atherosclerotic calcifications are present throughout the abdominal aorta and its b ranches. No abdominal aortic aneurysm. MUSCULOSKELETAL: No acute osseous abnormalities. Mild osteophytic changes of both hips. Degenerative changes of the bilateral SI joints with anterior bridging. Multilevel degenerative disc disease. LYMPH NODES: No evidence for lymphadenopathy. SOFT TISSUE/ABDOMINAL WALL: Patulous fat-containing bilateral inguinal rings. IMPRESSION: 1. Progression of disease with increasing size of large sigmoid mass measuring 14.2 x 7.1 cm. This i nvades the urinary bladder dome. 2. Trace amount of ascites within the pelvis. 3. Development of small left pleural effusion. No suspicious pulmonary nodularity or adenopathy with in the chest. 4. No suspicious adenopathy within the abdomen or pelvis. Postsurgical changes from a left lower sheree drant colostomy. 5. Nonobstructive left renal calculi. [facility], , 09/14/2024 3:09 PM
== END | disposition home or self-care (01) ==
LOC: RADCTMAIN 12:17
PROVIDERS: ATTEND Internal Medicine
DX: C18.7 Malignant neoplasm of sigmoid colon (principal); D50.9 Iron deficiency anemia, unspecified; C18.9 Malignant neoplasm of colon, unspecified; D64.9 Anemia, unspecified; J90 Pleural effusion, not elsewhere classified; N20.0 Calculus of kidney
CPT/HCPCS: 82565; 84520; 71260; 74177; 36415; Q9967

== ENCOUNTER → 2024-10-26 | Outpatient (CLI) | payer MEDICARE, OTHER ==
[2024-10-26 11:00] LABS: African American GFR (CKD) >90 (>60 ml/min/1.73 sqM); Blood Urea Nitrogen 10 mg/dL (9-20); Non-African American GFR(CKD) 87 (>60 ml/min/1.73 sqM)
--- NOTE | 2024-10-26 23:21 | CT ---
EXAMINATION TYPE: CT ChestAbdPelvis w con DATE OF EXAM: 10/26/2024 12:39 PM COMPARISON: 09/14/2024 CLINICAL INDICATION: Male, 79 years old with history of C18.7 MALIGNANT NEOPLASM OF SIGMOID COLON, f/ u colon ca TECHNIQUE: Axial images at 5 mm thick sections. Reconstructed images in the coronal plane. Delayed images through the kidneys. Contrast used:100 mL of Isovue 300 with IV Contrast, (none if empty) Oral contrast used: with Oral Contrast (none if empty) CT DLP: 2067.9 mGycm, Automated exposure control for dose reduction was used. FINDINGS: CT CHEST: There is a hypodensity within the right lobe thyroid. This could be further evaluated with ultrasound. Findings present previously. No suspicious lung nodules or focal infiltrates are present. No enlarged mediastinal or hilar adenopathy is evident. The ascending aorta diameter at the level of the main pulmonary artery is 3.9 cm. The main pulmonary artery diameter at the bifurcation is 3.[address] ABDOMEN: Liver: Normal Spleen: Normal Pancreas: Normal Adrenal glands: The adrenal glands are normal. Gallbladder: Normal Kidneys: No masses are evident. No hydronephrosis is present. Small cysts at the posterior inferior left kidney measuring 1.8 cm. There is an anterior cyst from the mid right kidney measuring 2.4 cm. There is a 2 cm calcification at the inferior pole left kidney. An adjacent 1.0 cm calcification is also present. No obstruction is evident. Aorta: Vascular calcification is within the aorta. Inferior vena cava: Normal. CT PELVIS: There is diffuse thickening to the proximal mid sigmoid colon. Multiple adjacent diverticula are pres ent. There is some mild inflammatory change. The lumen is poorly visualized. The rectosigmoid region and rectum have a more normal appearing caliber. There is suture at the proximal sigmoid colon. Findi ngs appear stable from the comparison. Differential diagnosis can include acute diverticulitis recurr ent sigmoid neoplasm. Additional workup is recommended. The proximal colon is nondilated. Appendix: Normal as visualized. Urinary bladder: Urinary bladder wall is thickened greater along the superior lateral left lateral as pect which is near some inflammatory change. Wall thickening from inflammatory change or underlying n eoplasm should be considered. Additional evaluation of the urinary bladder is recommended. Genitourinary structures: Prostate is normal Osseous structures: No suspicious lytic or sclerotic lesions. IMPRESSION: 1. Thickened sigmoid colon with multiple diverticuli and inflammatory changes adjacent. Findings appe ar similar to the 09/14/2024 examination. Recurrent sigmoid neoplasm should be considered. Differentia l could include acute diverticulitis in the proper clinical setting. 2. Asymmetric wall thickening of the urinary bladder. Additional workup is recommended. This could be reactive due to adjacent inflammatory change or related to neoplasm. [facility], , 10/26/2024 11:19 PM
== END | disposition home or self-care (01) ==
LOC: RADCTMAIN 10:17
PROVIDERS: ATTEND Internal Medicine
DX: C18.7 Malignant neoplasm of sigmoid colon (principal); D50.9 Iron deficiency anemia, unspecified; D64.9 Anemia, unspecified; Z71.3 Dietary counseling and surveillance
CPT/HCPCS: 82565; 84520; 71260; 74177; 36415; Q9967

== ENCOUNTER → 2025-01-10 | Outpatient (CLI) | payer MEDICARE, OTHER ==
[2025-01-10 12:09] LABS: African American GFR (CKD) >90 (>60 ml/min/1.73 sqM); Blood Urea Nitrogen 10 mg/dL (9-20); Non-African American GFR(CKD) >90 (>60 ml/min/1.73 sqM)
--- NOTE | 2025-01-10 14:06 | CT ---
EXAMINATION TYPE: CT ChestAbdPelvis w con DATE OF EXAM: 01/10/2025 COMPARISON: 10/26/2024 CLINICAL INDICATION: Male, 79 years old with history of C18.9 MALIGNANT NEOPLASM OF COLON, UNSPECIFIE D CT DLP: 1993.5 mGycm Automated exposure control for dose reduction was used. CONTRAST: CT scan of the chest, abdomen and pelvis is performed with Oral Contrast and with IV Contrast, patien t injected with 100 ml mL of Isovue 300. FINDINGS: CT chest: There is no suspicious lung mass or nodule. There is no abnormal airspace/consolidative density or abnormal interstitial density. There is no pleural effusion, pleural thickening or pneumothorax. There is 4.1 cm dilatation of the ascending thoracic aorta. There is 3.8 cm dilatation of the main pu lmonary artery which could indicate pulmonary hypertension. There is [id number] cardiomegaly. No focal osseous lesions are seen. CT abdomen and pelvis: There is surgical absence of the gallbladder.. There is no biliary ductal dilatation. There is no focal mass or organomegaly involving the liver, pancreas, spleen or adrenal glands.. There is no solid renal mass or hydronephrosis. There are stable nonobstructing left renal calcificat ions larger measuring 19 mm and the smaller measuring 12 mm. There are a few scattered simple cortic al cysts of the kidneys. There is no retroperitoneal adenopathy or hemorrhage in the caliber of the abdominal aorta is normal . There is a right lower quadrant colostomy. There is ill-definition of the sigmoid colon and mild stra nd-like density in the pericolic fat. It appears somewhat less prominent than on the prior study. The re are a few scattered diverticulum in the findings could represent chronic diverticulitis which has improved in the interval. Since the lumen is not well delineated the possibility of an recurrent neop lasm cannot be entirely excluded. There is no pelvic mass or adenopathy. There is no free fluid within the pelvis. There is no change i n diffuse thickening of the urinary bladder wall. No focal osseous lesions are seen. Soft tissue the abdomen and pelvis are normal. IMPRESSION: 1. No evidence of metastatic disease within the thorax. 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 2. Thickened sigmoid colon with diverticula in strand-like density in the pericolic fat mildly improv ed compared to the prior study suggesting improving postsurgical or inflammatory change. The possibil ity of recurrent neoplasm cannot be excluded given the lack of lumen visualization within the sigmoid segment 3. Stable thickening of the urinary bladder wall. 4. Stable nonobstructing left renal calcifications. [facility], , 01/10/2025 2:04 PM
== END | disposition home or self-care (01) ==
LOC: RADCTMAIN 10:49
PROVIDERS: ATTEND Internal Medicine
DX: C18.7 Malignant neoplasm of sigmoid colon (principal); D50.9 Iron deficiency anemia, unspecified; D64.9 Anemia, unspecified; N32.89 Other specified disorders of bladder; N28.89 Other specified disorders of kidney and ureter; K57.30 Diverticulosis of large intestine without perforation or abscess without bleeding; I71.21 Aneurysm of the ascending aorta, without rupture
CPT/HCPCS: 82565; 84520; 71260; 74177; 36415; Q9967

== ENCOUNTER 2025-02-04 11:32 | Day surgery (SDC) | payer MEDICARE, OTHER ==
[2025-01-30 12:30] VITALS: BMI 33.7
[2025-02-04] MEDS: IV FLUID CONTINUATION 1,000 ML IV ONE (13:00)
[2025-02-04 13:05] VITALS: TEMP 98.7
[2025-02-04] MEDS: LACTATED RINGERS 1,000 ML IV SCH (13:06)
[2025-02-04 13:28] LABS: Glucose,Whole Blood 60 mg/dL (70-110)
[2025-02-04] MEDS: ONDANSETRON 4 MG/2 ML VIAL IVP STA (13:32)
[2025-02-04] MEDS ORDERED: DEXTROSE 50% SYRINGE 50 ML IVP ONE (13:34)
[2025-02-04] MEDS ORDERED: PROPOFOL 10 MG/ML 20 ML VIAL IV ONE (13:34)
--- NOTE | 2025-02-04 13:58 | P.OP ---
Date of Procedure: 02/04/25 Preoperative Diagnosis: History of colon cancer Postoperative Diagnosis: History of colon cancer Diverticulosis Procedure(s) Performed: Colonoscopy Anesthesia: MAC Surgeon: Campbell Pool Estimated Blood Loss (ml): 0 Pathology: none sent Condition: stable Disposition: PACU Description of Procedure: The patient was placed on the endoscopy table in the lateral position where he received IV sedation. Digital rectal exam was performed. This revealed no abnormalities refluxed colonoscope was then placed patient anus. The co colonoscope was advanced. The scope was able to reach the 30 cm andriy of the colon. There were scattered diverticuli seen. There was no evidence of any residual colon mass. The scope withdrawn. The rectum. Normal per scope without the patient. Next the patient rotated his back. The colonoscope was then advanced through the patient's colostomy. The colonoscope was advanced to the level of the ileocecal valve. The cecum, ascending and transverse colon appeared normal. Except for few scattered diverticuli. The scope was then backed into the descending colon there were diverticular changes noted. Scope was withdrawn through the colostomy.
[2025-02-04 14:01] VITALS: RESP 14
[2025-02-04 14:21] VITALS: BP 121/73; PULSE 67
== END 2025-02-04 15:01 | disposition home or self-care (01) ==
LOC: ORWHC2ENDO 11:32
PROVIDERS: ATTEND Surgery
DX: Z85.038 Personal history of other malignant neoplasm of large intestine (principal); K57.32 Diverticulitis of large intestine without perforation or abscess without bleeding
CPT/HCPCS: 44388; J2405; J2704; 74420

== ENCOUNTER 2025-02-05 06:21 | Inpatient (IN) | payer MEDICARE, OTHER ==
[~2025-02-05 06:21] MED LIST changes: -Pre Op ABX Message 1 EACH MISC MISCELLANE ONE; +metroNIDAZOLE-NS PMX 500 MG in SALINE 1 100ML.BAG IVPB PRN
[2025-02-05] MEDS: IV FLUID CONTINUATION 1,000 ML IV ONE (06:45)
[2025-02-05] MEDS: LACTATED RINGERS 1,000 ML IV SCH (06:45)
[2025-02-05] MEDS: LIDOCAINE 1% (10MG/ML) FOR IV START INTRADERMA PRN (06:45)
[2025-02-05] MEDS: ONDANSETRON 4 MG/2 ML VIAL IVP ONE (06:55)
[2025-02-05] MEDS: DEXAMETHASONE SOD PHOSPHATE 4 MG/ML 1 ML VIAL IV ONE (06:55)
[2025-02-05] MEDS: ACETAMINOPHEN TAB 500 MG TAB PO PRN (06:55)
[2025-02-05] MEDS: HEPARIN SODIUM,PORCINE 5,000 UNIT/ML 1 ML VIAL SQ PRN (06:56)
[2025-02-05 06:57] LABS: Glucose,Whole Blood 83 mg/dL (70-110)
[2025-02-05] MEDS ORDERED: MIDAZOLAM 2 MG/2 ML VIAL IV PRN (07:00)
[2025-02-05] MEDS ORDERED: fentaNYL (PF) 50 MCG/ML 2 ML AMP IVP PRN (07:00)
[2025-02-05 07:03] LABS: Basophils # (A) 0.02 10*3/uL (0.00-0.10); Basophils % (A) 0.5 %; Eosinophils # (A) 0.11 10*3/uL (0.04-0.35); Eosinophils % (A) 2.5 %; HCT 36.5 % (39.6-50.0); HGB 12.2 g/dL (13.0-17.0); Lymphocytes # (A) 1.05 10*3/uL (0.90-5.00); MCH 29.9 pg (27.0-32.0); MCHC 33.4 g/dL (32.0-37.0); MCV 89.5 fL (80.0-97.0); Mean Platelet Volume 10.3 fL (9.5-12.2); Monocytes # (A) 0.75 10*3/uL (0.20-1.00); Monocytes % (A) 17.2 %; Neutrophils # (A) 2.42 10*3/uL (1.80-7.70); Neutrophils % (A) 55.3 %; Platelet Count 177 10*3/uL (140-440); RBC 4.08 10*6/uL (4.40-5.60); RDW 15.6 % (11.5-14.5); WBC 4.37 10*3/uL (4.50-10.00)
[2025-02-05] MEDS ORDERED: PROPOFOL 10 MG/ML 20 ML VIAL IV ONE (07:18)
[2025-02-05] MEDS ORDERED: KETAMINE HCL IN 0.9 % NACL 50 MG/5 ML SYRINGE ONE (07:18)
[2025-02-05] MEDS ORDERED: ePHEDrine 50 MG/ML 1 ML VIAL ONE (07:18)
[2025-02-05] MEDS ORDERED: ROCURONIUM 10 MG/ML (5 ML VIAL) IV ONE (07:18)
[2025-02-05] MEDS ORDERED: WATER FOR INJECTION, STERILE 10 ML VIAL IV ONE (07:18)
[2025-02-05] MEDS ORDERED: LIDOCAINE 1% INJ 10MG/ML (20 ML MDV) ONE (07:18)
[2025-02-05] MEDS ORDERED: fentaNYL (PF) 50 MCG/ML 2 ML AMP ONE (07:18)
[2025-02-05] MEDS ORDERED: PHENYLEPHRINE-0.9% NACL SYG 1,000 MCG/10 ML SYRINGE ONE (07:18)
[2025-02-05] MEDS ORDERED: GLYCOPYRROLATE 0.2 MG/ML 2 ML VIAL ONE (07:18)
[2025-02-05] MEDS ORDERED: NEOSTIGMINE 1 MG/ML 10 ML VIAL ONE (07:18)
[2025-02-05] MEDS ORDERED: SUCCINYLCHOLINE CHLORIDE 200 MG/10 ML VIAL IV ONE (07:18)
[2025-02-05] MEDS: ceFAZolin 2 GM in DEXTROSE 5% IN WATER 50 ML IVPB PRN (07:22)
[2025-02-05 07:25] LABS: ALT 21 U/L (4-49); AST 31 U/L (17-59); African American GFR (CKD) >90 (>60 ml/min/1.73 sqM); Albumin 3.8 g/dL (3.5-5.0); Alkaline Phosphatase 117 U/L (38-126); Anion Gap 5 mmol/L; Blood Urea Nitrogen 9 mg/dL (9-20); Calcium 9.4 mg/dL (8.4-10.2); Carbon Dioxide 28 mmol/L (22-30); Chloride 105 mmol/L (98-107); Glucose 83 mg/dL (74-99); Non-African American GFR(CKD) >90 (>60 ml/min/1.73 sqM); Sodium 138 mmol/L (137-145); Total Bilirubin 0.7 mg/dL (0.2-1.3); Total Protein 7.2 g/dL (6.3-8.2)
--- NOTE | 2025-02-05 07:27 | P.HPIHPCON ---
History of Present Illness H&P Date: 02/05/25 Chief Complaint: Colon cancer This is a 79-year-old male with history of colon cancer. Plan to undergo sigmoid resection. Urology was consulted for ureteral catheter placement during the surgery. Discussed with him the risk-benefit and rationale of surgery in details. I did discuss with him we will remove the ureteral catheter if there is no ureteral injury at the end of the case. Consent for Procedure: I have explained the operation/procedure to the patient, including the risks, benefits, side effects, alternative therapies (including not receiving the proposed treatment or service), the likelihood of the patient achieving his/her goals, and potential recuperation problems for the procedure/sedation/analgesia, as well as any blood products, if indicated. I also explained to the patient the risks, benefits and side effects of the alternatives, as well as the risks related to not receiving the proposed procedure, care, treatment, or services. Past Medical History Past Medical History: Atrial Fibrillation, Cancer, Hearing Disorder / Deafness, Hypertension, Osteoarthritis (OA), Pneumonia Additional Past Medical History / Comment(s): Current colon tumor. Hx colon cancer, got colostomy 06/13/24. "No longer has A-Fib, Dr stopped all his medication". Hx Pneumonia, spouse thinks 07/2024. "Hearing has gotten a lot worse recently and he only whispers." Sinusitis. Hx chronic lower extremity edema, now resolved. Hypertension resolved, now has low BP. History of Any Multi-Drug Resistant Organisms: None Reported Past Surgical History: Orthopedic Surgery, Tonsillectomy Additional Past Surgical History / Comment(s): Bowel resection/colostomy, knee surgery, port a catheter placement. Past Anesthesia/Blood Transfusion Reactions: No Reported Reaction Smoking Status: Former smoker - Past Family History Father Family Medical History: No Reported History Mother Family Medical History: Asthma, COPD Additional Family Medical History / Comment(s): Bronchitis. Medications and Allergies Home Medications Medication Instructions Recorded Confirmed Type Ergocalciferol [Vitamin D2 (1250 1,250 mcg PO MARTINO 11/23/23 01/30/25 History Mcg = 66045 Iu)] Fluticasone Nasal [place] [Flonase 1 spr EA NOSTRIL BID PRN 11/23/23 02/04/25 History Nasal [place]] Spironolactone [Aldactone] 25 mg PO DAILY 11/23/23 02/04/25 History Ferrous Sulfate [Iron (65 MG 325 mg PO DAILY 07/05/24 01/30/25 History Elemental)] Multivitamins, Thera [Multivitamin 1 tab PO DAILY 07/05/24 01/30/25 History (formulary)] Folic Acid 1 mg PO DAILY 08/30/24 02/04/25 History L.rhamnosus/B.animalis(Lactis) 1 each PO DAILY 08/30/24 02/04/25 History [[facility] 3B Cfu Cp] Potassium Chloride ER [K-Dur 10] 10 meq PO DAILY 08/30/24 01/30/25 History Vitamin B-12 (Unknown Dose) 2 tab PO DAILY 08/30/24 01/30/25 History Allergies Allergy/AdvReac Type Severity Reaction Status Date / Time morphine Allergy Vomiting Verified 02/05/25 07:06 Surgical - Exam Vital Signs Temp Pulse Resp BP Pulse Ox 97.9 F 69 16 116/76 100 02/05/25 06:45 02/05/25 06:45 02/05/25 06:45 02/05/25 06:45 02/05/25 06:45 - General no distress, no pain - Eyes normal ocular movement, no pale - ENT normal nares, normal mucosa - Respiratory normal expansion, normal respiratory effort Results - Labs 02/05/25 06:45 02/05/25 06:45 Abnormal Lab Results - Last 24 Hours (Table) 02/05/25 Range/Units 06:45 WBC 4.37 L (4.50-10.00) 10*3/uL RBC 4.08 L (4.40-5.60) 10*6/uL Hgb 12.2 L (13.0-17.0) g/dL Hct 36.5 L (39.6-50.0) % Diabetes panel 02/05/25 Range/Units 06:45 Sodium 138 (137-145) mmol/L Potassium 4.0 (3.5-5.1) mmol/L Chloride 105 (98-107) mmol/L Carbon Dioxide 28 (22-30) mmol/L BUN 9 (9-20) mg/dL Creatinine 0.66 (0.66-1.25) mg/dL Glucose 83 (74-99) mg/dL Calcium 9.4 (8.4-10.2) mg/dL AST 31 (17-59) U/L ALT 21 (4-49) U/L Alkaline Phosphatase 117 (38-126) U/L Total Protein 7.2 (6.3-8.2) g/dL Albumin 3.8 (3.5-5.0) g/dL Calcium panel 02/05/25 Range/Units 06:45 Calcium 9.4 (8.4-10.2) mg/dL Albumin 3.8 (3.5-5.0) g/dL Pituitary panel 02/05/25 Range/Units 06:45 Sodium 138 (137-145) mmol/L Potassium 4.0 (3.5-5.1) mmol/L Chloride 105 (98-107) mmol/L Carbon Dioxide 28 (22-30) mmol/L BUN 9 (9-20) mg/dL Creatinine 0.66 (0.66-1.25) mg/dL Glucose 83 (74-99) mg/dL Calcium 9.4 (8.4-10.2) mg/dL Adrenal panel 02/05/25 Range/Units 06:45 Sodium 138 (137-145) mmol/L Potassium 4.0 (3.5-5.1) mmol/L Chloride 105 (98-107) mmol/L Carbon Dioxide 28 (22-30) mmol/L BUN 9 (9-20) mg/dL Creatinine 0.66 (0.66-1.25) mg/dL Glucose 83 (74-99) mg/dL Calcium 9.4 (8.4-10.2) mg/dL Total Bilirubin 0.7 (0.2-1.3) mg/dL AST 31 (17-59) U/L ALT 21 (4-49) U/L Alkaline Phosphatase 117 (38-126) U/L Total Protein 7.2 (6.3-8.2) g/dL Albumin 3.8 (3.5-5.0) g/dL Assessment and Plan Assessment: OR for cystoscopy and left ureteral catheter placement
[2025-02-05] MEDS: LACTATED RINGERS 1,000 ML IV ONE ×2 (07:45→13:15)
[2025-02-05] MEDS: IOPAMIDOL-370 100ML BTL MISCELLANE ONE (07:47)
--- NOTE | 2025-02-05 09:10 | P.OP ---
Date of Procedure: 02/05/25 Preoperative Diagnosis: Colon cancer Postoperative Diagnosis: Same Procedure(s) Performed: Cystoscopy, left retrograde pyelogram, ureteral stent insertion Implants: 7 Maori by 26 cm stent left on a string Anesthesia: CLAUDIA Surgeon: Higinio Echavarria Estimated Blood Loss (ml): 1 Pathology: none sent Condition: stable Indications for Procedure: This is a 79-year-old male with history of colon cancer. Plan to undergo sigmoid resection. Urology was consulted for ureteral catheter placement during the surgery. Discussed with him the risk-benefit and rationale of surgery in details. I did discuss with him we will remove the ureteral catheter if there is no ureteral injury at the end of the case. Operative Findings: Left torturous distal ureter at the level of the sigmoid colon, with evidence of mild extrinsic compression, but there is no evidence of hydronephrosis on retrograde pyelogram Description of Procedure: Patient brought to the operating room, general anesthesia was induced. He was prepped and draped in sterile fashion placed in dorsolithotomy position. Cystoscopy with a 22 Maori sheath was inserted per urethra, cystoscopy was performed which showed a mildly trabeculated bladder, there was significant d ebris within the bladder with diffused erythema, visualization was slightly limited secondary to debris within the bladder, there was no clear evidence of a colovesical fistula. The left ureteral orifice was identified and intubated with a sensor wire, I attempted to advance the wire past the distal ureter but resistance was met, this point the wire was removed and a 6 Maori open-ended catheter was advanced through the left ureteral orifice, retrograde pyelogram was performed which showed tortuosity of the distal ureter, with evidence of mild extrinsic compression secondary to the sigmoid mass, there was no hydronephrosis on evaluation of the rest of the kidney. At this point a Glidewire was advanced through the catheter and passed the area of tortuosity and into the kidney. Next a ureteral stent was passed over the wire, the proximal curl was realized on fluoroscopy and the distal curl was visualized using the cystoscope. A 16 Maori Morales catheter was placed. The string was taped to the patient penis. With the plan to remove the stent after the conclusion of his sigmoid resection by Dr. Pool
--- NOTE | 2025-02-05 09:14 | FL ---
EXAMINATION TYPE: FL urography retrograde DATE OF EXAM: 02/05/2025 FLUOROSCOPY 72.2 SEC FL TIME USED 0.63385 DAP UROGRAPHY LEFT 5 images are submitted. [facility], , 02/05/2025 9:12 AM
[2025-02-05] MEDS: HYDROmorphone 0.5 MG/0.5 ML SYRINGE IVP PRN ×2 (09:35→21:56)
--- NOTE | 2025-02-05 09:41 | P.OP ---
Date of Procedure: 02/05/25 Preoperative Diagnosis: Sigmoid colon cancer Postoperative Diagnosis: Sigmoid colon cancer Procedure(s) Performed: Exploratory laparotomy Sigmoid resection Repair of incisional hernia Anesthesia: MAC Surgeon: Campbell Pool Estimated Blood Loss (ml): 50 Pathology: other (Sigmoid colon) Condition: stable Disposition: PACU Description of Procedure: The patient was placed on the operative table. He received general anesthesia. He was placed in the dorsal thigh position. His abdomen was prepped and draped you sterile fashion. The patient had a left ureteral stent placed by Dr. sal prior to the procedure. The patient had an incisional hernia noted during prepping. The skin was incised in midline. Using electrocautery the subcutaneous tissues and fascia were divided. There were adhesions to the anterior abdominal wall. These were lysed with sharp dissection. The small bowel was identified and care was taken identify and preserve the small bowel serosal surface. Once adhesions were lysed. The Bookwalter tract placed the wound. The small bowel adhesions in the pelvis were lysed. The distal colon was visualized. The adhesions to the distal colon were freed. The dissection was taken down towards the pelvis. The colon was adhered to the bladder. These adhesions were taken down with finger dissection. The colon had been tattooed previously. The tattoo ink spot in the colonic mass were visualized. Using the Enseal device the mesentery of the colon was divided. At the level of the rectum the colon was transected with a contour stapler. The specimen was then withdrawn and sent pathology. The abdomen is irrigated there is no bleeding seen. Surgicel powder was placed into the pelvis. This was also irrigated and then a RADHA drain was placed in the pelvis and brought through a separate stab incision in the right abdominal wall. It was decided not to reverse the colostomy. The left ureteral stent could not really be palpated due to the inflammatory changes along the lateral left abdominal wall. Fortunately the colon specimen was not adhered to the left pelvic wall. The fascia was then closed with looped #1 PDS suture. Skin was closed zev. Sterile dressing was applied. Patient tolerated well. He was sent to recovery in stable condition.
[2025-02-05] MEDS ORDERED: NALOXONE 0.4 MG/ML 1 ML VIAL IV PRN (09:42)
[2025-02-05] MEDS ORDERED: HYDROmorphone 1 MG/ML 1 ML SYRINGE IVP PRN (09:42)
[2025-02-05] MEDS ORDERED: METOCLOPRAMIDE 5 MG/ML 2 ML VIAL IVP PRN (09:42)
[2025-02-05] MEDS ORDERED: HYDROmorphone 2 MG/ML 1 ML SYRINGE IVP PRN (14:16)
--- NOTE | 2025-02-05 14:50 | P.CONS ---
History of Present Illness - Reason for Consult Consult date: 02/05/25 - History of Present Illness 79 year old M with PMH atrial fibrillation, hypertension, colon CA that presents to [facility] [place] for elective surgery. Underwent diverting colostomy for near obstructing colonic mass on 06/13/2024. C-scope on 02/04/2025 showing scattered diverticuli with no evidence of residual colon mass. He presents today, underwent exploratory laparotomy with sigmoid resection and repair of incisional hernia with Dr. Pool along with cystoscopy with left retrograde pyelogram and ureteral stent insertion with Dr. Echavarria. Patient was seen and examined post-operatively. 02/05 He is currently sleepy likely from anesthesia. CBC and CMP significant for WBC 4.37, RBC 4.08, Hg 12.2, Hct 36.5. BP 123/69 HR 69, RR 15, 99% on RA. General: non toxic, no distress, appears at stated age Derm: warm, dry Head: atraumatic, normocephalic, symmetric Eyes: EOMI, no lid lag, anicteric sclera Mouth: no lip lesion, mucus membranes moist Cardiovascular: S1S2 reg, no murmur Lungs: Clear to auscultation bilaterally, no rhonchi, no rales , no accessory muscle use Abd: Non distended. Surgical scar intact dressing c/d/i Ext: no gross muscle atrophy, no edema, no contractures Neuro: no focal neuro deficits Psych: Sleepy but easily arousable. Based on my assessment of this patient, this patient meets a high complexity level of care. Microcytic anemia: Previous Fe studies shows Fe 37, B12 191, Folate 4.8. Restart ferrous sulfate 325 mg PO QD. Hypertension: Borderline hypotensive. Holding Aldactone. Proxysmal atrial fibrillation: Rate controlled. Not on AC. History of colon CA status post exploratory laparotomy with sigmoid resection and repair of incisional hernia along with cystoscopy with left retrograde pyelogram and ureteral stent insertion managed by Dr. Pool and Dr. Echavarria. CODE STATUS: FULL CODE DVT Prophylaxis: SCD GI Prophylaxis: Designated medical POA if patient is not able to make medical decisions for themselves: I have reviewed the following devops consultant notes: Operative note. I have reviewed the results of the following tests: CBC, CMP. I have ordered the following tests: Agree with CBC and CMP in the AM. I have discussed the care of this patient with the following independent historian: . I have independently interpreted the following test below: I have discussed the management of this patient with the following physician: Past Medical History Past Medical History: Atrial Fibrillation, Cancer, Hearing Disorder / Deafness, Hypertension, Osteoarthritis (OA), Pneumonia Additional Past Medical History / Comment(s): Current colon tumor. Hx colon cancer, got colostomy 06/13/24. "No longer has A-Fib, Dr stopped all his medication". Hx Pneumonia, spouse thinks 07/2024. "Hearing has gotten a lot worse recently and he only whispers." Sinusitis. Hx chronic lower extremity edema, now resolved. Hypertension resolved, now has low BP. History of Any Multi-Drug Resistant Organisms: None Reported Past Surgical History: Orthopedic Surgery, Tonsillectomy Additional Past Surgical History / Comment(s): Bowel resection/colostomy, knee surgery, port a catheter placement. Past Anesthesia/Blood Transfusion Reactions: No Reported Reaction Smoking Status: Former smoker - Past Family History Father Family Medical History: No Reported History Mother Family Medical History: Asthma, COPD Additional Family Medical History / Comment(s): Bronchitis. Medications and Allergies Home Medications Medication Instructions Recorded Confirmed Type Ergocalciferol [Vitamin D2 (1250 1,250 mcg PO MARTINO 11/23/23 01/30/25 History Mcg = 42340 Iu)] Fluticasone Nasal [place] [Flonase 1 spr EA NOSTRIL BID PRN 11/23/23 02/04/25 Hi story Nasal [place]] Spironolactone [Aldactone] 25 mg PO DAILY 11/23/23 02/04/25 History Ferrous Sulfate [Iron (65 MG 325 mg PO DAILY 07/05/24 01/30/25 History Elemental)] Multivitamins, Thera [Multivitamin 1 tab PO DAILY 07/05/24 01/30/25 History (formulary)] Folic Acid 1 mg PO DAILY 08/30/24 02/04/25 History L.rhamnosus/B.animalis(Lactis) 1 each PO DAILY 08/30/24 02/04/25 History [[facility] Cfu Cp] Potassium Chloride ER [K-Dur 10] 10 meq PO DAILY 08/30/24 01/30/25 History Vitamin B-12 (Unknown Dose) 2 tab PO DAILY 08/30/24 01/30/25 History Allergies Allergy/AdvReac Type Severity Reaction Status Date / Time morphine Allergy Vomiting Verified 02/05/25 07:06 Physical Exam Vitals: Vital Signs Temp Pulse Resp BP Pulse Ox 02/05/25 12:00 67 15 118/63 99 02/05/25 11:30 63 15 116/63 99 02/05/25 11:00 61 15 119/63 99 02/05/25 10:30 78 15 124/80 99 02/05/25 10:15 65 15 123/69 99 02/05/25 10:00 64 15 110/83 99 02/05/25 09:45 63 15 110/80 95 02/05/25 09:30 71 15 105/69 98 02/05/25 09:21 97 F L 91 14 119/76 93 L 02/05/25 06:45 97.9 F 69 16 116/76 100 Intake and Output 02/04/25 02/05/25 02/05/25 22:59 06:59 14:59 Intake Total 700 1350 Output Total 100 Balance 700 1250 Intake: IV 700 1350 Output: Urine 50 Estimated Blood Loss 50 Other: Weight 108 kg Results CBC & Chem 7: 02/05/25 06:45 02/05/25 06:45 Labs: Abnormal Lab Results - Last 24 Hours (Table) 02/05/25 Range/Units 06:45 WBC 4.37 L (4.50-10.00) 10*3/uL RBC 4.08 L (4.40-5.60) 10*6/uL Hgb 12.2 L (13.0-17.0) g/dL Hct 36.5 L (39.6-50.0) %
[2025-02-05] MEDS: KETOROLAC 15 MG/ML 1 ML VIAL IVP SCH (16:49)
[2025-02-05] MEDS: D5-0.45% NACL WITH KCL 20MEQ/L 1,000 ML IV SCH (16:50)
[2025-02-06 08:16] LABS: Basophils # (A) 0.01 X 10*3/uL (0.00-0.10); Basophils % (A) 0.1 %; Eosinophils # (A) 0.01 X 10*3/uL (0.04-0.35); Eosinophils % (A) 0.1 %; HCT 34.6 % (39.6-50.0); HGB 11.1 g/dL (13.0-17.0); Lymphocytes # (A) 0.74 X 10*3/uL (0.90-5.00); Lymphocytes % (A) 7.1 %; MCH 29.4 pg (27.0-32.0); MCHC 32.1 g/dL (32.0-37.0); MCV 91.8 FL (80.0-97.0); Mean Platelet Volume 11.3 FL (9.5-12.2); Monocytes # (A) 0.99 X 10*3/uL (0.20-1.00); Monocytes % (A) 9.5 %; NRBC Per 100 WBC 0 X 10*3/uL (0.00-0.01); Neutrophils % (A) 82.9 %; Platelet Count 155 X 10*3/uL (140-440); RBC 3.77 X 10*6/uL (4.40-5.60); RDW 15.8 % (11.5-14.5); WBC 10.38 X 10*3/uL (4.50-10.00)
[2025-02-06 08:29] LABS: ALT 16 U/L (10-49); AST 21 U/L (14-35); Albumin 3.3 g/dL (3.8-4.9); Albumin/Globulin Ratio 1.22 Ratio (1.60-3.17); Alkaline Phosphatase 107 U/L (41-126); BUN/Creat Ratio 14.75 Ratio (12.00-20.00); Blood Urea Nitrogen 11.8 mg/dL (9.0-27.0); Calcium 8.6 mg/dL (8.7-10.3); Carbon Dioxide 24.1 mmol/L (21.6-31.8); Chloride 104 mmol/L (96-109); Globulin 2.7 g/dL (1.6-3.3); Glucose 107 mg/dL (70-110); Sodium 138 mmol/L (135-145); Total Bilirubin 0.4 mg/dL (0.3-1.2)
[2025-02-06] MEDS: FOLIC ACID 1 MG TAB PO SCH (09:13)
[2025-02-06] MEDS: HYDROmorphone 1 MG/ML 1 ML SYRINGE IVP PRN (09:13)
[2025-02-06] MEDS: ENOXAPARIN 40 MG/0.4 ML SYRINGE SQ SCH (09:14)
[2025-02-06] MEDS: FERROUS SULFATE 325 MG TAB PO SCH (09:14)
--- NOTE | 2025-02-06 10:06 | P.PN ---
Progress Note - Text Progress Note Date: 02/06/25 The patient had a stent placed by Dr. Echavarria yesterday for Dr. Pool's colon surgery. The stent was removed yesterday by the nursing staff. The urine is clear. Nothing further urologic needs to be done.
--- NOTE | 2025-02-06 11:34 | P.PN ---
Subjective Progress Note Date: 02/06/25 79 year old M with PMH atrial fibrillation, hypertension, colon CA that presents to [facility] for elective surgery. Underwent diverting colostomy for near obstructing colonic mass on 06/13/2024. C-scope on 02/04/2025 showing scattered diverticuli with no evidence of residual colon mass. He presents today, underwent exploratory laparotomy with sigmoid resection and repair of incisional hernia with Dr. Pool along with cystoscopy with left retrograde pyelogram and ureteral stent insertion with Dr. Echavarria. Patient was seen and examined post-operatively. 02/05 He is currently sleepy likely from anesthesia. CBC and CMP significant for WBC 4.37, RBC 4.08, Hg 12.2, Hct 36.5. 02/06 Patient was seen and examined. Feeling tired. No output from ostomy yet. No nausea and vomiting. Pain well controlled. Plans to start CLD today. Urology removed ureteral stent yesterday with no complications. CBC and CMP significant for WBC 10.38, RBC 3.77, Hg 11.1, Hct 34.6, Ca 86, alb 3.3. BP 103/65 HR 66, RR 18, 95% on RA. General: non toxic, no distress, appears at stated age Derm: warm, dry Head: atraumatic, normocephalic, symmetric Eyes: EOMI, no lid lag, anicteric sclera Mouth: no lip lesion, mucus membranes moist Cardiovascular: S1S2 reg, no murmur Lungs: Clear to auscultation bilaterally, no rhonchi, no rales , no accessory muscle use Abd: Non distended. Surgical scar intact dressing c/d/i. Ostomy intact with no output. Ext: no gross muscle atrophy, no edema, no contractures Neuro: no focal neuro deficits Psych: Sleepy but easily arousable. + Morales Based on my assessment of this patient, this patient meets a high complexity level of care. Microcytic anemia: Previous Fe studies shows Fe 37, B12 191, Folate 4.8. Ferrous sulfate 325 mg PO QD. Leukocytosis which is likely reactive with no signs of active infection: Monitor fever profile. Hypertension: Borderline hypotensive. Holding Aldactone. Proxysmal atrial fibrillation: Rate controlled. Not on AC. History of colon CA status post exploratory laparotomy with sigmoid resection and repair of incisional hernia along with cystoscopy with left retrograde pyelogram and ureteral stent insertion managed by Dr. Pool and Dr. Echavarria. CODE STATUS: FULL CODE DVT Prophylaxis: SCD GI Prophylaxis: Designated medical POA if patient is not able to make medical decisions for themselves: I have reviewed the following franchise business consultant notes: Urology note. I have reviewed the results of the following tests: CBC, CMP. I have ordered the following tests: I have discussed the care of this patient with the following independent historian: I have independently interpreted the following test below: I have discussed the management of this patient with the following physician: Shruthi VARGAS. Objective - Vital Signs Vital signs: Vital Signs Temp 97.4 F L 02/06/25 07:10 Pulse 66 02/06/25 07:40 Resp 18 02/06/25 07:40 BP 103/65 02/06/25 07:10 Pulse Ox 95 02/06/25 07:10 FiO2 Intake & Output 02/05/25 02/06/25 02/06/25 18:59 06:59 18:59 Intake Total 1350 Output Total 100 450 Balance 1250 -450 Weight 108 kg Intake: IV 1350 Output: Drainage 50 Abdomen 50 Urine 50 400 Estimated Blood Loss 50 Other: Voiding Method Indwelling Catheter Indwelling Catheter # Voids 1 - Labs CBC & Chem 7: 02/06/25 03:51 02/06/25 03:51 Labs: Abnormal Lab Results - Last 24 Hours (Table) 02/06/25 02/06/25 Range/Units 03:51 03:51 WBC 10.38 H (4.50-10.00) X 10*3/uL RBC 3.77 L (4.40-5.60) X 10*6/uL Hgb 11.1 L (13.0-17.0) g/dL Hct 34.6 L (39.6-50.0) % RDW 15.8 H (11.5-14.5) % Neutrophils # 8.60 H (1.80-7.70) X 10*3/uL Lymphocytes # 0.74 L (0.90-5.00) X 10*3/uL Eosinophils # 0.01 L (0.04-0.35) X 10*3/uL Calcium 8.6 L (8.7-10.3) mg/dL Total Protein 6.0 L (6.2-8.2) g/dL Albumin 3.3 L (3.8-4.9) g/dL Albumin/Globulin Ratio 1.22 L (1.60-3.17) Ratio
--- NOTE | 2025-02-06 14:54 | P.PN ---
Subjective Progress Note Date: 02/06/25 SURGICAL PROGRESS NOTE CHIEF COMPLAINT: Sigmoid colon cancer HISTORY OF PRESENT ILLNESS: Patient is postop day #1 status post exploratory laparotomy, sigmoid resection, repair of incisional hernia. Patient had reported abdominal pain this morning. Denies any nausea or vomiting. Afebrile. WBC 10.38 Hgb 11.1 creatinine 0.8. The stent placed by urology service has been removed. PHYSICAL EXAM: VITAL SIGNS: Reviewed. GENERAL: Well-developed in no acute distress. ABDOMEN: Soft. Nondistended. NEUROLOGIC: Alert and oriented. Cranial nerves II through XII grossly intact. ASSESSMENT: 1. Sigmoid colon cancer PLAN: -Advance diet to sips of clears - Continue IV fluids - Continue pain management - Encourage patient to use incentive spirometer -Encourage patient to increase activity level -DVT prophylaxis Lovenox Physician Aquarist note has been reviewed by physician. Signing provider agrees with the documented findings, assessment, and plan of care. Objective - Vital Signs Vital signs: Vital Signs Temp 97.4 F L 02/06/25 07:10 Pulse 66 02/06/25 07:40 Resp 18 02/06/25 07:40 BP 103/65 02/06/25 07:10 Pulse Ox 95 02/06/25 07:10 FiO2 Intake & Output 02/05/25 02/06/25 02/06/25 18:59 06:59 18:59 Intake Total 1350 Output Total 100 450 Balance 1250 -450 Weight 108 kg Intake: IV 1350 Output: Drainage 50 Abdomen 50 Urine 50 400 Estimated Blood Loss 50 Other: Voiding Method Indwelling Catheter Indwelling Catheter # Voids 1 - Labs CBC & Chem 7: 02/06/25 03:51 02/06/25 03:51 Labs: Abnormal Lab Results - Last 24 Hours (Table) 02/06/25 02/06/25 Range/Units 03:51 03:51 WBC 10.38 H (4.50-10.00) X 10*3/uL RBC 3.77 L (4.40-5.60) X 10*6/uL Hgb 11.1 L (13.0-17.0) g/dL Hct 34.6 L (39.6-50.0) % RDW 15.8 H (11.5-14.5) % Neutrophils # 8.60 H (1.80-7.70) X 10*3/uL Lymphocytes # 0.74 L (0.90-5.00) X 10*3/uL Eosinophils # 0.01 L (0.04-0.35) X 10*3/uL Calcium 8.6 L (8.7-10.3) mg/dL Total Protein 6.0 L (6.2-8.2) g/dL Albumin 3.3 L (3.8-4.9) g/dL Albumin/Globulin Ratio 1.22 L (1.60-3.17) Ratio
--- NOTE | 2025-02-06 18:37 | P.CONS ---
History of Present Illness - Reason for Consult Consult date: 02/06/25 colon cancer Requesting physician: Campbell Pool - Chief Complaint surgery - History of Present Illness Alan is a 79-year-old gentleman with a past medical history significant for atrial fibrillation and hypertension who presents as posthospital follow-up for recent diagnosis of adenocarcinoma of the sigmoid colon. He initially presented [facility] on 06[facility]24 for increased weakness and shortness of breath. CTA of the chest at that time was negative for pulmonary embolism. CT abdomen/pelvis revealed circumferential wall thickening of the sigmoid colon that was compatible with colitis versus diverticulitis and underlying mass was not excluded. Repeat CT abdomen/pelvis revealed sigmoid mass versus acute diverticulitis extending from the proximal to the mid sigmoid colon with an area of increased density in close approximation to the suspected mass. Colonoscopy on 06/12/2024 revealed near obstructing mass in the sigmoid colon with pathology being consistent with high-grade dysplasia. CEA at that time was less than 2 with iron saturation of 6.9% and ferritin of 390. As he had been febrile, there was a concern for potential infectious etiology. On 06/13/2024, he underwent diverting colostomy as it was felt the mass was adherent to the retroperitoneum. Due to the size and inflammation around the mass, it was felt that it could not be excised and instead underwent diverting colostomy. Following discharge on 06/21/2024, he was readmitted on 07/05/2024 due to concern for possible infection with fever and chills. Blood cultures revealed 1 of 2 cultures growing Staphylococcus epidermidis, which is felt to be contaminant. He did undergo sigmoidoscopy on 07/09/2024, where repeat biopsy of the large sigmoid colon mass was consistent with invasive moderately differentiated adenocarcinoma. IHC revealed no loss of MMR protein expression and was negative for BRAF V600E. CT imaging during his admission did not reveal any evidence of metastatic disease. We discussed that the standard of care in the situation would be surgical resection followed by potential of adjuvant treatment depending on features from the surgical pathology. Based on the workup above, he appears to have either stage II (T4N0M0) disease although due to it being adherent to the retroperitoneum, was not operable upfront. PD-L1 from the pathology sample was less than 1% with microsatellite stable disease. Patient initiated cycle 1 of neoadjuvant FOLFOX on 09/25/2024 and completed cycle 8 on 01/01/2025. Repeat staging CT scans on 01/10/2025 revealed no evidence of metastatic disease with decreased thickening in the colon and stable thickening of the wall of the urinary bladder. He was thus referred back to surgery. Plan will be for a total of 6 months of perioperative chemotherapy once recovered from surgery. Patient was admitted for exploratory laparotomy and sigmoid resection. Patient tolerated surgical procedure well no reported complications. Labs reviewed, WBC 10.3, hemoglobin 11.1, platelets 155,000 creatinine 0.8, GFR 90. At today's visit patient is reporting feeling tired but denies any significant abdominal pain, nausea or vomiting. No output noted in ostomy. Review of Systems 10 point ROS is negative except as stated in the HPI Past Medical History Past Medical History: Atrial Fibrillation, Cancer, Hearing Disorder / Deafness, Hypertension, Osteoarthritis (OA), Pneumonia Additional Past Medical History / Comment(s): Current colon tumor. Hx colon cancer, got colostomy 06/13/24. "No longer has A-Fib, Dr stopped all his medication". Hx Pneumonia, spouse thinks 07/2024. "Hearing has gotten a lot worse recently and he only whispers." Sinusitis. Hx chronic lower extremity edema, now resolved. Hypertension resolved, now has low BP. History of Any Multi-Drug Resistant Organisms: None Reported Past Surgical History: Orthopedic Surgery, Tonsillectomy Additional Past Surgical History / Comment(s): Bowel resection/colostomy, knee surgery, port a catheter placement. Past Anesthesia/Blood Transfusion Reactions: No Reported Reaction Past Psychological History: No Psychological Hx Reported Smoking Status: Former smoker Past Alcohol Use History: None Reported Additional Past Alcohol Use History / Comment(s): Quit smoking >30 yrs ago. Past Drug Use History: None Reported - Past Family History Father Family Medical History: No Reported History Mother Family Medical History: Asthma, COPD Additional Family Medical History / Comment(s): Bronchitis. Medications and Allergies Home Medications Medication Instructions Recorded Confirmed Type Ergocalciferol [Vitamin D2 (1250 1,250 mcg PO MARTINO 11/23/23 01/30/25 History Mcg = 48186 Iu)] Fluticasone Nasal [place] [Flonase 1 spr EA NOSTRIL BID PRN 11/23/23 02/04/25 History Nasal [place]] Spironolactone [Aldactone] 25 mg PO DAILY 11/23/23 02/04/25 History Ferrous Sulfate [Iron (65 MG 325 mg PO DAILY 07/05/24 01/30/25 History Elemental)] Multivitamins, Thera [Multivitamin 1 tab PO DAILY 07/05/24 01/30/25 History (formulary)] Folic Acid 1 mg PO DAILY 08/30/24 02/04/25 History L.rhamnosus/B.animalis(Lactis) 1 each PO DAILY 08/30/24 02/04/25 History [[facility] Cfu Cp] Potassium Chloride ER [K-Dur 10] 10 meq PO DAILY 08/30/24 01/30/25 History Vitamin B-12 (Unknown Dose) 2 tab PO DAILY 08/30/24 01/30/25 History Allergies Allergy/AdvReac Type Severity Reaction Status Date / Time morphine Allergy Vomiting Verified 02/05/25 07:06 Physical Exam Vitals: Vital Signs Temp Pulse Pulse Resp BP Pulse Ox 02/06/25 07:40 66 67 18 02/06/25 07:10 97.4 F L 66 18 103/65 95 02/06/25 00:30 98.2 F 73 17 105/70 96 02/05/25 21:00 66 67 18 02/05/25 19:33 97.5 F L 74 16 116/67 95 Intake and Output 02/06/25 02/06/25 02/06/25 06:59 14:59 22:59 Intake Total 1350 Output Total 450 Balance -450 1350 Intake: Intake, IV Titration 1000 Amount D5-0.45% NaCl with KCl 1000 20Meq/l 1,000 ml @ 125 mls/hr IV .Q8H [facility] Rx#: [id number] Oral 350 Output: Drainage 50 Abdomen 50 Urine 400 Other: Voiding Method Indwelling Catheter # Voids 1 - Constitutional General appearance: average body habitus, no acute distress - EENT Eyes: anicteric sclerae, EOMI ENT: hearing grossly normal - Respiratory Respiratory: bilateral: CTA - Cardiovascular Rhythm: regular - Gastrointestinal ostomy in situ - Musculoskeletal Musculoskeletal: generalized weakness - Psychiatric Psychiatric: A&O x's 3 Results CBC & Chem 7: 02/06/25 03:51 02/06/25 03:51 Labs: Abnormal Lab Results - Last 24 Hours (Table) 02/06/25 02/06/25 Range/Units 03:51 03:51 WBC 10.38 H (4.50-10.00) X 10*3/uL RBC 3.77 L (4.40-5.60) X 10*6/uL Hgb 11.1 L (13.0-17.0) g/dL Hct 34.6 L (39.6-50.0) % RDW 15.8 H (11.5-14.5) % Neutrophils # 8.60 H (1.80-7.70) X 10*3/uL Lymphocytes # 0.74 L (0.90-5.00) X 10*3/uL Eosinophils # 0.01 L (0.04-0.35) X 10*3/uL Calcium 8.6 L (8.7-10.3) mg/dL Total Protein 6.0 L (6.2-8.2) g/dL Albumin 3.3 L (3.8-4.9) g/dL Albumin/Globulin Ratio 1.22 L (1.60-3.17) Ratio CT scan - abdomen: report reviewed CT scan - pelvis: report reviewed Assessment and Plan (1) Colon adenocarcinoma Current Visit: Yes Status: Acute Priority: High Code(s): C18.9 - MALIGNANT NEOPLASM OF COLON, UNSPECIFIED SNOMED Code(s): 298957944 Plan: Colon adenocarcinoma: Admitted for sigmoid colon resection. Pt tolerated procedure well, with no reported complications -Oncology history as dictated in the HPI -Initiated cycle 1 of neoadjuvant FOLFOX on 09/25/2024 and completed cycle 8 on 01/01/2025. -Repeat staging CT scans on 01/10/2025 revealed no evidence of metastatic disease with decreased thickening in the colon and stable thickening of the wall of the urinary bladder. -Plan will be for a total of 6 months of perioperative chemotherapy once recovered from surgery. -Clinic f/u will be scheduled prior to resuming chemo. Chemo will be held typically for at least 4 weeks to allow adequate time to recover from surgery Doctor attests: I performed a history and physical examination of this patient, developed impression and plan of care. Discussed with dictator. I agree with dictators note, documented as a scribe.
[2025-02-07 08:26] LABS: HCT 34.2 % (39.6-50.0); HGB 11.3 g/dL (13.0-17.0); MCH 30.5 pg (27.0-32.0); MCV 92.2 FL (80.0-97.0); Mean Platelet Volume 11.2 FL (9.5-12.2); NRBC Per 100 WBC 0 X 10*3/uL (0.00-0.01); Platelet Count 125 X 10*3/uL (140-440); RBC 3.71 X 10*6/uL (4.40-5.60); RDW 15.6 % (11.5-14.5); WBC 8.35 X 10*3/uL (4.50-10.00)
[2025-02-07 08:27] LABS: Basophils # (A) 0.01 X 10*3/uL (0.00-0.10); Basophils % (A) 0.1 %; Eosinophils # (A) 0.07 X 10*3/uL (0.04-0.35); Eosinophils % (A) 0.8 %; Lymphocytes # (A) 0.76 X 10*3/uL (0.90-5.00); Lymphocytes % (A) 9.1 %; Monocytes # (A) 1.17 X 10*3/uL (0.20-1.00); Neutrophils # (A) 6.31 X 10*3/uL (1.80-7.70); Neutrophils % (A) 75.6 %
[2025-02-07 08:39] LABS: BUN/Creat Ratio 15.14 Ratio (12.00-20.00); Blood Urea Nitrogen 10.6 mg/dL (9.0-27.0); Calcium 8.1 mg/dL (8.7-10.3); Chloride 102 mmol/L (96-109); Glucose 101 mg/dL (70-110); Sodium 135 mmol/L (135-145)
--- NOTE | 2025-02-07 11:29 | P.PN ---
Subjective Progress Note Date: 02/07/25 79 year old M with PMH atrial fibrillation, hypertension, colon CA that presents to [facility] for elective surgery. Underwent diverting colostomy for near obstructing colonic mass on 06/13/2024. C-scope on 02/04/2025 showing scattered diverticuli with no evidence of residual colon mass. He presents today, underwent exploratory laparotomy with sigmoid resection and repair of incisional hernia with Dr. Pool along with cystoscopy with left retrograde pyelogram and ureteral stent insertion with Dr. Echavarria. Patient was seen and examined post-operatively. 02/05 He is currently sleepy likely from anesthesia. CBC and CMP significant for WBC 4.37, RBC 4.08, Hg 12.2, Hct 36.5. 02/06 Patient was seen and examined. Feeling tired. No output from ostomy yet. No nausea and vomiting. Pain well controlled. Plans to start CLD today. Urology removed ureteral stent yesterday with no complications. CBC and CMP significant for WBC 10.38, RBC 3.77, Hg 11.1, Hct 34.6, Ca 86, alb 3.3. 02/07 Patient was seen and examined. Reports pain at the site of surgery. No output from ostomy. No nausea or vomiting. CBC and BMP significant for RBC 3.71, Hg 11.3, Hct 34.2, Plt 125, Ca 8.1. BP 108/74 HR 86, RR 17, 93% on RA, T 97.8F. General: non toxic, no distress, appears at stated age Derm: warm, dry Head: atraumatic, normocephalic, symmetric Eyes: EOMI, no lid lag, anicteric sclera Mouth: no lip lesion, mucus membranes moist Cardiovascular: S1S2 reg, no murmur Lungs: Clear to auscultation bilaterally, no rhonchi, no rales , no accessory muscle use Abd: Non distended. Surgical scar intact dressing c/d/i. Ostomy intact with no output. Ext: no gross muscle atrophy, no edema, no contractures Neuro: no focal neuro deficits Psych: Sleepy but easily arousable. + Morales Based on my assessment of this patient, this patient meets a high complexity level of care. Microcytic anemia: Previous Fe studies shows Fe 37, B12 191, Folate 4.8. Ferrous sulfate 325 mg PO QD. Hypertension: Borderline hypotensive. Holding Aldactone. Proxysmal atrial fibrillation: Rate controlled. Not on AC. History of colon CA status post exploratory laparotomy with sigmoid resection and repair of incisional hernia along with cystoscopy with left retrograde pyelogram and ureteral stent insertion managed by Dr. Pool and Dr. Echavarria. Resolved: Leukocytosis. CODE STATUS: FULL CODE DVT Prophylaxis: SCD GI Prophylaxis: Designated medical POA if patient is not able to make medical decisions for themselves: I have reviewed the following nurse consultant notes: Oncology, Surgery. I have reviewed the results of the following tests: CBC, BMP. I have ordered the following tests: I have discussed the care of this patient with the following independent historian: I have independently interpreted the following test below: I have discussed the management of this patient with the following physician: Shruthi VARGAS, awaiting return of bowel function. Objective - Vital Signs Vital signs: Vital Signs Temp 97.8 F 02/07/25 07:24 Pulse 86 02/07/25 07:24 Resp 17 02/07/25 07:24 BP 108/74 02/07/25 07:24 Pulse Ox 93 L 02/07/25 07:24 FiO2 Intake & Output 02/06/25 02/07/25 02/07/25 18:59 06:59 18:59 Intake Total 1350 240 Output Total 408 400 Balance 942 -160 Intake: Intake, IV Titration 1000 Amount D5-0.45% NaCl with KCl 1000 20Meq/l 1,000 ml @ 125 mls/hr IV .Q8H [facility] Rx#: [id number] Oral 350 240 Output: Drainage 8 Abdomen 8 Urine 400 400 Other: Voiding Method Indwelling Catheter Indwelling Catheter Indwelling Catheter # Voids 1 # Bowel Movements 0 - Labs CBC & Chem 7: 02/07/25 05:26 02/07/25 05:26 Labs: Abnormal Lab Results - Last 24 Hours (Table) 02/07/25 02/07/25 Range/Units 05:26 05:26 RBC 3.71 L (4.40-5.60) X 10*6/uL Hgb 11.3 L (13.0-17.0) g/dL Hct 34.2 L (39.6-50.0) % RDW 15.6 H (11.5-14.5) % Plt Count 125 L (140-440) X 10*3/uL Lymphocytes # 0.76 L (0.90-5.00) X 10*3/uL Monocytes # 1.17 H (0.20-1.00) X 10*3/uL Calcium 8.1 L (8.7-10.3) mg/dL
--- NOTE | 2025-02-07 13:31 | P.PN ---
Subjective Progress Note Date: 02/07/25 SURGICAL PROGRESS NOTE CHIEF COMPLAINT: Sigmoid colon cancer HISTORY OF PRESENT ILLNESS: Patient is postop day #2 status post exploratory laparotomy, sigmoid resection, repair of incisional hernia. Patient had reported abdominal pain this morning. Patient did report a small amount of nausea yesterday. Patient reports pain is controlled. Afebrile. WBC normal at 8.35 Hgb 11.3 PHYSICAL EXAM: VITAL SIGNS: Reviewed. GENERAL: Well-developed in no acute distress. ABDOMEN: Soft. Nondistended. Midline incisional dressing clean dry and intact. Ostomy with air present. RADHA drain 8 mL serosanguineous NEUROLOGIC: Alert and oriented. Cranial nerves II through XII grossly intact. ASSESSMENT: 1. Sigmoid colon cancer PLAN: -Continue clear liquid diet -Keep Morales catheter in place. Will await urology recommendations regarding discontinuing Morales catheter -Consult PT OT - Continue IV fluids - Continue pain management - Encourage patient to use incentive spirometer -Encourage patient to increase activity level -DVT prophylaxis Lovenox Physician Material Worker note has been reviewed by physician. Signing provider agrees with the documented findings, assessment, and plan of care. Objective - Vital Signs Vital signs: Vital Signs Temp 97.8 F 02/07/25 07:24 Pulse 86 02/07/25 07:24 Resp 17 02/07/25 07:24 BP 108/74 02/07/25 07:24 Pulse Ox 93 L 02/07/25 07:24 FiO2 Intake & Output 02/06/25 02/07/25 02/07/25 18:59 06:59 18:59 Intake Total 1350 240 Output Total 408 400 Balance 942 -160 Intake: Intake, IV Titration 1000 Amount D5-0.45% NaCl with KCl 1000 20Meq/l 1,000 ml @ 125 mls/hr IV .Q8H [facility] Rx#: [id number] Oral 350 240 Output: Drainage 8 Abdomen 8 Urine 400 400 Other: Voiding Method Indwelling Catheter Indwelling Catheter Indwelling Catheter # Voids 1 # Bowel Movements 0 - Labs CBC & Chem 7: 02/07/25 05:26 02/07/25 05:26 Labs: Abnormal Lab Results - Last 24 Hours (Table) 02/07/25 02/07/25 Range/Units 05: 05: RBC 3.71 L (4.40-5.60) X 10*6/uL Hgb 11.3 L (13.0-17.0) g/dL Hct 34.2 L (39.6-50.0) % RDW 15.6 H (11.5-14.5) % Plt Count 125 L (140-440) X 10*3/uL Lymphocytes # 0.76 L (0.90-5.00) X 10*3/uL Monocytes # 1.17 H (0.20-1.00) X 10*3/uL Calcium 8.1 L (8.7-10.3) mg/dL
[2025-02-07] MEDS: ACETAMINOPHEN TAB 325 MG TAB PO PRN (20:28)
--- NOTE | 2025-02-08 11:46 | P.PN ---
Subjective Progress Note Date: 02/08/25 79 year old M with PMH atrial fibrillation, hypertension, colon CA that presents to [facility] for elective surgery. Underwent diverting colostomy for near obstructing colonic mass on 06/13/2024. C-scope on 02/04/2025 showing scattered diverticuli with no evidence of residual colon mass. He presents today, underwent exploratory laparotomy with sigmoid resection and repair of incisional hernia with Dr. Pool along with cystoscopy with left retrograde pyelogram and ureteral stent insertion with Dr. Echavarria. Patient was seen and examined post-operatively. 02/05 He is currently sleepy likely from anesthesia. CBC and CMP significant for WBC 4.37, RBC 4.08, Hg 12.2, Hct 36.5. 02/06 Patient was seen and examined. Feeling tired. No output from ostomy yet. No nausea and vomiting. Pain well controlled. Plans to start CLD today. Urology removed ureteral stent yesterday with no complications. CBC and CMP significant for WBC 10.38, RBC 3.77, Hg 11.1, Hct 34.6, Ca 86, alb 3.3. 02/07 Patient was seen and examined. Reports pain at the site of surgery. No output from ostomy. No nausea or vomiting. CBC and BMP significant for RBC 3.71, Hg 11.3, Hct 34.2, Plt 125, Ca 8.1. 02/08 Patient was seen and examined. Reports some discomfort at the site of surgery. No output from ostomy. Plans to discontinue Morales today. No nausea or vomiting. No new labs done today. BP 107/64 HR 64, RR 17, 95% on RA, T 97.5F. General: non toxic, no distress, appears at stated age Derm: warm, dry Head: atraumatic, normocephalic, symmetric Eyes: EOMI, no lid lag, anicteric sclera Mouth: no lip lesion, mucus membranes moist Cardiovascular: S1S2 reg, no murmur Lungs: Clear to auscultation bilaterally, no rhonchi, no rales , no accessory muscle use Abd: Non distended. Surgical scar intact dressing c/d/i. Ostomy intact with no output. Sluggish BS. Ext: no gross muscle atrophy, no edema, no contractures Neuro: no focal neuro deficits Psych: Sleepy but easily arousable. + Morales Based on my assessment of this patient, this patient meets a high complexity level of care. Microcytic anemia: Previous Fe studies shows Fe 37, B12 191, Folate 4.8. Ferrous sulfate 325 mg PO QD. Hypertension: Borderline hypotensive. Holding Aldactone. Proxysmal atrial fibrillation: Rate controlled. Not on AC. History of colon CA status post exploratory laparotomy with sigmoid resection and repair of incisional hernia along with cystoscopy with left retrograde pyelogram and ureteral stent insertion managed by Dr. Pool and Dr. Echavarria. Resolved: Leukocytosis. CODE STATUS: FULL CODE DVT Prophylaxis: SCD GI Prophylaxis: Designated medical POA if patient is not able to make medical decisions for themselves: I have reviewed the following home energy consultant supervisor notes: Surgery. I have reviewed the results of the following tests: I have ordered the following tests: I have discussed the care of this patient with the following independent historian: . I have independently interpreted the following test below: I have discussed the management of this patient with the following physician: Objective - Vital Signs Vital signs: Vital Signs Temp 97.5 F L 02/08/25 07:17 Pulse 64 02/08/25 07:17 Resp 17 02/08/25 09:20 BP 107/64 02/08/25 07:17 Pulse Ox 95 02/08/25 07:17 FiO2 Intake & Output 02/07/25 02/08/25 02/08/25 18:59 06:59 18:59 Intake Total 540 Output Total 560 615 300 Balance -560 -75 -300 Intake: Oral 540 Output: Drainage 60 15 Abdomen 60 15 Urine 500 600 300 Other: Voiding Method Indwelling Catheter Indwelling Catheter Indwelling Catheter - Labs CBC & Chem 7: 02/07/25 05:26 02/07/25 05:26
--- NOTE | 2025-02-08 13:37 | P.PN ---
Subjective Progress Note Date: 02/08/25 SURGICAL PROGRESS NOTE CHIEF COMPLAINT: Sigmoid colon cancer HISTORY OF PRESENT ILLNESS: Patient is postop day #3 status post exploratory laparotomy, sigmoid resection, repair of incisional hernia. Patient reports his pain has been controlled. He has been up walking with PT. He has flatus noted in the ostomy bag. He had some bleeding from the incision site yesterday after ambulating. Of the blood has since dried. He tolerated the clear liquids. Afebrile. WBC normal at 8.35 Hgb 11.3 PHYSICAL EXAM: VITAL SIGNS: Reviewed. GENERAL: Well-developed in no acute distress. ABDOMEN: Soft. Nondistended. Midline incision dressing pulled back with dried blood noted at incision. RADHA drain serosanguineous NEUROLOGIC: Alert and oriented. Cranial nerves II through XII grossly intact. ASSESSMENT: 1. Sigmoid colon cancer PLAN: -Advance diet to full liquids -Discontinue Morales catheter -Add [place] for oral pain medication -Add Ensure for protein supplement -Have patient shower and wash incision and then change dressing to new Optifoam silver -Continue to work with PT OT -Discontinue IV fluids -DVT prophylaxis Lovenox -Dr. Pool will be out of town starting tomorrow and Dr. Villafana will be picking up coverage starting 02/11/25 Physician Security And Compliance Project Manager note has been reviewed by physician. Signing provider agrees with the documented findings, assessment, and plan of care. Objective - Vital Signs Vital signs: Vital Signs Temp 97.5 F L 02/08/25 07:17 Pulse 64 02/08/25 07:17 Resp 17 02/08/25 09:20 BP 107/64 02/08/25 07:17 Pulse Ox 95 02/08/25 07:17 FiO2 Intake & Output 02/07/25 02/08/25 02/08/25 18:59 06:59 18:59 Intake Total 540 Output Total 560 615 300 Balance -560 -75 -300 Intake: Oral 540 Output: Drainage 60 15 Abdomen 60 15 Urine 500 600 300 Other: Voiding Method Indwelling Catheter Indwelling Catheter Indwelling Catheter - Labs CBC & Chem 7: 02/07/25 05:26 02/07/25 05:26
[2025-02-08] MEDS: HYDROcodone/APAP 5-325MG 1 EACH TAB PO PRN (15:25)
[2025-02-08] MEDS: ONDANSETRON 4 MG/2 ML VIAL IVP PRN (16:43)
--- NOTE | 2025-02-09 10:49 | P.PN ---
Subjective Progress Note Date: 02/09/25 79 year old M with PMH atrial fibrillation, hypertension, colon CA that presents to [facility] for elective surgery. Underwent diverting colostomy for near obstructing colonic mass on 06/13/2024. C-scope on 02/04/2025 showing scattered diverticuli with no evidence of residual colon mass. He presents today, underwent exploratory laparotomy with sigmoid resection and repair of incisional hernia with Dr. Pool along with cystoscopy with left retrograde pyelogram and ureteral stent insertion with Dr. Echavarria. Patient was seen and examined post-operatively. 02/05 He is currently sleepy likely from anesthesia. CBC and CMP significant for WBC 4.37, RBC 4.08, Hg 12.2, Hct 36.5. 02/06 Patient was seen and examined. Feeling tired. No output from ostomy yet. No nausea and vomiting. Pain well controlled. Plans to start CLD today. Urology removed ureteral stent yesterday with no complications. CBC and CMP significant for WBC 10.38, RBC 3.77, Hg 11.1, Hct 34.6, Ca 86, alb 3.3. 02/07 Patient was seen and examined. Reports pain at the site of surgery. No output from ostomy. No nausea or vomiting. CBC and BMP significant for RBC 3.71, Hg 11.3, Hct 34.2, Plt 125, Ca 8.1. 02/08 Patient was seen and examined. Reports some discomfort at the site of surgery. No output from ostomy. Plans to discontinue Morales today. No nausea or vomiting. No new labs done today. 02/09 Patient was seen and examined. Morales discontinued yesterday, urinating freely. reports output from ostomy. Tolerating FLD with mild nausea but no vomiting. BP 133/75 HR 54, RR 18, 96% on RA, T 97.6F. General: non toxic, no distress, appears at stated age Derm: warm, dry Head: atraumatic, normocephalic, symmetric Eyes: EOMI, no lid lag, anicteric sclera Mouth: no lip lesion, mucus membranes moist Cardiovascular: S1S2 reg, no murmur Lungs: Clear to auscultation bilaterally, no rhonchi, no rales , no accessory muscle use Abd: Non distended. Surgical scar intact dressing c/d/i. Ostomy intact with no output. Sluggish BS. Ext: no gross muscle atrophy, no edema, no contractures Neuro: no focal neuro deficits Psych: Alert and oriented. Based on my assessment of this patient, this patient meets a high complexity level of care. Microcytic anemia: Previous Fe studies shows Fe 37, B12 191, Folate 4.8. Ferrous sulfate 325 mg PO QD. Hypertension: Borderline hypotensive. Holding Aldactone. Proxysmal atrial fibrillation: Rate controlled. Not on AC. History of colon CA status post exploratory laparotomy with sigmoid resection and repair of incisional hernia along with cystoscopy with left retrograde pyelogram and ureteral stent insertion managed by Dr. Pool and Dr. Echavarria. Resolved: Leukocytosis. CODE STATUS: FULL CODE DVT Prophylaxis: SCD GI Prophylaxis: Designated medical POA if patient is not able to make medical decisions for themselves: I have reviewed the following environmental remediation consultant notes: Surgery. I have reviewed the results of the following tests: I have ordered the following tests: CBC, BMP I have discussed the care of this patient with the following independent historian: . I have independently interpreted the following test below: I have discussed the management of this patient with the following physician: Objective - Vital Signs Vital signs: Vital Signs Temp 97.6 F 02/09/25 08:40 Pulse 54 L 02/09/25 08:40 Resp 18 02/09/25 08:40 BP 133/75 02/09/25 08:40 Pulse Ox 96 02/09/25 08:40 FiO2 Intake & Output 02/08/25 02/09/25 02/09/25 18:59 06:59 18:59 Intake Total 500 Output Total 400 110 Balance -400 390 Intake: Oral 500 Output: Drainage 110 Abdomen 10 Left Abdomen 100 Urine 400 Other: Voiding Method Indwelling Catheter Toilet Urinal Urinal # Voids 1 2 - Labs CBC & Chem 7: 02/07/25 05:26 02/07/25 05:26
[2025-02-10 04:22] LABS: HCT 32.2 % (39.6-50.0); HGB 10.9 g/dL (13.0-17.0); MCH 30.4 pg (27.0-32.0); MCHC 33.9 g/dL (32.0-37.0); MCV 89.9 fL (80.0-97.0); Mean Platelet Volume 10.9 fL (9.5-12.2); Platelet Count 141 10*3/uL (140-440); RBC 3.58 10*6/uL (4.40-5.60); RDW 15.1 % (11.5-14.5); WBC 10.67 10*3/uL (4.50-10.00)
[2025-02-10 04:42] LABS: African American GFR (CKD) >90 (>60 ml/min/1.73 sqM); Anion Gap 10 mmol/L; Blood Urea Nitrogen 13 mg/dL (9-20); Calcium 8.8 mg/dL (8.4-10.2); Carbon Dioxide 24 mmol/L (22-30); Chloride 97 mmol/L (98-107); Glucose 99 mg/dL (74-99); Non-African American GFR(CKD) >90 (>60 ml/min/1.73 sqM); Potassium 4.1 mmol/L (3.5-5.1); Sodium 131 mmol/L (137-145)
--- NOTE | 2025-02-10 13:07 | P.PN ---
Subjective Progress Note Date: 02/10/25 79 year old M with PMH atrial fibrillation, hypertension, colon CA that presents to [facility] for elective surgery. Underwent diverting colostomy for near obstructing colonic mass on 06/13/2024. C-scope on 02/04/2025 showing scattered diverticuli with no evidence of residual colon mass. He presents today, underwent exploratory laparotomy with sigmoid resection and repair of incisional hernia with Dr. Pool along with cystoscopy with left retrograde pyelogram and ureteral stent insertion with Dr. Echavarria. Morales discontinued 02/08. Diet advanced to FLD so far and patient tolerating well. 02/10 Patient was seen and examined. Small output from ostomy. He still reports moderate pain at the site of incision. Tmax 101.4F overnight. CBC and BMP significant for WBC 10.67, RBC 3.58, Hg 10.9, Hct 32.2, Na 131, Cl 97, Cr 0.62. BP 108/63, HR 100, RR 18, 98% on RA, Tmax 101.4F. General: non toxic, no distress, appears at stated age Derm: warm, dry Head: atraumatic, normocephalic, symmetric Eyes: EOMI, no lid lag, anicteric sclera Mouth: no lip lesion, mucus membranes moist Cardiovascular: S1S2 tachy, no murmur Lungs: Clear to auscultation bilaterally, no rhonchi, no rales , no accessory muscle use Abd: Non distended. Surgical scar intact dressing c/d/i. Ostomy intact with no output. Sluggish BS. Ext: no gross muscle atrophy, no edema, no contractures Neuro: no focal neuro deficits Psych: Alert and oriented. Based on my assessment of this patient, this patient meets a high complexity level of care. SIRS versus sepsis: Leukocytosis, tachycardia, fever on 02/10. Start Zosyn 3.75g IV TID empirically. Start NS at 130 cc/hr. Telemetry monitoring. Obtain Lactic acid, BCx, UA and CXR. Microcytic anemia: Previous Fe studies shows Fe 37, B12 191, Folate 4.8. Ferrous sulfate 325 mg PO QD. Hypertension: Borderline hypotensive. Holding Aldactone. Proxysmal atrial fibrillation: Rate controlled. Not on AC. History of colon CA status post exploratory laparotomy with sigmoid resection and repair of incisional hernia along with cystoscopy with left retrograde pyelogram and ureteral stent insertion managed by Dr. Pool and Dr. Echavarria. CODE STATUS: FULL CODE DVT Prophylaxis: SCD GI Prophylaxis: Designated medical POA if patient is not able to make medical decisions for themselves: I have reviewed the following entry level sales consultant notes: I have reviewed the results of the following tests: CBC, BMP. I have ordered the following tests: CBC, BMP in the AM. Lactic acid. BCx. UA. CXR. I have discussed the care of this patient with the following independent historian: I have independently interpreted the following test below: I have discussed the management of this patient with the following physician: Objective - Vital Signs Vital signs: Vital Signs Temp 98.1 F 02/10/25 07:52 Pulse 100 02/10/25 08:50 Resp 18 02/10/25 08:50 BP 108/63 02/10/25 07:52 Pulse Ox 98 02/10/25 07:52 FiO2 Intake & Output 02/09/25 02/10/25 02/10/25 18:59 06:59 18:59 Intake Total 250 Output Total 200 10 200 Balance -200 240 -200 Intake: Oral 250 Output: Drainage 10 Abdomen 10 Urine 200 200 Other: Voiding Method Urinal Urinal Urinal # Voids 2 4 - Labs CBC & Chem 7: 02/10/25 03:18 02/10/25 03:18 Labs: Abnormal Lab Results - Last 24 Hours (Table) 02/10/25 02/10/25 Range/Units 03:18 03:18 WBC 10.67 H (4.50-10.00) 10*3/uL RBC 3.58 L (4.40-5.60) 10*6/uL Hgb 10.9 L (13.0-17.0) g/dL Hct 32.2 L (39.6-50.0) % RDW 15.1 H (11.5-14.5) % Sodium 131 L (137-145) mmol/L Chloride 97 L (98-107) mmol/L Creatinine 0.62 L (0.66-1.25) mg/dL
[2025-02-10] MEDS: SODIUM CHLORIDE 0.9% 1,000 ML IV SCH (13:25)
--- NOTE | 2025-02-10 13:36 | XR ---
EXAMINATION TYPE: XR chest 1V portable DATE OF EXAM: 02/10/2025 CLINICAL INDICATION: Male, 79 years old with history of sepsis, progress study. TECHNIQUE: Single AP portable semiupright view of the chest is obtained. COMPARISON: CT from January 10, 2025 FINDINGS: Stable right subclavian Mediport catheter. Persistent cardiomegaly. New medial right basil ar opacity. Left lung is clear. Osseous structures are intact. IMPRESSION: Cardiomegaly with new medial right basilar acute pneumonic infiltrate. [facility], , 02/10/2025 1:34 PM
[2025-02-10 13:52] LABS: Appearance,Urine Turbid (Clear); Bacteria,Urine Many /hpf; Bilirubin,Urine Negative (Negative); Blood,Urine Large (Negative); Color,Urine Yellow; Glucose,Urine (UA) Negative (Negative); Ketones,Urine Negative (Negative); Leukocyte Esterase,Urine Large (Negative); Mucus,Urine Rare /hpf; Nitrite,Urine Positive (Negative); Protein,Urine 1+ (Negative); RBC,Urine 68 /hpf (0-5); Specific Gravity,Urine 1.015 (1.001-1.035); Urobilinogen,Urine <2.0 mg/dL (<2.0); WBC,Urine >182 /hpf (0-5)
[2025-02-10] MEDS: PIPERACILLIN-TAZOBACTAM 3.375 GM in SODIUM CHLORIDE 0.9% 100 ML IVPB SCH (16:20)
[2025-02-11 03:29] LABS: HCT 32.6 % (39.6-50.0); MCH 30.5 pg (27.0-32.0); MCHC 33.7 g/dL (32.0-37.0); MCV 90.3 fL (80.0-97.0); Mean Platelet Volume 11.1 fL (9.5-12.2); Platelet Count 133 10*3/uL (140-440); RBC 3.61 10*6/uL (4.40-5.60); WBC 7.34 10*3/uL (4.50-10.00)
[2025-02-11 04:15] LABS: African American GFR (CKD) >90 (>60 ml/min/1.73 sqM); Anion Gap 10 mmol/L; Blood Urea Nitrogen 13 mg/dL (9-20); Calcium 8.5 mg/dL (8.4-10.2); Carbon Dioxide 25 mmol/L (22-30); Chloride 96 mmol/L (98-107); Glucose 89 mg/dL (74-99); Non-African American GFR(CKD) >90 (>60 ml/min/1.73 sqM); Potassium 3.8 mmol/L (3.5-5.1); Sodium 131 mmol/L (137-145)
--- NOTE | 2025-02-11 10:57 | P.PN ---
Subjective Progress Note Date: 02/11/25 Hospital Course: 79 year old M with PMH atrial fibrillation, hypertension, colon CA that presents to [facility] for elective surgery. Underwent diverting colostomy for near obstructing colonic mass on 06/13/2024. C-scope on 02/04/2025 showing scattered diverticuli with no evidence of residual colon mass. He presents today, underwent exploratory laparotomy with sigmoid resection and repair of incisional hernia with Dr. Pool along with cystoscopy with left retrograde pyelogram and ureteral stent insertion with Dr. Echavarria. Morales discontinued 02/08. Diet advanced to low fiber diet. 02/10L patient spiked fever, was started on Zosyn, blood and urine cultures obtained. Blood pressure borderline, Aldactone on hold. 02/11: Complains of abdominal pain 8 out of 10, tolerating diet, denied any shortness of breath, dysuria. Chest x-ray shows right basilar infiltrate, UA with pyuria, bacteriuria. Lactic acid normal. Cultures pending, continue on Zosyn, incentive spirometry ordered. Afebrile since 02/10 4 AM Pertinent Imaging: As above Subjective: [] Pertinent positives and negatives as discussed above, a complete review of systems was performed and all other systems are negative. Vitals Signs Reviewed. General: [nontoxic], [no distress], [appears at stated age] Derm: [warm], [dry] Head: [atraumatic], [normocephalic], [symmetric] Eyes: [EOMI], [no lid lag], [anicteric sclera] Mouth: [no lip lesion], [mucus membranes moist] Cardiovascular: [S1S2 reg], [no murmur] Lungs: [CTA bilateral], [no rhonchi, no rales] , [no accessory muscle use] Abdominal: Nondistended, bowel sounds active, [ Surgical scar intact dressing c/d/i. Ostomy intact with no output. Ext: [no gross muscle atrophy], [bilateral lower extremity edema], [no contractures] Neuro: [ CN II-XI grossly intact], [no focal neuro deficits] Psych: [Alert], [oriented], [appropriate affect] Assessment and Plan: Sepsis secondary to right lower lobe pneumonia, UTI in the settings of recent pyelogram and stents -Continue Zosyn 3.375 every 8 hours SOT 02/10, follow-up on urine and blood cultures -Monitor CBC daily -Incentive spirometry ordered Hyponatremia -Sodium 131, continue NS with 130 cc/h, monitor BMP daily Iron deficiency anemia -Hemoglobin stable continue ferrous sulfate 325 daily Hypertension: On home Aldactone, currently on hold due to borderline hypotension Paroxysmal A-fib not on anticoagulation: Rate controlled History of colon CA status post exploratory laparotomy with sigmoid resection and repair of incisional hernia along with cystoscopy with left retrograde pyelogram and ureteral stent insertion managed by Dr. Pool and Dr. Echavarria. - Diet advanced per surgical team -Continue pain management with [place] 5 every 4 hours as needed, Dilaudid 0.5 IV every 3 hours as needed and 1 mg IV every 4 hours as needed I have reviewed the following peoplesoft hcm consultant notes: I have reviewed the results of the following tests: CBC BMP I have ordered the following tests: CBC BMP for monitoring of leukocytosis, hyponatremia I have discussed the care of this patient with the following independent historian: I have independently interpreted the following test below: As above I have discussed the management of this patient with the following physician: CODE STATUS: FULL CODE DVT Prophylaxis: SCD Anticipated discharge place: [facility] Anticipated discharge time: TBD Objective - Vital Signs Vital signs: Vital Signs Temp 97.7 F 02/11/25 07:27 Pulse 86 02/11/25 07:27 Resp 16 02/11/25 07:27 BP 119/71 02/11/25 07:27 Pulse Ox 95 02/11/25 07:27 FiO2 Intake & Output 02/10/25 02/11/25 02/11/25 18:59 06:59 18:59 Intake Total 780 1080 Output Total 210 1160 Balance 570 -80 Intake: Intake, IV Titration 780 Amount Sodium Chloride 0.9% 1, 780 000 ml @ 130 mls/hr IV . Q7H42M [facility] Rx#:[id number] Oral 1080 Output: Drainage 10 10 Left Abdomen 10 10 Urine 200 1150 Other: Voiding Method Urinal # Bowel Movements 3 - Labs CBC & Chem 7: 02/11/25 02:19 02/11/25 02:19 Labs: Abnormal Lab Results - Last 24 Hours (Table) 02/10/25 02/11/25 02/11/25 Range/Units 13:30 02:19 02:19 RBC 3.61 L (4.40-5.60) 10*6/uL Hgb 11.0 L (13.0-17.0) g/dL Hct 32.6 L (39.6-50.0) % RDW 15.0 H (11.5-14.5) % Plt Count 133 L (140-440) 10*3/uL Sodium 131 L (137-145) mmol/L Chloride 96 L (98-107) mmol/L Creatinine 0.63 L (0.66-1.25) mg/dL Urine Protein 1+ H (Negative) Urine Blood Large H (Negative) Ur Leukocyte Esterase Large H (Negative) Urine RBC 68 H (0-5) /hpf Urine WBC >182 H (0-5) /hpf Urine WBC Clumps Many H (None) /hpf Urine Bacteria Many H (None) /hpf Urine Mucus Rare H (None) /hpf
--- NOTE | 2025-02-11 11:31 | P.PN ---
Subjective Progress Note Date: 02/11/25 SURGICAL PROGRESS NOTE CHIEF COMPLAINT: Sigmoid colon cancer HISTORY OF PRESENT ILLNESS: Patient is postop day #6 status post exploratory laparotomy, sigmoid resection, repair of incisional hernia. Ostomy is functioning. Pain is controlled. Denies any nausea or vomiting. Tolerated the full liquid diet. Patient did have bleeding from the lower incision. Per nursing staff bleeding occurs when patient gets up to ambulate. Afebrile. Hemoglobin stable at 11.0 WBC 7.39 sodium 131 PHYSICAL EXAM: VITAL SIGNS: Reviewed. GENERAL: Well-developed in no acute distress. ABDOMEN: Soft. Nondistended. Dressing was pulled back. Midline incision with no active bleeding. The dressing is saturated with blood at the lower lower portion of the dressing. Ostomy functioning NEUROLOGIC: Alert and oriented. Cranial nerves II through XII grossly intact. ASSESSMENT: 1. Sigmoid colon cancer PLAN: -Advance diet to low fiber -Patient can shower. Chlorhexidine wipe the incision and place new ABD dressing and change as needed -Recommend placing abdominal binder -Continue to monitor for any further symptoms of bleeding at incision site -Continue pain management -DVT prophylaxis [facility] Physician Senior Game Designer note has been reviewed by physician. Signing provider agrees with the documented findings, assessment, and plan of care. I have personally seen and examined the patient, reviewed the ROLL SKINNER /PAs history, exam and MDM and agree with the assessment and plan as written. Based on total visit time, I have performed more than 50% of the visit. As above: Patient doing well surgically. Some sanguinous drainage from the lower aspect of his incision. Patient does have some edema of his lower ab dominal wall. Agree with plans for abdominal binder. Monitor drainage. Patient's x-ray suggesting possible infiltrate. Will follow. Objective - Vital Signs Vital signs: Vital Signs Temp 97.7 F 02/11/25 07:27 Pulse 86 02/11/25 07:27 Resp 16 02/11/25 07:27 BP 119/71 02/11/25 07:27 Pulse Ox 95 02/11/25 07:27 FiO2 Intake & Output 02/10/25 02/11/25 02/11/25 18:59 06:59 18:59 Intake Total 780 1080 Output Total 210 1160 Balance 570 -80 Intake: Intake, IV Titration 780 Amount Sodium Chloride 0.9% 1, 780 000 ml @ 130 mls/hr IV . Q7H42M [facility] Rx#:[id number] Oral 1080 Output: Drainage 10 10 Left Abdomen 10 10 Urine 200 1150 Other: Voiding Method Urinal # Bowel Movements 3 - Labs CBC & Chem 7: 02/11/25 02:19 02/11/25 02:19 Labs: Abnormal Lab Results - Last 24 Hours (Table) 02/10/25 02/11/25 02/11/25 Range/Units 13:30 02:19 02:19 RBC 3.61 L (4.40-5.60) 10*6/uL Hgb 11.0 L (13.0-17.0) g/dL Hct 32.6 L (39.6-50.0) % RDW 15.0 H (11.5-14.5) % Plt Count 133 L (140-440) 10*3/uL Sodium 131 L (137-145) mmol/L Chloride 96 L (98-107) mmol/L Creatinine 0.63 L (0.66-1.25) mg/dL Urine Protein 1+ H (Negative) Urine Blood Large H (Negative) Ur Leukocyte Esterase Large H (Negative) Urine RBC 68 H (0-5) /hpf Urine WBC >182 H (0-5) /hpf Urine WBC Clumps Many H (None) /hpf Urine Bacteria Many H (None) /hpf Urine Mucus Rare H (None) /hpf
[2025-02-11 15:55] LABS: Influenza A Not Detected (Not Detectd); Influenza B Not Detected (Not Detectd); RSV Not Detected (Not Detectd)
[2025-02-11] MEDS ORDERED: NITROGLYCERIN SL TABS 0.4 MG TAB SUBLINGUAL PRN (18:42)
[2025-02-12 08:36] LABS: BUN/Creat Ratio 18.67 Ratio (12.00-20.00); Blood Urea Nitrogen 11.2 mg/dL (9.0-27.0); Calcium 7.8 mg/dL (8.7-10.3); Carbon Dioxide 24.5 mmol/L (21.6-31.8); Chloride 101 mmol/L (96-109); Glucose 94 mg/dL (70-110); Potassium 3.6 mmol/L (3.5-5.5); Sodium 135 mmol/L (135-145)
[2025-02-12 08:42] LABS: Basophils # (A) 0.02 X 10*3/uL (0.00-0.10); Basophils % (A) 0.3 %; Eosinophils # (A) 0.47 X 10*3/uL (0.04-0.35); HCT 31.7 % (39.6-50.0); HGB 10.3 g/dL (13.0-17.0); Lymphocytes # (A) 0.66 X 10*3/uL (0.90-5.00); Lymphocytes % (A) 8.4 %; MCH 29.5 pg (27.0-32.0); MCHC 32.5 g/dL (32.0-37.0); MCV 90.8 FL (80.0-97.0); Mean Platelet Volume 11.1 FL (9.5-12.2); Monocytes # (A) 1.24 X 10*3/uL (0.20-1.00); Monocytes % (A) 15.8 %; NRBC Per 100 WBC 0 X 10*3/uL (0.00-0.01); Neutrophils # (A) 5.41 X 10*3/uL (1.80-7.70); Platelet Count 146 X 10*3/uL (140-440); RBC 3.49 X 10*6/uL (4.40-5.60); RDW 15.3 % (11.5-14.5); WBC 7.84 X 10*3/uL (4.50-10.00)
--- NOTE | 2025-02-12 10:13 | P.PN ---
Subjective Progress Note Date: 02/12/25 SURGICAL PROGRESS NOTE CHIEF COMPLAINT: Sigmoid colon cancer HISTORY OF PRESENT ILLNESS: Patient is postop day #7 status post exploratory laparotomy, sigmoid resection, repair of incisional hernia. Ostomy is functioning. Pain is controlled. Denies any nausea or vomiting. Patient continues to have sanguinous drainage from the distal part of the incision. Dressing was changed once during the night per nursing staff. Afebrile. WBC 7.84 Hgb 11 down to 10.3 PHYSICAL EXAM: VITAL SIGNS: Reviewed. GENERAL: Well-developed in no acute distress. ABDOMEN: Soft. Nondistended. Ostomy functioning. Distal midline incision with watery sanguinous drainage noted on the dressing. When palpating the incision unable to produce any drainage. NEUROLOGIC: Alert and oriented. Cranial nerves II through XII grossly intact. ASSESSMENT: 1. Sigmoid colon cancer PLAN: -Continue low fiber diet -Discussed with nursing staff again to place abdominal binder -Continue to monitor incision site and change dressing as needed -Continue pain management -DVT prophylaxis Lovenox Physician Commercial Account Manager note has been reviewed by physician. Signing provider agrees with the documented findings, assessment, and plan of care. I have personally seen and examined the patient, reviewed the PARENTING SKILLS INSTRUCTOR /PAs history, exam and MDM and agree with the assessment and plan as written. Based on total visit time, I have performed more than 50% of the visit. As above: Patient doing well today. Denies abdominal pain. Still a small amount of serosanguineous drainage inferiorly. Abdominal binder apparently did not fit. Await larger binder. Continue diet. Continue physical therapy. Objective - Vital Signs Vital signs: Vital Signs Temp 97.6 F 02/12/25 07:38 Pulse 72 02/12/25 07:38 Resp 18 02/12/25 07:38 BP 120/72 02/12/25 07:38 Pulse Ox 98 02/12/25 07:38 FiO2 Intake & Output 02/11/25 02/12/25 02/12/25 18:59 06:59 18:59 Intake Total 1760 240 Output Total 100 550 Balance 1660 -310 Intake: Intake, IV Titration 1760 Amount Piperacillin-Tazobactam 3 200 .375 gm In Sodium Chloride 0.9% 100 ml @ 25 mls/hr IVPB Q8HR [facility] Rx# :[id number] Sodium Chloride 0.9% 1, 1560 000 ml @ 130 mls/hr IV . Q7H42M [facility] Rx#:[id number] Oral 240 Output: Urine 100 550 Other: Voiding Method Urinal # Voids 6 - Labs CBC & Chem 7: 02/12/25 02:52 02/12/25 02:52 Labs: Abnormal Lab Results - Last 24 Hours (Table) 02/12/25 02/12/25 Range/Units 02:52 02:52 RBC 3.49 L (4.40-5.60) X 10*6/uL Hgb 10.3 L (13.0-17.0) g/dL Hct 31.7 L (39.6-50.0) % RDW 15.3 H (11.5-14.5) % Lymphocytes # 0.66 L (0.90-5.00) X 10*3/uL Monocytes # 1.24 H (0.20-1.00) X 10*3/uL Eosinophils # 0.47 H (0.04-0.35) X 10*3/uL Calcium 7.8 L (8.7-10.3) mg/dL Microbiology - Last 24 Hours (Table) 02/10/25 13:14 Blood Culture - Preliminary Blood 02/10/25 13:30 Urine Culture - Preliminary Urine,Voided Gram Neg Bacilli
[2025-02-12] MEDS ORDERED: HYDROmorphone 0.5 MG/0.5 ML SYRINGE IVP PRN (10:51)
--- NOTE | 2025-02-12 10:53 | P.PN ---
Subjective Progress Note Date: 02/12/25 Hospital Course: 79 year old M with PMH atrial fibrillation, hypertension, colon CA that presents to [facility] for elective surgery. Underwent diverting colostomy for near obstructing colonic mass on 06/13/2024. C-scope on 02/04/2025 showing scattered diverticuli with no evidence of residual colon mass. He presents today, underwent exploratory laparotomy with sigmoid resection and repair of incisional hernia with Dr. Pool along with cystoscopy with left retrograde pyelogram and ureteral stent insertion with Dr. Echavarria. Morales discontinued 02/08. Diet advanced to low fiber diet. 02/10L patient spiked fever, was started on Zosyn, blood and urine cultures obtained. Blood pressure borderline, Aldactone on hold. 02/11: Complains of abdominal pain 8 out of 10, tolerating diet, denied any shortness of breath, dysuria. Chest x-ray shows right basilar infiltrate, UA with pyuria, bacteriuria. Lactic acid normal. Cultures pending, continue on Zosyn, incentive spirometry ordered. Afebrile since 02/10 4 AM 02/12: Abdominal pain persists, tolerating diet. Patient present at bedside, updated. She raised concern regarding opioid addiction, at that time patient needs pain control in the postop recovery,-continue current regimen, patient encouraged to increase physical activity. Urine cultures growing gram-negative bacilli, remained afebrile, no leukocytosis Pertinent positives and negatives as discussed above, a complete review of systems was performed and all other systems are negative. Vitals Signs Reviewed. General: [nontoxic], [no distress], [appears at stated age] Derm: [warm], [dry] Head: [atraumatic], [normocephalic], [symmetric] Eyes: [EOMI], [no lid lag], [anicteric sclera] Mouth: [no lip lesion], [mucus membranes moist] Cardiovascular: [S1S2 reg], [no murmur] Lungs: [CTA bilateral], [no rhonchi, no rales] , [no accessory muscle use] Abdominal: Nondistended, bowel sounds active, [ Surgical scar intact dressing c/d/i. Ostomy intact with no output. Ext: [no gross muscle atrophy], [bilateral lower extremity edema], [no contractures] Neuro: [ CN II-XI grossly intact], [no focal neuro deficits] Psych: [Alert], [oriented], [appropriate affect] Assessment and Plan: Sepsis secondary to right lower lobe pneumonia, UTI in the settings of recent pyelogram and stents -Continue Zosyn 3.375 every 8 hours SOT 02/10, follow-up on urine and blood cultures, urine growing gram-negative bacilli -Monitor CBC daily -Incentive spirometry ordered Hyponatremia, improved -Sodium 131>135, decrease normal saline to 75 cc/h, monitor BMP daily Iron deficiency anemia -Hemoglobin stable continue ferrous sulfate 325 daily Hypertension: On home Aldactone, currently on hold due to borderline hypotension Paroxysmal A-fib not on anticoagulation: Rate controlled History of colon CA status post exploratory laparotomy with sigmoid resection and repair of incisional hernia along with cystoscopy with left retrograde pyelogram and ureteral stent insertion managed by Dr. Pool and Dr. Echavarria. - Diet advanced per surgical team -Continue pain management with [place] 5 every 4 hours as needed, Dilaudid 0.5 IV every 4 hours as needed and 1 mg IV every 4 hours as needed I have reviewed the following warehouse consultant notes: Surgery I have reviewed the results of the following tests: CBC BMP I have ordered the following tests: CBC BMP for monitoring of leukocytosis, hyponatremia I have discussed the care of this patient with the following independent historian: Patient's I have independently interpreted the following test below: As above I have discussed the management of this patient with the following physician: CODE STATUS: FULL CODE DVT Prophylaxis: SCD Anticipated discharge place: [facility] Anticipated discharge time: TBD, pending cultures and surgical clearance Objective - Vital Signs Vital signs: Vital Signs Temp 97.6 F 02/12/25 07:38 Pulse 76 02/12/25 07:45 Resp 18 02/12/25 07:45 BP 120/72 02/12/25 07:38 Pulse Ox 98 02/12/25 07:38 FiO2 Intake & Output 02/11/25 02/12/25 02/12/25 18:59 06:59 18:59 Intake Total 1760 240 Output Total 100 550 Balance 1660 -310 Intake: Intake, IV Titration 1760 Amount Piperacillin-Tazobactam 3 200 .375 gm In Sodium Chloride 0.9% 100 ml @ 25 mls/hr IVPB Q8HR [facility] Rx# :[id number] Sodium Chloride 0.9% 1, 1560 000 ml @ 130 mls/hr IV . Q7H42M [facility] Rx#:[id number] Oral 240 Output: Urine 100 550 Other: Voiding Method Urinal Urinal # Voids 6 - Labs CBC & Chem 7: 02/12/25 02:52 02/12/25 02:52 Labs: Abnormal Lab Results - Last 24 Hours (Table) 02/12/25 02/12/25 Range/Units 02:52 02:52 RBC 3.49 L (4.40-5.60) X 10*6/uL Hgb 10.3 L (13.0-17.0) g/dL Hct 31.7 L (39.6-50.0) % RDW 15.3 H (11.5-14.5) % Lymphocytes # 0.66 L (0.90-5.00) X 10*3/uL Monocytes # 1.24 H (0.20-1.00) X 10*3/uL Eosinophils # 0.47 H (0.04-0.35) X 10*3/uL Calcium 7.8 L (8.7-10.3) mg/dL Microbiology - Last 24 Hours (Table) 02/10/25 13:14 Blood Culture - Preliminary Blood 02/10/25 13:30 Urine Culture - Preliminary Urine,Voided Gram Neg Bacilli
[2025-02-12 13:36] VITALS: BMI 33.2
[2025-02-13 08:32] LABS: Basophils # (A) 0.02 X 10*3/uL (0.00-0.10); Basophils % (A) 0.2 %; Eosinophils # (A) 0.42 X 10*3/uL (0.04-0.35); Eosinophils % (A) 5.1 %; HCT 30.7 % (39.6-50.0); HGB 10.3 g/dL (13.0-17.0); Lymphocytes # (A) 0.79 X 10*3/uL (0.90-5.00); Lymphocytes % (A) 9.6 %; MCH 29.9 pg (27.0-32.0); MCHC 33.6 g/dL (32.0-37.0); Mean Platelet Volume 10.9 FL (9.5-12.2); Monocytes # (A) 1.07 X 10*3/uL (0.20-1.00); NRBC Per 100 WBC 0 X 10*3/uL (0.00-0.01); Neutrophils # (A) 5.89 X 10*3/uL (1.80-7.70); Neutrophils % (A) 71.6 %; Platelet Count 172 X 10*3/uL (140-440); RBC 3.45 X 10*6/uL (4.40-5.60); RDW 15.4 % (11.5-14.5); WBC 8.23 X 10*3/uL (4.50-10.00)
--- NOTE | 2025-02-13 12:06 | P.PN ---
Subjective Progress Note Date: 02/13/25 SURGICAL PROGRESS NOTE CHIEF COMPLAINT: Sigmoid colon cancer HISTORY OF PRESENT ILLNESS: Patient is postop day #8 status post exploratory laparotomy, sigmoid resection, repair of incisional hernia. Patient reports his pain is controlled. No output from his ostomy today or last night. Denies any nausea or vomiting. reports he is having difficulty urinating. Nursing staff reported that surgical dressing changed once last night. Afebrile. WBC 8.23 Hgb 10.3. Patient did receive his abdominal binder. He takes it off while laying in bed. PHYSICAL EXAM: VITAL SIGNS: Reviewed. GENERAL: Well-developed in no acute distress. ABDOMEN: Soft. Nondistended. Abdomen edematous. Ostomy no stool present. Stoma beefy red. Midline incision distally with serosanguineous drainage. Mild erythema. NEUROLOGIC: Alert and oriented. Cranial nerves II through XII grossly intact. Extremities: Bilateral leg edema ASSESSMENT: 1. Sigmoid colon cancer PLAN: -Check bladder scan to monitor for urinary retention -Hep-Lock IV -Continue low fiber diet -Continue use abdominal binder -Encourage patient to increase activity level -Continue to monitor incision site and change dressing as needed -Continue pain management -DVT prophylaxis Lovenox Physician Medical Billing And Coding Specialist note has been reviewed by physician. Signing provider agrees with the documented findings, assessment, and plan of care. Objective - Vital Signs Vital signs: Vital Signs Temp 97.7 F 02/13/25 07:40 Pulse 58 L 02/13/25 07:40 Resp 16 02/13/25 07:40 BP 118/74 02/13/25 07:40 Pulse Ox 98 02/13/25 07:40 FiO2 Intake & Output 02/12/25 02/13/25 02/13/25 18:59 06:59 18:59 Intake Total 1600 480 Output Total 0 20 Balance 1600 460 Weight 108 kg Intake: Intake, IV Titration 900 Amount Piperacillin-Tazobactam 3 100 .375 gm In Sodium Chloride 0.9% 100 ml @ 25 mls/hr IVPB Q8HR [facility] Rx# :[id number] Sodium Chloride 0.9% 1, 800 000 ml @ 75 mls/hr IV . [id number] [facility] Rx#:[id number] Oral 700 480 Output: Drainage 0 20 Left Abdomen 0 20 Other: Voiding Method Urinal Urinal # Voids 3 - Labs CBC & Chem 7: 02/13/25 03:31 02/12/25 02:52 Labs: Abnormal Lab Results - Last 24 Hours (Table) 02/13/25 Range/Units 03:31 RBC 3.45 L (4.40-5.60) X 10*6/uL Hgb 10.3 L (13.0-17.0) g/dL Hct 30.7 L (39.6-50.0) % RDW 15.4 H (11.5-14.5) % Lymphocytes # 0.79 L (0.90-5.00) X 10*3/uL Monocytes # 1.07 H (0.20-1.00) X 10*3/uL Eosinophils # 0.42 H (0.04-0.35) X 10*3/uL Microbiology - Last 24 Hours (Table) 02/10/25 13:14 Blood Culture - Preliminary Blood 02/10/25 13:30 Urine Culture - Final Urine,Voided Escherichia coli Klebsiella pneumoniae
--- NOTE | 2025-02-13 14:16 | P.PN ---
Subjective Progress Note Date: 02/13/25 Hospital Course: 79 year old M with PMH atrial fibrillation, hypertension, colon CA that presents to [facility] for elective surgery. Underwent diverting colostomy for near obstructing colonic mass on 06/13/2024. C-scope on 02/04/2025 showing scattered diverticuli with no evidence of residual colon mass. He presents today, underwent exploratory laparotomy with sigmoid resection and repair of incisional hernia with Dr. Pool along with cystoscopy with left retrograde pyelogram and ureteral stent insertion with Dr. Echavarria. Morales discontinued 02/08. Diet advanced to low fiber diet. 02/10L patient spiked fever, was started on Zosyn, blood and urine cultures obtained. Blood pressure borderline, Aldactone on hold. 02/11: Complains of abdominal pain 8 out of 10, tolerating diet, denied any shortness of breath, dysuria. Chest x-ray shows right basilar infiltrate, UA with pyuria, bacteriuria. Lactic acid normal. Cultures pending, continue on Zosyn, incentive spirometry ordered. Afebrile since 02/10 4 AM 02/12: Abdominal pain persists, tolerating diet. Patient present at bedside, updated. She raised concern regarding opioid addiction, at that time patient needs pain control in the postop recovery,-continue current regimen, patient encouraged to increase physical activity. Urine cultures growing gram-negative bacilli, remained afebrile, no leukocytosis 02/13, seen and examined at bedside, patient was sitting in the recliner, had a walk on the hallway with his earlier, tolerated well. He completed his breakfast, no nausea or vomiting. Denies abdominal pain today, still has some leaking from the incision site. Urine cultures resulted showing E. coli and Klebsiella pneumonia, sensitive to ceftriaxone, patient will be switched to ceftriaxone, at discharge can take Bactrim. , Pertinent positives and negatives as discussed above, a complete review of systems was performed and all other systems are negative. Vitals Signs Reviewed. General: [nontoxic], [no distress], [appears at stated age] Derm: [warm], [dry] Head: [atraumatic], [normocephalic], [symmetric] Eyes: [EOMI], [no lid lag], [anicteric sclera] Mouth: [no lip lesion], [mucus membranes moist] Cardiovascular: [S1S2 reg], [no murmur] Lungs: [CTA bilateral], [no rhonchi, no rales] , [no accessory muscle use] Abdominal: Nondistended, bowel sounds active, [ Surgical scar intact dressing c/d/i. Ostomy intact with no output. Ext: [no gross muscle atrophy], [bilateral lower extremity edema], [no contractures] Neuro: [ CN II-XI grossly intact], [no focal neuro deficits] Psych: [Alert], [oriented], [appropriate affect] Assessment and Plan: Sepsis secondary to right lower lobe pneumonia, E. coli and Klebsiella pneumonia UTI in the settings of recent pyelogram and stents - Discontinue Zosyn, start ceftriaxone 2 g Q24, antibiotics SOT 02/10, f blood cultures negative -Monitor CBC daily -Incentive spirometry ordered Hyponatremia, improved -Sodium 131>135, discontinue IV hydration Iron deficiency anemia -Hemoglobin stable continue ferrous sulfate 325 daily Hypertension: On home Aldactone, currently on hold due to borderline hypotension Paroxysmal A-fib not on anticoagulation: Rate controlled History of colon CA status post exploratory laparotomy with sigmoid resection and repair of incisional hernia along with cystoscopy with left retrograde pyelogram and ureteral stent insertion managed by Dr. Pool and Dr. Echavarria. - Diet advanced per surgical team -Continue pain management with [place] 5 every 4 hours as needed, Dilaudid 0.5 IV every 4 hours as needed and 1 mg IV every 4 hours as needed I have reviewed the following hospice care sales consultant notes: Surgery I have reviewed the results of the following tests: CBC BMP I have ordered the following tests: CBC BMP for monitoring of leukocytosis, hyponatremia I have discussed the care of this patient with the following independent histori an: Patient's , RN I have independently interpreted the following test below: As above I have discussed the management of this patient with the following physician: CODE STATUS: FULL CODE DVT Prophylaxis: SCD Anticipated discharge place: [facility] Anticipated discharge time: TBD, pending surgical clearance Objective - Vital Signs Vital signs: Vital Signs Temp 97.4 F L 02/13/25 13:40 Pulse 72 02/13/25 13:40 Resp 18 02/13/25 13:40 BP 113/70 02/13/25 13:40 Pulse Ox 100 02/13/25 13:40 FiO2 Intake & Output 02/12/25 02/13/25 02/13/25 18:59 06:59 18:59 Intake Total 1600 480 Output Total 0 20 Balance 1600 460 Weight 108 kg Intake: Intake, IV Titration 900 Amount Piperacillin-Tazobactam 3 100 .375 gm In Sodium Chloride 0.9% 100 ml @ 25 mls/hr IVPB Q8HR [facility] Rx# :[id number] Sodium Chloride 0.9% 1, 800 000 ml @ 75 mls/hr IV . [id number] [facility] Rx#:[id number] Oral 700 480 Output: Drainage 0 20 Left Abdomen 0 20 Other: Voiding Method Urinal Urinal # Voids 3 - Labs CBC & Chem 7: 02/13/25 03:31 02/12/25 02:52 Labs: Abnormal Lab Results - Last 24 Hours (Table) 02/13/25 Range/Units 03:31 RBC 3.45 L (4.40-5.60) X 10*6/uL Hgb 10.3 L (13.0-17.0) g/dL Hct 30.7 L (39.6-50.0) % RDW 15.4 H (11.5-14.5) % Lymphocytes # 0.79 L (0.90-5.00) X 10*3/uL Monocytes # 1.07 H (0.20-1.00) X 10*3/uL Eosinophils # 0.42 H (0.04-0.35) X 10*3/uL Microbiology - Last 24 Hours (Table) 02/10/25 13:14 Blood Culture - Preliminary Blood 02/10/25 13:30 Urine Culture - Final Urine,Voided Escherichia coli Klebsiella pneumoniae
[2025-02-13] MEDS: cefTRIAXone 2 GM in DEXTROSE 5% IN WATER 50 ML IVPB SCH (15:00)
[2025-02-14 10:00] LABS: African American GFR (CKD) >90 (>60 ml/min/1.73 sqM); Anion Gap 9 mmol/L; Blood Urea Nitrogen 8 mg/dL (9-20); Calcium 8.5 mg/dL (8.4-10.2); Carbon Dioxide 29 mmol/L (22-30); Chloride 102 mmol/L (98-107); Glucose 81 mg/dL (74-99); Non-African American GFR(CKD) >90 (>60 ml/min/1.73 sqM); Potassium 3.2 mmol/L (3.5-5.1); Sodium 140 mmol/L (137-145)
[2025-02-14 10:20] VITALS: BP 127/82; PULSE 52; RESP 17; TEMP 98
[2025-02-14] MEDS: POTASSIUM CHLORIDE ER 20 MEQ TAB.ER PO STA (11:15)
--- NOTE | 2025-02-14 11:52 | P.DS ---
Providers Date of admission: 02/05/25 06:21 Attending physician: Godfrey Yeager MD Consults: 02/05/25 09:42 Consult Physician Routine Consulting Provider: Campbell Pool Consult Reason/Comments: Medical management Do you want consulting provider notified?: Yes Consult Physician Routine Consulting Provider: Higinio Echavarria Consult Reason/Comments: Cystitis Do you want consulting provider notified?: Yes 02/06/25 07:45 Consult Physician Routine Consulting Provider: Adrienne Newman Consult Reason/Comments: colon ca Do you want consulting provider notified?: Yes Primary care physician: [facility] Course: Discharge Diagnosis: Sepsis secondary to right lower lobe pneumonia, E. coli and Klebsiella pneumonia UTI in the settings of recent pyelogram and stents Hyponatremia, resolved Iron deficiency anemia Hypertension Paroxysmal A-fib not on anticoagulation History of colon cancer status post colectomy ex lap with sigmoid resection and repair and incisional hernia along with cystoscopy with left retrograde pyelogram and ureteral stent insertion managed by Dr. Pool and Dr. Echavarria. Hospital Course: 79 year old M with PMH atrial fibrillation, hypertension, colon CA that presents to [facility] for elective surgery. Underwent diverting colostomy for near obstructing colonic mass on 06/13/2024. C-scope on 02/04/2025 showing scattered diverticuli with no evidence of residual colon mass. He presents today, underwent exploratory laparotomy with sigmoid resection and repair of incisional hernia with Dr. Pool along with cystoscopy with left retrograde pyelogram and ureteral stent insertion with Dr. Echavarria. Morales discontinued 02/08. Diet advanced to low fiber diet. 5L patient spiked fever, was started on Zosyn, blood and urine cultures obtained. Blood pressure borderline, Aldactone on hold. 02/11: Complains of abdominal pain 8 out of 10, tolerating diet, denied any shortness of breath, dysuria. Chest x-ray shows right basilar infiltrate, UA with pyuria, bacteriuria. Lactic acid normal. Cultures pending, continue on Zosyn, incentive spirometry ordered. Afebrile since 02/10 4 AM 5/6: Abdominal pain persists, tolerating diet. Patient present at bedside, updated. She raised concern regarding opioid addiction, at that time patient needs pain control in the postop recovery,-continue current regimen, patient encouraged to increase physical activity. Urine cultures growing gram-negative bacilli, remained afebrile, no leukocytosis 02/13, seen and examined at bedside, patient was sitting in the recliner, had a walk on the hallway with his earlier, tolerated well. He completed his breakfast, no nausea or vomiting. Denies abdominal pain today, still has some leaking from the incision site. Urine cultures resulted showing E. coli and Klebsiella pneumonia, sensitive to ceftriaxone, patient will be switched to ceftriaxone, at discharge can take Bactrim. 02/14: Patient did not require any pain medications since yesterday, tolerates diet, has output in colostomy bag, urination has improved significantly, cleared for discharge by surgery. Patient will be discharged home with home care in stable condition on 02/14/2025, he will complete his antibiotics with 1 more day of Bactrim for total 5 days, follow-up with PCP, surgery, urology. Patient seen and examined at bedside. Vital signs reviewed and stable. General: [nontoxic], [no distress], [appears at stated age] Derm: [warm], [dry] Head: [atraumatic], [normocephalic], [symmetric] Eyes: [EOMI], [no lid lag], [anicteric sclera] Mouth: [no lip lesion], [mucus membranes moist] Cardiovascular: [S1S2 reg], [no murmur] Lungs: [CTA bilateral], [no rhonchi, no rales] , [no accessory muscle use] Abdominal: Nondistended, bowel sounds active, [ Surgical scar intact dressing c/ d/i. Ostomy intact with no output. Ext: [no gross muscle atrophy], [bilateral lower extremity edema], [no contractures] Neuro: [ CN II-XI grossly intact], [no focal neuro deficits] Psych: [Alert], [oriented], [appropriate affect] A total of 40 minutes of time were spent preparing this complex discharge summary. Patient was discharged on 02/14/2025. Plan - Discharge Summary Discharge Rx Participant: Yes New Discharge Prescriptions: New Sulfamethox-Tmp 800-160Mg [Bactrim DS 800-160 mg] 1 tab PO Q12HR #2 tab Continue Spironolactone [Aldactone] 25 mg PO DAILY Ergocalciferol [Vitamin D2 (1250 Mcg = 12254 Iu)] 1,250 mcg PO MARTINO Ferrous Sulfate [Iron (65 MG Elemental)] 325 mg PO DAILY Potassium Chloride ER [K-Dur 10] 10 meq PO DAILY Folic Acid 1 mg PO DAILY L.rhamnosus/B.animalis(Lactis) [Anderson' Colon Hlth 3B Cfu Cp] 1 each PO DAILY Fluticasone Nasal [place] [Flonase Nasal [place]] 1 spr EA NOSTRIL BID PRN PRN Reason: Congestion Multivitamins, Thera [Multivitamin (formulary)] 1 tab PO DAILY Vitamin B-12 (Unknown Dose) 2 tab PO DAILY Discharge Medication List Ergocalciferol [Vitamin D2 (1250 Mcg = 11067 Iu)] 1,250 mcg PO MARTINO 11/23/23 [History] Fluticasone Nasal [place] [Flonase Nasal [place]] 1 spr EA NOSTRIL BID PRN 11/23/23 [History] Spironolactone [Aldactone] 25 mg PO DAILY 11/23/23 [History] Ferrous Sulfate [Iron (65 MG Elemental)] 325 mg PO DAILY 07/05/24 [History] Multivitamins, Thera [Multivitamin (formulary)] 1 tab PO DAILY 07/05/24 [History] Folic Acid 1 mg PO DAILY 08/30/24 [History] L.rhamnosus/B.animalis(Lactis) [Anderson' Colon Hlth 3B Cfu Cp] 1 each PO DAILY 08/30/24 [History] Potassium Chloride ER [K-Dur 10] 10 meq PO DAILY 08/30/24 [History] Vitamin B-12 (Unknown Dose) 2 tab PO DAILY 08/30/24 [History] Sulfamethox-Tmp 800-160Mg [Bactrim DS 800-160 mg] 1 tab PO Q12HR #2 tab 02/14/25 [Rx] Follow up Appointment(s)/Referral(s): Adrienne Newman MD [STAFF PHYSICIAN] - 03/27/25 2:30 [facility] [NON-STAFF] - 1-2 Days (will call any questions please call agency) Campbell Pool MD [STAFF PHYSICIAN] - 10 Days Higinio Echavarria MD [STAFF PHYSICIAN] - 1 Week Activity/Diet/Wound Care/Special Instructions: Please, follow up with surgery, urology and PCP. Complete your antibiotics with 1 more day of Bactrim on 02/15/2025, you received 4 days of IV antibiotics in the hospital. Discharge Disposition: HOME WITH HOME HEALTH SERVICES
--- NOTE | 2025-02-14 12:01 | P.PN ---
Subjective Progress Note Date: 02/14/25 SURGICAL PROGRESS NOTE CHIEF COMPLAINT: Sigmoid colon cancer HISTORY OF PRESENT ILLNESS: Patient is postop day #9 status post exploratory laparotomy, sigmoid resection, repair of incisional hernia. Patient's pain is controlled. Ostomy is functioning. Tolerating diet. Denies any nausea or vomiting. Patient does have small amount of serosanguineous drainage from the distal incision. Patient urinating without difficulty. No evidence of urinary retention on bladder scan. RADHA drain 30 mL serosanguineous output. Afebrile. WBC 8.23 potassium 3.2 and being replaced PHYSICAL EXAM: VITAL SIGNS: Reviewed. GENERAL: Well-developed in no acute distress. ABDOMEN: Soft. Nondistended. Abdomen edematous. Ostomy no stool present. Stoma beefy red. Midline incision distally with serosanguineous drainage. NEUROLOGIC: Alert and oriented. Cranial nerves II through XII grossly intact. Extremities: Bilateral leg edema ASSESSMENT: 1. Sigmoid colon cancer PLAN: -Patient can be discharged from surgical standpoint -Recommend discharge home with home care -Discharge with the RADHA drain Physician Rn Case Mgr note has been reviewed by physician. Signing provider agrees with the documented findings, assessment, and plan of care. I have personally seen and examined the patient, reviewed the PRESCRIPTION CLERK LENSES /PAs history, exam and MDM and agree with the assessment and plan as written. Based on total visit time, I have performed more than 50% of the visit. As above: Patient doing better. Ostomy functioning again. No nausea or vomiting. Agree with plans for discharge. Follow-up with Dr. Pool early next week. Home care for ostomy and incisional management. Objective - Vital Signs Vital signs: Vital Signs Temp 98 F 02/14/25 07:25 Pulse 52 L 02/14/25 07:25 Resp 17 02/14/25 07:25 BP 127/82 02/14/25 07:25 Pulse Ox 100 02/14/25 07:25 FiO2 Intake & Output 02/13/25 02/14/25 02/14/25 18:59 06:59 18:59 Output Total 20 30 Balance -20 -30 Output: Drainage 20 30 Left Abdomen 20 30 Other: Voiding Method Urinal # Voids 4 2 - Labs CBC & Chem 7: 02/13/25 03:31 02/14/25 09:13 Labs: Abnormal Lab Results - Last 24 Hours (Table) 02/14/25 Range/Units 09:13 Potassium 3.2 L (3.5-5.1) mmol/L BUN 8 L (9-20) mg/dL Creatinine 0.55 L (0.66-1.25) mg/dL Microbiology - Last 24 Hours (Table) 02/10/25 13:14 Blood Culture - Preliminary Blood
[2025-02-15] MEDS ORDERED: cefTRIAXone 2 GM in DEXTROSE 5% IN WATER 50 ML IVPB SCH (09:00)
== END 2025-02-14 13:45 | disposition home health service (06) | DRG 329 ==
LOC: 2ORMAIN 06:21 → EDSTATUS 08:55 → 4SSUR 12:43
PROVIDERS: ADMIT Family Medicine; ATTEND Family Medicine
PROC: 0DTN0ZZ Resection of Sigmoid Colon, Open Approach (ICD-10-PCS; principal; 2025-02-05 07:30)
PROC: 0WQF0ZZ Repair Abdominal Wall, Open Approach (ICD-10-PCS; principal; 2025-02-05 07:30)
PROC: BT1F1ZZ Fluoroscopy of Left Kidney, Ureter and Bladder using Low Osmolar Contrast (ICD-10-PCS; 2025-02-05 07:30)
DX: C18.7 Malignant neoplasm of sigmoid colon (principal); A41.50 Gram-negative sepsis, unspecified; J18.9 Pneumonia, unspecified organism; A41.51 Sepsis due to Escherichia coli [E. coli]; C18.9 Malignant neoplasm of colon, unspecified; E87.1 Hypo-osmolality and hyponatremia; D50.9 Iron deficiency anemia, unspecified; I10 Essential (primary) hypertension; N39.0 Urinary tract infection, site not specified; I48.0 Paroxysmal atrial fibrillation; I95.9 Hypotension, unspecified; Z93.3 Colostomy status; K57.90 Diverticulosis of intestine, part unspecified, without perforation or abscess without bleeding; N32.89 Other specified disorders of bladder; H91.90 Unspecified hearing loss, unspecified ear; K43.2 Incisional hernia without obstruction or gangrene; Z79.899 Other long term (current) drug therapy; Z87.891 Personal history of nicotine dependence; Z85.038 Personal history of other malignant neoplasm of large intestine; Z87.01 Personal history of pneumonia (recurrent); Z88.5 Allergy status to narcotic agent; Z92.21 Personal history of antineoplastic chemotherapy
CPT/HCPCS: 71045; 74420; 80048; 80053; 81001; 83605; 85025; 85027; 86850; 86900; 86901; 87040; 87077; 87086; 87186; 87636; 88309

== ENCOUNTER 2025-02-15 06:16 | Inpatient (IN) | payer MEDICARE, OTHER ==
--- NOTE | 2025-02-15 06:47 | ED ---
General Adult HPI - General Chief complaint: Fall Stated complaint: Fall Time Seen by Provider: 02/15/25 06:17 Source: patient, EMS, RN notes reviewed Mode of arrival: EMS Limitations: no limitations - History of Present Illness Initial comments: 79-year-old male presents emerged part via EMS with chief complaint of a fall. Patient states he was cleaning up his bone mass when he struck his head. Patient struck his right temporal region. Denies any blood thinners patient states has had increasing weakness he was discharged from the hospital yesterday after colon resection, tumor removal and colostomy formation. Patient states has been having some drainage from his lower abdominal incision is described as bloody in nature. Patient reportedly ruptured his colostomy bag during this fall. Patient denies any fevers or chills states there is some redness around his incision site. Denies any chest pain or shortness of breath. - Related Data Home Medications Medication Instructions Recorded Confirmed Ergocalciferol [Vitamin D2 (1250 1,250 mcg PO MARTINO 11/23/23 01/30/25 Mcg = 08908 Iu)] Fluticasone Nasal [place] [Flonase 1 spr EA NOSTRIL BID PRN 11/23/23 02/04/25 Nasal [place]] Spironolactone [Aldactone] 25 mg PO DAILY 11/23/23 02/04/25 Ferrous Sulfate [Iron (65 MG 325 mg PO DAILY 07/05/24 01/30/25 Elemental)] Multivitamins, Thera [Multivitamin 1 tab PO DAILY 07/05/24 01/30/25 (formulary)] Folic Acid 1 mg PO DAILY 08/30/24 02/04/25 L.rhamnosus/B.animalis(Lactis) 1 each PO DAILY 08/30/24 02/04/25 [[facility] Cfu Cp] Potassium Chloride ER [K-Dur 10] 10 meq PO DAILY 08/30/24 01/30/25 Vitamin B-12 (Unknown Dose) 2 tab PO DAILY 08/30/24 01/30/25 Previous Rx's Medication Instructions Recorded Acetaminophen Tab [Tylenol Tab] 650 mg PO Q4H PRN #30 tablet 02/14/25 Sulfamethox-Tmp 800-160Mg [Bactrim 1 tab PO Q12HR #2 tab 02/14/25 DS 800-160 mg] Allergies Allergy/AdvReac Type Severity Reaction Status Date / Time morphine Allergy Vomiting Verified 02/05/25 07:06 Review of Systems ROS Statement: Those systems with pertinent positive or pertinent negative responses have been documented in the HPI. ROS Other: All systems not noted in ROS Statement are negative. Past Medical History Past Medical History: Atrial Fibrillation, Cancer, Hearing Disorder / Deafness, Hypertension, Osteoarthritis (OA), Pneumonia Additional Past Medical History / Comment(s): Current colon tumor. Hx colon cancer, got colostomy 06/13/24. "No longer has A-Fib, stopped all his medication". Hx Pneumonia, spouse thinks 07/2024. "Hearing has gotten a lot worse recently and he only whispers." Sinusitis. Hx chronic lower extremity edema, now resolved. Hypertension resolved, now has low BP. History of Any Multi-Drug Resistant Organisms: None Reported Past Surgical History: Orthopedic Surgery, Tonsillectomy Additional Past Surgical History / Comment(s): Bowel resection/colostomy, knee surgery, port a catheter placement. hernia repair/tumor removal Past Anesthesia/Blood Transfusion Reactions: No Reported Reaction Past Psychological History: No Psychological Hx Reported Smoking Status: Former smoker Past Alcohol Use History: None Reported Past Drug Use History: None Reported - Past Family History Father Family Medical History: No Reported History Mother Family Medical History: Asthma, COPD Additional Family Medical History / Comment(s): Bronchitis. General Exam Limitations: no limitations General appearance: alert, in no apparent distress Head exam: Present: atraumatic, normocephalic, normal inspection Eye exam: Present: normal appearance, PERRL, EOMI. Absent: scleral icterus, conjunctival injection, periorbital swelling ENT exam: Present: normal exam, normal oropharynx, mucous membranes moist Neck exam: Present: normal inspection, full ROM. Absent: tenderness, meningism us, lymphadenopathy Respiratory exam: Present: normal lung sounds bilaterally. Absent: respiratory distress, wheezes, rales, rhonchi, stridor Cardiovascular Exam: Present: regular rate, normal rhythm, normal heart sounds. Absent: systolic murmur, diastolic murmur, rubs, gallop, clicks GI/Abdominal exam: Present: soft, tenderness, normal bowel sounds, other (Colostomy is noted, intact, there is mid abdominal incision with zev in place there is mild wound dehiscence in the lower incisional region with some bloody tinged drainage there is surrounding erythema). Absent: distended, guarding, rebound, rigid Neurological exam: Present: alert, oriented X3 Skin exam: Present: warm, dry, intact, normal color. Absent: rash Course Vital Signs 02/15/25 02/15/25 02/15/25 06:19 07:57 09:11 Temperature 98.2 F 98.0 F Pulse Rate 65 80 79 Respiratory 18 18 18 Rate Blood Pressure 115/75 112/89 109/74 O2 Sat by Pulse 96 93 L 96 Oximetry Medical Decision Making - Medical Decision Making Was pt. sent in by a medical professional or institution (, PA, DIGITAL CONTROLS TECHNICAL OFFICER, urgent care, hospital, or fdc...) When possible be specific @ -No Did you speak to anyone other than the patient for history (EMS, parent, family, police, friend...)? What history was obtained from this source @ -No Did you review nursing and triage notes (agree or disagree)? Why? @ -I reviewed and agree with nursing and triage notes Were old charts reviewed (outside hosp., previous admission, EMS record, old EKG, old radiological studies, urgent care reports/EKG's, fdc records)? Report findings @ -Recent inpatient records Differential Diagnosis (chest pain, altered mental status, abdominal pain women, abdominal pain men, vaginal bleeding, weakness, fever, dyspnea, syncope, headache, dizziness, GI bleed, back pain, seizure, CVA, palpatations, mental health, musculoskeletal)? @ -Differential Weakness: Hypoglycemia, shock, sepsis, hyponatremia, anemia, infection, [place], ETOH, adverse medicine reaction, overdose, stroke, this is not meant to be an all-inclusive list. EKG interpreted by me (3pts min.). @ -As above X-rays interpreted by me (1pt min.). @ -None done CT interpreted by me (1pt min.). @ -CT brain, C-spine showing no acute intracranial hemorrhage, mass effect no cervical fracture U/S interpreted by me (1pt. min.). @ -None done What testing was considered but not performed or refused? (CT, X-rays, U/S, labs)? Why? @ -None What meds were considered but not given or refused? Why? @ -None Did you discuss the management of the patient with other professionals (professionals i.e. , PA, DIGITAL CONTROLS TECHNICAL OFFICER, lab, RT, psych nurse, vp digital marketing social media and crm, golf course patroller, teacher, chief customer officer, shoe caser)? Give summary @ -Osmani was some physician for admission Was smoking cessation discussed for >3mins.? @ -No Was critical care preformed (if so, how long)? @ -No Were there social determinants of health that impacted care today? How? (Homelessness, low income, unemployed, alcoholism, drug addiction, transportation, low edu. Level, literacy, decrease access to med. care, residential, rehab)? @ -No Was there de-escalation of care discussed even if they declined (Discuss DNR or withdrawal of care, Hospice)? DNR status @ -No What co-morbidities impacted this encounter? (DM, HTN, Smoking, COPD, CAD, Cancer, CVA, ARF, Chemo, Hep., AIDS, mental health diagnosis, sleep apnea, mo rbid obesity)? @ -None Was patient admitted / discharged? Hospital course, mention meds given and ro victor manuel, prescriptions, significant lab abnormalities, going to OR and other pertinent info. @ -[Admit the patient's had multiple falls, weakness at home unable to perform ADLs at home patient is requiring observation stay for placement into fdc/rehab patient does have mild hypokalemia and hypomagnesemia. Patient will have consult to surgery for evaluation of wound dehiscence and possible early signs of infection Undiagnosed new problem with uncertain prognosis? @ -No Drug Therapy requiring intensive monitoring for toxicity (Heparin, Nitro, Insulin, Cardizem)? @ -No Were any procedures done? @ -No Diagnosis/symptom? @ -Weakness, falls, status post intra-abdominal surgery Acute, or Chronic, or Acute on Chronic? @ -Acute Uncomplicated (without systemic symptoms) or Complicated (systemic symptoms)? @ -Uncomplicated Side effects of treatment? @ -No Exacerbation, Progression, or Severe Exacerbation? @ -No Poses a threat to life or bodily function? How? (Chest pain, [place], [place], pneumonia, PE, COPD, DKA, ARF, appy, cholecystitis, CVA, Diverticulitis, Homicidal, Suicidal, threat to staff... and all critical care pts) @ -No - Lab Data Result diagrams: 02/15/25 07:57 05/09/25 07:57 Lab Results 02/15/25 02/15/25 Range/Units 07:57 07:57 WBC 8.27 (4.50-10.00) 10*3/uL RBC 3.41 L (4.40-5.60) 10*6/uL Hgb 10.4 L (13.0-17.0) g/dL Hct 30.4 L (39.6-50.0) % MCV 89.1 (80.0-97.0) fL MCH 30.5 (27.0-32.0) pg MCHC 34.2 (32.0-37.0) g/dL Plt Count 242 (140-440) 10*3/uL MPV 9.8 (9.5-12.2) fL Immature Gran % (Auto) 0.7 % Neutrophils % 79.2 % Lymphocytes % 7.6 % Monocytes % 8.8 % Eosinophils % 3.5 % Basophils % 0.2 % Immature Gran # 0.06 H (0.00-0.04) 10*3/uL Neutrophils # 6.54 (1.80-7.70) 10*3/uL Lymphocytes # 0.63 L (0.90-5.00) 10*3/uL Monocytes # 0.73 (0.20-1.00) 10*3/uL Eosinophils # 0.29 (0.04-0.35) 10*3/uL Basophils # 0.02 (0.00-0.10) 10*3/uL Sodium 137 (137-145) mmol/L Potassium 3.4 L (3.5-5.1) mmol/L Chloride 104 (98-107) mmol/L Carbon Dioxide 25 (22-30) mmol/L Anion Gap 8 mmol/L BUN 7 L (9-20) mg/dL Creatinine 0.52 L (0.66-1.25) mg/dL Est GFR (CKD-EPI)AfAm >90 (>60 ml/min/1.73 sqM) Est GFR (CKD-EPI)NonAf >90 (>60 ml/min/1.73 sqM) Glucose 83 (74-99) mg/dL Calcium 8.7 (8.4-10.2) mg/dL Magnesium 1.5 L (1.6-2.3) mg/dL Total Bilirubin 0.6 (0.2-1.3) mg/dL AST 27 (17-59) U/L ALT 24 (4-49) U/L Alkaline Phosphatase 104 (38-126) U/L Total Protein 6.0 L (6.3-8.2) g/dL Albumin 2.9 L (3.5-5.0) g/dL Disposition Clinical Impression: Fall, Status post colostomy, Weakness Disposition: ADMITTED IP TO THIS HOSP Condition: Fair Referrals: Marcell Hassan DO [Primary Care Provider] - 1-2 days Time of Disposition: 09:38
--- NOTE | 2025-02-15 07:22 | CT ---
EXAMINATION TYPE: CT brain darnell wo con DATE OF EXAM: 02/15/2025 COMPARISON: NONE CLINICAL INDICATION: Male, 79 years old with history of pain, Patient brought to ED via EMS after a f all, hit head, no LOC. Recent surgery, D/C yesterday, TECHNIQUE: CT scan of the head and cervical spine are performed without contrast. CT DLP: 1561.7 mGycm. Automated Exposure Control for Dose Reduction was Utilized. FINDINGS: There is no acute intracranial hemorrhage or midline shift identified. Moderate ventricul ar and sulcal prominence is seen. Mild to moderate low-attenuation in the periventricular white matte r is likely product of chronic small vessel ischemic change in patient of this age. The calvarium is intact. Nasal septum is deviated to the right of midline. The globes are intact bilaterally. Paranasa l sinuses are grossly clear. Cervical spine is visualized in its entirety from C1 through upper thoracic levels and demonstrates s light scoliotic curvature without evidence of acute fracture or dislocation. Prevertebral soft tissu e appears within normal limits. The C1-C2 articulation is within normal limits on the coronal images . Vertebral body heights are maintained. There is slight grade 1 retrolisthesis C3 on C4. Mild disc space narrowing at C3-C4 and mild to moderate disc space narrowing at C5-C6 level is seen. Axial imag es show multilevel uncovertebral facet degenerative changes bilaterally. Lung apices show no pneumoth orax. There is partial visualization of right-sided Mediport catheter. Thyroid gland is unremarkable. IMPRESSION: 1. There is no acute fracture or dislocation evident in the cervical spine. 2. No acute intracranial hemorrhage or midline shift is seen. [facility], , 02/15/2025 7:20 AM
[2025-02-15 08:12] LABS: Basophils # (A) 0.02 10*3/uL (0.00-0.10); Basophils % (A) 0.2 %; Eosinophils # (A) 0.29 10*3/uL (0.04-0.35); Eosinophils % (A) 3.5 %; HCT 30.4 % (39.6-50.0); HGB 10.4 g/dL (13.0-17.0); Lymphocytes # (A) 0.63 10*3/uL (0.90-5.00); Lymphocytes % (A) 7.6 %; MCH 30.5 pg (27.0-32.0); MCHC 34.2 g/dL (32.0-37.0); MCV 89.1 fL (80.0-97.0); Mean Platelet Volume 9.8 fL (9.5-12.2); Monocytes # (A) 0.73 10*3/uL (0.20-1.00); Monocytes % (A) 8.8 %; Neutrophils # (A) 6.54 10*3/uL (1.80-7.70); Neutrophils % (A) 79.2 %; Platelet Count 242 10*3/uL (140-440); RBC 3.41 10*6/uL (4.40-5.60); RDW 15.2 % (11.5-14.5); WBC 8.27 10*3/uL (4.50-10.00)
[2025-02-15 08:18] LABS: ALT 24 U/L (4-49); AST 27 U/L (17-59); African American GFR (CKD) >90 (>60 ml/min/1.73 sqM); Albumin 2.9 g/dL (3.5-5.0); Alkaline Phosphatase 104 U/L (38-126); Anion Gap 8 mmol/L; Blood Urea Nitrogen 7 mg/dL (9-20); Calcium 8.7 mg/dL (8.4-10.2); Carbon Dioxide 25 mmol/L (22-30); Chloride 104 mmol/L (98-107); Glucose 83 mg/dL (74-99); Magnesium 1.5 mg/dL (1.6-2.3); Non-African American GFR(CKD) >90 (>60 ml/min/1.73 sqM); Potassium 3.4 mmol/L (3.5-5.1); Sodium 137 mmol/L (137-145); Total Bilirubin 0.6 mg/dL (0.2-1.3)
[2025-02-15] MEDS ORDERED: ACETAMINOPHEN TAB 325 MG TAB PO PRN (09:39)
[2025-02-15] MEDS ORDERED: NALOXONE 0.4 MG/ML 1 ML VIAL IV PRN (09:39)
[2025-02-15] MEDS: POTASSIUM CHLORIDE ER 20 MEQ TAB.ER PO STA (09:50)
[2025-02-15] MEDS: MAGNESIUM SULFATE-D5W PMX 1 GM in DEXTROSE/WATER 1 100ML.BAG IVPB SCH ×2 (10:36→19:01)
--- NOTE | 2025-02-15 11:54 | P.GSCN ---
History of Present Illness Consult date: 02/15/25 History of present illness: CHIEF COMPLAINT: Fall HISTORY OF PRESENT ILLNESS: This is a 79-year-old male with history of sigmoid colon cancer status post exploratory laparotomy with sigmoid resection and repair of incisional hernia on 02/05/[address] Pool. Patient was discharged yesterday to home. Prior to discharge patient had been tolerating diet. Ostomy had been functioning. He had ambulated in the hallway. Patient reports he got up from bed to use the bathroom yesterday at home and his ostomy bag was leaking stool. He reports he was cleaning up the mess when he fell and hit his head. He denies any loss of consciousness. He came into the ER for further evaluation. Patient has been having a small amount of sanguinous drainage from the distal incision. Incision also has some erythema noted. He denies any fever chills or sweats. Denies any abdominal pain. Denies hitting his abdomen. They did do a CT scan of the head and cervical spine with no acute changes on admission. PAST MEDICAL HISTORY: See below PAST SURGICAL HISTORY: See below MEDICATIONS: See below ALLERGIES: See below SOCIAL HISTORY: No illicit drug use. REVIEW OF SYSTEMS: CONSTITUTIONAL: Denies fever or chills. HEENT: Denies blurred vision, vision changes, or eye pain. Denies hemoptysis CARDIOVASCULAR: Denies chest pain or pressure. RESPIRATORY: No shortness of breath. GASTROINTESTINAL: See HPI for pertinent findings HEMATOLOGIC: Denies bleeding disorders. GENITOURINARY: Denies any blood in urine or increased urinary frequency. SKIN: Denies pruitis. Denies rash. PHYSICAL EXAM: VITAL SIGNS: Reviewed GENERAL: Well-developed in no acute distress. HEENT: No sclera icterus. Extraocular movements grossly intact. Moist buccal mucosa. Head is atraumatic, normocephalic. No nasal drainage. ABDOMEN: Soft. Nondistended. Incision site with erythema along the incision. There is small amount of sanguinous drainage noted from the distal incision. RADHA drain with serosanguineous drainage. NEUROLOGIC: Alert and oriented. Cranial nerves II through XII grossly intact. LABORATORY DATA: WBC 8.27 Hgb stable 10.4 platelets 242 Sodium is 137 potassium 3.4 creatinine 0.52 Magnesium 1.5 Albumin 2.9 IMAGING: CT head of head and neck no acute fracture or dislocation of the cervical spine. No acute intracranial hemorrhage ASSESSMENT: 1. Fall and hit head 2. Sigmoid colon cancer status post exploratory laparotomy with sigmoid resection and repair of incisional hernia on 02/05/2025 3. Infection at surgical incision site PLAN: - Antibiotics added for cellulitis changes at incision site - Cover incision with ABD and add abdominal binder - Agree with PT OT eval and possible ECF placement - Continue supportive care - Medicine service correcting magnesium and potassium Physician Environmental Remediation Consultant note has been reviewed by physician. Signing provider agrees with the documented findings, assessment, and plan of care. I have personally seen and examined the patient, reviewed the EXPERIMENTAL ELECTRONICS DEVELOPER /PAs history, exam and MDM and agree with the assessment and plan as written. Based on total visit time, I have performed more than 50% of the visit. As above: Patient with ground-level fall from kneeling position yesterday. No longer symptomatic from that it appears. Still with edematous lower abdominal wall with some serosanguineous drainage. Will remove the bottom 4 zev and pack with iodoform gauze. Agree with plans for rehab which the patient was not willing to do initially. Past Medical History Past Medical History: Atrial Fibrillation, Cancer, Hearing Disorder / Deafness, Hypertension, Osteoarthritis (OA), Pneumonia Additional Past Medical History / Comment(s): Current colon tumor. Hx colon cancer, got colostomy 06/13/24. "No longer has A-Fib, Dr stopped all his medication". Hx Pneumonia, spouse thinks 07/2024. "Hearing has gotten a lot worse recently and he only whispers." Sinusitis. Hx chronic lower extremity edema, now resolved. Hypertension resolved, now has low BP. History of Any Multi-Drug Resistant Organisms: None Reported Past Surgical History: Orthopedic Surgery, Tonsillectomy Additional Past Surgical History / Comment(s): Bowel resection/colostomy, knee surgery, port a catheter placement. hernia repair/tumor removal Past Anesthesia/Blood Transfusion Reactions: No Reported Reaction Past Psychological History: No Psychological Hx Reported Smoking Status: Former smoker Past Alcohol Use History: None Reported Past Drug Use History: None Reported - Past Family History Father Family Medical History: No Reported History Mother Family Medical History: Asthma, COPD Additional Family Medical History / Comment(s): Bronchitis. Medications and Allergies Home Medications Medication Instructions Recorded Confirmed Type Ergocalciferol [Vitamin D2 (1250 1,250 mcg PO MARTINO 11/23/23 02/15/25 History Mcg = 18535 Iu)] Fluticasone Nasal [place] [Flonase 1 spr EA NOSTRIL BID PRN 11/23/23 02/15/25 History Nasal [place]] Spironolactone [Aldactone] 25 mg PO DAILY 11/23/23 02/15/25 History Ferrous Sulfate [Iron (65 MG 325 mg PO DAILY 07/05/24 02/15/25 History Elemental)] Multivitamins, Thera [Multivitamin 1 tab PO DAILY 07/05/24 02/15/25 History (formulary)] Folic Acid 1 mg PO DAILY 08/30/24 02/15/25 History L.rhamnosus/B.animalis(Lactis) 1 cap PO DAILY 08/30/24 02/15/25 History [[facility] Cfu Cp] Potassium Chloride ER [K-Dur 10] 10 meq PO DAILY 08/30/24 02/15/25 History Vitamin B-12 (Unknown Dose) 2 tab PO DAILY 08/30/24 02/15/25 History Acetaminophen Tab [Tylenol Tab] 650 mg PO Q4H PRN #30 tablet 02/14/25 02/15/25 Rx Sulfamethox-Tmp 800-160Mg [Bactrim 1 tab PO Q12HR #2 tab 02/14/25 02/15/25 Rx DS 800-160 mg] Allergies Allergy/AdvReac Type Severity Reaction Status Date / Time morphine Allergy Vomiting Verified 02/15/25 11:55 Surgical - Exam Vital Signs Temp Pulse Resp BP Pulse Ox 98.2 F 65 18 115/75 96 02/15/25 06:19 02/15/25 06:19 02/15/25 06:19 02/15/25 06:19 02/15/25 06:19 Results - Labs 02/15/25 07:57 02/15/25 07:57 Abnormal Lab Results - Last 24 Hours (Table) 02/15/25 02/15/25 Range/Units 07:57 07:57 RBC 3.41 L (4.40-5.60) 10*6/uL Hgb 10.4 L (13.0-17.0) g/dL Hct 30.4 L (39.6-50.0) % Immature Gran # 0.06 H (0.00-0.04) 10*3/uL Lymphocytes # 0.63 L (0.90-5.00) 10*3/uL Potassium 3.4 L (3.5-5.1) mmol/L BUN 7 L (9-20) mg/dL Creatinine 0.52 L (0.66-1.25) mg/dL Magnesium 1.5 L (1.6-2.3) mg/dL Total Protein 6.0 L (6.3-8.2) g/dL Albumin 2.9 L (3.5-5.0) g/dL Diabetes panel 02/15/25 Range/Units 07:57 Sodium 137 (137-145) mmol/L Potassium 3.4 L (3.5-5.1) mmol/L Chloride 104 (98-107) mmol/L Carbon Dioxide 25 (22-30) mmol/L BUN 7 L (9-20) mg/dL Creatinine 0.52 L (0.66-1.25) mg/dL Glucose 83 (74-99) mg/dL Calcium 8.7 (8.4-10.2) mg/dL AST 27 (17-59) U/L ALT 24 (4-49) U/L Alkaline Phosphatase 104 (38-126) U/L Total Protein 6.0 L (6.3-8.2) g/dL Albumin 2.9 L (3.5-5.0) g/dL Calcium panel 02/15/25 Range/Units 07:57 Calcium 8.7 (8.4-10.2) mg/dL Albumin 2.9 L (3.5-5.0) g/dL Pituitary panel 02/15/25 Range/Units 07:57 Sodium 137 (137-145) mmol/L Potassium 3.4 L (3.5-5.1) mmol/L Chloride 104 (98-107) mmol/L Carbon Dioxide 25 (22-30) mmol/L BUN 7 L (9-20) mg/dL Creatinine 0.52 L (0.66-1.25) mg/dL Glucose 83 (74-99) mg/dL Calcium 8.7 (8.4-10.2) mg/dL Adrenal panel 02/15/25 Range/Units 07:57 Sodium 137 (137-145) mmol/L Potassium 3.4 L (3.5-5.1) mmol/L Chloride 104 (98-107) mmol/L Carbon Dioxide 25 (22-30) mmol/L BUN 7 L (9-20) mg/dL Creatinine 0.52 L (0.66-1.25) mg/dL Glucose 83 (74-99) mg/dL Calcium 8.7 (8.4-10.2) mg/dL Total Bilirubin 0.6 (0.2-1.3) mg/dL AST 27 (17-59) U/L ALT 24 (4-49) U/L Alkaline Phosphatase 104 (38-126) U/L Total Protein 6.0 L (6.3-8.2) g/dL Albumin 2.9 L (3.5-5.0) g/dL
[2025-02-15] MEDS: PIPERACILLIN-TAZOBACTAM 3.375 GM in SODIUM CHLORIDE 0.9% 100 ML IVPB SCH (14:04)
[2025-02-15] MEDS ORDERED: Magnesium Replacement Protocol 1 EACH MISC MISCELLANE PRN (16:04)
[2025-02-15] MEDS ORDERED: FLUTICASONE NASAL 50MCG/SPRAY 16GM BTL EA NOSTRIL PRN (16:06)
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
[2025-02-16] MEDS: FERROUS SULFATE 325 MG TAB PO SCH (08:57)
[2025-02-16] MEDS: FOLIC ACID 1 MG TAB PO SCH (08:57)
[2025-02-16] MEDS: SPIRONOLACTONE 25 MG TAB PO SCH (08:57)
[2025-02-16 10:34] LABS: Basophils # (A) 0.04 X 10*3/uL (0.00-0.10); Basophils % (A) 0.6 %; Eosinophils # (A) 0.42 X 10*3/uL (0.04-0.35); Eosinophils % (A) 5.9 %; HCT 30.4 % (39.6-50.0); HGB 9.6 g/dL (13.0-17.0); Lymphocytes # (A) 1.02 X 10*3/uL (0.90-5.00); Lymphocytes % (A) 14.4 %; MCH 29.2 pg (27.0-32.0); MCHC 31.6 g/dL (32.0-37.0); MCV 92.4 FL (80.0-97.0); Mean Platelet Volume 10.6 FL (9.5-12.2); Monocytes # (A) 0.81 X 10*3/uL (0.20-1.00); Monocytes % (A) 11.4 %; NRBC Per 100 WBC 0 X 10*3/uL (0.00-0.01); Neutrophils # (A) 4.77 X 10*3/uL (1.80-7.70); Neutrophils % (A) 67.1 %; Platelet Count 266 X 10*3/uL (140-440); RBC 3.29 X 10*6/uL (4.40-5.60); RDW 15.5 % (11.5-14.5)
--- NOTE | 2025-02-16 10:50 | P.PN ---
Subjective Progress Note Date: 02/16/25 Principal diagnosis: Colon obstruction 79-year-old male brought up from the ER yesterday afternoon. Still having incisional discharge. The bottom 4 zev were removed however no packing was able to be placed. Feels well. No abdominal discomforts. He is afebrile. White blood cell count is normal. Objective - Vital Signs Vital signs: Vital Signs Temp 97.7 F 02/16/25 02:43 Pulse 54 L 02/16/25 07:10 Resp 17 02/16/25 07:10 BP 94/57 02/16/25 07:10 Pulse Ox 98 02/16/25 07:10 FiO2 Intake & Output 02/15/25 02/16/25 02/16/25 18:59 06:59 18:59 Intake Total 200 1650 Output Total 750 Balance 200 900 Weight 101.605 kg Intake: IV 200 Magnesium Sulfate-D5w Pmx 100 1 gm In Dextrose/Water 1 100ml.bag @ 100 mls/hr IVPB Q1H [facility] Rx#: [id number] Piperacillin-Tazobactam 3 100 .375 gm In Sodium Chloride 0.9% 100 ml @ 25 mls/hr IVPB Q8H [facility] Rx#: [id number] Oral 1650 Output: Urine 750 - Exam Abdomen: Soft, nondistended, midline incision with 2 separate areas of serosanguineous drainage 1 above the umbilical region and one below. The inferior aspect of the incision no longer draining. Still has edema of the lower extremities and of the pannus/lower abdominal wall - Labs CBC & Chem 7: 02/16/25 02:59 02/15/25 07:57 Labs: Abnormal Lab Results - Last 24 Hours (Table) 02/16/25 Range/Units 02:59 RBC 3.29 L (4.40-5.60) X 10*6/uL Hgb 9.6 L (13.0-17.0) g/dL Hct 30.4 L (39.6-50.0) % MCHC 31.6 L (32.0-37.0) g/dL RDW 15.5 H (11.5-14.5) % Eosinophils # 0.42 H (0.04-0.35) X 10*3/uL Assessment and Plan (1) Status post colostomy Narrative/Plan: 79-year-old male doing well today. Does have increased drainage from 2 separate sites that are different than previous. Both of the sites were addressed by removing 3-4 zve at each location and packing with iodoform gauze. Fascia appears to be intact by cotton-tipped applicator. Drain was removed as well s mikie it was putting out minimal serous fluid. Continue diet. Continue antibiotics. Local wound care to both sites. Monitor midline incision. Anticipate plans for transfer to rehab early next week. Current Visit: Yes Status: Acute Code(s): Z93.3 - COLOSTOMY STATUS SNOMED Code(s): 429134379
[2025-02-16 11:01] LABS: BUN/Creat Ratio 11.14 Ratio (12.00-20.00); Blood Urea Nitrogen 7.8 mg/dL (9.0-27.0); Calcium 8.2 mg/dL (8.7-10.3); Carbon Dioxide 27.2 mmol/L (21.6-31.8); Chloride 103 mmol/L (96-109); Glucose 80 mg/dL (70-110); Potassium 4.2 mmol/L (3.5-5.5); Sodium 140 mmol/L (135-145)
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
--- NOTE | 2025-02-16 15:51 | US ---
EXAMINATION TYPE: US venous doppler duplex LE BI DATE OF EXAM: 02/16/2025 3:33 PM COMPARISON: NONE CLINICAL INDICATION: Male, 79 years old with history of swelling; Edema, Pain TECHNIQUE: The lower extremity deep venous system is examined utilizing real time linear array sonog tobin with graded compression, color doppler sonography, and spectral doppler. SIDE PERFORMED: Bilateral FINDINGS: VESSELS IMAGED: Common Femoral Vein Deep Femoral Vein Greater Saphenous Vein * Femoral Vein Popliteal Vein Small Saphenous Vein * Proximal Calf Veins (* superficial vessels) Right Leg: Negative for DVT, Color Doppler imaging shows patency of the vessels. Spectral waveforms are within normal limits. Left Leg: Negative for DVT, Color Doppler imaging shows patency of the vessels. Spectral waveforms a re within normal limits. IMPRESSION: No ultrasound evidence for deep venous thrombosis. [facility], , 02/16/2025 3:49 PM
[2025-02-16] MEDS: PIPERACILLIN-TAZOBACTAM 3.375 GM in SODIUM CHLORIDE 0.9% 100 ML IVPB SCH (17:44)
[2025-02-17] MEDS: ERGOCALCIFEROL 1,250 MCG (50,000 IU) CAPSULE PO SCH (08:45)
--- NOTE | 2025-02-17 11:56 | P.PN ---
Subjective Progress Note Date: 02/17/25 Principal diagnosis: Colon obstruction Patient seems to be doing better. No pain. Sitting up at the bedside. Still complaining of leg swelling. Lower extremity Doppler negative for DVT. Tolerating diet. Stools still loose but improved. Objective - Vital Signs Vital signs: Vital Signs Temp 98.0 F 02/17/25 07:58 Pulse 62 02/17/25 07:58 Resp 18 02/17/25 07:58 BP 108/67 02/17/25 07:58 Pulse Ox 100 02/17/25 07:58 FiO2 Intake & Output 02/16/25 02/17/25 02/17/25 18:59 06:59 18:59 Intake Total 200 2270 Output Total 1200 Balance 200 1070 Intake: IV 200 Piperacillin-Tazobactam 3 200 .375 gm In Sodium Chloride 0.9% 100 ml @ 25 mls/hr IVPB Q8H [facility] Rx#: [id number] Oral 2270 Output: Urine 1000 Stool 200 Other: Voiding Method Urinal # Voids 6 # Bowel Movements 2 - Exam Abdomen: Soft, nondistended, midline incision with 2 separate wounds both packed with iodoform gauze. Small amount of serosanguineous dressing at both locations more from the lower 1 where there is more abdominal wall edema present, minimal erythema - Labs CBC & Chem 7: 02/16/25 02:59 02/16/25 02:59 Labs: Microbiology - Last 24 Hours (Table) 02/15/25 07:57 Blood Culture - Preliminary Blood Assessment and Plan (1) Status post colostomy Narrative/Plan: Patient seems be doing better at this time. Continue local wound care. Continue antibiotics. Ambulate. Continue optimizing fluid status and lower extremity edema. Current Visit: Yes Status: Acute Code(s): Z93.3 - COLOSTOMY STATUS SNOMED Code(s): 542179686
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
[2025-02-17] MEDS: FUROSEMIDE 10 MG/ML 2 ML VIAL IV SCH (14:21)
[2025-02-17] MEDS: ENOXAPARIN 40 MG/0.4 ML SYRINGE SQ SCH (14:21)
[2025-02-18 10:46] LABS: Basophils # (A) 0.02 10*3/uL (0.00-0.10); Basophils % (A) 0.4 %; Eosinophils # (A) 0.27 10*3/uL (0.04-0.35); Eosinophils % (A) 5.1 %; HCT 30.1 % (39.6-50.0); HGB 9.8 g/dL (13.0-17.0); Lymphocytes # (A) 0.92 10*3/uL (0.90-5.00); Lymphocytes % (A) 17.3 %; MCH 29.7 pg (27.0-32.0); MCHC 32.6 g/dL (32.0-37.0); MCV 91.2 fL (80.0-97.0); Mean Platelet Volume 9.2 fL (9.5-12.2); Monocytes % (A) 9.4 %; Neutrophils # (A) 3.57 10*3/uL (1.80-7.70); Neutrophils % (A) 67.2 %; Platelet Count 308 10*3/uL (140-440); RDW 15.6 % (11.5-14.5); WBC 5.31 10*3/uL (4.50-10.00)
--- NOTE | 2025-02-18 10:53 | P.PN ---
Subjective Progress Note Date: 02/18/25 SURGICAL PROGRESS NOTE CHIEF COMPLAINT: History of colon cancer HISTORY OF PRESENT ILLNESS: Patient sitting up in bedside chair. Ostomy is functioning. Stool for C. difficile was negative. Pain controlled. Denies any nausea or vomiting. Tolerating regular diet. Afebrile. Every other staple was removed yesterday from midline incision and RADHA drain removed yesterday. WBC 5.31 Hgb 9.8. For fluid overload patient receiving IV Lasix. PHYSICAL EXAM: VITAL SIGNS: Reviewed. GENERAL: Well-developed in no acute distress. ABDOMEN: Soft. Nondistended. Edematous. Midline incision decreased erythema. 2 separate areas of midline incision with iodoform packing. There is some serosanguineous drainage noted at the distal opening. NEUROLOGIC: Alert and oriented. Cranial nerves II through XII grossly intact. Extremities: Bilateral lower extremity edema ASSESSMENT: 1. History of colon cancer status post sigmoid resection on 02/05/2025 2. Fall 3. Midline surgical incision infection PLAN: - Agree with working on discharge to ECF - Continue local wound care - Continue antibiotics Physician Sound Engineer note has been reviewed by physician. Signing provider agrees with the documented findings, assessment, and plan of care. Objective - Vital Signs Vital signs: Vital Signs Temp 97.5 F L 02/18/25 06:56 Pulse 71 02/18/25 06:56 Resp 18 02/18/25 06:56 BP 112/73 02/18/25 06:56 Pulse Ox 100 02/18/25 06:56 FiO2 Intake & Output 02/17/25 02/18/25 02/18/25 18:59 06:59 18:59 Intake Total 240 1180 Output Total 550 Balance 240 630 Intake: Intake, IV Titration 100 Amount Piperacillin-Tazobactam 3 100 .375 gm In Sodium Chloride 0.9% 100 ml @ 25 mls/hr IVPB Q8HR [facility] Rx# :[id number] Oral 240 1080 Output: Urine 550 Other: Voiding Method Urinal # Voids 4 # Bowel Movements 3 - Labs CBC & Chem 7: 02/18/25 10:15 02/16/25 02:59 Labs: Abnormal Lab Results - Last 24 Hours (Table) 02/18/25 Range/Units 10:15 RBC 3.30 L (4.40-5.60) 10*6/uL Hgb 9.8 L (13.0-17.0) g/dL Hct 30.1 L (39.6-50.0) % RDW 15.6 H (11.5-14.5) % MPV 9.2 L (9.5-12.2) fL Microbiology - Last 24 Hours (Table) 02/15/25 07:57 Blood Culture - Preliminary Blood
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
[2025-02-18 15:23] LABS: ALT 24 U/L (10-49); AST 27 U/L (14-35); Albumin 3.2 g/dL (3.8-4.9); Albumin/Globulin Ratio 1.03 Ratio (1.60-3.17); Alkaline Phosphatase 100 U/L (41-126); Blood Urea Nitrogen 4.9 mg/dL (9.0-27.0); Calcium 8.6 mg/dL (8.7-10.3); Carbon Dioxide 27.8 mmol/L (21.6-31.8); Chloride 104 mmol/L (96-109); Globulin 3.1 g/dL (1.6-3.3); Glucose 73 mg/dL (70-110); Potassium 4.1 mmol/L (3.5-5.5); Sodium 143 mmol/L (135-145); Total Bilirubin 0.3 mg/dL (0.3-1.2); Total Protein 6.3 g/dL (6.2-8.2)
[2025-02-18 15:44] LABS: African American GFR (CKD) >90 (>60 ml/min/1.73 sqM); Anion Gap 8 mmol/L; Blood Urea Nitrogen 5 mg/dL (9-20); Calcium 8.7 mg/dL (8.4-10.2); Carbon Dioxide 32 mmol/L (22-30); Chloride 98 mmol/L (98-107); Glucose 90 mg/dL (74-99); Magnesium 1.7 mg/dL (1.6-2.3); Non-African American GFR(CKD) >90 (>60 ml/min/1.73 sqM); Potassium 3.7 mmol/L (3.5-5.1); Sodium 138 mmol/L (137-145)
--- NOTE | 2025-02-18 17:29 | CA ---
Transthoracic Echo Report Name: Venkatesh Phillips Age: 79 Gender: M : 1945 Exam Date: 02/18/2025 09:47 Exam Location: [place] [facility] Ht (in): 71 Wt (lb): 224 Ordering Physician: Dat Triplett MD Attending/Referring Phys: [id number], Uziel Manager Monitoring Domi Mercado RDCS Procedure CPT: Indications: Le edema r/o CHF Cardiac Hx: Technical Quality: Fair Contrast 1: Total Dose (mL): Contrast 2: Total Dose (mL): MEASUREMENTS (Male / Female) Normal Values 2D ECHO LV Diastolic Diameter PLAX 6.0 cm 4.2 - 5.9 / 3.9 - 5.3 cm LV Systolic Diameter PLAX 4.2 cm IVS Diastolic Thickness 1.3 cm 0.6 - 1.0 / 0.6 - 0.9 cm LVPW Diastolic Thickness 1.3 cm 0.6 - 1.0 / 0.6 - 0.9 cm LV Relative Wall Thickness 0.4 RV Internal Dim ED PLAX 3.6 cm Aortic Root Diameter 4.0 cm LA Systolic Diameter LX 5.5 cm 3.0 - 4.0 / 2.7 - 3.8 cm LV Diastolic Volume MOD BP 130.9 cm??? 67 - 155 / 56 - 104 cm??? LV Systolic Volume MOD BP 73.0 cm??? 22 - 58 / 19 - 49 cm??? LV Ejection Fraction MOD BP 44.2 % >= 55 % LV Cardiac Index MOD BP 1190.1 cm???/min???m??? LV Diastolic Volume MOD 4C 147.7 cm??? LV Systolic Volume MOD 4C 65.5 cm??? LV Ejection Fraction MOD 4C 55.7 % LV Cardiac Index MOD 4C 1693.5 cm???/min???m??? LV Diastolic Length 4C 7.6 cm LV Systolic Length 4C 6.8 cm LV Diastolic Volume MOD 2C 114.0 cm??? LV Systolic Volume MOD 2C 76.2 cm??? LV Ejection Fraction MOD 2C 33.2 % LV Cardiac Index MOD 2C 778.6 cm???/min???m??? LV Diastolic Length 2C 7.8 cm LV Systolic Length 2C 7.4 cm M-MODE Aortic Root Diameter MM 4.2 cm LA Systolic Diameter MM 5.0 cm LA Ao Ratio MM 1.2 AV Cusp Separation MM 2.4 cm DOPPLER Mitral E Point Velocity 121.4 cm/s Mitral A Point Velocity 3.7 cm/s Mitral E to A Ratio 33.1 MV Deceleration Time 259.7 ms MV E' Velocity 9.0 cm/s Mitral E to MV E' Ratio 13.5 TR Peak Velocity 268.5 cm/s TR Peak Gradient 28.8 mmHg FINDINGS Left Ventricle Left ventricular ejection fraction is estimated at 45-50 %. Mildly increased septal wall thickness. Mildly increased left ventricular diastolic diameter. Moderately increased left ventricular systolic volume. Mild to moderately decreased left ventricular ejection fraction. Right Ventricle Moderate right ventricular dilatation. Reduced right ventricular global systolic function. Right Atrium Severe right atrial dilatation. Left Atrium Severely increased left atrial diameter. Mitral Valve Structurally normal mitral valve. [id number] mitral regurgitation. No mitral stenosis. Aortic Valve Trileaflet aortic valve. Diffuse thickening (sclerosis) of the aortic valve cusps without reduced excursion. Tricuspid Valve Structurally normal tricuspid valve. Moderate tricuspid regurgitation. No tricuspid stenosis. Pulmonic Valve Structurally normal pulmonic valve. Trace pulmonic regurgitation. No pulmonic stenosis. Pericardium No pericardial or pleural effusion. Aorta Severe aortic dilatation at the level of the sinuses of valsalva (root), 4.2cm. CONCLUSIONS Left ventricle is at upper limits of normal. There is mild global decrease in contractility. Mild to moderate right ventricular enlargement. Mild to moderate mitral regurgitation eccentric, moderate tricuspid regurgitation. No significant pulmonary hypertension. Enlarged atria. Enlarged aortic root 4.2 cm. No pericardial effusion. Irregular rhythm Previewed by: Dr. Linus Vaughn MD (Electronically Signed) Final Date: 18 Feb 2025 17:28
[2025-02-18 17:46] LABS: NT-Pro-B-Type Natriuretic Pept 1237 pg/mL (0-450)
[2025-02-19 03:59] LABS: African American GFR (CKD) >90 (>60 ml/min/1.73 sqM); Anion Gap 7 mmol/L; Blood Urea Nitrogen 6 mg/dL (9-20); Calcium 8.8 mg/dL (8.4-10.2); Carbon Dioxide 30 mmol/L (22-30); Chloride 98 mmol/L (98-107); Glucose 83 mg/dL (74-99); Magnesium 1.6 mg/dL (1.6-2.3); Non-African American GFR(CKD) >90 (>60 ml/min/1.73 sqM); Potassium 3.9 mmol/L (3.5-5.1); Sodium 135 mmol/L (137-145)
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
--- NOTE | 2025-02-19 13:10 | P.PN ---
Subjective Progress Note Date: 02/19/25 SURGICAL PROGRESS NOTE CHIEF COMPLAINT: History of colon cancer HISTORY OF PRESENT ILLNESS: Patient sitting up in bedside chair. Ostomy is functioning. Pain is controlled. Denies any nausea or vomiting. He has been up and ambulating. He has worked with physical therapy they recommend home at discharge. Afebrile. PHYSICAL EXAM: VITAL SIGNS: Reviewed. GENERAL: Well-developed in no acute distress. ABDOMEN: Soft. Nondistended. Abdominal edema decreased. Decreased erythema at incision site. Packing is in place. Some minimal serosanguineous drainage noted at on the dressing at the distal aspect of the incision. NEUROLOGIC: Alert and oriented. Cranial nerves II through XII grossly intact. Extremities: Bilateral lower extremity edema decreasing ASSESSMENT: 1. History of colon cancer status post sigmoid resection on 02/05/2025 2. Fall 3. Midline surgical incision infection PLAN: -Patient can be discharged from surgical standpoint -Continue local wound care -Agree with p.o. antibiotics at discharge -Patient being discharged home with home care Physician Counseling Department Chair note has been reviewed by physician. Signing provider agrees with the documented findings, assessment, and plan of care. Objective - Vital Signs Vital signs: Vital Signs Temp 97.7 F 02/19/25 07:10 Pulse 85 02/19/25 07:10 Resp 19 02/19/25 07:10 BP 106/68 02/19/25 08:23 Pulse Ox 98 02/19/25 07:10 FiO2 Intake & Output 02/18/25 02/19/25 02/19/25 18:59 06:59 18:59 Intake Total 480 Output Total 740 1175 100 Balance -740 -695 -100 Intake: Oral 480 Output: Urine 740 175 Stool 1000 100 Other: Voiding Method Urinal Urinal # Voids 2 - Labs CBC & Chem 7: 02/18/25 10:15 02/19/25 02:57 Labs: Abnormal Lab Results - Last 24 Hours (Table) 02/18/25 02/18/25 02/19/25 Range/Units 10:15 14:43 02:57 Sodium 135 L (137-145) mmol/L Carbon Dioxide 32 H (22-30) mmol/L BUN 4.9 L 5 L 6 L (9.0-27.0) mg/dL Creatinine 0.64 L 0.62 L (0.66-1.25) mg/dL BUN/Creatinine Ratio 7.00 L (12.00-20.00) Ratio Calcium 8.6 L (8.7-10.3) mg/dL NT-Pro-B Natriuret Pep 1237 H (0-450) pg/mL Albumin 3.2 L (3.8-4.9) g/dL Albumin/Globulin Ratio 1.03 L (1.60-3.17) Ratio Microbiology - Last 24 Hours (Table) 02/15/25 07:57 Blood Culture - Preliminary Blood
[2025-02-19] MEDS: CEPHALEXIN 500 MG CAP PO SCH (20:50)
[2025-02-20 02:36] VITALS: RESP 18
[2025-02-20 07:36] VITALS: BP 101/66; PULSE 99; TEMP 97.8
--- NOTE | 2025-02-20 08:16 | P.CON ---
Consult Note - . Consult date: 02/20/25 Assessment/Plan:: Chief complaint: Left great toenail avulsion HPI: This is a 79-year-old male being evaluated bedside today after hooking his left great toenail and having it off yesterday. He states there was extensive bleeding from the nail. He rates his pain as a 4 out of 10 today. He states that he currently trims his nails himself. He has not seen a mortgage analyst in the past. He states his feet are extensively swollen but continue to go down daily while he has been admitted. He is hoping to be discharged home today. He has a dressing on the left great toe but he does note some bleeding through it. Lower extremity exam: Alert and oriented x 3, no apparent distress Vascular exam: Nonpalpable DP and PT pulse to the left foot. CFT less than 3 seconds to all exposed digits. Extensive +3 pitting edema to bilateral dorsal foot. Varicosities to dorsal feet and anterior shins bilateral. Derm: Left hallux nail is 100% absent with underlying nailbed exposed. Secondary skin tear on the medial aspect of the left hallux likely from the nail pulling off and connecting to skin. Wound bed has no erythema, purulence expressed. Very healthy wound bed noted. Active bleeding is still present. Neuro: Patient has light touch sensation to the level of the digits bilateral. MSK: Pain with palpation to the left great toe with dressing change today. Otherwise no significant pain. Calves are soft and supple today. No pain with calf compression. Assessment: 1. Skin tear left great toe 2. Absent left hallux nail with abrasion present 3. Lymphedema bilateral lower extremity Plan: - Patient was seen and evaluated today while resting comfortably in bed. - Dressing was changed today. Evaluated the wound base. This is healthy with active bleeding noted. This was stopped with pressure. No debridement was performed. No signs of infectious process noted at this time. Adaptic, 4 x 4 gauze, Bryant, tape applied to the toe. Patient tolerated the dressing change. Discussed every other day dressing changes of the digit. Discussed Epsom salt soaks. - Recommend outpatient follow-up visit in my office in 1 week postdischarge. - All questions were answered. Darcy Hoffman DPM, AACFAS
[2025-02-20] MEDS: FUROSEMIDE 20 MG TAB PO SCH (08:38)
--- NOTE | 2025-02-20 09:52 | P.CONS ---
History of Present Illness - Reason for Consult Consult date: 02/20/25 wound care - History of Present Illness This is a 79-year-old male being evaluated bedside today after hooking his left great toenail and having it off yesterday. Patient states that podiatry was in to see him remove the dressing and looked at the toe. Reapplying the dressing. The podiatry stated that there was no need for any further intervention.Ulceration does not require any debridement. Recommended to f ollow-up with podiatry in 1 week. Review Of Systems: Constitutional: No fever, no chills, no night sweats. No weight change. No weakness, fatigue or lethargy. No daytime sleepiness. Integumentary:reports wounds, no lesions. No rash or pruritus. No unusual bruising. No change in hair or nails. Physical exam: General Appearance: Alert, cooperative, no distress, appears stated age. Skin: See HPI all other Skin color, texture, tugor normal, no rashes or lesions. Neurologic: Alert oriented x3 Assessment: 1. Skin tear left great toe Plan: 1. Change dressing as needed. Patient states he will follow-up with podiatry. Thank for the consultation any questions please contact the wound care center DNP note has been reviewed and discussed with Dr. Vazquez and the impression and plan of care has been directed as dictated. Past Medical History Past Medical History: Atrial Fibrillation, Cancer, Hearing Disorder / Deafness, Hypertension, Osteoarthritis (OA), Pneumonia Additional Past Medical History / Comment(s): Current colon tumor. Hx colon cancer, got colostomy 06/13/24. "No longer has A-Fib, stopped all his medication". Hx Pneumonia, spouse thinks 07/2024. "Hearing has gotten a lot worse recently and he only whispers." Sinusitis. Hx chronic lower extremity edema, now resolved. Hypertension resolved, now has low BP. History of Any Multi-Drug Resistant Organisms: None Reported Past Surgical History: Orthopedic Surgery, Tonsillectomy Additional Past Surgical History / Comment(s): Bowel resection/colostomy, knee surgery, port a catheter placement. hernia repair/tumor removal Past Anesthesia/Blood Transfusion Reactions: No Reported Reaction Past Psychological History: No Psychological Hx Reported Smoking Status: Former smoker Past Alcohol Use History: None Reported Additional Past Alcohol Use History / Comment(s): Quit smoking >30 yrs ago. Past Drug Use History: None Reported - Past Family History Father Family Medical History: No Reported History Mother Family Medical History: Asthma, COPD Additional Family Medical History / Comment(s): Bronchitis. Medications and Allergies Home Medications Medication Instructions Recorded Confirmed Type Ergocalciferol [Vitamin D2 (1250 1,250 mcg PO MARTINO 11/23/23 02/15/25 History Mcg = 43291 Iu)] Fluticasone Nasal [place] [Flonase 1 spr EA NOSTRIL BID PRN 11/23/23 02/15/25 History Nasal [place]] Spironolactone [Aldactone] 25 mg PO DAILY 11/23/23 02/15/25 History Ferrous Sulfate [Iron (65 MG 325 mg PO DAILY 07/05/24 02/15/25 History Elemental)] Multivitamins, Thera [Multivitamin 1 tab PO DAILY 07/05/24 02/15/25 History (formulary)] Folic Acid 1 mg PO DAILY 08/30/24 02/15/25 History L.rhamnosus/B.animalis(Lactis) 1 cap PO DAILY 08/30/24 02/15/25 History [Anderson' Colon Hlth 3B Cfu Cp] Potassium Chloride ER [K-Dur 10] 10 meq PO DAILY 08/30/24 02/15/25 History Vitamin B-12 (Unknown Dose) 2 tab PO DAILY 08/30/24 02/15/25 History Acetaminophen Tab [Tylenol] 650 mg PO Q4H PRN #30 tablet 02/14/25 02/15/25 Rx Cephalexin [Keflex] 500 mg PO Q12HR 4 Days #8 cap 02/19/25 Rx Furosemide [Lasix] 20 mg PO DAILY #7 tab 02/19/25 Rx Allergies Allergy/AdvReac Type Severity Reaction Status Date / Time morphine Allergy Vomiting Verified 02/15/25 11:55 Physical Exam Vitals: Vital Signs Temp Pulse Resp BP Pulse Ox 02/20/25 07:08 97.8 F 99 18 101/66 100 02/20/25 02:08 97.7 F 95 18 100/59 99 02/19/25 19:13 98.1 F 78 19 111/68 100 02/19/25 13:31 97.8 F 79 18 106/66 97 Intake and Output 02/19/25 02/20/25 02/20/25 22:59 06:59 14:59 Output Total 300 250 Balance -300 -250 Output: Urine 300 Stool 250 Other: Voiding Method Urinal # Voids 6 2 Results CBC & Chem 7: 02/18/25 10:15 02/19/25 02:57 Assessment and Plan (1) Nontraumatic tear of skin Current Visit: Yes Status: Acute Code(s): T14.8XXA - OTHER INJURY OF UNSPECIFIED BODY REGION, INITIAL ENCOUNTER SNOMED Code(s): 554512978
--- NOTE | 2025-02-20 12:23 | P.PN ---
Subjective Progress Note Date: 02/20/25 SURGICAL PROGRESS NOTE CHIEF COMPLAINT: History of colon cancer HISTORY OF PRESENT ILLNESS: Patient sitting up in bedside chair. Ostomy is functioning. Pain is controlled. Denies any nausea or vomiting. He has been up and ambulating. Patient accidentally pulled off the left great toenail yesterday. He has been seen by wound care and podiatry. And is planning for discharge. Afebrile. PHYSICAL EXAM: VITAL SIGNS: Reviewed. GENERAL: Well-developed in no acute distress. ABDOMEN: Soft. Nondistended. Decreased erythema at incision site. Packing is in place. Some minimal serosanguineous drainage noted at on the dressing at the distal aspect of the incision. NEUROLOGIC: Alert and oriented. Cranial nerves II through XII grossly intact. Extremities: Bilateral lower extremity edema decreasing ASSESSMENT: 1. History of colon cancer status post sigmoid resection on 02/05/2025 2. Fall 3. Midline surgical incision infection PLAN: -Patient can be discharged from surgical standpoint -Continue local wound care -Agree with p.o. antibiotics at discharge -Patient being discharged home with home care Physician Store Keeper note has been reviewed by physician. Signing provider agrees with the documented findings, assessment, and plan of care. Objective - Vital Signs Vital signs: Vital Signs Temp 97.8 F 02/20/25 07:08 Pulse 99 02/20/25 07:08 Resp 18 02/20/25 07:08 BP 101/66 02/20/25 07:08 Pulse Ox 100 02/20/25 07:08 FiO2 Intake & Output 02/19/25 02/20/25 02/20/25 18:59 06:59 18:59 Output Total 400 250 Balance -400 -250 Output: Urine 300 Stool 100 250 Other: Voiding Method Urinal Urinal # Voids 6 2 - Labs CBC & Chem 7: 02/18/25 10:15 02/19/25 02:57
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
== END 2025-02-20 12:45 | disposition home health service (06) | DRG 863 ==
LOC: EC 06:16 → 4SSUR 10:19 → OBSVTOIN 02-16 07:57
PROVIDERS: ADMIT Student in an Organized Health Care Education/Training Program; ATTEND Student in an Organized Health Care Education/Training Program
DX: T81.41XA Infection following a procedure, superficial incisional surgical site, initial encounter (principal); S09.90XA Unspecified injury of head, initial encounter; C18.9 Malignant neoplasm of colon, unspecified; B96.1 Klebsiella pneumoniae [K. pneumoniae] as the cause of diseases classified elsewhere; L03.311 Cellulitis of abdominal wall; B96.20 Unspecified Escherichia coli [E. coli] as the cause of diseases classified elsewhere; D50.9 Iron deficiency anemia, unspecified; I10 Essential (primary) hypertension; I48.0 Paroxysmal atrial fibrillation; Z93.3 Colostomy status; E83.42 Hypomagnesemia; E87.6 Hypokalemia; E87.70 Fluid overload, unspecified; H91.90 Unspecified hearing loss, unspecified ear; I89.0 Lymphedema, not elsewhere classified; Z79.899 Other long term (current) drug therapy; Z87.891 Personal history of nicotine dependence; Z87.01 Personal history of pneumonia (recurrent); W19.XXXA Unspecified fall, initial encounter; Z88.5 Allergy status to narcotic agent
CPT/HCPCS: 36415; 70450; 72125; 80048; 80053; 83735; 83880; 85025; 87040; 87324; 93306; 93970; 96365; 96366; 96368; 99285

== ENCOUNTER → 2025-03-27 | Outpatient (CLI) | payer MEDICARE, OTHER ==
--- NOTE | 2025-03-28 08:06 | XR ---
EXAMINATION TYPE: XR chest 2V DATE OF EXAM: 03/27/2025 3:56 PM COMPARISON: 02/10/2025 CLINICAL INDICATION: Male, 79 years old with history of C18.7, D50.9, C18.9, D64.9, TECHNIQUE: XR chest 2V view(s) obtained. FINDINGS: The heart size is normal. The pulmonary vasculature is normal. The lungs are clear. Previous right lower lobe infiltrate has resolved. Porches on the right to the proximal superior vena cava IMPRESSION: 1. No acute pulmonary process. [facility], , 03/28/2025 8:04 AM
== END | disposition home or self-care (01) ==
LOC: RADXRMAIN 15:30
PROVIDERS: ATTEND Internal Medicine
DX: C18.7 Malignant neoplasm of sigmoid colon (principal); D50.9 Iron deficiency anemia, unspecified
CPT/HCPCS: 71046

== ENCOUNTER → 2025-05-02 | Outpatient (CLI) | payer MEDICARE, OTHER ==
[2025-05-02 15:40] LABS: NT-Pro-B-Type Natriuretic Pept 1473 pg/mL (0-450)
[2025-05-02 15:47] LABS: ALT 13 U/L (10-49); AST 18 U/L (14-35); Albumin 4.0 g/dL (3.8-4.9); Albumin/Globulin Ratio 1.21 Ratio (1.60-3.17); Alkaline Phosphatase 113 U/L (41-126); Anion Gap 12.40 mmol/L (4.00-12.00); BUN/Creat Ratio 14.75 Ratio (12.00-20.00); Blood Urea Nitrogen 11.8 mg/dL (9.0-27.0); Calcium 9.3 mg/dL (8.7-10.3); Carbon Dioxide 25.6 mmol/L (21.6-31.8); Chloride 101 mmol/L (96-109); Globulin 3.3 g/dL (1.6-3.3); Glucose 83 mg/dL (70-110); Potassium 4.4 mmol/L (3.5-5.5); Sodium 139 mmol/L (135-145); Total Protein 7.3 g/dL (6.2-8.2)
== END | disposition home or self-care (01) ==
LOC: LABWHC1 09:00
PROVIDERS: ATTEND Internal Medicine Interventional Cardiology
DX: I42.8 Other cardiomyopathies (principal)
CPT/HCPCS: 36415; 80053; 83880

== ENCOUNTER → 2025-05-09 | Outpatient (CLI) | payer MEDICARE, OTHER ==
--- NOTE | 2025-05-09 09:49 | XR ---
EXAMINATION TYPE: XR chest 2V DATE OF EXAM: 05/09/2025 9:36 AM COMPARISON: Chest radiographs from 03/27/2025 TECHNIQUE: XR chest 2V Frontal and lateral views of the chest. CLINICAL INDICATION:Male, 79 years old with history of J45.909 ASTHMA; FINDINGS: Lungs/Pleura: There is no evidence of pleural effusion, focal consolidation, or pneumothorax. Hyperi nflation with flattening of the hemidiaphragms. Pulmonary vascularity: Unremarkable. Heart/mediastinum: Cardiomediastinal silhouette is prominent in size. Musculoskeletal: No acute osseous pathology. -thoracic spine. Other findings: None Lines/Tubes: Right chest subclavian approach Mediport catheter distal tip in the high SVC. IMPRESSION: No focal consolidation. Lung hyperinflation which is compatible with reported asthma. [facility], , 05/09/2025 9:47 AM
== END | disposition home or self-care (01) ==
LOC: RADXRMAIN 09:18
PROVIDERS: ATTEND Internal Medicine
DX: R91.8 Other nonspecific abnormal finding of lung field (principal)
CPT/HCPCS: 71046